=== PATIENT | male | born 1945 | race Caucasian/White ===

== ENCOUNTER 2019-07-04 10:31 | Emergency (ER) | payer MEDICARE, OTHER ==
[~2019-07-04] VITALS: Ht 177.8 cm; Wt 106.6 kg
--- OUTSIDE RECORDS SUMMARY | ~2019-07-04 | XMS | Encounter Summary ---
Demographics + + + | Address | [address] | | | [place] [address] | + + + | Home Phone | | + + + | Preferred Language | Unknown | + + + | Marital Status | | + + + | Pentecostalism Affiliation | 1027 | + + + | Race | Unknown | + + + | Ethnic Group | Unknown | + + + Author + + + | Author | [facility] | | | and [place] | + + + | Organization | [facility] | | | and [place] | + + + | Address | Unknown | + + + | Phone | Unavailable | + + + Support + + +---------+ + | Name | Relationship | Address | Phone | + + +---------+ + | Kailee Arce | ECON | Unknown | | + + +---------+ + Care Team Providers + +------+ + | Care Gas Turbine Assembler Name | Role | Phone | + +------+ + | Ralph Xavier MD | PCP | | + +------+ + Reason for Visit +---------+ + | Reason | Comments | +---------+ + | Results | | +---------+ + Encounter Details +--------+ + + + + | Date | Type | Department | Care Team | Description | +--------+ + + + + | 07/01/ | Telephone | [facility] [place] | Charlotte Turner, | Results | | 2016 | | CARDIOLOGY [address] | MD [address] | | | | | [place], | [place], [place] | | | | | [place] [address] | [address] | | | | | [phone] | | | +--------+ + + + + Social History + +-------+ +--------+------+ | Tobacco Use | Types | Packs/Day | Years | Date | | | | | Used | | + +-------+ +--------+------+ | Never Smoker | | | | | + +-------+ +--------+------+ + +---+---+---+ | Smokeless Tobacco: | | | | | Never Used | | | | + +---+---+---+ + + +---------+ + | Alcohol Use | Drinks/Week | oz/Week | Comments | + + +---------+ + | Not Asked | 0 Standard drinks | 0.0 | | | | or equivalent | | | + + +---------+ + + + + | Sex Assigned at | Date Recorded | | | | + + + | Not on file | | + + + + + + + | Job Start Date | Occupation | Industry | + + + + | Not on file | Not on file | Not on file | + + + + + + + + | Travel History | Travel Start | Travel End | + + + + + + | No recent travel history available. | + + documented as of this encounter Plan of Treatment Not on filedocumented as of this encounter Visit Diagnoses Not on filedocumented in this encounter"
--- OUTSIDE RECORDS SUMMARY | ~2019-07-04 | XMS | Encounter Summary ---
Demographics + + + | Address | [address] | | | [place] [address] | + + + | Home Phone | | + + + | Preferred Language | Unknown | + + + | Marital Status | | + + + | Latter-Day Affiliation | 1027 | + + + | Race | Unknown | + + + | Ethnic Group | Unknown | + + + Author + + + | Author | [facility] | | | and [place] | + + + | Organization | [facility] | | | and [...] Team Providers + +------+ + | Care Barker Operator Name | Role | Phone | + +------+ + | Ralph Xavier MD | PCP | | + +------+ + Reason for Visit +--------+ + | Reason | Comments | +--------+ + | Other | patient needs to be seen in Cardiology soon | +--------+ + Encounter Details +--------+ + + + + | Date | Type | Department | Care Team | Description | +--------+ + + + + | 10/29/ | Telephone | [facility] [place] | Umberto Wren MD | Other (patient needs | | 2017 | | CARDIOLOGY [address] | [address] | to be seen in | | | | [place], | [place] | Cardiology soon) | | | | [place] [address] | [address] | | | | | [phone] | | | +--------+ + + + [...] Comments | + + +---------+ + | No | 0 Standard drinks | 0.0 | [...]
--- OUTSIDE RECORDS SUMMARY | ~2019-07-04 | XMS | Encounter Summary ---
Demographics + + + | Address | [address] | | | [place] [address] | + + + | Home Phone | | + + + | Preferred Language | Unknown | + + + | Marital Status | | + + + | Christianity Affiliation | 1027 | + + + | Race | Unknown | + + + | Ethnic Group | Unknown | + + + Author + + + | Author | [facility] | | | and [place] | + + + | Organization | [facility] | | | and [...] Team Providers + +------+ + | Care Excavation Laborer Name | Role | Phone | + [...] [address] | | | | | [place], | [place], [place] | | | | | [place] [address] | [address] | | | | | [phone] | | | +--------+ + + + [...]
--- OUTSIDE RECORDS SUMMARY | ~2019-07-04 | XMS | Encounter Summary ---
Demographics + + + | Address | [address] | | | [place] [address] | + + + | Home Phone | | + + + | Preferred Language | Unknown | + + + | Marital Status | | + + + | Evangelical Affiliation | 1027 | + + + | Race | Unknown | + + + | Ethnic Group | Unknown | + + + Author + + + | Author | [facility] | | | and [place] | + + + | Organization | [facility] | | | [...] Team Providers + +------+ + | Care Real Estate Operations Manager Name | Role | Phone | + +------+ + | Ralph Xavier MD | PCP | | + +------+ + Reason for Visit + + + | Reason | Comments | + + + | Lab Results | | + + + Encounter Details +--------+ + + + + | Date | Type | Department | Care Team | Description | +--------+ + + + + | 03/02/ | Telephone | [facility] | Kristen Luke | Lab Results | | 2019 | | CARDIOLOGY [place] | [address] | | | | | [address] | [address] | | | | | [address] | [place] [address] | | | | | [place], [place] | [phone] | | | | | [address] | | | | | | [phone] | | | +--------+ + + + [...]
--- OUTSIDE RECORDS SUMMARY | ~2019-07-04 | XMS | Encounter Summary ---
Demographics + + + | Address | [address] | | | [place] [address] | + + + | Home Phone | | + + + | Preferred Language | Unknown | + + + | Marital Status | | + + + | Moravian Affiliation | 1027 | + + + | Race | Unknown | + + + | Ethnic Group | Unknown | + + + Author + + + | Author | [facility] | | | and [place] | + + + | Organization | [facility] | | | [...] Team Providers + +------+ + | Care Filter Machine Operator Name | Role | Phone | + +------+ + | Ralph Xavier MD | PCP | | + +------+ + Reason for Visit + + + | Reason | Comments | + + + | Follow-up | | + + + Encounter Details +--------+---------+ + + + | Date | Type | Department | Care Team | Description | +--------+---------+ + + + | 11/20/ | Office | [facility] [place] | Yue, Charlotte Catie, | Atherosclerosis of | | 2016 | Visit | CARDIOLOGY [address] | MD [address] | [place] coronary | | | | [place], | [place], [place] | artery of [place] | | | | [place] [address] | [address] | heart without angina | | | | [phone] | | pectoris (Primary | | | | | | Dx); Pure | | | | | | hypercholesterolemia | | | | | | ; S/P drug eluting | | | | | | coronary stent | | | | | | placement | +--------+---------+ + + + Social History + +-------+ [...] + + documented as of this encounter Last Filed Vital Signs + + + + + | Vital Sign | Reading | Time Taken | Comments | + + + + + | Blood Pressure | 142/72 | 11/21/2015 10:53 AM | | | | | PDT | | + + + + + | Pulse | 66 | 11/21/2015 10:53 AM | | | | | PDT | | + + + + + | Temperature | - | - | | + + + + + | Respiratory Rate | 18 | 11/21/2015 10:53 AM | | | | | PDT | | + + + + + | Oxygen Saturation | - | - | | + + + + + | Inhaled Oxygen | - | - | | | Concentration | | | | + + + + + | Weight | 104.8 kg (231 lb) | 11/21/2015 10:53 AM | | | | | PDT | | + + + + + | Height | 177.8 cm (5' 10") | 11/21/2015 10:53 AM | | | | | PDT | | + + + + + | Body Mass Index | 33.15 | 11/21/2015 10:53 AM | | | | | PDT | | + + + + + documented in this encounter Progress Notes Charltote Turner MD - 11/21/2015 3:07 PM PDTFormatting of this note might be different fr om the original. PATIENT NAME: Raz Arce : 1945: AGE: 70 y.o. PRIMARY CARE: Ralph Xavier MD OUTPATIENT FOLLOW UP VISIT Date of Service: 11/21/2015 HISTORY OF PRESENT ILLNESS: Raz Arce is a 70 y.o. male with a history of STEMI. He is being seen today for foll ow up . He been working really hard. He is in the midst of moving and has done a lot of physical e xertion last week he had some second long discomforts that concerned him. He has not had an ything that lasted for even a minute or was long enough to take nitro. I had the Holter monitor done which did not show any significant ventricular dysrhythmia He has continued to lose weight. Diet is good. Blood sugars are good - no hypoglycemia MEDICAL, SURGICAL, AND PERSONAL HISTORY Past Medical, Surgical, Family, and Social History are reviewed in EPIC. 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 30 tablet 11 atorvaSTATin (LIPITOR) 80 MG tablet Take 1 tablet by mouth nightly. 30 tablet 11 glipiZIDE (GLUCOTROL XL) 10 MG 24 hr tablet hydrochlorothiazide 25 mg tablet Take 25 mg by mouth Daily. losartan (COZAAR) 100 MG tablet Take 1 tablet by mouth Daily. 30 tablet 11 montelukast (SINGULAIR) 10 mg tablet Take 1 tablet by mouth nightly. 30 tablet 11 nitroglycerin (NITROSTAT) 0.[address] 1 tablet under the tongue every 5 neyda karthik as needed for Chest pain. 30 tablet 11 ONE TOUCH ULTRA TEST strip ONETOUCH DELICA LANCETS 33G MISC pantoprazole (PROTONIX) 20 mg tablet Take 1 tablet by mouth every morning (before break fast). 30 tablet 11 prasugrel (EFFIENT) 10 mg TABS Take 1 tablet by mouth Daily. 30 tablet 11 No current facility-administered medications for this visit. ALLERGIES Allergies Allergen Reactions Meperidine ROS No problems with medications. No bleeding or significant bruising. His only chest discomfort is the single stabs lasting no more than seconds. Is not had any significant dyspnea or exertional problems. 10 system review is otherwise noncontributory OBJECTIVE: PHYSICAL EXAM BP 142/72 mmHg | Pulse 66 | Resp 18 | Ht 1.778 m (5' 10") | Wt 104.781 kg (231 lb) | BMI 33 .15 kg/m2 Physical Exam Constitutional: He is oriented to person, place, and time. He appears well-developed and we ll-nourished. HENT: Head: Atraumatic. Eyes: Conjunctivae are normal. Neck: Neck supple. No JVD present. Cardiovascular: Normal rate and regular rhythm. Exam reveals no gallop and no friction rub . No murmur heard. Pulmonary/Chest: Effort normal and breath sounds normal. Abdominal: Soft. Musculoskeletal: He exhibits no edema. Lymphadenopathy: He has no cervical adenopathy. Neurological: He is oriented to person, place, and time. Skin: Skin is warm and dry. Psychiatric: He has a normal mood and affect. LAB RESULTS reviewed during visit today primarily from [facility]: LIPID Lab Results Component Value Date CHOL 153 06/07/2015 TRIG 122 06/07/2015 HDL 38 06/07/2015 LDL 91 06/07/2015 CHOLHDL 4.0 06/07/2015 CHEMISTRY Lab Results Component Value Date GLU 165* 07/02/2015 NA 139 07/02/2015 K 4.1 07/02/2015 CL 102 07/02/2015 CO2 29 07/02/2015 CALCIUM 9.1 07/02/2015 ALKPHOS 56 06/06/2015 AST 33 06/06/2015 ALT 25 06/06/2015 BILITOT 0.6 06/06/2015 CREA 1.44* 07/02/2015 BUN 13 07/02/2015 HEMATOLOGY Lab Results Component Value Date WBC 9.7 06/24/2015 HGB 14.4 06/24/2015 HCT 42.9 06/24/2015 PLT 181 06/24/2015 ASSESSMENT: ASHD with anterior STEMI SHELLEY extending from LAD to the major diagonal - closure of the very distal LAD. EF 50% Atypical stabbing chest discomfort. He has not had any more angina No CHF Dyslipidemia on medical Rx PLAN: Don't over do with moving Continue diet and aerobic exercise Follow up in April - I would be happy to see him sooner if he has any problems In May we will be able to stop EFFIENT Electronically signed by: Charlotte Turner MD [facility] 11/21/2015 Portions of this chart may have been created with [employer] voice recognition software. Occasi onal wrong-word or sound-alike substitutions may have occurred due to the inherent rodriguez itations of voice recognition software. Please read the chart carefully and recognize, using context, where these substitutions have occurred. documented in this encounter Plan of Treatment Not on filedocumented as of this encounter Visit Diagnoses + + | Diagnosis | + + | Atherosclerosis of [place] coronary artery of [place] heart without angina pectoris - | | Primary | + + | Pure hypercholesterolemia | + + | S/P drug eluting coronary stent placement | + + documented in this encounter
--- OUTSIDE RECORDS SUMMARY | ~2019-07-04 | XMS | Encounter Summary ---
Demographics + + + | Address | [address] | | | [place] [address] | + + + | Home Phone | | + + + | Preferred Language | Unknown | + + + | Marital Status | | + + + | Baptism Affiliation | 1027 | + + + | Race | Unknown | + + + | Ethnic Group | Unknown | + + + Author + + + | Author | [facility] | | | and [place] | + + + | Organization | [facility] | | | [...] Team Providers + +------+ + | Care Dispatcher Clerk Name | Role | Phone | + +------+ + | Ralph Xavier MD | PCP | | + +------+ + Reason for Visit + + + | Reason | Comments | + + + | Appointment | needs 3 mo fup in sept | + + + Encounter Details +--------+ + + + + | Date | Type | Department | Care Team | Description | +--------+ + + + + | 09/19/ | Telephone | [facility] | Charlotte Turner, | Appointment (needs 3 | | 2016 | | CARDIOLOGY [address] | MD [address] | mo fup in nov) | | | | [place], | [place] | | | | | [place] [address] | [address] | | | | | [phone] | | | +--------+ + + + [...]
--- OUTSIDE RECORDS SUMMARY | ~2019-07-04 | XMS | Encounter Summary ---
Demographics + + + | Address | [address] | | | [place] [address] | + + + | Home Phone | | + + + | Preferred Language | Unknown | + + + | Marital Status | | + + + | Latter-Day Affiliation | 1027 | + + + | Race | Unknown | + + + | Ethnic Group | Unknown | + + + Author + + + | Author | [facility] | | | and [place] | + + + | Organization | [facility] | | [...] Team Providers + +------+ + | Care Bid Analyst Name | Role | Phone | + +------+ + | Ralph Xavier MD | PCP | | + +------+ + Reason for Visit Auth/Cert +--------+--------+ + + + + | Status | Reason | Specialty | Diagnoses / | Referred By | Referred To | | | | | Procedures | Contact | Contact | +--------+--------+ + + + + | | | | Diagnoses | | | | | | | ANGINA, | | | | | | | CHEST PAIN | | | | | | | Procedures | | | | | | | CV LHC | | | +--------+--------+ + + + + Encounter Details +--------+ + + + + | Date | Type | Department | Care Team | Description | +--------+ + + + + | 05/27/ | Hospital | [facility] | Charlotte Turner, | | | 2016 | Encounter | MED CTR CV [facility] OP | [address] | | | | | [address] | [place] | | | | | [place] | [id number] | | | | | [id number] | | | | | | [phone] | | | +--------+ + + + [...] + + + | Blood Pressure | 130/60 | 05/27/2016 12:00 PM | | | | | PDT | | + + + + + | Pulse | 55 | 05/27/2016 12:00 PM | | | | | PDT | | + + + + + | Temperature | 36.4 C (97.5 F) | 05/27/2016 7:40 AM | | | | | PDT | | + + + + + | Respiratory Rate | 20 | 05/27/2016 12:00 PM | | | | | PDT | | + + + + + | Oxygen Saturation | 95% | 05/27/2016 12:00 PM | | | | | PDT | | + + + + + | Inhaled Oxygen | - | - | | | Concentration | | | | + + + + + | Weight | 112.9 kg (249 lb) | 05/27/2016 7:40 AM | | | | | PDT | | + + + + + | Height | 177.8 cm (5' 10") | 05/27/2016 7:40 AM | | | | | PDT | | + + + + + | Body Mass Index | 35.73 | 05/27/2016 7:40 AM | | | | | PDT | | + + + + + documented in this encounter Discharge Summaries Charlotte Turner MD - 05/27/2016 10:07 AM PDTFormatting of this note might be different fr om the original. DISCHARGE SUMMARY PATIENT NAME/: Raz Arce, (1945) DATE OF ADMISSION: 05/27/2016 DATE OF DISCHARGE: 05/27/2016 DISCHARGING PHYSICIAN: Charlotte Turner MD ADMITTING DIAGNOSIS: Angina, class IV Discharge Diagnosis: Hypertensive heart disease PRIMARY CARE PROVIDER: Ralph Xavier MD DISPOSITION: Discharge to home BRIEF HOSPITAL COURSE: Please see the history and physical at the time of admission. Briefly, Mr. Arce is a 70 y.o. male who was admitted on 05/27/2016 with Angina, class IV . He presented to the clinic on 05/26/16 with a history that H/O ASHD and STEMI 05/2015 He was doing well up until end apr. He developed recurrent exertional symptoms and sym ptoms that occurred at rest as well. In February and March and was very active shoveling snow without symptoms. Then the end of April he did only 10 minutes of snow and noted he felt weak, fatigued and had left chest pain. Now he can not even walk to the mailbox. Yesterday he tried to mow. He noted the same symptoms. He had to stop. Then after he stopped he was able to go on and felt better. He felt like his pulse was stronger. He has felt like his pulse is weak for the last month. He has not had dyspnea. He has not slept in a bed for years - long before his DC If he would lie down he could not breath. He underwent an angiogram on 05/27/16: Hemodynamics: Left ventricular end-diastolic pressure (LVEDP) was 25 mm Hg. There was no gradient a cross the aortic valve. Left Ventriculography: EF 65% no MR. Small area of hypokinesis at the apex. Left main coronary artery: 10% Large vessel Left anterior descending coronary artery: No restenosis in the stented segment. Apical LAD is not seen (small area as before). There are no collaterals to this apical LAD seen. Diagonal branch: Large. No restenosis. Circumflex coronary artery: Huge system. Dominant and no disease. 4th marginal has 20% lesion. As does the 5th marginal. No significant disease is seen in the circumflex system Right coronary artery: Small. Non dominant. No significant disease. CONCLUSIONS: 1. Symptoms are due to hypertensive heart disease 2. Will adjust medications He can not take a beta julisa due to bradycardia. Norvasc was added and HCTZ was changed to Lasix 20 mg a day. HOSPITAL PROBLEMS: Active Problems: Angina, class IV Hypertensive heart disease without heart failure MASTER PROBLEM LIST: Patient Active Problem List Diagnosis Date Noted POA Angina, class IV 05/27/2016 Unknown Hypertensive heart disease without heart failure 05/27/2016 Unknown Coronary artery disease involving [place] coronary artery of [place] heart without angina pectoris 07/02/2015 Unknown S/P PTCA (percutaneous transluminal coronary angioplasty) 07/02/2015 Unknown Diabetic neuropathy associated with type 2 diabetes mellitus 06/07/2015 Yes Chronic renal insufficiency 06/07/2015 Yes Mild intermittent asthma 06/07/2015 Yes STEMI involving oth coronary artery of anterior wall 06/06/2015 Unknown Essential hypertension 06/06/2015 Yes Type 2 diabetes mellitus 06/06/2015 Yes VITALS: Temp: 36.4 C (97.5 F) BP: 151/74 mmHg Pulse: 70 Resp: 20 SpO2: 96 % WEIGHT: Today's Weight: 112.946 kg (249 lb) Admit Weight: 112.946 kg (249 lb) BRIEF EXAM TODAY: General Appearance - alert, in no distress Heart - regular rate and rhythm, S1 and S2 normal, no murmur, rub, or gallop. Lungs - clear to auscultation bilaterally Musc/Skel - moves all extremities Extremities - no cyanosis. no significant edema Neurologic - no focal deficits no hematoma CONSULTATION: none DIAGNOSTIC STUDIES: Imaging: ECG: Selected Labs: Recent Labs Lab 05/27/16 0750 05/26/16 1244 WBC -- 6.9 HGB -- 14.2 HCT -- 43.3 PLT -- 203 NA 144 142 K 4.2 3.9 BUN 11 11 CREA 1.45* 1.43* GLU 145* 176* CALCIUM 8.7 9.1 No results for input(s): BNP, HDL, LDL, TRIG in the last 168 hours. Invalid input(s): CKTOTAL, TROPONINI Recent Results (from the past 24 hour(s)) ECG 12 lead Collection Time: 05/26/16 12:12 Result Value Ref Range VENTRICULAR RATE EKG 52 BPM ATRIAL RATE 52 BPM P-R INTERVAL 124 ms QRS DURATION 104 ms Q-T INTERVAL 412 ms Q-T INTERVAL (CORRECTED) 383 ms P WAVE AXIS 41 degrees QRS AXIS 43 degrees T AXIS 90 degrees INTERPRETATION TEXT Sinus bradycardia Septal infarct (cited on or before 06-JUN-2015) Abnormal ECG When compared with ECG of 23-JUL-2015 10:37, premature atrial complexes are no longer present Questionable change in initial forces of Anterior leads Nonspecific T wave abnormality has replaced inverted T waves in Anterior leads Confirmed by CHARLOTTE TURNER MD ([id number]) on 05/26/2016 4:27:10 PM Comprehensive Metabolic Panel Collection Time: 05/26/16 12:44 Result Value Ref Range NA 142 136-149 mmol/L K 3.9 3.5-5.1 mmol/L CL 102 98-109 mmol/L CO2 28 24-31 mmol/L ANION GAP 12 3-16 mmol/L GLUCOSE 176 (H) 70-109 mg/dL BUN 11 7-18 mg/dL Creatinine, Serum/Plasma 1.43 (H) 0.60-1.30 mg/dL eGFR if not 49 (L) >=60 mL/min/1.73m2 CALCIUM 9.1 8.3-10.5 mg/dL ALBUMIN 3.5 3.2-5.0 g/dL BILIRUBIN TOTAL 0.5 0.1-1.5 mg/dL Total protein 7.0 6.0-7.8 g/dL AST 24 10-42 U/L ALT 25 6-45 U/L ALK PHOS 79 40-110 U/L GLOBULIN 3.5 2.1-3.8 g/dL Albumin/Globulin ratio 1.0 0.8-2.0 BUN/CREA 7.7 CBC with Differential Collection Time: 05/26/16 12:44 Result Value Ref Range WBC 6.9 4.0-11.0 K/uL RBC 4.85 4.30-5.70 M/uL Hgb 14.2 13.5-18.0 g/dL Hct 43.3 40.0-51.0 % MCV 89.3 83.0-101.0 fL MCH 29.2 28.0-35.0 pg MCHC 32.7 32.0-36.0 g/dL RDW-CV 13.3 <15.0 % Platelet Count 203 140-440 K/uL MPV 6.9 fL % Neutrophils 57.5 45.0-82.0 % % Lymphocytes 25.8 20.0-45.0 % % Monocytes 10.7 4.0-12.0 % % Eosinophils 5.1 (H) 0.0-5.0 % % Basophils 0.9 0.0-1.0 % Absolute Neutrophils 3.90 1.80-8.50 K/uL Absolute Lymphocytes 1.80 0.60-3.20 K/uL Absolute Monocytes 0.70 0.00-1.00 K/uL Absolute Eosinophils 0.30 0.00-0.40 K/uL Absolute Basophils 0.10 0.00-0.10 K/uL Troponin I Collection Time: 05/26/16 12:44 Result Value Ref Range Troponin I 0.01 <0.06 ng/mL Basic Metabolic Panel Collection Time: 05/27/16 7:50 Result Value Ref Range NA 144 136-149 mmol/L K 4.2 3.5-5.1 mmol/L CL 107 98-109 mmol/L CO2 29 24-31 mmol/L ANION GAP 8 3-16 mmol/L GLUCOSE 145 (H) 70-109 mg/dL BUN 11 7-18 mg/dL Creatinine, Serum/Plasma 1.45 (H) 0.60-1.30 mg/dL eGFR if not 48 (L) >=60 mL/min/1.73m2 CALCIUM 8.7 8.3-10.5 mg/dL BUN/CREA 7.6 POC Glucose Collection Time: 05/27/16 8:09 Result Value Ref Range Glucose, POC 122 70-150 mg/dL MEDS: Discharge Medications New Medications Details amLODIPine 5 mg tablet Take 1 tablet by mouth Daily. aka: NORVASC furosemide 20 mg tablet Take 1 tablet by mouth Daily. Replaces HCTZ. Begin 05/28/16 aka: LASIX Unchanged Medications Details aspirin 81 mg chewable tablet Take 1 tablet by mouth Daily. atorvaSTATin 80 MG tablet Take 1 tablet by mouth nightly. aka: LIPITOR glipiZIDE 10 mg ER tablet Take 10 mg by mouth daily (with breakfast). aka: GLUCOTROL XL losartan 100 MG tablet Take 1 tablet by mouth Daily. aka: COZAAR montelukast 10 mg tablet Take 1 tablet by mouth nightly. aka: SINGULAIR nitroglycerin 0.[address] 1 tablet under the tongue every 5 minutes as needed for Chest pain. aka: NITROSTAT ONE TOUCH ULTRA TEST strip Generic drug: glucose blood test strips ONETOUCH DELICA LANCETS 33G Misc Discontinued Medications hydroCHLOROthiazide 25 mg tablet prasugrel 10 mg Tabs aka: EFFIENT PATIENT INSTRUCTIONS: ACTIVITY: don't lift greater than a pound with the right hand for 2 days. see discharge instructions DIET: diabetic, low fat, low cholesterol diet FOLLOW-UP: Follow up with Dr Turner in June .. Time spent on discharge planning: less than 30 minutes Electronically signed by Charlotte Turner MD at 10:18 AM PDTdocumented in this encounter Discharge Instructions Instructions Charlotte Turner MD - 05/27/2016Formatting of this note might be different fr om the original. Cardiac Catheterization You may have had angina, dizziness, or other symptoms of heart trouble. To help diagnose yo ur problem, your doctor may suggest having a cardiac catheterization. This common procedure is sometimes also used to treat a heart problem. The catheter may be placed in the arm or the groin. Before the procedure 1. Tell your doctor what medicines you take and about any allergies you have. 2. Don t eat or drink anything after midnight, the night before the procedure. 3. You may be admitted to the hospital on the day of the procedure. 4. Know that any hair on the skin where the catheter will be inserted may be removed. You m ay be given medication to relax before the procedure. During the procedure 1. You will receive a local anesthetic to prevent pain at the insertion site. 2. The doctor inserts an introducing sheath into a blood vessel in your groin or arm. 3. Through the sheath, a long, thin tube called a catheter is placed inside the artery and guided toward your heart. 4. To perform different tests or check other parts of the heart, the doctor inserts a new c atheter or moves the catheter or X-ray machine. 5. For some tests, a contrast dye is injected through the catheter. After the procedure 1. Your doctor or nurse will tell you how long to lie down and keep the insertion site stil l. 2. If the insertion site was in your groin, you may need to lie down with your leg still fo r several hours. 3. A nurse will check your blood pressure and the insertion site. 4. You may be asked to drink fluid to help flush the contrast liquid out of your system. 5. Have someone drive you home from the hospital. 6. It s normal to find a small bruise or lump at the insertion site. These common side ef fects should disappear within a few weeks. When to call your healthcare provider Call your healthcare provider right away if you have any of the followin. Angina (chest pain). 2. Pain, swelling, redness, bleeding, or drainage at the insertion site. 3. Severe pain, coldness, or a bluish color in the leg or arm that held the catheter. 4. Blood in your urine, black or tarry stools, or any other kind of bleeding. 5. Fever of 100.4F (38C) or higher, or as directed by your healthcare provider Date Last Reviewed: 05/03/201319991023-7757 [employer]. [address] [place] [address]. All righ ts reserved. This information is not intended as a substitute for professional medical care. Always follow your healthcare professional's instructions. For 24 Hours: Do NOT drive For 2 days: Do NOT lift more than 1 pound with the affected arm. Keep the wrist dry, clean. No dishwashing, hot tub. Avoid wrist movement such as bike riding, golf. For 5 days: Avoid vigorous exercise that uses the affected arm. Pain It is common to be sore for 1 to 2 days at the catheter insertion site. You may take ac etaminophen (Tylenol) for pain relief. Follow the dosing instructions on the package. Take your regular aspirin as prescribed. Do NOT take other products that contain aspirin. Do NOT take other anti-inflammatory pr oducts such as ibuprofen (Advil, Motrin) or naproxen (Aleve, Naprosyn). They may cause incr eased bleeding. If you have severe pain at the catheter site, call your provider. Site Care You may remove the dressing or bandage the day after your procedure. Keep site clean and dry. Clean the site gently with mild soap and water. Re-apply a cl ibeth Band-Aid, if needed. It is normal to have a small bruise or lump at the insertion site. You may shower the day after your procedure, but avoid tub baths, hot tubs or swimming f or the next 2 days. Inspect the site everyday for infection. (see " When to Call for Help" on the next page ) Fluids Drink an extra 2 quarts of water, in addition to your normal fluid intake in the next 24 hours. This helps the body eliminate the contrast dye given to you during your procedure. If you are on a fluid restriction follow orders from your physician. When to Call for Help If you have bleeding at the site, apply pressure to the site with clean fingers for 10 neyda karthik. If the bleeding does not stop in 10 minutes, or there is a large amount of bleeding, mitzy l 9-1-1. Continue to apply pressure over the site until help arrives. If the bleeding stops, sit quietly for 2 hours while you keep the affected wrist straigh t. Call the doorkeeper who did your procedure as soon as possible. Other Concerns Call the doorkeeper who did your procedure if you have: Any of these Signs of Infection: Redness Fever higher than 101.5 degrees F or 38.6 degrees C Change in the bruise or lump. Numbness in your arm or wrist. Severe pain that is not relieved by Tylenol. Follow-up Care Continue your prescribed medications unless instructed otherwise. Follow-up with your primary health care provider and doorkeeper after your procedure, as instructed. If you have questions or concerns about your cardiac catheterization procedure, call the number below. [phone] documented in this encounter Medications at Time of Discharge + + + +---------+ + + | Medication | Sig | Dispensed | Refills | Start | End Date | | | | | | Date | | + + + +---------+ + + | aspirin 81 mg | Take 1 tablet by | 30 | 11 | 06/08/19 | | | chewable tablet | mouth Daily. | tablet | | 16 | | + + + +---------+ + + | atorvaSTATin | Take 1 tablet by | 30 | 11 | 06/08/19 | | | (LIPITOR) 80 MG | mouth nightly. | tablet | | 16 | | | tablet | | | | | | + + + +---------+ + + | glipiZIDE | Take 10 mg by mouth | | 0 | 05/29/19 | | | (GLUCOTROL XL) 10 MG | daily (with | | | 16 | | | 24 hr tablet | breakfast). | | | | | + + + +---------+ + + | losartan (COZAAR) | Take 1 tablet by | 30 | 11 | 06/08/19 | | | 100 MG tablet | mouth Daily. | tablet | | 16 | | + + + +---------+ + + | montelukast | Take 1 tablet by | 30 | 11 | 06/08/19 | | | (SINGULAIR) 10 mg | mouth nightly. | tablet | | 16 | | | tablet | | | | | | + + + +---------+ + + | nitroglycerin | Place 1 tablet under | 30 | 11 | 06/08/19 | | | (NITROSTAT) 0.4 mg | the tongue every 5 | tablet | | 16 | | | SL tablet | minutes as needed | | | | | | | for Chest pain. | | | | | + + + +---------+ + + | ONE TOUCH ULTRA | | | 0 | 06/12/19 | | | TEST strip | | | | 16 | | + + + +---------+ + + | JACKIESOLEDADLALI CORTES | | | 0 | 06/12/19 | | | TREMAYNE 33G MISC | | | | 16 | | + + + +---------+ + + | amLODIPine | Take 1 tablet by | 30 | 11 | 05/28/19 | | | (NORVASC) 5 mg | mouth Daily. | tablet | | 17 | 9 | | tablet | | | | | | + + + +---------+ + + | furosemide (LASIX) | Take 1 tablet by | 90 | 3 | 05/28/19 | | | 20 mg tablet | mouth Daily. | tablet | | 17 | 7 | | | Replaces HCTZ. | | | | | | | Begin 05/28/16 | | | | | + + + +---------+ + + documented as of this encounter Plan of Treatment Not on filedocumented as of this encounter Procedures + +--------+ + + + | Procedure Name | Priori | Date/Time | Associated Diagnosis | Comments | | | ty | | | | + +--------+ + + + | CV LHC | Routin | 05/27/2016 | | Results for this | | | e | 9:27 AM | | procedure are in the | | | | PDT | | results section. | + +--------+ + + + | POC GLUCOSE | Routin | 05/27/2016 | | Results for this | | | e | 8:09 AM | | procedure are in the | | | | PDT | | results section. | + +--------+ + + + | BASIC METABOLIC | STAT | 05/27/2016 | | Results for this | | PANEL | | 7:50 AM | | procedure are in the | | | | PDT | | results section. | + +--------+ + + + documented in this encounter Results CV CARDIAC PROCEDURE (05/27/2016 9:27 AM PDT) + + | Specimen | + + | | + + + + + | Narrative | Performed At | + + + | Charlotte Haddad | | | MD Yue 05/27/2016 10:00Roger Jaylen Arce is a 70 y.o. male | | | patient.No diagnosis found.Past Medical History Diagnosis Date | | | Diabetes mellitus ([facility]) | | | Hypertension | | | Reflux esophagitis | | | Food impaction of esophagus | | | Acute ST elevation myocardial infarction (STEMI) involving left | | | anterior descending (LAD) coronary artery ([facility]) 05/2015 | | | Dyslipidemia Blood pressure 151/74, pulse 70, temperature 36.4 | | | C (97.5 F), temperature source Temporal, resp. rate 20, height | | | 1.778 m (5' 10"), weight 112.946 kg (249 lb), SpO2 96 %. CV Cardiac | | | ProcedureDate/Time: 05/27/2016 9:59Performed by: CHARLOTTE TURNER | | | AAuthorized by: CHARLOTTE TURNER AConsent: Verbal consent obtained. | | | Written consent obtained.Risks and benefits: risks, benefits and | | | alternatives were discussedConsent given by: patientPatient | | | understanding: patient states understanding of the procedure being | | | performedPatient consent: the patient's understanding of the procedure | | | matches consent givenProcedure consent: procedure consent matches | | | procedure scheduledRelevant documents: relevant documents present and | | | verifiedTest results: test results available and properly labeledSite | | | marked: the operative site was markedImaging studies: imaging studies | | | availableRequired items: required blood products, implants, devices, | | | and special equipment availablePatient identity confirmed: verbally | | | with patientTime out: Immediately prior to procedure a "time out" was | | | called to verify the correct patient, procedure, equipment, support | | | staff and site/side marked as required.Preparation: Patient was | | | prepped and draped in the usual sterile fashion.Local anesthesia used: | | | yesLocal anesthetic: lidocaine 1% without epinephrinePatient sedated: | | | yesSedation type: moderate (conscious) sedationSedatives: fentanyl | | | and midazolamVitals: Vital signs were monitored during | | | sedation.Patient tolerance: Patient tolerated the procedure well with | | | no immediate complications [facility] LEFT CARDIAC | | | CATHETERIZATION REPORT PATIENT NAME: Raz Hinton OF | | | : 1945MEDICAL RECORD NUMBER: [id number] OF | | | PROCEDURE: | | | 05/27/2016 | | | | | | PRIMARY CARE PROVIDER: Ralph Xavier, | | | OMARIDIGN[facility] HOSPITALRenetta SIGN PAINTER APPRENTICE: Charlotte Turner MD, [facility], [facility] PRE-PROCEDURE | | | DIAGNOSIS: Class 4 anginaPOST-PROCEDURE DIAGNOSIS: hypertensive | | | heart disease PROCEDURES PERFORMED: 1. Left Heart | | | Catheterization for pressures2. Coronary Angiography3. Left | | | Ventriculography DESCRIPTION OF PROCEDURE: Informed consent was | | | obtained from the patient, and a time-out was performed to verify the | | | patient's identification and planned procedure. Please refer to the | | | computer log entry form for precise details. The patient's right | | | radial artery was sterilely prepped. Arterial access was achieved | | | with micropuncture kit. Patient was then given intravenous heparin | | | as well as intra-arterial nitroglycerin and Nicardipine through the | | | sheath. A 5 Anguillan JR4 was advanced to the descending aorta over a J | | | Wire. This catheter was used to perform right coronary angiography | | | . An LBU 3.0 was used for the left. A pigtail was advanced and | | | used to perform an LV gram. A pullback across the valve was used to | | | assess if there was a gradient across the aortic valve. The TR | | | band occluder device was utilized to achieve successful hemostasis of | | | the radial artery. There were no immediate complications. | | | Estimated blood loss was: 7 cc. Fluro Time: Contrast: 100 mls of | | | Omnipaque 350 Moderate sedation start time: 0848. Moderate sedation | | | stop time: 0920. ICharlotte MD, reviewed the patient's | | | pre-sedation assessment and vital signs, supervised and directed the | | | Moderate Sedation from administration to patient stabilization for | | | recovery. FINDINGS:Hemodynamics:Left ventricular end-diastolic | | | pressure (LVEDP) was 25 mm Hg. There was no gradient across the | | | aortic valve. Left Ventriculography: EF 65% no MR. Small area of | | | hypokinesis at the apex. Left main coronary artery: 10% Large | | | vesselLeft anterior descending coronary artery: No restenosis in the | | | stented segment. Apical LAD is not seen (small area as before). | | | There are no collaterals to this apical LAD seen.Diagonal branch: | | | Large. No restenosis.Circumflex coronary artery: Huge system. | | | Dominant and no disease. 4th marginal has 20% lesion. As does the 5th | | | marginal. No significant disease is seen in the circumflex | | | systemRight coronary artery: Small. Non dominant. No significant | | | disease. CONCLUSIONS:1. Symptoms are due to hypertensive heart | | | disease2. Will adjust medications CLINICAL IMPRESSION AND | | | RECOMMENDATIONS Stop EFFIENT Charlotte Turner MD, [facility], [facility] | | | [facility] [place]DATE/TIME: 05/27/2016 9:363 9:36 | | | Portions of this chart were created with [employer] voice recognition | | | software. Occasional wrong-word or | | | | | | sound-alike | | | substitutions may have occurred due to the inherent limitations of | | | voice recognition software. Please read the chart carefully and | | | recognize, using context, where these substitutions have occurred | | | Charlotte Turner05/27/2016 | | |Wire. This catheter was used to perform right coronary | | |angiography . An LBU 3.0 was used for the left. A pigtail was | | |advanced and used to perform an LV gram. A pullback across the | | |valve was used to assess if there was a gradient across the | | |aortic valve. | | | | | |The TR band occluder device was utilized to achieve successful | | |hemostasis of the radial artery. There were no immediate | | |complications. | | | | | | Estimated blood loss was: 7 cc. | | | Fluro Time: | | | | | | Contrast: 100 mls of Omnipaque 350 | | | | | |Moderate sedation start time: 0848. Moderate sedation stop time: | | |0920. I, Charlotte Turner MD, reviewed the patient's | | |pre-sedation assessment and vital signs, supervised and directed | | |the Moderate Sedation from administration to patient | | |stabilization for recovery. | | | | | | | | |FINDINGS: | | |Hemodynamics: | | |Left ventricular end-diastolic pressure (LVEDP) was 25 mm Hg. | | |There was no gradient across the aortic valve. | | | | | |Left Ventriculography: EF 65% no MR. Small area of hypokinesis | | |at the apex. | | |Left main coronary artery: 10% Large vessel | | |Left anterior descending coronary artery: No restenosis in the | | |stented segment. Apical LAD is not seen (small area as before). | | |There are no collaterals to this apical LAD seen. | | |Diagonal branch: Large. No restenosis. | | |Circumflex coronary artery: Huge system. Dominant and no | | |disease. 4th marginal has 20% lesion. As does the 5th marginal. | | |No significant disease is seen in the circumflex system | | |Right coronary artery: Small. Non dominant. No significant | | |disease. | | | | | |CONCLUSIONS: | | |1. Symptoms are due to hypertensive heart disease | | |2. Will adjust medications | | | | | |CLINICAL IMPRESSION AND RECOMMENDATIONS | | |Stop EFFIENT | | | | | |Charlotte Turner MD, [facility], [facility] | | | | | |DATE/TIME: 05/27/2016 9:36 | | |05/27/2016 9:36 | | | | | |Portions of this chart were created with [employer] voice recognition | | |software. Occasional wrong-word or sound-alike substitutions | | |may have occurred due to the inherent limitations of voice | | |recognition software. Please read the chart carefully and | | |recognize, using context, where these substitutions have occurred | | | | | | | | | | | | | | | | | | | | | | | | | | | | | | | | |Charlotte Turner | | |05/27/2016 | | | | | + + + POC Glucose (05/27/2016 8:09 AM PDT) + +-------+ + + + | Component | Value | Ref Range | Performed | Pathologist | | | | | At | Signature | + +-------+ + + + | Glucose, | 122 | 70 - 150 mg/dL | [facility] | | | POC | | | [facility] | | | | | | [facility] | | | | | | CENTER - | | | | | | LABORATORY | | + +-------+ + + + + + | Specimen | + + | Blood | + + + + + + + | Performing | Address | City/State/Zipcode | Phone Number | | Organization | | | | + + + + + | [facility] | [address] | [place] | [phone] | | [facility] | | [address] | | | - LABORATORY | | | | + + + + + Basic Metabolic Panel (05/27/2016 7:50 AM PDT) + + + + + + | Component | Value | Ref Range | Performed | Pathologist | | | | | At | Signature | + + + + + + | Na | 144 | 136 - 149 | [facility] | | | | | mmol/L | [facility] | | | | | | MEDICAL | | | | | | CENTER - | | | | | | LABORATORY | | + + + + + + | K | 4.2 | 3.5 - 5.1 | [facility] | | | | | mmol/L | [facility] | | [facility] | | | MEDICAL | | | | | | CENTER - | | | | | | LABORATORY | | + + + + + + | Cl | 107 | 98 - 109 mmol/L | [facility] | | | | | | [facility] | | | | | | MEDICAL | | | | | | CENTER - | | | | | | LABORATORY | | + + + + + + | CO2 | 29 | 24 - 31 mmol/L | [facility] | | | | | | [facility] | | | | | | [facility]ICAL | | | | | | CENTER - | | | | | | LABORATORY | | + + + + + + | Anion Gap | 8 | 3 - 16 mmol/L | [facility] | | | [facility] | [facility] | | | | | | [facility] | | | | | | CENTER - | | | | | | LABORATORY | | + + + + + + | Glucose | 145 (H) | 70 - 109 mg/dL | [facility] | | [facility] | [facility] | | | | | | [facility] | | | | | | CENTER - | | | | | | LABORATORY | | + + + + + + | BUN | 11 | 7 - 18 mg/dL | [facility] | | | | | | [facility] | | | | | | MEDICAL | | | | | | CENTER - | | | | | | LABORATORY | | + + + + + + | Creatinine | 1.45 (H) | 0.60 - 1.30 | [facility] | | | | | mg/dL | [facility] | | | | | | MEDICAL | | | | | | CENTER - | | | | | | LABORATORY | | + + + + + + | eGFR if not | 48 (L)Comment: | >=60 | [facility] | | | | GLOMERULAR FILTRATION | mL/min/1.73m2 | [facility] | | | [facility] | RATE,ESTIMATED | | MEDICAL | | | | mL/min/1.58p9Htes than | | CENTER - | | | | 60 Chronic kidney | | LABORATORY | | | | disease,if found over a | | | | | | 3-month period.Less than | | | | | | 15 Kidney failureFor | | | | | | | | | | | | Americans,multiply the | | | | | | calculated GFR by 1.21. | | | | | | | | | | + + + + + + | Calcium | 8.7 | 8.3 - 10.5 | [facility] | | | | | mg/dL | [facility] | | | | | | MEDICAL | | | | | | CENTER - | | | | | | LABORATORY | | + + + + + + | BUN/Creatin | 7.6 | | [facility] | | | ine Ratio | | | [facility] | | | | | | MEDICAL | | | | | | CENTER - | | | | | | LABORATORY | | + + + + + + + + | Specimen | + + | Blood | + + + + + + + | Performing | Address | City/State/Zipcode | Phone Number | | Organization | | | | + + + + + | [facility] | [address] | [place] | [phone] | | [facility] | | [address] | | | - LABORATORY | | | | + + + + + documented in this encounter Visit Diagnoses + + | Diagnosis | + + | Angina, class IV (HCC) Other and unspecified angina pectoris | + + | Hypertensive heart disease without heart failure Unspecified hypertensive heart | | disease without heart failure | + + documented in this encounter Administered Medications + +--------+ +--------+------+ + | Medication Order | MAR | Action | Dose | Rate | Site | | | Action | Date | | | | + +--------+ +--------+------+ + | nitroglycerin (NITRO-BID) 2% | Given | 05/28/19 | 1 inch | | Back-Lef | | ointment 1 inch 1 inch, Topical, | | 17 8:37 | | | t Upper | | EVERY 6 HOURS (4 times per day), | | AM PDT | | | | | First dose on Wed05/27/16 at | | | | | | | 0845 | | | | | | + +--------+ +--------+------+ + +---+---+ | | | +---+---+ + +---------+ +--------+-------+ + | sodium chloride 0.9% (NS) | New Bag | 05/28/19 | 1,000 | 125 | Left Arm | | infusion at 125 mL/hr, | | 17 8:11 | mLs | mL/hr | | | Intravenous, CONTINUOUS, Starting | | AM PDT | | | | | 05/27/16 at 0815, For | | | | | | | procedure only, not to exceed 1 | | | | | | | liter., Pre-op | | | | | | + +---------+ +--------+-------+ + +---+---+ | | | +---+---+ documented in this encounter
--- OUTSIDE RECORDS SUMMARY | ~2019-07-04 | XMS | Encounter Summary ---
Demographics + + + | Address | [address] | | | [place] [address] | + + + | Home Phone | | + + + | Preferred Language | Unknown | + + + | Marital Status | | + + + | Mormon Affiliation | 1027 | + + + | Race | Unknown | + + + | Ethnic Group | Unknown | + + + Author + + + | Author | [facility] | | | and [place] | + + + | Organization | [facility] | | | [...] Team Providers + +------+ + | Care Outside Deliverer Name | Role | Phone | + [...] + + | 05/27/ | Hospital | [facility] | Charlotte Turner, | | | 2016 | Encounter | [facility] | [address] | | | | | [address] | [place] | | | | | [place] | [id number] | | | | | [address] | | | | | | [phone] | | | +--------+ + + + [...] bed for years - long before his [place] If he would lie down he could [...] failure 05/27/2016 Unknown Coronary artery disease involving [place] coronary artery of [place] heart without angina pectoris 07/02/2015 Unknown S/P [...] Anterior leads Confirmed by CHARLOTTE TURNER MD ([id number]) on 05/26/2016 4:27:10 PM Comprehensive Metabolic Panel [...] by your healthcare provider Date Last Reviewed: 05/03/201319990775-1671 [employer]. [address] [place] [address]. All righ ts reserved. This information is [...] the affected wrist straigh t. Call the folder stitcher operator who did your procedure as soon as possible. Other Concerns Call the folder stitcher operator who did your procedure if you have: Any of these Signs of Infection: Redness Fever higher than 101.5 degrees F or 38.6 degrees C Change in the bruise or lump. Numbness in your arm or wrist. Severe pain that is not relieved by Tylenol. Follow-up Care Continue your prescribed medications unless instructed otherwise. Follow-up with your primary health care provider and folder stitcher operator after your procedure, as instructed. If you have questions or concerns about your cardiac catheterization procedure, call the number below. [phone] documented in this encounter Medications at Time [...] Diagnosis Date | | | Diabetes mellitus ([facility]) | | | Hypertension | | | Reflux esophagitis | | | Food impaction of esophagus | | | Acute ST elevation myocardial infarction (STEMI) involving left | | | anterior descending (LAD) coronary artery ([facility]) 05/2015 | | | Dyslipidemia Blood pressure [...] with | | | no immediate complications [facility] LEFT CARDIAC | | | CATHETERIZATION REPORT PATIENT NAME: Raz Hinton OF | | | : 1945MEDICAL RECORD NUMBER: [id number] OF | | | PROCEDURE: | | | 05/27/2016 | | | | | | PRIMARY CARE PROVIDER: Ralph Xavier, | | | [facility] DETECTOR CAR OPERATOR: Charlotte Turner MD, [facility], [facility] PRE-PROCEDURE | | | DIAGNOSIS: Class [...] the | | | sheath. A 5 [place] JR4 was advanced to the descending aorta [...] | RECOMMENDATIONS Stop EFFIENT Charlotte Turner MD, [facility], [facility] | | | [facility]: 05[facility]27/2016 9:363 9:36 | | | Portions of this chart were created with [employer] voice recognition | | | software. Occasional [...] | | | | |Charlotte Turner MD, [facility], [facility] | | |[facility] | | |DATE/TIME: 05/27/2016 9:36 | | |05/27/2016 9:36 | | | | | |Portions of this chart were created with [employer] voice recognition | | |software. Occasional wrong-word [...] [address] | [place] | [phone] | | [facility] | | [address] | | | - LABORATORY | | [...] 1.45 (H) | 0.60 - 1.30 | [facility] | | | | | mg/dL | [...] mL/min/1.73m2 | [facility] | | | [place] | RATE,ESTIMATED | | MEDICAL | | | | mL/min/1.09w0Cuum than | | CENTER - | | [...] [address] | [place] | [phone] | | [facility] | | [address] | | | - LABORATORY | | [...]
--- OUTSIDE RECORDS SUMMARY | ~2019-07-04 | XMS | Encounter Summary ---
Demographics + + + | Address | [address] | | | [place] [address] | + + + | Home Phone | | + + + | Preferred Language | Unknown | + + + | Marital Status | | + + + | Christian Affiliation | 1027 | + + + | Race | Unknown | + + + | Ethnic Group | Unknown | + + + Author + + + | Author | [facility] | | | and [place] | + + + | Organization | [facility] | | [...] Team Providers + +------+ + | Care Talent Development Analyst Name | Role | Phone | [...] + + | 03/02/ | Telephone | [facility] | Kristen Luke | Lab Results | | 2019 | | CARDIOLOGY [place] | [address] | | | | | [address] | [address] | | | | | [address] | [place] [address] | | | | | [place], [place] | [phone] | | | | | [address] | | | | | | [phone] | | | +--------+ + + + [...]
--- OUTSIDE RECORDS SUMMARY | ~2019-07-04 | XMS | Encounter Summary ---
Demographics + + + | Address | [address] | | | [place] [address] | + + + | Home Phone | | + + + | Preferred Language | Unknown | + + + | Marital Status | | + + + | Zoroastrianism Affiliation | 1027 | + + + | Race | Unknown | + + + | Ethnic Group | Unknown | + + + Author + + + | Author | [facility] | | | and [place] | + + + | Organization | [facility] | | | and [place] | + + + | Address | Unknown | + + + | Phone | Unavailable | + + + Support + + +---------+ + | Name | Relationship | Address | Phone | + + +---------+ + | Kaliee Arce | ECON | Unknown | | + + +---------+ + Care Team Providers + +------+ + | Care Arabic Professor Name | Role | Phone | + +------+ + | Ralph Xavier MD | PCP | | + +------+ + Encounter Details +--------+ + + + + | Date | Type | Department | Care Team | Description | +--------+ + + + + | 01/14/ | Orders Only | [facility] | Conversion | | | 2018 | | CARDIOLOGY [place] | Transaction, | | | | | [address] | Provider Unknown | | | | | [place] | [phone] | | | | | [address] | | | | | | [phone] | | | +--------+ + + + [...] | + +--------+ + + + | LIPID PANEL | Routin | 01/14/2018 | | Results for this | | | e | 12:00 AM | | procedure are in the | | | | PST | | results section. | + +--------+ + + + documented in this encounter Results Lipid Panel (01/14/2018 12:00 AM PST) + +-------+ + + + | Component | Value | Ref Range | Performed | Pathologist | | | | | At | Signature | + +-------+ + + + | Cholesterol | 104 | mg/dL | EXTERNAL | | | | | | LAB | | + +-------+ + + + | Triglycerid | 76 | mg/dL | EXTERNAL | | | es | | | LAB | | + +-------+ + + + | HDL | 37.1 | mg/dl | EXTERNAL | | | | | | LAB | | + +-------+ + + + | LDL, | 52 | mg/dL | EXTERNAL | | | Calculated | | | LAB | | + +-------+ + + + | LDl/HDL | | | EXTERNAL | | | Ratio | | | LAB | | + +-------+ + + + | Chol/HDL | 2.8 | | EXTERNAL | | | Ratio | | | LAB | | + +-------+ + + + | VLDL | 15 | mg/dL | EXTERNAL | | | | | | LAB | | + +-------+ + + + | Non HDL | 67 | | EXTERNAL | | | Chol. | | | LAB | | | (LDL+VLDL) | | | | | + +-------+ + + + + + | Specimen | + + | Blood specimen | | (specimen) | + + + +---------+ + + | Performing | Address | City/State/Zipcode | Phone Number | | Organization | | | | + +---------+ + + | EXTERNAL LAB | | | | + +---------+ + + documented in this encounter Visit Diagnoses Not on filedocumented in this encounter"
--- OUTSIDE RECORDS SUMMARY | ~2019-07-04 | XMS | Clinical Summary ---
Demographics + + + | Address | [address] | | | [place] [address] | + + + | Home Phone | | + + + | Preferred Language | Unknown | + + + | Marital Status | | + + + | Temple Affiliation | 1027 | + + + | Race | Unknown | + + + | Ethnic Group | Unknown | + + + Author + + + | Author | [facility] | | | and [place] | + + + | Organization | [facility] | | | [...] Team Providers + +------+ + | Care Simulation Analyst Name | Role | Phone | + +------+ + | Ralph Xavier MD | PCP | | + +------+ + Allergies + + + + + + | Active Allergy | Reactions | Severity | Noted | Comments | | | | | Date | | + + + + + + | Meperidine | Other (See Comments) | | 06/06/19 | "I don't know" | | | | | 16 | | + + + + + + Medications + + + +---------+------+------+-------+ | Medication | Sig | Dispensed | Refills | Star | End | Statu | | | | | | t | Date | s | | | | | | Date | | | + + + +---------+------+------+-------+ | glipiZIDE | Take 10 mg by mouth | | 0 | 03/2 | | Activ | | (GLUCOTROL XL) 10 MG | daily (with | | | 3/20 | | e | | 24 hr tablet | breakfast). | | | 16 | | | + + + +---------+------+------+-------+ | aspirin 81 mg | Take 1 tablet by | 30 | 11 | 04/0 | | Activ | | chewable tablet | mouth Daily. | tablet | | 2/20 | | e | | | | | | 16 | | | + + + +---------+------+------+-------+ | atorvaSTATin | Take 1 tablet by | 30 | 11 | 04/0 | | Activ | | (LIPITOR) 80 MG | mouth nightly. | tablet | | 2/20 | | e | | tablet | | | | 16 | | | + + + +---------+------+------+-------+ | losartan (COZAAR) | Take 1 tablet by | 30 | 11 | 04/0 | | Activ | | 100 MG tablet | mouth Daily. | tablet | | 2/20 | | e | | | | | | 16 | | | + + + +---------+------+------+-------+ +---+ + | | Additional | | | InformationPatient | | | taking differently: | | | 100 mg Oral DAILY, | | | Takes losartan 100 | | | mg one day , | | | alternating with | | | losartan 50 mg every | | | other day, Reported | | | on 12/29/2018 2:16 | | | PM | +---+ + + + +--------+----+------+---+-------+ | montelukast | Take 1 tablet by | 30 | 11 | 04/0 | | Activ | | (SINGULAIR) 10 mg | mouth nightly. | tablet | | 2/20 | | e | | tablet | | | | 16 | | | + + +--------+----+------+---+-------+ | nitroglycerin | Place 1 tablet under | 30 | 11 | 04/0 | | Activ | | (NITROSTAT) 0.4 mg | the tongue every 5 | tablet | | 2/20 | | e | | SL tablet | minutes as needed | | | 16 | | | | | for Chest pain. | | | | | | + + +--------+----+------+---+-------+ | ONE TOUCH ULTRA | | | 0 | 04/0 | | Activ | | TEST strip | | | | 6/20 | | e | | | | | | 16 | | | + + +--------+----+------+---+-------+ | KAREN CORTES | | | 0 | 04/0 | | Activ | | LANCETS 33G MISC | | | | 6/20 | | e | | | | | | 16 | | | + + +--------+----+------+---+-------+ | Glucose Blood | 1 each by Other | | 0 | | | Activ | | (BLOOD GLUCOSE TEST | route as needed for | | | | | e | | STRIPS) STRP | Other. Use as | | | | | | | | instructed | | | | | | + + +--------+----+------+---+-------+ | ONE TOUCH LANCETS | | | 0 | | | Activ | | MISC | | | | | | e | + + +--------+----+------+---+-------+ | amLODIPine | Take 10 mg by mouth | | 0 | | | Activ | | (NORVASC) 10 MG | Daily. | | | | | e | | tablet | | | | | | | + + +--------+----+------+---+-------+ | aspirin 81 mg EC | Take 81 mg by mouth | | 0 | | | Activ | | tablet | Daily. | | | | | e | + + +--------+----+------+---+-------+ | furosemide (LASIX) | Take 1 tablet by | 10 | 11 | 12/1 | | Activ | | 20 mg tablet | mouth as needed for | tablet | | 2/20 | | e | | | Edema. | | | 19 | | | + + +--------+----+------+---+-------+ | potassium chloride | Take 1 tablet by | 10 | 11 | 12/1 | | Activ | | (KLOR-CON) 10 MEQ | mouth as needed. | tablet | | 2/20 | | e | | ER tablet | With furosemide 20 | | | 19 | | | | | mg prn | | | | | | + + +--------+----+------+---+-------+ Active Problems + + + | Problem | Noted Date | + + + | Chronic renal impairment, stage 3 (moderate) | 02/16/2019 | + + + | Paroxysmal atrial fibrillation | 12/29/2018 | + + + | Dyslipidemia | 12/29/2018 | + + + | Pedal edema | 12/29/2018 | + + + | Fatigue | 12/29/2018 | + + + | Risk factors for obstructive sleep apnea | 12/29/2018 | + + + | Hypertensive heart disease without heart failure | 05/27/2016 | + + + | Coronary artery disease involving [place] coronary artery of | 07/02/2015 | | [place] heart without angina pectoris | | + + + | S/P PTCA (percutaneous transluminal coronary angioplasty) | 07/02/2015 | + + + | Diabetic neuropathy associated with type 2 diabetes mellitus | 06/07/2015 | + + + | Chronic renal insufficiency | 06/07/2015 | + + + + + | Overview: H/O GFR in the range of 40 prior to admission | + + + + + | Mild intermittent asthma without complication | 06/07/2015 | + + + | History of ST elevation myocardial infarction (STEMI) | 06/06/2015 | + + + + + | Overview: EDP: 28No gradient on pull backRCA:Small Non | | dominant vesselLeft Main:No significant disease:Left | | Circumflex:Large dominant [id number], 4th and 5th marginal's are | | large and have non obstructive disease. 2nd and 3rd are | | small.LAD:Smaller than average vessel. Diffuse, aneurysmal, | | disease. Large diagonal that reaches out to the apex.Multiple | | 99% lesions of the mid vesselPost intervention:Closure of the tip | | of the LADNo residual lesion of the diagonal or stented segment | | of the LADCONCLUSIONS:1. PCI of the Diagonal and mid LAD 2. Non | | obstructive disease of dominant LCX3. Non dominant RCA | |LAD: | |Smaller than average vessel. | |Diffuse, aneurysmal, disease. Large diagonal that reaches out to the apex. | |Multiple 99% lesions of the mid vessel | |Post intervention: | |Closure of the tip of the LAD | |No residual lesion of the diagonal or stented segment of the LAD | | | |CONCLUSIONS: | |1. PCI of the Diagonal and mid LAD | |2. Non obstructive disease of dominant LCX | |3. Non dominant RCA | + + + + + | Essential hypertension | 06/06/2015 | + + + | Type 2 diabetes mellitus with stage 3 chronic kidney disease, | 06/06/2015 | | without long-term current use of insulin | | + + + Resolved Problems + + + + | Problem | Noted | Resolved | | | Date | Date | + + + + | Angina, class IV | 05/28/19 | | | | 17 | 9 | + + + + + + | Overview: Cardiac Cath 05/28/16INDINGS:Hemodynamics:Left | | ventricular end-diastolic pressure (LVEDP) was 25 mm Hg. | | There was no gradient across the aortic valve.Left | | Ventriculography: EF 65% no MR. Small area of hypokinesis at | | the apex. Left main coronary artery: 10% Large vesselLeft | | anterior descending coronary artery: No restenosis in the | | stented segment. Apical LAD is not seen (small area as | | before). There are no collaterals to this apical LAD | | seen.Diagonal branch: Large. No restenosis.Circumflex | | coronary artery: Huge system. Dominant and no disease. 4th | | marginal has 20% lesion. As does the 5th marginal. No | | significant disease is seen in the circumflex systemRight | | coronary artery: Small. Non dominant. No significant disease. | + + Family History + + +------+ + | Medical History | Relation | Name | Comments | + + +------+ + | Stroke | Father | | | + + +------+ + | Diabetes, NIDDM | Mother | | | + + +------+ + | Heart attack | Mother | | | + + +------+ + | Heart disease | Mother | | | + + +------+ + + +------+ + + | Relation | Name | Status | Comments | + +------+ + + | Father | | | | + +------+ + + | Father | | | | + +------+ + + | Mother | | | | + +------+ + + | Mother | | | | + +------+ + + Social History + +-------+ +--------+------+ [...] recent travel history available. | + + Last Filed Vital Signs + + + + + | Vital Sign | Reading | Time Taken | Comments | + + + + + | Blood Pressure | 118/54 | 02/16/2019 10:18 AM | | | | | PST | | + + + + + | Pulse | 72 | 02/16/2019 10:18 AM | | | | | PST | | + + + + + | Temperature | 36.5 C (97.7 F) | 10/29/2017 12:10 PM | | | | | PDT | | + + + + + | Respiratory Rate | 15 | 10/29/2017 3:01 PM | | | | | PDT | | + + + + + | Oxygen Saturation | 97% | 02/16/2019 10:18 AM | | | | | PST | | + + + + + | Inhaled Oxygen | - | - | | | Concentration | | | | + + + + + | Weight | 105.3 kg (232 lb 1.6 | 02/16/2019 10:18 AM | | | | oz) | PST | | + + + + + | Height | 177.8 cm (5' 10") | 02/16/2019 10:18 AM | | | | | PST | | + + + + + | Body Mass Index | 33.3 | 02/16/2019 10:18 AM | | | | | PST | | + + + + + Plan of Treatment + + + + + | Health Maintenance | Due Date | Last Done | Comments | + + + + + | Vaccine: | | | | | Dtap/Tdap/Td (1 - | 5 | | | | Tdap) | | | | + + + + + | Diabetic Eye Exam | | | | | | 2 | | | + + + + + | Diabetic Foot Exam | | | | | | 2 | | | + + + + + | Colorectal Cancer | | | | | Screening | 4 | | | | (Colonoscopy) | | | | + + + + + | Vaccine: Zoster (1 | | | | | of 2) | 4 | | | + + + + + | Vaccine: | | | | | Pneumococcal 65+ (1 | 9 | | | | of 2 - PCV13) | | | | + + + + + | Adult Annual | | | | | Wellness Visit | 6 | | | + + + + + | Hemoglobin A1c | | 06/07/2015 | | | Screening | 6 | | | + + + + + | Vaccine: Influenza | | | | | (Season Ended) | 0 | | | + + + + + Implants + +-------+--------+ +--------+--------+--------+ | Implanted | Type | Area | Manufacture | Device | Shelf | Model | | | | | r | | Expira | / | | | | | | Identi | tion | Serial | | | | | | fier | Date | / Lot | + +-------+--------+ +--------+--------+--------+ | Promus PremierImplanted: Qty: | Stent | N/A: | [place] | | 06/07/ | PROMUS | | 1 on 06/06/2015 by Yue, | | Chirag | SCIENTIFIC | | 2017 | | | Charlotte Haddad MD at [facility] | | ry | [facility] | | | PREMIE | | [facility] | | | | | | R / | | | | | | | | /[id number] | | | | | | | | 151 | + +-------+--------+ +--------+--------+--------+ | Pormus PremierImplanted: Qty: | Stent | N/A: | [place] | | 09/01/ | PROMUS | | 1 on 06/06/2015 by Yue, | | Beard | SCIENTIFIC | | 2015 | | | Charlotte Haddad MD at [facility] | | ry | [facility] | | | PREMIE | | [facility] | | | | | | R / | | | | | | | | /[id number] | | | | | | | | 047 | + +-------+--------+ +--------+--------+--------+ Results Not on filefrom Last 3 Months Insurance + +--------+ +--------+ +---------+--------+ | Payer | Benefi | Subscriber | Effect | Phone | Address | Type | | | t Plan | ID | [place] | | | | | | / | | Dates | | | | | | Group | | | | | | + +--------+ +--------+ +---------+--------+ | [employer] [place] | [place] | [id number] | 09/08/19 | [phone] | | Indemn | | | [place] | | 17-Pre | 0 | | [place] | | | [place] | | sent | | | | | | MDCR | | | | | | | | SUPPL | | | | | | + +--------+ +--------+ +---------+--------+ | MEDICARE | [employer] | [id number] | 10/07/19 | [phone] | | Medica | | | RE | | 09-Pre | 5 | | re | | | PART A | | sent | | | | | | AND B | | | | | | + +--------+ +--------+ +---------+--------+ | MEDICARE | MED[employer] | [id number] | 10/07/19 | [phone] | | Medica | | | RE | | 09-Pre | 5 | | re | | | PART A | | sent | | | | | | AND B | | | | | | + +--------+ +--------+ +---------+--------+ | [employer] [place] | [place] | [id number] | 09/08/19 | [phone] | | Indemn | | | [place] | | 17-Pre | 0 | | ity | | | [place] | | sent | | | | | | MDCR | | | | | | | | SUPPL | | | | | | + +--------+ +--------+ +---------+--------+ + +--------+ +--------+ + + | Guarantor Name | Accoun | Relation to | Date | Phone | Billing Address | | | t Type | Patient | of | | | | | | | | | | + +--------+ +--------+ + + | Raz Arce | Person | Self [birth year] | [address] [facility] [facility] | | | al/Fam | | 1946 | [phone] | [place] | | | [place] | | | [address] (Home) | [phone] | + +--------+ +--------+ + + | Raz Arce | Person | Self [birth year] | [address] | | | al/Fam | | 1946 | [phone] | [place] | | | [place] | | | [address] ([place]) | [phone] | + +--------+ +--------+ + + Advance Directives + + + + + | Type | Date Recorded | Patient | Explanation | | | | Key Maker | | + + + + + | Power of | 06/06/2015 12:00 | | | | Axle And Frame Mechanic | AM | | | + + + + + | Advance | 05/27/2016 7:26 | | | | Directive | AM | | | + + + + + + + + + + | Code Status | Date | Date | Comments | | | Activated | Inactivated | | + + + + + | Full Code | 06/06/2015 | 06/08/2015 | | | | 1:27 PM | 3:19 PM | | + + + + +
--- OUTSIDE RECORDS SUMMARY | ~2019-07-04 | XMS | Encounter Summary ---
Demographics + + + | Address | [address] | | | [place] [address] | + + + | Home Phone | | + + + | Preferred Language | Unknown | + + + | Marital Status | | + + + | Synagogue Affiliation | 1027 | + + + | Race | Unknown | + + + | Ethnic Group | Unknown | + + + Author + + + | Author | [facility] | | | and [place] | + + + | Organization | [facility] | | | [...] Team Providers + +------+ + | Care Nurse Midwife Name | Role | Phone | + +------+ + | Ralph Xavier MD | PCP | | + +------+ + Reason for Referral Evaluate & Treat (Routine) +--------+ + + + + + | Status | Reason | Specialty | Diagnoses / | Referred By | Referred To | | | | | Procedures | Contact | Contact | +--------+ + + + + + | Closed | Specialty | Home Health | | [facility] | | | | Services | Services | | [place], | | | | Required | | | Jarrett Cabrera MD | | | | | | | [address] | | | | | | [address] | | | | | | | [place], | | | | | | | [place] [address] | | | | | | | Phone: | | | | | | | [phone] | | | | | | | Fax: | | | | | | | [phone] | | +--------+ + + + + + Evaluate & Treat (Routine) +--------+ + + + + + | Status | Reason | Specialty | Diagnoses / | Referred By | Referred To | | | | | Procedures | Contact | Contact | +--------+ + + + + + | Closed | Specialty | Cardiac | Diagnoses | [place], | [facility] | | | Services | Rehabilitatio | STEMI | Charlotte Haddad MD | | | | Required | n | involving | [address] | Rehabilitatio | | | | | oth coronary | [place] | [address] | | | | | artery of | [place], [place] | [place] | | | | | anterior | [address] | [place], [place] | | | | | wall ([facility]) | Phone: | [phone] | | | | | | [phone] | Phone: | | | | | | Fax: | [phone] | | | | | | [phone] | Fax: | | | | | | | [phone] | +--------+ + + + + + Reason for Visit Auth/Cert +--------+--------+ + + + + | Status | Reason | Specialty | Diagnoses / | Referred By | Referred To | | | | | Procedures | Contact | Contact | +--------+--------+ + + + + | | | | | | | +--------+--------+ + + + + Encounter Details +--------+ + + + + | Date | Type | Department | Care Team | Description | +--------+ + + + + | 06/05/ | Hospital | [facility] | Charlotte Goodwin, | STEMI involving oth | | 2016 - | Encounter | [facility] ICU [address] | [address] | coronary artery of | | | | [place], | [place], [place] | anterior wall (HCC) | | 06/07/ | | [place] [address] | [id number] | (Primary Dx) | | 2015 | | [phone] | | | | | | | [place], | | | | | | Jarrett Cabrera MD [address] | | | | | | [address] [place], | | | | | | [place] [address] | | | | | | [phone] | | | | | | | | +--------+ + + + [...] + + + | Blood Pressure | 120/67 | 06/08/2015 11:55 AM | | | | | PDT | | + + + + + | Pulse | 54 | 06/08/2015 11:55 AM | | | | | PDT | | + + + + + | Temperature | 36.7 C (98.1 F) | 06/08/2015 11:55 AM | | | | | PDT | | + + + + + | Respiratory Rate | 18 | 06/08/2015 11:55 AM | | | | | PDT | | + + + + + | Oxygen Saturation | 94% | 06/08/2015 11:55 AM | | | | | PDT | | + + + + + | Inhaled Oxygen | - | - | | | Concentration | | | | + + + + + | Weight | 113.6 kg (250 lb 7.1 | 06/08/2015 5:01 AM | | | | oz) | PDT | | + + + + + | Height | - | - | | + + + + + | Body Mass Index | - | - | | + + + + + documented in this encounter Discharge Summaries Jarrett Wilson MD - 06/10/2015 11:50 AM PDTFormatting of this note might be dif ferent from the original. DISCHARGE SUMMARY PATIENT NAME/: Raz Arce, (1945) DATE OF ADMISSION: 06/06/2015 DATE OF DISCHARGE: 06/10/2015 DISCHARGING PHYSICIAN: Jarrett Vidal MD ADMITTING DIAGNOSIS: Anterior wall STEMI PRIMARY CARE PROVIDER: Ralph Xavier MD DISPOSITION: Discharge to home BRIEF HOSPITAL COURSE: Please see the history and physical at the time of admission. Briefly, Mr. Arce is a 69 y.o. male who was admitted on 06/06/[address] elevation myocardial infarct ion, underwent LHC and PCI to the bifurcation of LAD and Diagonal branches with 2 SHELLEY, post procedure he did well denies any chest pain, on dual antiplatelet therapy. 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 Lungs - clear to auscultation bilaterally Musc/Skel - moves all extremities Extremities - no cyanosis. no significant edema Neurologic - no focal deficits no hematoma CONSULTATION: none DIAGNOSTIC STUDIES: LHC/PCI:() 1. PCI of the Diagonal and mid LAD 2. Non obstructive disease of dominant LCX 3. Non dominant RCA Imaging: ECG: SR, ST elevation from V1-V4, anteroseptal MA. Selected Labs: Recent Labs Lab 06/08/15 0536 06/07/15 0513 06/06/15 1143 06/06/15 1142 WBC -- 14.9* -- -- 10.2 HGB -- 13.4* -- -- 13.4* HCT -- 39.8* -- -- 40.6 PLT -- 218 -- -- 228 NA 137 136 140 < > -- K 4.0 4.3 4.1 < > -- BUN 20* 14 14 -- -- CREA 1.55* 1.32* 1.33* -- -- GLU 148* 208* 241* < > -- CALCIUM 8.5 8.9 8.6 < > -- < > = values in this interval not displayed. Recent Labs Lab 06/07/15 0513 HDL 38 LDL 91 TRIG 122 MEDS: Discharge Medications New Medications Details aspirin 81 mg chewable tablet Take 1 tablet by mouth Daily. atorvaSTATin 80 MG tablet Take 1 tablet by mouth nightly. aka: LIPITOR metoprolol succinate 25 mg 24 hr tablet Take 1 tablet by mouth Daily. aka: TOPROL-XL nitroglycerin 0.[address] 1 tablet under the tongue every 5 minutes as needed for Chest pain. aka: NITROSTAT pantoprazole 20 mg tablet Take 1 tablet by mouth every morning (before breakfast). aka: PROTONIX prasugrel 10 mg Tabs Take 1 tablet by mouth Daily. aka: EFFIENT Changed Medications Details losartan 100 MG tablet Take 1 tablet by mouth Daily. What changed: - how much to take - how to take this - when to take this aka: COZAAR losartan 100 MG tablet Take 1 tablet by mouth Daily. What changed: - medication strength - how much to take aka: COZAAR montelukast 10 mg tablet What changed: Another medication with the same name was added. Make sure you understand h ow and when to take each. aka: SINGULAIR montelukast 10 mg tablet Take 1 tablet by mouth nightly. What changed: You were already taking a medication with the same name, and this prescripti on was added. Make sure you understand how and when to take each. aka: SINGULAIR Unchanged Medications Details glipiZIDE 10 MG 24 hr tablet aka: GLUCOTROL XL PATIENT INSTRUCTIONS: ACTIVITY: Activity as tolerated DIET: low fat, low cholesterol diet FOLLOW-UP: Follow up with Charlotte Goodwin MD in 2. Time spent on discharge planning: less than 30 minutes documented in this encounter Discharge Instructions Instructions Venancio Yancy Brigette, PharmD - 06/10/2015Pt feels good, a little lightheaded & cold hands. Explained that w/ all his new meds, it might take awhile to adjust to them all. documented in this encounter Medications at Time [...] Daily. | tablet | | 16 | 6 | + + + +---------+ + + | metoprolol | Take 1 tablet by | 30 | 11 | 06/08/19 | | | succinate | mouth Daily. | tablet | | 16 | 6 | | (TOPROL-XL) 25 mg 24 | | | | | | | hr tablet | | | | | | + + + +---------+ + + | montelukast | | | 0 | 05/29/19 | | | (SINGULAIR) 10 mg | | | | 16 | 6 | | tablet | | | | | | + + + +---------+ + + | pantoprazole | Take 1 tablet by | 30 | 11 | 06/08/19 | | | (PROTONIX) 20 mg | mouth every morning | tablet | | 16 | 7 | | tablet | (before breakfast). | | | | | + + + +---------+ + + | prasugrel | Take 1 tablet by | 30 | 11 | 06/08/19 | | | (EFFIENT) 10 mg TABS | mouth Daily. | tablet | | 16 | 7 | + + + +---------+ + + documented as of this encounter Progress Notes Jarrett Wilson MD - 06/08/2015 9:02 AM PDTFormatting of this note might be dif ferent from the original. PATIENT NAME: Raz Arce : 1945: AGE: 69 y.o. PRIMARY CARE: Ralph Xavier MD INPATIENT FOLLOW UP VISIT Date of Service: 06/06/2015 HISTORY OF PRESENT ILLNESS: Raz Arce is a 69 y.o. male admitted with history of anterior wall STEMI S/P PCI to t he LAD, doing well denies chest pain nor palpitations nor syncope. MEDICAL, SURGICAL, AND PERSONAL HISTORY Past Medical, Surgical, Family, and Social History are reviewed in EPIC. 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 Essential hypertension Type 2 diabetes mellitus Diabetic neuropathy associated with type 2 diabetes mellitus Chronic renal insufficiency Mild intermittent asthma CURRENT MEDICATIONS Current Facility-Administered Medications Medication Dose Route Frequency Provider Last Rate Last Dose acetaminophen (TYLENOL) tablet 650 mg 650 mg Oral Q6H PRN Charlotte Goodwin MD aluminum & magnesium hydroxide-simethicone (MAALOX PLUS REGULAR STRENGTH) 200-200-20 mg /5 mL suspension 30 mL 30 mL Oral Q4H PRN Charlotte Goodwin MD aspirin chewable tablet 81 mg 81 mg Oral Daily Charlotte Goodwin MD 81 mg at 06/08/15 0840 atorvaSTATin (LIPITOR) tablet 80 mg 80 mg Oral Nightly Charlotte Goodwin MD 80 mg at 06/07/152008 bisacodyl (DULCOLAX) suppository 10 mg 10 mg Rectal Daily PRN Charlotte Goodwin MD calcium carbonate (TUMS) chewable tablet 1,000 mg 1,000 mg Oral Q4H PRN Charlotte whipple MD dextrose 50% injection 12.5 g 12.5 g Intravenous PRN Charlotte Goodwin MD docusate sodium (COLACE) capsule 100 mg 100 mg Oral BID PRN Charlotte Goodwin MD glipiZIDE (GLUCOTROL XL) ER tablet 5 mg 5 mg Oral Daily with breakfast Charlotte Goodwin MD 5 mg at 06/08/15 0840 HYDROcodone-acetaminophen (NORCO) 5-325 mg per tablet 1-2 tablet 1-2 tablet Oral Q4H P RN Charlotte Goodwin MD influenza quadrivalent (FLUZONE, FLUARIX, FLULAVAL QUADRIVALENT) vaccine injection (syr dustin) 0.5 mL 0.5 mL Intramuscular One Time Vaccine Charlotte Goodwin MD 0.5 mL at 06/07/152008 insulin lispro (humaLOG KWIKPEN) 100 units/mL injection (pen) 0-6 Units 0-6 Units Subc utaneous 4x Daily WC and HS Charlotte Goodwin MD 2 Units at 06/07/15 0857 losartan (COZAAR) tablet 100 mg 100 mg Oral Daily Charlotte Goodwin MD 100 mg at 04/0 04/23 0840 magnesium hydroxide (MILK OF MAGNESIA) 400 mg/5 mL suspension 30 mL 30 mL Oral Nightly PRN Charlotte Goodwin MD metoprolol succinate (TOPROL-XL) ER tablet 25 mg 25 mg Oral Daily Charlotte Goodwin MD 25 mg at 06/08/15 0840 montelukast (SINGULAIR) tablet 10 mg 10 mg Oral Nightly Charlotte Goodwin MD 10 mg at 06/07/15 2009 nitroglycerin (NITROSTAT) SL tablet 0.4 mg 0.4 mg Sublingual Q5 Min PRN Charlotte whipple MD ondansetron (ZOFRAN) injection 4-8 mg 4-8 mg Intravenous Q6H PRN Charlotte Goodwin MD 4 mg at 06/07/15 0803 oxyCODONE (ROXICODONE) tablet 5-10 mg 5-10 mg Oral Q4H PRN Charlotte Goodwin MD pantoprazole (PROTONIX) DR tablet 20 mg 20 mg Oral QAM AC Charlotte Goodwin MD 20 mg at 06/08/15 0654 polyethylene glycol (MIRALAX) powder 17 g 17 g Oral Daily PRN Charlotte Goodwin MD prasugrel (EFFIENT) tablet 10 mg 10 mg Oral Daily Charlotte Goodwin MD 10 mg at 06/07 0840 senna (SENOKOT) tablet 8.6 mg 8.6 mg Oral BID PRN Charlotte Goodwin MD ALLERGIES Allergies Allergen Reactions Meperidine ROS Negative except for issues outlined in HPI. OBJECTIVE: PHYSICAL EXAM BP 126/68 mmHg | Pulse 53 | Temp(Src) 36.6 C (97.9 F) (Oral) | Resp 18 | Wt 113.6 kg (2 50 lb 7.1 oz) | SpO2 97% General appearance: no acute distress. Eyes: no icterus. Lids normal Mouth: no cyanosis. Neck: No lymphadenopathy in the neck or supraclavicular area. Good carotid upstroke. No bruits. No JVD Lungs: CTA Heart: normal sounds no murmur Abdomen: soft. Ext: No CCE in upper or lower extremities Neuro: Awake and oriented x3 ECG: LAB RESULTS: LIPID Lab Results Component Value Date CHOL 153 06/07/2015 TRIG 122 06/07/2015 HDL 38 06/07/2015 LDL 91 06/07/2015 CHOLHDL 4.0 06/07/2015 CHEMISTRY Lab Results Component Value Date GLU 148* 06/08/2015 NA 137 06/08/2015 K 4.0 06/08/2015 CL 106 06/08/2015 CO2 25 06/08/2015 CALCIUM 8.5 06/08/2015 ALKPHOS 56 06/06/2015 AST 33 06/06/2015 ALT 25 06/06/2015 BILITOT 0.6 06/06/2015 CREA 1.55* 06/08/2015 BUN 20* 06/08/2015 HEMATOLOGY Lab Results Component Value Date WBC 14.9* 06/07/2015 HGB 13.4* 06/07/2015 HCT 39.8* 06/07/2015 PLT 218 06/07/2015 ECHOCARDIOGRAM: Left Atrium: enlarged Left ventricle: Left ventricular size is normal with normal wall thickness and overall no rmal LV function. Limited apical wall motion abnormality. The estimated ejection fractio n is 50 %. Left ventricular diastolic function is abnormal. Aortic root: Aortic root is normal. Right Atrium: Right atrial sizes normal. Right ventricle: Right ventricular size is normal with normal wall thickness and normal r ight ventricular systolic function. Pericardium: Pericardium is normal. Pulmonary artery: Pulmonary artery is normal. Aortic valve: not well seen - no gross abnormality noted. Mitral valve: Mitral valve is normal. Pulmonic valve: not well seen Tricuspid valve: Tricuspid valve is normal. Vena cava: The inferior vena cava is normal. There is greater than 50% inspiratory allan apse of the IVC. ASSESSMENT: 1- Anterior wall STEMI S/P PCI to mid LAD- diagonal with 2 SHELLEY. 2- HTN. 3- Hyperlipidemia. 4- Diabetes. 5. CKD 6. LE edema Denies chest pain, doing well he has LE edema, I would PLAN: - Continue aspirin/prasugrel. - Statins. - Stable for discharge. - Follow up with cardiology in 2 weeks. Electronically signed by: Jarrett Vidal MD [facility] 06/08/2015 Portions of this chart may have been created with [employer] voice recognition software. Occasi onal wrong-word or sound-alike substitutions may have occurred due to the inherent rodriguez itations of voice recognition software. Please read the chart carefully and recognize, using context, where these substitutions have occurred. Thomas Sparks RN - 06/07/2015 4:17 PM PDTCovered all areas listed in the PCI with stent educatio n summary with patient and family. Both stated understanding. Gave opportunity to ask ques tions and covered activity after and possibility of vacation. Also covered education relate d to [employer] and filled out forms for their home care package. Jarrett Lopez MD - 06/07/2015 12:1 8 PM PDT PATIENT NAME: Raz Arce : 1945: AGE: 69 y.o. PRIMARY CARE: Ralph Xavier MD INPATIENT FOLLOW UP VISIT Date of Service: 06/06/2015 HISTORY OF PRESENT ILLNESS: Raz Arce is a 69 y.o. male with a history of anterior wall STEMI. He is being seen today for follow up. Doing well denies chest pain no arrythmias reported on telemetry. MEDICAL, SURGICAL, AND PERSONAL HISTORY Past Medical, Surgical, Family, and Social History are reviewed in EPIC. 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 Essential hypertension Type 2 diabetes mellitus Diabetic neuropathy associated with type 2 diabetes mellitus Chronic renal insufficiency Mild intermittent asthma CURRENT MEDICATIONS Current Facility-Administered Medications Medication Dose Route Frequency Provider Last Rate Last Dose acetaminophen (TYLENOL) tablet 650 mg 650 mg Oral Q6H PRN Charlotte Goodwin MD aluminum & magnesium hydroxide-simethicone (MAALOX PLUS REGULAR STRENGTH) 200-200-20 mg /5 mL suspension 30 mL 30 mL Oral Q4H PRN Charlotte Goodwin MD aspirin chewable tablet 81 mg 81 mg Oral Daily Charlotte Goodwin MD 81 mg at 06/07/15 0856 atorvaSTATin (LIPITOR) tablet 80 mg 80 mg Oral Nightly Charlotte Goodwin MD 80 mg at 06/06/15 2019 bisacodyl (DULCOLAX) suppository 10 mg 10 mg Rectal Daily PRN Charlotte Goodwin MD calcium carbonate (TUMS) chewable tablet 1,000 mg 1,000 mg Oral Q4H PRN Charlotte whipple MD dextrose 50% injection 12.5 g 12.5 g Intravenous PRN Charlotte Goodwin MD docusate sodium (COLACE) capsule 100 mg 100 mg Oral BID PRN Charlotte Goodwin MD glipiZIDE (GLUCOTROL XL) ER tablet 5 mg 5 mg Oral Daily with breakfast Charlotte Goodwin MD 5 mg at 06/07/15 08 HYDROcodone-acetaminophen (NORCO) 5-325 mg per tablet 1-2 tablet 1-2 tablet Oral Q4H P RN Charlotte Goodwin MD insulin lispro (humaLOG KWIKPEN) 100 units/mL injection (pen) 0-6 Units 0-6 Units Subc utaneous 4x Daily WC and HS Charlotte Goodwin MD 2 Units at 06/07/15 0857 losartan (COZAAR) tablet 100 mg 100 mg Oral Daily Charlotte Goodwin MD 100 mg at 04/0 03/23 0856 magnesium hydroxide (MILK OF MAGNESIA) 400 mg/5 mL suspension 30 mL 30 mL Oral Nightly PRN Charlotte Goodwin MD metoprolol succinate (TOPROL-XL) ER tablet 25 mg 25 mg Oral Daily Charlotte Goodwin MD 25 mg at 06/07/15 0856 montelukast (SINGULAIR) tablet 10 mg 10 mg Oral Nightly Charlotte Goodwin MD 10 mg at 06/06/15 2019 nitroglycerin (NITROSTAT) SL tablet 0.4 mg 0.4 mg Sublingual Q5 Min PRN Charlotte whipple MD ondansetron (ZOFRAN) injection 4-8 mg 4-8 mg Intravenous Q6H PRN Charlotte Goodwin MD 4 mg at 06/07/15 0803 oxyCODONE (ROXICODONE) tablet 5-10 mg 5-10 mg Oral Q4H PRN Charlotte Goodwin MD pantoprazole (PROTONIX) DR tablet 20 mg 20 mg Oral QAM AC Charlotte Goodwin MD 20 mg at 06/07/15 0649 polyethylene glycol (MIRALAX) powder 17 g 17 g Oral Daily PRN Charlotte Goodwin MD prasugrel (EFFIENT) tablet 10 mg 10 mg Oral Daily Charlotte Goodwin MD 10 mg at 06/06 0709 senna (SENOKOT) tablet 8.6 mg 8.6 mg Oral BID PRN Charlotte Goodwin MD ALLERGIES Allergies Allergen Reactions Meperidine ROS Denies chest pain, nor palpitations. OBJECTIVE: PHYSICAL EXAM BP 150/73 mmHg | Pulse 74 | Temp(Src) 37.4 C (99.3 F) (Oral) | Resp 15 | Wt 116 kg (255 lb 11.7 oz) | SpO2 94% General appearance: no acute distress. Eyes: no icterus. Lids normal Mouth: no cyanosis. Neck: No lymphadenopathy in the neck or supraclavicular area. Good carotid upstroke. No bruits. No JVD Lungs: CTA Heart: normal sounds no murmur Abdomen: soft. Ext: No CCE in upper or lower extremities Neuro: Awake and oriented x3 ECG: SR, HR ST elevation ECHOCARDIOGRAM: Left Atrium: enlarged Left ventricle: Left ventricular size is normal with normal wall thickness and overall no rmal LV function. Limited apical wall motion abnormality. The estimated ejection fractio n is 50 %. Left ventricular diastolic function is abnormal. Aortic root: Aortic root is normal. Right Atrium: Right atrial sizes normal. Right ventricle: Right ventricular size is normal with normal wall thickness and normal ri ght ventricular systolic function. Pericardium: Pericardium is normal. Pulmonary artery: Pulmonary artery is normal. Aortic valve: not well seen - no gross abnormality noted. Mitral valve: Mitral valve is normal. Pulmonic valve: not well seen Tricuspid valve: Tricuspid valve is normal. Vena cava: The inferior vena cava is normal. There is greater than 50% inspiratory colla pse of the IVC. LAB RESULTS: LIPID Lab Results Component Value Date CHOL 153 06/07/2015 TRIG 122 06/07/2015 HDL 38 06/07/2015 LDL 91 06/07/2015 CHOLHDL 4.0 06/07/2015 CHEMISTRY Lab Results Component Value Date GLU 208* 06/07/2015 NA 136 06/07/2015 K 4.3 06/07/2015 CL 103 06/07/2015 CO2 27 06/07/2015 CALCIUM 8.9 06/07/2015 ALKPHOS 56 06/06/2015 AST 33 06/06/2015 ALT 25 06/06/2015 BILITOT 0.6 06/06/2015 CREA 1.32* 06/07/2015 BUN 14 06/07/2015 HEMATOLOGY Lab Results Component Value Date WBC 14.9* 06/07/2015 HGB 13.4* 06/07/2015 HCT 39.8* 06/07/2015 PLT 218 06/07/2015 ASSESSMENT: 1- Anterior wall STEMI S/P PCI to mid LAD- diagonal wit h2 SHELLEY. 2- HTN. 3- Hyperlipidemia. 4- Diabetes. 5. CKD Doing better, he is stable for transfer out of the ICU. PLAN: - Aspirin/prasugrel. - Statins. - Stable for transfer out of the ICU. Electronically signed by: Jarrett Vidal MD [facility] 06/07/2015 Portions of this chart may have been created with [employer] voice recognition software. Occasi onal wrong-word or sound-alike substitutions may have occurred due to the inherent rodriguez itations of voice recognition software. Please read the chart carefully and recognize, using context, where these substitutions have occurred. Brigette Weems MD - 06/07/2015 6:29 AM PDTFormatting of this note might be different from the origi nal. PATIENT NAME: Raz Arce : 1945: AGE: 69 y.o. PRIMARY CARE: Ralph Xavier MD INPATIENT FOLLOW UP VISIT Date of Service: 06/06/2015 HISTORY OF PRESENT ILLNESS: Raz Arce is a 69 y.o. male with a history of STEMI and SHELLEY stents to the LAD-diagona l. He is being seen today for follow up. His only problem is mild nausea without vomiting. He has some PAC's MEDICAL, SURGICAL, AND PERSONAL HISTORY Past Medical, Surgical, Family, and Social History are reviewed in EPIC. 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 Essential hypertension Type 2 diabetes mellitus Diabetic neuropathy associated with type 2 diabetes mellitus Chronic renal insufficiency Mild intermittent asthma CURRENT MEDICATIONS Current Facility-Administered Medications Medication Dose Route Frequency Provider Last Rate Last Dose acetaminophen (TYLENOL) tablet 650 mg 650 mg Oral Q6H PRN Charlotte Goodwin MD aluminum & magnesium hydroxide-simethicone (MAALOX PLUS REGULAR STRENGTH) 200-200-20 mg /5 mL suspension 30 mL 30 mL Oral Q4H PRN Charlotte Goodwin MD aspirin chewable tablet 81 mg 81 mg Oral Daily Charlotte Goodwin MD atorvaSTATin (LIPITOR) tablet 80 mg 80 mg Oral Nightly Charlotte Goodwin MD 80 mg at 06/06/15 2019 bisacodyl (DULCOLAX) suppository 10 mg 10 mg Rectal Daily PRN Charlotte Goodwin MD calcium carbonate (TUMS) chewable tablet 1,000 mg 1,000 mg Oral Q4H PRN Charlotte whipple MD dextrose 50% injection 12.5 g 12.5 g Intravenous PRN Charlotte Goodwin MD docusate sodium (COLACE) capsule 100 mg 100 mg Oral BID PRN Charlotte Goodwin MD HYDROcodone-acetaminophen (NORCO) 5-325 mg per tablet 1-2 tablet 1-2 tablet Oral Q4H P RN Charlotte Goodwin MD insulin lispro (humaLOG KWIKPEN) 100 units/mL injection (pen) 0-6 Units 0-6 Units Subc utaneous 4x Daily WC and HS Charlottealeksandra Goodwin MD 1 Units at 06/06/152022 losartan (COZAAR) tablet 100 mg 100 mg Oral Daily Charlotte Goodwin MD 100 mg at 03/3 03/23 174 magnesium hydroxide (MILK OF MAGNESIA) 400 mg/5 mL suspension 30 mL 30 mL Oral Nightly PRN Charlotte Goodwin MD metoprolol succinate (TOPROL-XL) ER tablet 25 mg 25 mg Oral Daily Charlotte Goodwin MD 25 mg at 06/06/15 1620 montelukast (SINGULAIR) tablet 10 mg 10 mg Oral Nightly Charlottealeksandra Goodwin MD 10 mg at 06/06/152018 nitroglycerin (NITROSTAT) SL tablet 0.4 mg 0.4 mg Sublingual Q5 Min PRN Charlotte whipple MD ondansetron (ZOFRAN) injection 4-8 mg 4-8 mg Intravenous Q6H PRN Charlotte Goodwin MD 4 mg at 06/06/15 1600 oxyCODONE (ROXICODONE) tablet 5-10 mg 5-10 mg Oral Q4H PRN Charlotte Goodwin MD pantoprazole (PROTONIX) DR tablet 20 mg 20 mg Oral QAM AC Charlotte Goodwin MD 20 mg at 06/06/15 1434 polyethylene glycol (MIRALAX) powder 17 g 17 g Oral Daily PRN Charlotte Goodwin MD senna (SENOKOT) tablet 8.6 mg 8.6 mg Oral BID PRN Charlotte Goodwin MD ticagrelor (BRILINTA) tablet 90 mg 90 mg Oral BID Charlotte Goodwin MD 90 mg at 06/05 ALLERGIES Allergies Allergen Reactions Meperidine ROS Neuropathy with numbness from the knees down No bleeding Cath site excellent OBJECTIVE: PHYSICAL EXAM BP 149/72 mmHg | Pulse 64 | Temp(Src) 35.9 C (96.6 F) (Oral) | Resp 14 | Wt 116 kg (255 lb 11.7 oz) | SpO2 96% General appearance: no acute distress. Eyes: no icterus. Lids normal Mouth: no cyanosis. Neck: No lymphadenopathy in the neck or supraclavicular area. Good carotid upstroke. No bruits. No JVD Lungs: CTA Heart: normal sounds 1/6 DESHAUN murmur Abdomen: soft. Non tender Ext: No CCE in upper or lower extremities Neuro: Awake and oriented x3 ECG: Evolving infarct LAB RESULTS: LIPID Lab Results Component Value Date CHOL 153 06/07/2015 TRIG 122 06/07/2015 HDL 38 06/07/2015 LDL 91 06/07/2015 CHOLHDL 4.0 06/07/2015 CHEMISTRY Lab Results Component Value Date GLU 208* 06/07/2015 NA 136 06/07/2015 K 4.3 06/07/2015 CL 103 06/07/2015 CO2 27 06/07/2015 CALCIUM 8.9 06/07/2015 ALKPHOS 56 06/06/2015 AST 33 06/06/2015 ALT 25 06/06/2015 BILITOT 0.6 06/06/2015 CREA 1.32* 06/07/2015 BUN 14 06/07/2015 at home he reports GFR in the 40's HEMATOLOGY Lab Results Component Value Date WBC 14.9* 06/07/2015 HGB 13.4* 06/07/2015 HCT 39.8* 06/07/2015 PLT 218 06/07/2015 ASSESSMENT: Patient Active Problem List Diagnosis 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 I have had more nausea with Brilinta. Explained that Dr Wolfe will be her for me and that after discharge he will see me back in the clinic Electronically signed by: Charlotte Goodwin MD [facility] 06/07/2015 Portions of this chart may have been created with [employer] voice recognition software. Occasi onal wrong-word or sound-alike substitutions may have occurred due to the inherent rodriguez itations of voice recognition software. Please read the chart carefully and recognize, using context, where these substitutions have occurred. documented in this e ncounter Plan of Treatment + + +--------+ + + | Name | Type | Priori | Associated Diagnoses | Order Schedule | | | | ty | | | + + +--------+ + + | * [facility] | Outpatient | Routin | STEMI involving | Ordered: 06/07/2015 | | - AMB Referral | Referral | e | oth coronary artery | | | | | | of anterior wall | | | | | | (HCC) | | + + +--------+ + + | Referral to Home | Outpatient | Routin | | One Time for 1 | | Health | Referral | e | | Occurrences starting | | | | | | 06/10/2015 until | | | | | | 06/10/2015 | + + +--------+ + + documented as of this encounter Procedures + +--------+ + + + | Procedure Name | Priori | Date/Time | Associated Diagnosis | Comments | | | ty | | | | + +--------+ + + + | POC GLUCOSE | Routin | 06/08/2015 | | Results for this | | | e | 11:18 AM | | procedure are in the | | | | PDT | | results section. | + +--------+ + + + | POC GLUCOSE | Routin | 06/08/2015 | | Results for this | | | e | 6:53 AM | | procedure are in the | | | | PDT | | results section. | + +--------+ + + + | BASIC METABOLIC | Routin | 06/08/2015 | | Results for this | | PANEL | e | 5:36 AM | | procedure are in the | | | | PDT | | results section. | + +--------+ + + + | POC GLUCOSE | Routin | 06/07/2015 | | Results for this | | | e | 8:14 PM | | procedure are in the | | | | PDT | | results section. | + +--------+ + + + | POC GLUCOSE | Routin | 06/07/2015 | | Results for this | | | e | 4:48 PM | | procedure are in the | | | | PDT | | results section. | + +--------+ + + + | POC GLUCOSE | Routin | 06/07/2015 | | Results for this | | | e | 12:06 PM | | procedure are in the | | | | PDT | | results section. | + +--------+ + + + | POC GLUCOSE | Routin | 06/07/2015 | | Results for this | | | e | 6:44 AM | | procedure are in the | | | | PDT | | results section. | + +--------+ + + + | ECG 12 LEAD | Routin | 06/07/2015 | | Results for this | | | e | 5:37 AM | | procedure are in the | | | | PDT | | results section. | + +--------+ + + + | LIPID PANEL | Routin | 06/07/2015 | | Results for this | | | e | 5:13 AM | | procedure are in the | | | | PDT | | results section. | + +--------+ + + + | CBC NO DIFFERENTIAL | Routin | 06/07/2015 | | Results for this | | | e | 5:13 AM | | procedure are in the | | | | PDT | | results section. | + +--------+ + + + | HEMOGLOBIN A1C | Routin | 06/07/2015 | | Results for this | | | e | 5:13 AM | | procedure are in the | | | | PDT | | results section. | + +--------+ + + + | BASIC METABOLIC | Routin | 06/07/2015 | | Results for this | | PANEL | e | 5:13 AM | | procedure are in the | | | | PDT | | results section. | + +--------+ + + + | RESPIRATORY THERAPY | Routin | 06/07/2015 | | | | COMMUNICATION | e | 4:20 AM | | | | | | PDT | | | + +--------+ + + + | TROPONIN I | Routin | 06/06/2015 | | Results for this | | | e | 9:43 PM | | procedure are in the | | | | PDT | | results section. | + +--------+ + + + | POC GLUCOSE | Routin | 06/06/2015 | | Results for this | | | e | 8:21 PM | | procedure are in the | | | | PDT | | results section. | + +--------+ + + + | POC GLUCOSE | Routin | 06/06/2015 | | Results for this | | | e | 5:36 PM | | procedure are in the | | | | PDT | | results section. | + +--------+ + + + | ECHO COMPLETE | Routin | 06/06/2015 | | Results for this | | | e | 3:40 PM | | procedure are in the | | | | PDT | | results section. | + +--------+ + + + | TROPONIN I | Routin | 06/06/2015 | | Results for this | | | e | 1:50 PM | | procedure are in the | | | | PDT | | results section. | + +--------+ + + + | ECG 12 LEAD | Routin | 06/06/2015 | | Results for this | | | e | 1:34 PM | | procedure are in the | | | | PDT | | results section. | + +--------+ + + + | CULTURE, MRSA | Routin | 06/06/2015 | | Results for this | | | e | 1:34 PM | | procedure are in the | | | | PDT | | results section. | + +--------+ + + + | OXYGEN THERAPY | Routin | 06/06/2015 | | | | | e | 1:27 PM | | | | | | PDT | | | + +--------+ + + + | OXYGEN THERAPY | Routin | 06/06/2015 | | | | | e | 1:27 PM | | | | | | PDT | | | + +--------+ + + + | OXYGEN THERAPY | Routin | 06/06/2015 | | | | | e | 1:27 PM | | | | | | PDT | | | + +--------+ + + + | TROPONIN I | STAT | 06/06/2015 | | Results for this | | | | 11:43 AM | | procedure are in the | | | | PDT | | results section. | + +--------+ + + + | COMPREHENSIVE | STAT | 06/06/2015 | | Results for this | | METABOLIC PANEL | | 11:43 AM | | procedure are in the | | | | PDT | | results section. | + +--------+ + + + | CBC WITH | STAT | 06/06/2015 | | Results for this | | DIFFERENTIAL | | 11:42 AM | | procedure are in the | | | | PDT | | results section. | + +--------+ + + + | CV DIAGNOSTIC | | 06/06/2015 | chest pain | | | CARDIAC CATH | | 10:42 AM | | | | | | PDT | | | + +--------+ + + + | LVEF VALUE | Routin | 06/06/2015 | | Results for this | | | e | | | procedure are in the | | | | | | results section. | + +--------+ + + + documented in this encounter Results POC Glucose (06/08/2015 11:18 AM PDT) + +---------+ + + + | Component | Value | Ref Range | Performed | Pathologist | | | | | At | Signature | + +---------+ + + + | Glucose, | 250 (H) | 70 - 150 mg/dL | [facility] | | | POC | | | [facility] | | [facility] | | | [facility] | | | | | | C[facility] - | | | | | | LABORATORY | | + +---------+ + + + + + | Specimen | + + | Blood | + + + + + + + | Performing | Address | City/State/Zipcode | Phone Number | | Organization | | | | + + + + + | [facility] | [address] | [place] | [phone] | | [facility] | | [address] | | | - LABORATORY | | | | + + + + + POC Glucose (06/08/2015 6:53 AM PDT) + +-------+ + + + | Component | Value | Ref Range | Performed | Pathologist | | | | | At | Signature | + +-------+ + + + | Glucose, | 133 | 70 - 150 mg/dL | [facility] | | | POC | | | [facility] | | | | | | [...] | [address] | [place] | [phone] | | [facility] | | [address] | | | - LABORATORY | | | | + + + + + Basic Metabolic Panel (06/08/2015 5:36 AM PDT) + + + + + + | Component | Value | Ref Range | Performed | Pathologist | | | | | At | Signature | + + + + + + | Na | 137 | 136 - 149 | [facility] | | | | | mmol/L | [facility] | | | | | | MEDICAL | | | | | | CENTER - | | | | | | LABORATORY | | + + + + + + | K | 4.0 | 3.5 - 5.1 | [facility] | | | | | mmol/L | [facility] | | | | | | [facility]ICAL | | | | | | CENTER - | | | | | | LABORATORY | | + + + + + + | Cl | 106 | 98 - 109 mmol/L | [facility] | | | | | | [facility] | | | | | | MEDICAL | | | | | | CENTER - | | | | | | LABORATORY | | + + + + + + | CO2 | 25 | 24 - 31 mmol/L | [facility] | | | | | | [facility] | | | | | | MEDICAL | | | | | | CENTER - | | | | | | LABORATORY | | + + + + + + | Anion Gap | 6 | 3 - 16 mmol/L | [facility] | | | | | | [facility] | | | | | | [facility] | | | | | | CENTER - | | | | | | LABORATORY | | + + + + + + | Glucose | 148 (H) | 70 - 109 mg/dL | [facility] | | | | | | [facility] | | | | | | [facility] | | | | | | CENTER - | | | | | | LABORATORY | | + + + + + + | BUN | 20 (H) | 7 - 18 mg/dL | [facility] | | | | | | [facility] | | | | | | [facility]ICAL | | | | | | CENTER - | | | | | | LABORATORY | | + + + + + + | Creatinine | 1.55 (H) | 0.60 - 1.30 | [facility] | | | | | mg/dL | [facility] | | | | | | MEDICAL | | | | | | CENTER - | | | | | | LABORATORY | | + + + + + + | eGFR if not | 44 (L)Comment: | >=60 | [facility] | | | | GLOMERULAR FILTRATION | mL/min/1.73m2 | [facility] | | | [place] | RATE,ESTIMATED | | MEDICAL | | | | mL/min/1.46b1Bxty than | | CENTER - | | [...] + + + + | Calcium | 8.5 | 8.3 - 10.5 | [facility] | | | | | mg/dL | [facility] | | | | | | MEDICAL | | | | | | CENTER - | | | | | | LABORATORY | | + + + + + + | BUN/Creatin | 12.9 | | [facility] | | | ine Ratio | | | [facility] | | | | | | [...] + + | [facility] | [address] | [place] | [phone] | | [facility] | | [address] | | | - LABORATORY | | | | + + + + + POC Glucose (06/07/2015 8:14 PM PDT) + +---------+ + + + | Component | Value | Ref Range | Performed | Pathologist | | | | | At | Signature | + +---------+ + + + | Glucose, | 197 (H) | 70 - 150 mg/dL | [facility] | | | POC | | | [facility] | | | | | | MEDICAL | | | | | | CENTER - | | | | | | LABORATORY | | + +---------+ + + + + + | Specimen | + + | Blood | + + + + + + + | Performing | Address | City/State/Zipcode | Phone Number | | Organization | | | | + + + + + | [facility] | [address] | [place] | [phone] | | [facility] | | [address] | | | - LABORATORY | | | | + + + + + POC Glucose (06/07/2015 4:48 PM PDT) + +-------+ + + + | Component | Value | Ref Range | Performed | Pathologist | | | | | At | Signature | + +-------+ + + + | Glucose, | 136 | 70 - 150 mg/dL | [facility] [...] + + | [facility] | [address] | [place] | [phone] | | [facility] | | [address] | | | - LABORATORY | | | | + + + + + POC Glucose (06/07/2015 12:06 PM PDT) + +-------+ + + + | Component | Value | Ref Range | Performed | Pathologist | | | | | At | Signature | + +-------+ + + + | Glucose, | 109 | 70 - 150 mg/dL | [facility] | | | POC | | | [facility] | | [...] + + | [facility] | [address] | [place] | [phone] | | [facility] | | [address] | | | - LABORATORY | | | | + + + + + POC Glucose (06/07/2015 6:44 AM PDT) + +---------+ + + + | Component | Value | Ref Range | Performed | Pathologist | | | | | At | Signature | + +---------+ + + + | Glucose, | 203 (H) | 70 - 150 mg/dL | [facility] | | | POC | | | [facility] | | | | | | MEDICAL | | | | | | CENTER - | | | | | | LABORATORY | | + +---------+ + + + + + | Specimen | + + | Blood | + + + + + + + | Performing | Address | City/State/Zipcode | Phone Number | | Organization | | | | + + + + + | [facility] | [address] | [place] | [phone] | | [facility] | | [address] | | | - LABORATORY | | | | + + + + + ECG 12 lead (06/07/2015 5:37 AM PDT) + + + + + + | Component | Value | Ref Range | Performed | Pathologist | | | | | At | Signature | + + + + + + | VENTRICULAR | 64 | BPM | [facility] | | | RATE EKG | | | | | + + + + + + | ATRIAL RATE | 64 | BPM | [facility] | | + + + + + + | P-R | 154 | ms | [facility] | | | INTERVAL | | | | | + + + + + + | QRS | 100 | ms | [facility] | | | DURATION | | | | | + + + + + + | Q-T | 380 | ms | [facility] | | | INTERVAL | | | | | + + + + + + | Q-T | 392 | ms | [facility] | | | INTERVAL | | | | | | (CORRECTED) | | | | | + + + + + + | P WAVE AXIS | 56 | degrees | [facility] | | + + + + + + | QRS AXIS | 32 | degrees | [facility] | | + + + + + + | T AXIS | 64 | degrees | [facility] | | + + + + + + | INTERPRETAT | Normal sinus | | [facility] | | | ION TEXT | rhythmAnteroseptal | | | | | | infarct (cited on or | | | | | | before | | | | | | 06-JUN-2015)Abnormal | | | | | | ECGWhen compared with | | | | | | ECG of 06-JUN-2015 | | | | | | 13:34,premature atrial | | | | | | complexes are no longer | | | | | | presentST no longer | | | | | | depressed in Inferior | | | | | | leadsST less elevated in | | | | | | Anterior | | | | | | leadsNonspecific T wave | | | | | | abnormality, improved in | | | | | | Inferior leadsConfirmed | | | | | | by CHARLOTTE GOODWIN MD | | | | | | ([id number]) on 06/07/2015 | | | | | | 5:57:42 AM | | | | + + + + + + + + | Specimen | + + | | + + + + + | Narrative | Performed At | + + + | | | + + + + +---------+ + + | Performing | Address | City/State/Zipcode | Phone Number | | Organization | | | | + +---------+ + + | [facility] | | | | + +---------+ + + Lipid Panel (06/07/2015 5:13 AM PDT) + + + + + + | Component | Value | Ref Range | Performed | Pathologist | | | | | At | Signature | + + + + + + | Triglycerid | 122 | 35 - 160 mg/dL | [facility] | | | es | | | [facility] | | | | | | MEDICAL | | | | | | CENTER - | | | | | | LABORATORY | | + + + + + + | Cholesterol | 153 | 150 - 200 mg/dL | [facility] | | | | | | [facility] | | | | | | MEDICAL | | | | | | CENTER - | | | | | | LABORATORY | | + + + + + + | HDL | 38Comment: New HDL | 28 - 83 mg/dL | [facility] | | | | Reference Range as of | | [facility] | | | | November 15, 2014 | | MEDICAL | | | | Values may be 10-20% | | CENTER - | | | | lower with new, | | LABORATORY | | | | standardized method. | | | | + + + + + + | Chol/HDL | 4.0 | | [facility] | | | Ratio | | | [facility] | | | | | | MEDICAL | | | | | | CENTER - | | | | | | LABORATORY | | + + + + + + | LDL, | 91 | <=130 mg/dL | [facility] | | | Calculated | | | [facility] | | | | | | [...] | + + + + + | [facility] | [address] | [place] | [phone] | | [facility] | | [address] | | | - LABORATORY | | | | + + + + + Hemoglobin A1C (06/07/2015 5:13 AM PDT) + +---------+ + + + | Component | Value | Ref Range | Performed | Pathologist | | | | | At | Signature | + +---------+ + + + | Hemoglobin | 7.8 (H) | 4.3 - 6.0 % | [facility] | | | A1c | | | [facility] | | | | | | MEDICAL | | | | | | CENTER - | | | | | | LABORATORY | | + +---------+ + + + | Estimated | 177 | mg/dL | [facility] | | | Average | | | [facility] | | | Glucose | | | MEDICAL | | | | | | CENTER - | | | | | | LABORATORY | | + +---------+ + + + + + | Specimen | + + | Blood | + + + + + + + | Performing | Address | City/State/Zipcode | Phone Number | | Organization | | | | + + + + + | [facility] | [address] | [place], [place] | [phone] | | [facility] | | [address] | | | - LABORATORY | | | | + + + + + CBC no Differential (06/07/2015 5:13 AM PDT) + + + + + + | Component | Value | Ref Range | Performed | Pathologist | | | | | At | Signature | + + + + + + | WBC | 14.9 (H) | 4.0 - 11.0 K/uL | [facility] | | | | | | [facility] | | | | | | MEDICAL | | | | | | CENTER - | | | | | | LABORATORY | | + + + + + + | RBC | 4.40 | 4.30 - 5.70 | [facility] | | | | | M/uL | [facility] | | | | | | MEDICAL | | | | | | CENTER - | | | | | | LABORATORY | | + + + + + + | Hemoglobin | 13.4 (L) | 13.5 - 18.0 | [facility] | | | | | g/dL | [facility] | | | | | | MEDICAL | | | | | | CENTER - | | | | | | LABORATORY | | + + + + + + | Hematocrit | 39.8 (L) | 40.0 - 51.0 % | [facility] | | | | | | [facility] | | | | | | MEDICAL | | | | | | CENTER - | | | | | | LABORATORY | | + + + + + + | MCV | 90.4 | 83.0 - 101.0 fL | [facility] | | | | | | [facility] | | | | | | MEDICAL | | | | | | CENTER - | | | | | | LABORATORY | | + + + + + + | MCH | 30.6 | 28.0 - 35.0 pg | [facility] | | | | | | [facility] | | | | | | MEDICAL | | | | | | CENTER - | | | | | | LABORATORY | | + + + + + + | MCHC | 33.8 | 32.0 - 36.0 | [facility] | | | | | g/dL | [facility] | | | | | | MEDICAL | | | | | | CENTER - | | | | | | LABORATORY | | + + + + + + | RDW-CV | 13.3 | <15.0 % | [facility] | | | | | | [facility] | | | | | | MEDICAL | | | | | | CENTER - | | | | | | LABORATORY | | + + + + + + | Platelet | 218 | 140 - 440 K/uL | [facility] | | | Count | | | [facility] | | | | | | MEDICAL | | | | | | CENTER - | | | | | | LABORATORY | | + + + + + + | MPV | 7.2 | fL | [facility] | | | | | [...] + + | [facility] | [address] | [place] | [phone] | | [facility] | | [address] | | | - LABORATORY | | | | + + + + + Basic Metabolic Panel (06/07/2015 5:13 AM PDT) + + + + + + | Component | Value | Ref Range | Performed | Pathologist | | | | | At | Signature | + + + + + + | Na | 136 | 136 - 149 | [facility] | | | | | mmol/L | [facility] | | | | | | MEDICAL | | | | | | CENTER - | | | | | | LABORATORY | | + + + + + + | K | 4.3 | 3.5 - 5.1 | [facility] | | | | | mmol/L | [facility] | | | | | | MEDICAL | | | | | | CENTER - | | | | | | LABORATORY | | + + + + + + | Cl | 103 | 98 - 109 mmol/L | [facility] | | | | | | [facility] | | | | | | MEDICAL | | | | | | CENTER - | | | | | | LABORATORY | | + + + + + + | CO2 | 27 | 24 - 31 mmol/L | [facility] | | | | | | [facility] | | | | | | MEDICAL | | | | | | CENTER - | | | | | | LABORATORY | | + + + + + + | Anion Gap | 6 | 3 - 16 mmol/L | [facility] | | | | | | [facility] | | | | | | MEDICAL | | | | | | CENTER - | | | | | | LABORATORY | | + + + + + + | Glucose | 208 (H) | 70 - 109 mg/dL | [facility] | | | | | | [facility] | | | | | | MEDICAL | | | | | | CENTER - | | | | | | LABORATORY | | + + + + + + | BUN | 14 | 7 - 18 mg/dL | [facility] | | | | | | [facility] | | | | | | MEDICAL | | | | | | CENTER - | | | | | | LABORATORY | | + + + + + + | Creatinine | 1.32 (H) | 0.60 - 1.30 | [facility] | | | | | mg/dL | [facility] | | | | | | MEDICAL | | | | | | CENTER - | | | | | | LABORATORY | | + + + + + + | eGFR if not | 53 (L)Comment: | >=60 | [facility] | | | | GLOMERULAR FILTRATION | mL/min/1.73m2 | [facility] | | | [place] | RATE,ESTIMATED | | MEDICAL | | | | mL/min/1.35j8Elbl than | | CENTER - | | [...] + + + + | Calcium | 8.9 | 8.3 - 10.5 | [facility] | | | | | mg/dL | [facility] | | | | | | MEDICAL | | | | | | CENTER - | | | | | | LABORATORY | | + + + + + + | BUN/Creatin | 10.6 | | [facility] | | | ine [...] [address] | [place] | [phone] | | [facility] | | [address] | | | - LABORATORY | | | | + + + + + Troponin I (06/06/2015 9:43 PM PDT) + + + + + + | Component | Value | Ref Range | Performed | Pathologist | | | | | At | Signature | + + + + + + | Troponin I | 42.93 ()Comment: | <0.06 ng/mL | [facility] | | | | Reference | | [facility] | | | | Ranges:0.00-0.06 = | | MEDICAL | | | | NORMAL>0.06 = | | CENTER - | | | | SUSPICIOUS FOR | | LABORATORY | | | | MYOCARDIAL DAMAGE NOTE: | | | | | | Values greater than 0.50 | | | | | | ng/mL have been shown | | | | | | to be strongly | | | | | | associated with acute | | | | | | myocardial infarction. | | | | | | Critical Result called | | | | | | to and read back by Emile | | | | | | Sabrina on 06/06/2015 | | | | | | at 22:28 by Johanna Diaz | | | | | | Gretchen. The | | | | | | [employer] | | | | | | [employer]iology ([employer]) | | | | | | recommends a decision | | | | | | limit of 0.06 ng/mL for | | | | | | this assay. Results | | | | | | greater than 0.06 can | | | | | | reflect a pre-infarct | | | | | | acute coronary syndrome, | | | | | | but can also reflect | | | | | | myocardial necrosis or | | | | | | injury that is not due | | | | | | to coronary artery | | | | | | disease. Some of these | | | | | | causes are sepsis, | | | | | | hypocolemia, atrial | | | | | | fibrillation, heart | | | | | | failure, pulmonary | | | | | | embolism, myocarditis, | | | | | | myocardial contusion, | | | | | | and renal failure. The | | | | | | diagnosis of myocardial | | | | | | infarction should be | | | | | | based on a combination | | | | | | of the patient's | | | | | | clinical presentation | | | | | | and the clinical | | | | | | laboratory test results | | | | | | (especially serial | | | | | | troponin levels). | | | | + + + + + + + + | Specimen | + + | Blood | + + + + + + + | Performing | Address | City/State/[facility] | Phone Number | | Organization | | | | + + + + + | [facility] | [address] | [place] | [phone] | | [facility] | | [address] | | | - LABORATORY | | | | + + + + + POC Glucose (06/06/2015 8:21 PM PDT) + +---------+ + + + | Component | Value | Ref Range | Performed | Pathologist | | | | | At | Signature | + +---------+ + + + | Glucose, | 207 (H) | 70 - 150 mg/dL | [facility] | | | POC | | | [facility] | | | | | | MEDICAL | | | | | | CENTER - | | | | | | LABORATORY | | + +---------+ + + + + + | Specimen | + + | Blood | + + + + + + + | Performing | Address | City/State/Zipcode | Phone Number | | Organization | | | | + + + + + | [facility] | [address] | [place] | [phone] | | [facility] | | [address] | | | - LABORATORY | | | | + + + + + POC Glucose (06/06/2015 5:36 PM PDT) + +---------+ + + + | Component | Value | Ref Range | Performed | Pathologist | | | | | At | Signature | + +---------+ + + + | Glucose, | 206 (H) | 70 - 150 mg/dL | [facility] | | | POC | | | [facility] | | | | | | MEDICAL | | | | | | CENTER - | | | | | | LABORATORY | | + +---------+ + + + + + | Specimen | + + | Blood | + + + + + + + | Performing | Address | City/State/Zipcode | Phone Number | | Organization | | | | + + + + + | [facility] | [address] | [place] | [phone] | | [facility] | | [address] | | | - LABORATORY | | | | + + + + + ECHO Complete (06/06/2015 3:40 PM PDT) + + | Specimen | + + | | + + + + + | Narrative | Performed At | + + + | [facility] ECHOCARDIOGRAM REPORT | | | STUDY DATE: 06/06/2015 PATIENT NAME: Raz Arce : | | | 1945 PCP: Ralph Xavier MD | | | CLINICAL HISTORY/DIAGNOSIS: Acute coronary syndrome A | | | transthoracic echocardiogram with M-mode, pulsed-wave and color | | | Doppler was performed with standard views obtained. The technical | | | quality of this examination is limited due to pt size and poor | | | windows. The heart rhythm during the echo is regular. The | | | M-mode, two-dimensional, color flow and spectral Doppler data were | | | reviewed and support the following interpretation: | | | Interpretation: Left Atrium: enlarged Left ventricle: Left | | | ventricular size is normal with normal wall thickness and overall | | | normal LV function. Limited apical wall motion abnormality. The | | | estimated ejection fraction is 50 %. Left ventricular diastolic | | | function is abnormal. Aortic root: Aortic root is normal. Right | | | Atrium: Right atrial sizes normal. Right ventricle: Right | | | ventricular size is normal with normal wall thickness and normal | | | right ventricular systolic function. Pericardium: Pericardium is | | | normal. Pulmonary artery: Pulmonary artery is normal. Aortic | | | valve: not well seen - no gross abnormality noted. Mitral valve: | | | Mitral valve is normal. Pulmonic valve: not well seen Tricuspid | | | valve: Tricuspid valve is normal. Vena cava: The inferior vena | | | cava is normal. There is greater than 50% inspiratory collapse of | | | the IVC. IMPRESSIONS: Limited windows due to patient body | | | habitus Overall normal LV function with limited wall motion | | | abnormality Measurements: Height: 5'11" Weight: | | | 250lbs Aortic root: 37 mm Aortic cusp sep: 13 mm LA: 44 mm | | | IVS-diastole: 11 mm IVS-systole: 13 mm LVPW diastole: 9 mm | | | LVPW systole: 13 mm LV diameter-diastole: 44 mm LV | | | diameter-systole: 31 mm Fractional shortenin % PFV aortic | | | valve: 1.38 m/s MPG mitral valve: mmHg PFV TR jet: m/s RA/RV | | | PPG: mmHg LA volume: 68 mL LA index: 29 mL/m2 Mitral Inflow DT: | | | 202 ms IVRT: 91 ms Valsalva: Not needed PWDTI S wave: 6.5 | | | cm/s PWDTI E wave: 6.6 cm/s PWDTI A wave: 8.9 cm/s E/A Ratio: | | | 0.742 E/E Ratio: 11.07 Signed by: Charlotte Goodwin, | | | [facility] 06/06/2015 16:06 X Ray Technologist: Robyn | | | [facility]ont | | + + + Troponin I (06/06/2015 1:50 PM PDT) + + + + + + | Component | Value | Ref Range | Performed | Pathologist | | | | | At | Signature | + + + + + + | Troponin I | 1.46 ()Comment: | <0.06 ng/mL | [facility] | | | | Reference | | [facility] | | | | Ranges:0.00-0.06 = | | MEDICAL | | | | NORMAL>0.06 = | | CENTER - | | | | SUSPICIOUS FOR | | LABORATORY | | | | MYOCARDIAL DAMAGE NOTE: | | | | | | Values greater than 0.50 | | | | | | ng/mL have been shown | | | | | | to be strongly | | | | | | associated with acute | | | | | | myocardial infarction. | | | | | | The [employer] | | | | | | Cardiology (ACC) | | | | | | recommends a decision | | | | | | limit of 0.06 ng/mL for | | | | | | this assay. Results | | | | | | greater than 0.06 can | | | | | | reflect a pre-infarct | | | | | | acute coronary syndrome, | | | | | | but can also reflect | | | | | | myocardial necrosis or | | | | | | injury that is not due | | | | | | to coronary artery | | | | | | disease. Some of these | | | | | | causes are sepsis, | | | | | | hypocolemia, atrial | | | | | | fibrillation, heart | | | | | | failure, pulmonary | | | | | | embolism, myocarditis, | | | | | | myocardial contusion, | | | | | | and renal failure. The | | | | | | diagnosis of myocardial | | | | | | infarction should be | | | | | | based on a combination | | | | | | of the patient's | | | | | | clinical presentation | | | | | | and the clinical | | | | | | laboratory test results | | | | | | (especially serial | | | | | | troponin levels). | | | | + + + + + + | Comment | Comment: Critical Result | | [facility] | | | | called to and read back | | [facility] | | | | by sohan Iqbal/ROMAN on | | MEDICAL | | | | 06/06/2015 at 14:33 by | | [facility] - | | | | Melvin. | | LABORATORY | | | | | | | | + + + + + + + + | Specimen | + + | Blood | + + + + + + + | Performing | Address | City/State/Zipcode | Phone Number | | Organization | | | | + + + + + | [facility] | [address] | [place] | [phone] | | [facility] | | [address] | | | - LABORATORY | | | | + + + + + ECG 12 lead (06/06/2015 1:34 PM PDT) + + + + + + | Component | Value | Ref Range | Performed | Pathologist | | | | | At | Signature | + + + + + + | VENTRICULAR | 74 | BPM | [facility] | | | RATE EKG | | | | | + + + + + + | ATRIAL RATE | 74 | BPM | [facility] | | + + + + + + | P-R | 174 | ms | [facility] | | | INTERVAL | | | | | + + + + + + | QRS | 94 | ms | [facility] | | | DURATION | | | | | + + + + + + | Q-T | 396 | ms | [facility] | | | INTERVAL | | | | | + + + + + + | Q-T | 439 | ms | [facility] | | | INTERVAL | | | | | | (CORRECTED) | | | | | + + + + + + | P WAVE AXIS | 47 | degrees | [facility] | | + + + + + + | QRS AXIS | 33 | degrees | [facility] | | + + + + + + | T AXIS | 29 | degrees | [facility] | | + + + + + + | INTERPRETAT | Sinus rhythm with | | [facility] | | | ION TEXT | premature atrial | | | | | | complexesAnteroseptal | | | | | | infarct , possibly | | | | | | acuteLateral injury | | | | | | pattern ACUTE MA / | | | | | | STEMI Abnormal | | | | | | ECGSerial changes of | | | | | | evolvingConfirmed by | | | | | | CHARLOTTE GOODWIN MD | | | | | | ([id number]) on 06/06/2015 | | | | | | 2:25:14 PM | | | | + + + + + + + + | Specimen | + + | | + + + + + | Narrative | Performed At | + + + | | | + + + + +---------+ + + | Performing | Address | City/State/Zipcode | Phone Number | | Organization | | | | + +---------+ + + | [facility] | | | | + +---------+ + + Culture, MRSA (06/06/2015 1:34 PM PDT) + + + + + + | Component | Value | Ref Range | Performed | Pathologist | | | | | At | Signature | + + + + + + | Culture | Negative for MRSA by | | [facility] | | | | chromogenic agar method | | [facility] | | | | | | MEDICAL | | | | | | CENTER - | | | | | | LABORATORY | | + + + + + + + + | Specimen | + + | Respiratory - Both | | anterior nares (body | | structure) | + + + + + + + | Performing | Address | City/State/Zipcode | Phone Number | | Organization | | | | + + + + + | [facility] | [address] | [place] | [phone] | | [facility] | | [address] | | | - LABORATORY | | | | + + + + + Troponin I (06/06/2015 11:43 AM PDT) + + + + + + | Component | Value | Ref Range | Performed | Pathologist | | | | | At | Signature | + + + + + + | Troponin I | 0.46 (H)Comment: | <0.06 ng/mL | [facility] | | | | Reference | | [facility] | | | | Ranges:0.00-0.06 = | | MEDICAL | | | | NORMAL>0.06 = | | CENTER - | | | | SUSPICIOUS FOR | | LABORATORY | | | | MYOCARDIAL DAMAGE NOTE: | | | | | | Values greater than 0.50 | | | | | | ng/mL have been shown | | | | | | to be strongly | | | | | | associated with acute | | | | | | myocardial infarction. | | | | | | The [employer] | | | | | | Cardiology (ACC) | | | | | | recommends a decision | | | | | | limit of 0.06 ng/mL for | | | | | | this assay. Results | | | | | | greater than 0.06 can | | | | | | reflect a pre-infarct | | | | | | acute coronary syndrome, | | | | | | but can also reflect | | | | | | myocardial necrosis or | | | | | | injury that is not due | | | | | | to coronary artery | | | | | | disease. Some of these | | | | | | causes are sepsis, | | | | | | hypocolemia, atrial | | | | | | fibrillation, heart | | | | | | failure, pulmonary | | | | | | embolism, myocarditis, | | | | | | myocardial contusion, | | | | | | and renal failure. The | | | | | | diagnosis of myocardial | | | | | | infarction should be | | | | | | based on a combination | | | | | | of the patient's | | | | | | clinical presentation | | | | | | and the clinical | | | | | | laboratory test results | | | | | | (especially serial | | | | | | troponin levels). | | | | + + + + + + + + | Specimen | + + | Blood | + + + + + + + | Performing | Address | City/State/Zipcode | Phone Number | | Organization | | | | + + + + + | [facility] | [address] | [place] | [phone] | | [facility] | | [address] | | | - LABORATORY | | | | + + + + + Comprehensive Metabolic Panel (06/06/2015 11:43 AM PDT) + + + + + + | Component | Value | Ref Range | Performed | Pathologist | | | | | At | Signature | + + + + + + | Na | 140 | 136 - 149 | [facility] | | | | | mmol/L | [facility] | | | | | | MEDICAL | | | | | | CENTER - | | | | | | LABORATORY | | + + + + + + | K | 4.1 | 3.5 - 5.1 | [facility] | | | | | mmol/L | [facility] | | | | | | MEDICAL | | | | | | CENTER - | | | | | | LABORATORY | | + + + + + + | Cl | 108 | 98 - 109 mmol/L | [facility] | | | | | | [facility] | | | | | | MEDICAL | | | | | | CENTER - | | | | | | LABORATORY | | + + + + + + | CO2 | 25 | 24 - 31 mmol/L | [facility] | | | | | | [facility] | | | | | | MEDICAL | | | | | | CENTER - | | | | | | LABORATORY | | + + + + + + | Anion Gap | 7 | 3 - 16 mmol/L | [facility] | | | | | | [facility] | | | | | | MEDICAL | | | | | | CENTER - | | | | | | LABORATORY | | + + + + + + | Glucose | 241 (H) | 70 - 109 mg/dL | [facility] | | [facility] | | | | | | C[facility] - | | | | | | LABORATORY | | + + + + + + | BUN | 14 | 7 - 18 mg/dL | [facility] | | | | | | [facility] | | | | | | MEDICAL | | | | | | CENTER - | | | | | | LABORATORY | | + + + + + + | Creatinine | 1.33 (H) | 0.60 - 1.30 | [facility] | | | | | mg/dL | [facility] | | | | | | MEDICAL | | | | | | CENTER - | | | | | | LABORATORY | | + + + + + + | eGFR if not | 53 (L)Comment: | >=60 | [facility] | | | | GLOMERULAR FILTRATION | mL/min/1.73m2 | [facility] | | | [facility] | RATE,ESTIMATED | | MEDICAL | | | | mL/min/1.18s2Mpmn than | | CENTER - | | [...] + + + + | Calcium | 8.6 | 8.3 - 10.5 | [facility] | | | | | mg/dL | [facility] | | | | | | MEDICAL | | | | | | CENTER - | | | | | | LABORATORY | | + + + + + + | Albumin | 3.5 | 3.2 - 5.0 g/dL | [facility] | | | | | | [facility] | | | | | | MEDICAL | | | | | | CENTER - | | | | | | LABORATORY | | + + + + + + | Bilirubin | 0.6 | 0.1 - 1.5 mg/dL | [facility] | | | Total | | | [facility] | | | | | | MEDICAL | | | | | | CENTER - | | | | | | LABORATORY | | + + + + + + | Total | 6.1 | 6.0 - 7.8 g/dL | [facility] | | | Protein | | | [facility] | | | | | | MEDICAL | | | | | | CENTER - | | | | | | LABORATORY | | + + + + + + | AST | 33 | 10 - 42 U/L | [facility] | | | | | | [facility] | | | | | | MEDICAL | | | | | | CENTER - | | | | | | LABORATORY | | + + + + + + | ALT | 25 | 6 - 45 U/L | [facility] | | | | | | [facility] | | | | | | MEDICAL | | | | | | CENTER - | | | | | | LABORATORY | | + + + + + + | Alkaline | 56 | 40 - 110 U/L | [facility] | | | Phosphatase | | | [facility] | | | | | | MEDICAL | | | | | | CENTER - | | | | | | LABORATORY | | + + + + + + | Globulin | 2.6 | g/dL | [facility] | | | | | | [facility] | | | | | | MEDICAL | | | | | | CENTER - | | | | | | LABORATORY | | + + + + + + | Albumin/Kristen | 1.3 | | [facility] | | | bulin Ratio | | | [facility] | | | | | | MEDICAL | | | | | | CENTER - | | | | | | LABORATORY | | + + + + + + | BUN/Creatin | 10.5 | | [facility] | | | ine Ratio | | | [facility] | | [...] + + | [facility] | [address] | [place] | [phone] | | [facility] | | [address] | | | - LABORATORY | | | | + + + + + CBC with Differential (06/06/2015 11:42 AM PDT) + + + + + + | Component | Value | Ref Range | Performed | Pathologist | | | | | At | Signature | + + + + + + | WBC | 10.2 | 4.0 - 11.0 K/uL | [facility] | | | | | | [facility] - | | | | | | LABORATORY | | + + + + + + | RBC | 4.45 | 4.30 - 5.70 | [facility] | | | | | M/uL | [facility] | | | | | | MEDICAL | | | | | | CENTER - | | | | | | LABORATORY | | + + + + + + | Hemoglobin | 13.4 (L) | 13.5 - 18.0 | [facility] | | | | | g/dL | [facility] | | | | | | MEDICAL | | | | | | CENTER - | | | | | | LABORATORY | | + + + + + + | Hematocrit | 40.6 | 40.0 - 51.0 % | [facility] | | | | | | [facility] | | | | | | MEDICAL | | | | | | CENTER - | | | | | | LABORATORY | | + + + + + + | MCV | 91.2 | 83.0 - 101.0 fL | [facility] | | | | | | [facility] | | | | | | MEDICAL | | | | | | CENTER - | | | | | | LABORATORY | | + + + + + + | MCH | 30.2 | 28.0 - 35.0 pg | [facility] | | | | | | [facility] | | | | | | MEDICAL | | | | | | CENTER - | | | | | | LABORATORY | | + + + + + + | MCHC | 33.1 | 32.0 - 36.0 | [facility] | | | | | g/dL | [facility] | | | | | | MEDICAL | | | | | | CENTER - | | | | | | LABORATORY | | + + + + + + | RDW-CV | 13.2 | <15.0 % | [facility] | | | | | | [facility] | | | | | | MEDICAL | | | | | | CENTER - | | | | | | LABORATORY | | + + + + + + | Platelet | 228 | 140 - 440 K/uL | [facility] | | | Count | | | [facility] | | | | | | MEDICAL | | | | | | CENTER - | | | | | | LABORATORY | | + + + + + + | MPV | 8.1 | fL | [facility] | | | | | | [facility] | | | | | | MEDICAL | | | | | | CENTER - | | | | | | LABORATORY | | + + + + + + | % | 73.7 | 45.0 - 82.0 % | [facility] | | | Neutrophils | | | [facility] | | | | | | MEDICAL | | | | | | CENTER - | | | | | | LABORATORY | | + + + + + + | % | 17.0 (L) | 20.0 - 45.0 % | [facility] | | | Lymphocytes | | | [facility] | | | | | | MEDICAL | | | | | | CENTER - | | | | | | LABORATORY | | + + + + + + | % Monocytes | 7.5 | 4.0 - 12.0 % | [facility] | | | | | | [facility] | | | | | | MEDICAL | | | | | | CENTER - | | | | | | LABORATORY | | + + + + + + | % | 0.7 | 0.0 - 5.0 % | [facility] | | | Eosinophils | | | [facility] | | | | | | MEDICAL | | | | | | CENTER - | | | | | | LABORATORY | | + + + + + + | % Basophils | 1.1 (H) | 0.0 - 1.0 % | [facility] | | | | | | [facility] | | | | | | MEDICAL | | | | | | CENTER - | | | | | | LABORATORY | | + + + + + + | Absolute | 7.60 | 1.80 - 8.50 | [facility] | | | Neutrophils | | K/uL | [facility] | | | | | | MEDICAL | | | | | | CENTER - | | | | | | LABORATORY | | + + + + + + | Absolute | 1.70 | 0.60 - 3.20 | [facility] | | | Lymphocytes | | K/uL | [facility] | | | | | | MEDICAL | | | | | | CENTER - | | | | | | LABORATORY | | + + + + + + | Absolute | 0.80 | 0.00 - 1.00 | [facility] | | | Monocytes | | K/uL | [facility] | | | | | | MEDICAL | | | | | | CENTER - | | | | | | LABORATORY | | + + + + + + | Absolute | 0.10 | 0.00 - 0.40 | [facility] | | | Eosinophils | | K/uL | [facility] | | | | | | MEDICAL | | | | | | CENTER - | | | | | | LABORATORY | | + + + + + + | Absolute | 0.10 | 0.00 - 0.10 | [facility] | | | Basophils | | K/uL | [facility] | | | | [...] | + + + + + | [facility] 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 (HCC) - Primary | + + | History of ST elevation myocardial infarction (STEMI) Old myocardial infarction | + + | Essential hypertension Unspecified essential hypertension | + + | Type 2 diabetes mellitus with stage 3 chronic kidney disease, without long-term | | current use of insulin (HCC) | + + | Diabetic neuropathy associated with type 2 diabetes mellitus (HCC) | + + | Chronic renal insufficiency Chronic kidney disease, unspecified | + + | Mild intermittent asthma without complication Unspecified asthma | + + documented in this encounter Administered Medications + +--------+ +-------+------+------+ | Medication Order | MAR | Action | Dose | Rate | Site | | | Action | Date | | | | + +--------+ +-------+------+------+ | aspirin chewable tablet 81 mg | Given | 06/08/19 | 81 mg | | | | 81 mg, Oral, DAILY, First dose on | | 16 8:40 | | | | | 06/07/15 at 0900, Notify | | AM PDT | | | | | provider if unable to tolerate, | | | | | | + +--------+ +-------+------+------+ +-------+ +-------+---+---+ | Given | 06/07/19 | 81 mg | | | | | 16 8:56 | | | | | | AM PDT | | | | +-------+ +-------+---+---+ +---+---+ | | | +---+---+ + +-------+ +-------+---+---+ | atorvaSTATin (LIPITOR) tablet | Given | 06/07/19 | 80 mg | | | | 80 mg 80 mg, Oral, NIGHTLY, | | 16 8:09 | | | | | First dose on Zulema 06/06/15 at 2100 | | PM PDT | | | | + +-------+ +-------+---+---+ +-------+ +-------+---+---+ | Given | 06/06/19 | 80 mg | | | | | 16 8:19 | | | | | | PM PDT | | | | +-------+ +-------+---+---+ +---+---+ | | | +---+---+ + +-------+ +------+---+---+ | glipiZIDE (GLUCOTROL XL) ER | Given | 06/08/19 | 5 mg | | | | tablet 5 mg 5 mg, Oral, DAILY | | 16 8:40 | | | | | WITH BREAKFAST, First dose on Fri | | AM PDT | | | | | 06/07/15 at 0800 | | | | | | + +-------+ +------+---+---+ +-------+ +------+---+---+ | Given | 06/07/19 | 5 mg | | | | | 16 8:56 | | | | | | AM PDT | | | | +-------+ +------+---+---+ +---+---+ | | | +---+---+ + +-------+ +---------+---+ + | insulin lispro (humaLOG | Given | 06/08/19 | 2 Units | | Arm-Left | | KWIKPEN) 100 units/mL injection | | 16 12:44 | | | Upper | | (pen) 0-6 Units 0-6 Units, | | PM PDT | | | | | Subcutaneous, 4 TIMES DAILY WITH | | | | | | | MEALS & NIGHTLY, First dose on | | | | | | | Zulema 06/06/15 at 1700, CORRECTION | | | | | | | SCALE: Blood Glucose (BG) < | | | | | | | 150: None BG | | | | | | | 150-200: DAY: 1 units. NIGHT: 0 | | | | | | | units BG 201-250: DAY: 2 units. | | | | | | | NIGHT: 1 units BG 251-300: | | | | | | | DAY: 3 units. NIGHT: 2 units | | | | | | | BG 301-350: DAY: 4 units. NIGHT: | | | | | | | 3 units BG 351-400: DAY: 5 | | | | | | | units. NIGHT: 4 units BG > | | | | | | | 400 : DAY: 6 units. NIGHT: 5 | | | | | | | units | | | | | | | AND CALL PROVIDER Use DAY DOSE | | | | | | | for doses scheduled: AC, | | | | | | | NPO, Daytime [phone] Use NIGHT | | | | | | | DOSE for doses scheduled: | | | | | | | HS, 3AM, Nighttime 1390-8785, | | | | | | + +-------+ +---------+---+ + +-------+ +---------+---+ + | Given | 06/07/19 | 2 Units | | Arm-Left | | | 16 8:57 | | | Upper | | | AM PDT | | | | +-------+ +---------+---+ + | Given | 06/06/19 | 1 Units | | Arm-Righ | | | 16 8:23 | | | t Upper | | | PM PDT | | | | +-------+ +---------+---+ + +---+---+ | | | +---+---+ + +-------+ +--------+---+---+ | losartan (COZAAR) tablet 100 mg | Given | 06/08/19 | 100 mg | | | | 100 mg, Oral, DAILY, First dose | | 16 8:40 | | | | | on Zulema 06/06/15 at 1745 | | AM PDT | | | | + +-------+ +--------+---+---+ +-------+ +--------+---+---+ | Given | 06/07/19 | 100 mg | | | | | 16 8:56 | | | | | | AM PDT | | | | +-------+ +--------+---+---+ | Given | 06/06/19 | 100 mg | | | | | 16 5:43 | | | | | | PM PDT | | | | +-------+ +--------+---+---+ +---+---+ | | | +---+---+ + +-------+ +-------+---+---+ | metoprolol succinate | Given | 06/08/19 | 25 mg | | | | (TOPROL-XL) ER tablet 25 mg 25 | | 16 8:40 | | | | | mg, Oral, DAILY, First dose on | | AM PDT | | | | | Zulema 06/06/15 at 1515, Tablet may | | | | | | | be cut where scored but do not | | | | | | | crush., | | | | | | + +-------+ +-------+---+---+ +-------+ +-------+---+---+ | Given | 06/07/19 | 25 mg | | | | | 16 8:56 | | | | | | AM PDT | | | | +-------+ +-------+---+---+ | Given | 06/06/19 | 25 mg | | | | | 16 4:20 | | | | | | PM PDT | | | | +-------+ +-------+---+---+ +---+---+ | | | +---+---+ + +-------+ +-------+---+---+ | montelukast (SINGULAIR) tablet | Given | 06/07/19 | 10 mg | | | | 10 mg 10 mg, Oral, NIGHTLY, | | 16 8:09 | | | | | First dose on Zulema 06/06/15 at 2100 | | PM PDT | | | | + +-------+ +-------+---+---+ +-------+ +-------+---+---+ | Given | 06/06/19 | 10 mg | | | | | 16 8:19 | | | | | | PM PDT | | | | +-------+ +-------+---+---+ +---+---+ | | | +---+---+ + +-------+ +------+---+---+ | ondansetron (ZOFRAN) injection | Given | 06/07/19 | 4 mg | | | | 4-8 mg 4-8 mg, Intravenous, | | 16 8:03 | | | | | EVERY 6 HOURS PRN, Nausea, | | AM PDT | | | | | Vomiting, Starting Zulema 06/06/15 at | | | | | | | 1327, Post-op/Phase II | | | | | | + +-------+ +------+---+---+ +-------+ +------+---+---+ | Given | 06/06/19 | 4 mg | | | | | 16 4:00 | | | | | | PM PDT | | | | +-------+ +------+---+---+ +---+---+ | | | +---+---+ + +-------+ +-------+---+---+ | pantoprazole (PROTONIX) DR | Given | 06/08/19 | 20 mg | | | | tablet 20 mg 20 mg, Oral, DAILY | | 16 6:54 | | | | | BEFORE BREAKFAST, First dose on | | AM PDT | | | | | Zulema 06/06/15 at 1315, Do not cut | | | | | | | or crush., | | | | | | + +-------+ +-------+---+---+ +-------+ +-------+---+---+ | Given | 06/07/19 | 20 mg | | | | | 16 6:49 | | | | | | AM PDT | | | | +-------+ +-------+---+---+ | Given | 06/06/19 | 20 mg | | | | | 16 2:34 | | | | | | PM PDT | | | | +-------+ +-------+---+---+ +---+---+ | | | +---+---+ + +-------+ +-------+---+---+ | prasugrel (EFFIENT) tablet 10 | Given | 06/08/19 | 10 mg | | | | mg 10 mg, Oral, DAILY, First | | 16 8:40 | | | | | dose on Wed06/07/15 at 0715 | | AM PDT | | | | + +-------+ +-------+---+---+ +-------+ +-------+---+---+ | Given | 06/07/19 | 10 mg | | | | | 16 7:09 | | | | | | AM PDT | | | | +-------+ +-------+---+---+ +---+---+ | | | +---+---+ + +---------+ +---+-------+---+ | sodium chloride 0.9% (NS) | New Bag | 06/06/19 | | 100 | | | infusion at 100 mL/hr, | | 16 2:43 | | mL/hr | | | Intravenous, CONTINUOUS, Starting | | PM PDT | | | | | Zulema 06/06/15 at 1345, For 6 hours | | | | | | + +---------+ +---+-------+---+ +---+---+ | | | +---+---+ + +-------+ +-------+---+---+ | ticagrelor (BRILINTA) tablet 90 | Given | 06/06/19 | 90 mg | | | | mg 90 mg, Oral, 2 TIMES DAILY, | | 16 8:19 | | | | | First dose on Zulema 06/06/15 at 2000 | | PM PDT | | | | + +-------+ +-------+---+---+ +---+---+ | | | +---+---+ documented in this encounter
--- OUTSIDE RECORDS SUMMARY | ~2019-07-04 | XMS | Encounter Summary ---
Demographics + + + | Address | [address] | | | [place] [address] | + + + | Home Phone | | + + + | Preferred Language | Unknown | + + + | Marital Status | | + + + | Orthodox Affiliation | 1027 | + + + | Race | Unknown | + + + | Ethnic Group | Unknown | + + + Author + + + | Author | [facility] | | | and [place] | + + + | Organization | [facility] | | | [...] Team Providers + +------+ + | Care Press Room Supervisor Name | Role | Phone | + +------+ + | Ralph Xavier MD | PCP | | + +------+ + Encounter Details +--------+ + + + + | Date | Type | Department | Care Team | Description | +--------+ + + + + | 07/24/ | Orders Only | [facility] | Charlotte Turner, | Bradycardia | | 2016 | | CARDIOLOGY [address] | | | | | [place], | [place], [place] | | | | | [place] [address] | [address] | | | | | [phone] | | | +--------+ + + + [...] + | Diagnosis | + + | Bradycardia Other specified cardiac dysrhythmias | + + documented in this encounter"
--- OUTSIDE RECORDS SUMMARY | ~2019-07-04 | XMS | Encounter Summary ---
Demographics + + + | Address | [address] | | | [place] [address] | + + + | Home Phone | | + + + | Preferred Language | Unknown | + + + | Marital Status | | + + + | Restoration Affiliation | [id number] | + + + | Race | Unknown | + + + | Ethnic Group | Unknown | + + + Author + + + | Author | [facility] | | | and [place] | + [...] Team Providers + +------+ + | Care Chief Service Dispatcher Name | Role | Phone | + +------+ + | Ralph Xavier MD | PCP | | + +------+ + Reason for Visit + + + | Reason | Comments | + + + | Cardiac Rehab | | + + + Evaluate & Treat (Routine) [...] | artery of | [place], [place] | [address] [place] | | | | | anterior | [address] | [place], [place] | | | | | wall (HCC) | Phone: | [phone] | | | | | | [phone] | Phone: | | | | | | Fax: | [phone] | | | | | | [phone] | Fax: | | | | | | | [phone] | +--------+ + + + + + Encounter Details +--------+---------+ + + + | Date | Type | Department | Care Team | Description | +--------+---------+ + + + | 07/01/ | Office | [facility] | Charlotte Turner Catie, | Coronary artery | | 2015 | Visit | [facility] | MD [address] | disease involving | | | | [facility] [address] | [place], [place] | [place] coronary | | | | [address] [place] | [address] | artery of [place] | | | | [place] [address] | | heart without angina | | | | [phone] | Caron Blackburn RN | pectoris (Primary | | | | | | Dx); S/P PTCA | | | | | | (percutaneous | | | | | | transluminal | | | | | | coronary | | | | | | angioplasty) | +--------+---------+ + + + Social History [...] + + + | Blood Pressure | 160/66 | 07/02/2015 2:54 PM | | | | | PDT | | + + + + + | Pulse | - | - | | + + + + + | Temperature | - | - | | + + + + + | Respiratory Rate | - | - | | + + + + + | Oxygen Saturation | - | - | | + + + + + | Inhaled Oxygen | - | - | | | Concentration | | | | + + + + + | Weight | 112.9 kg (249 lb) | 07/02/2015 2:50 PM | | | | | PDT | | + + + + + | Height | 177.8 cm (5' 10") | 07/02/2015 2:50 PM | | | | | PDT | | + + + + + | Body Mass Index | 35.73 | 07/02/2015 2:50 PM | | | | | PDT | | + + + + + documented in this encounter Progress Notes Caron Blackburn RN - 07/02/2015 2:55 PM PDT [facility] [address] [facility] [address] Cardiac Rehab Evaluation Date: 07/02/2015 Patient Information Patient Name: Raz Arce Date of : 1945 Age: 69 y.o. Referring Provider: Charlotte Turner MD Encounter Diagnoses Code Name Primary? 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 Reqiured to lift on a daily basis: : 10 lbs Symptoms with activity?: Yes (knee and hip pain) Expected Outcomes: No increase in symptoms Target Date: Other Learning needs:: Recognize exercise limitations, Recognize exercise goals, Knowledge of THR Pt reports:: Type II BS range throughout the day: 110-180 HgbA1C: 7.8 percent complications: Neuropathies Expected outcomes/goals: Before meals values: BS 90-130 mg/dl, Hgb A1C < 7 PHQ-9 total: 8 8 Height: 177.8 cm (5' 10") Weight: 112.946 kg (249 lb) BMI (calculated): 35.8 Appropriate Weight: No Status: Obese (BMI > 30) Program Goals for Weight Control: Develops an initial plan for weight loss/gain and weight maintenance, Verbalizes understanding of weight loss/gain principles Safe in Home: Did not ask SpO2: 98 % Heart rate: 95 bpm cuff size: regular BP sitting left: 126/60 mmHg Cardiac Exercise Log Phase: Phase II Session Number: 1 Nustep: yes Exercise HR: 104. Exercise BP: 160/66 Recovery HR: 58 Recovery BP: 118/70 mmHg Raz Arce is a 69 year old patient with a history of DM II, obesity, inactiviy and hyperte nsion who was admitted with NE last month and had subsequent stenting of his LAD. 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 He has been inactive for at least 3 years. He park d been started on a diuretic for SOBOE and has been less short of breath since. He doesn't t hink he would use an exercise bike if he had one at home. He has knee an hip pain walking. T charlie, he tolerated 6 minutes on the recumbent elliptical with minimal increase in knee pain, no other symptoms. Sinus arrhythmia at 48-104 bpm without ectopy, he is not on a betablocke r due to bradycardia. SBP with an appropriate rise during exertion. SpO2 98%. He reported an incident in the past month when his resting heart rate was 113 bpm at rest which resolved a fter 4 hours and metoprolol. He didn't report this to anyone. An email per [employer] was sent to notify Dr. Turner today. Nutrition: Rate Your Plate score is: 01/25, he doesn't eat many vegetables or fruits. He do es limit his sodium, saturated fats, and sweets, but does enjoy eating carbs- especially pot atoes. His most recent A1c is 7.8. Education: Received 1:1 education regarding CAD, NE, CHF, Metabolic syndrome, meds, and lillian y specific instructions on diet and exercise. He also received [facility]: Living Well with [place] Disease book and understanding heart failure. Through conversation, he appears to have gr eat comprehension. He seems to lack confidence regarding changing his health habits. He was advised to choose small achievable goals and build over time. Psycho/Social: PHQ-9 score is: 8 -he feels tired and has difficulty sleeping and is also ov ereating. He denies SI and claims excellent family support. Plan: He is from [place]. He prefers to try a home exercise program at the [facility] with his son and daughter and law, who go to exercise daily. He was given instructions for an exercis e program with slow progression, tailored for his orthopedic issues. He was advised to start this immediately and if unsuccessful he is to commute to cardiac rehab. He also was given i nstructions on heart healthy, weight loss eating. He will follow up with us when he returns to see Dr. Turner in July. He will contact us wi th any questions or issues. Electronically signed by: Caron Blackburn RN, 07/02/2015 14:56 Patient Name: Raz Arce/: 1945/ documented in this enco unter Plan of Treatment Not on filedocumented as of this encounter Visit Diagnoses + + | Diagnosis | + + | Coronary artery disease involving [place] coronary artery of [place] heart without | | angina pectoris - Primary | + + | S/P PTCA (percutaneous transluminal coronary angioplasty) Postsurgical percutaneous | | transluminal coronary angioplasty status | + + documented in this encounter
--- OUTSIDE RECORDS SUMMARY | ~2019-07-04 | XMS | Encounter Summary ---
Demographics + + + | Address | [address] | | | [place] [address] | + + + | Home Phone | | + + + | Preferred Language | Unknown | + + + | Marital Status | | + + + | Worship Affiliation | [id number] | + + + | Race | Unknown | + + + | Ethnic Group | Unknown | + + + Author + + + | Author | [facility] | | | and [place] | + + + | Organization | [facility] | | | and [...] Team Providers + +------+ + | Care Field Tax Auditor Name | Role | Phone | + +------+ + | Ralph Xavier MD | PCP | | + +------+ + Reason for Visit + + + | Reason | Comments | + + + | Follow-up, Office | 6 week | | Visit | | + + + Encounter Details +--------+---------+ + + + | Date | Type | Department | Care Team | Description | +--------+---------+ + + + | 02/16/ | Office | [facility] | Marly Kristen | Coronary artery | | 2019 | Visit | [facility] | [address] | disease involving | | | | [address] | [address] | [place] coronary | | | | [address] | [place] [address] | artery of [place] | | | | [place] | [phone] | heart without angina | | | | [id number] | | pectoris (Primary | | | | [phone] | | Dx); Hypertensive | | | | | | heart disease | | | | | | without heart | | | | | | failure; Paroxysmal | | | | | | atrial fibrillation | | | | | | (HCC); Essential | | | | | | hypertension; | | | | | | History of ST | | | | | | elevation myocardial | | | | | | infarction (STEMI); | | | | | | S/P PTCA | | | | | | (percutaneous | | | | | | transluminal | | | | | | coronary | | | | | | angioplasty); Pedal | | | | | | edema; Dyslipidemia; | | | | | | Type 2 diabetes | | | | | | mellitus with stage | | | | | | 3 chronic kidney | | | | | | disease, without | | | | | | long-term current | | | | | | use of insulin | | | | | | (HCC); Chronic renal | | | | | | impairment, stage 3 | | | | | | (moderate) (HCC); | | | | | | Mild intermittent | | | | | | asthma without | | | | | | complication; | | | | | | Fatigue, unspecified | | | | | | type; Risk factors | | | | | | for obstructive | | | | | | sleep apnea | +--------+---------+ + + + Social History [...] + + + documented in this encounter Patient Instructions Patient Instructions Kristen Luke FNP - 02/16/2019 10:30 AM PSTPlease get your fa sting labs to be done at [facility] ,but drink water prior to having labs done I made no changes to medications except take furosemide 20 mg as needed for swelling to an kles, or if weight up more than 5 lbs in 3 days, and take potassium with it as ordered, and take magnesium oxide 400 mg daily Drink at least 8 oz of water 4 times per day, and 16 oz would be better to avoid dehydratio n, and elevate feet if swollen for at least 20 minutes twice day See me back in 1 year , and see Dr. Edmonds in 6 months for primary cardiology visit documented in this encounter Progress Notes Kristen Luke FNP - 02/16/2019 10:30 AM PSTFormatting of this note might be differe nt from the original. Date of visit: 02/16/2019 Primary Care Physician: Ralph Xavier MD CHIEF COMPLAINT: Chief Complaint Patient presents with Follow-up, Office Visit 6 week HISTORY OF PRESENT ILLNESS: Mr. Crandall is a 73 year old man who is here today to follow up on Echo results, and r esponse to furosemide, and labs He is a patient of Dr. Edmonds and last seen by her 03/10/2018. He was previously seen and eizo ated by Dr. Turner at [facility] in [place]. Today, I reviewed all previous documentation available to me in electronic medical rec ords and from external sources. He has a history of CAD, STEMI anterior wall 05/2016,,hypertension, hyperlipidemia, PTCA, paroxysmal atrial fibrillation, type II DM with neuropathy, chronic kidney disease, asthma, history of left first rib removal. His [id number] VASC score is 5 ( age, HTN, DM, Vasc dis), and currently only anticoagulated o n aspirin due to previous problems with hematuria on Eliquis, which he had declined to karen wilburn on. When initially seen by Dr. Edmonds ,it was for initial consultation regarding atrial fibrill ation. She documented he was seen in the emergency room at [facility] on October 29, and found to be in atrial fibrillation with rates 105-110 bpm. Holter monitor and stres s test was recommended. 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 She reported his last echo, though a poor study, reported a grossly normal left ventricle mildly enlarged left atrium and no significant valvular abnormalities, his lipid panel showe d good control with a statin, but had some problems with hematuria and he was in his blood p ressure was better controlled on amlodipine. She had anticoagulated him on Eliquis 5 mg twice daily after his previous hematuria had res olved, but he had stopped it again after I saw him back and was not interested in resuming i t His current and previous testing and procedures are detailed below . I saw him last on December 29, 2018 and had ordered him a repeat echo for complaints of incr eased fatigue, increased lower extremity edema. He did not wish a repeat stress test, as he had previously found him to be unreliable in past, so I had ordered him an updated echo, as well as an updated CMP and CBC. I had orde red him a 2-week course of furosemide 20 mg daily with potassium 10 mEq daily and then sugge sted he take it every other day. I also had suggested magnesium oxide 250-400 mg daily He was also very symptomatic for sleep apnea, with a strong family history of sleep apnea, and had encouraged him to consider a referral to the [facility] sleep disorders clinic for further evaluation and treatment, which he has refused.. He also reports he may have suffered a TIA in October, as he woke up one morning and notic ed significant short-term memory deficits resolved after 2-3 days, but he did not seek any f urther follow-up in the emergency room, but did not wish a referral to a neurologist., or to be anticoagulated on anything but aspirin. Today he reports he took furosemide for 1 week, but not thereafter, he did have resolution of his lower extremity edema, though has had increased pedal edema in the last 2 days relate d to being on his feet for some time. He also did not get the labs done that I had ordered, and did not take any magnesium, and i s still not interested in a referral for sleep apnea evaluation. He reports he has increased energy and activity tolerance improved since he saw me last, a nd denies any chest pain, shortness of breath, or syncope, and now infrequent episodes of ve rtigo, and only has lightheadedness if he bends over for a prolonged period of time. He is active with outdoor projects and yard work. He denies any smoking history, or any us e of recreational or illicit drugs. He seldom drinks caffeine, and denies any use of alcoho l. He has also had considerable stress, as his brother last year, and he is the execut or of his estate, which has been in probate , there has been disagreement among his children and ex- about the deposition of his estate, which has caused him a great deal of stress and anxiety, and contributed to weight loss. He reports today though that his stress has reduced considerably since he saw me last, deirdre bridges still has ongoing problem with his with his brothers estate settlement. He brought his medications to the clinic today, personally reviewed by me. REVIEW OF SYSTEMS: Negative except for pertinent items noted in HPI. Constitutional: Reports less fatigue, denies unexplained weight loss, Good appetite. Repor ts occasional night sweats, denies fever or chills HENT: Denies nosebleeds. Denies hearing problems. Denies dysphagia Eyes:Early glaucoma, Denies visual disturbance or double vision. Respiratory/Sleep:: Asthma .Denies cough and shortness of breath. Denies hemoptysis or ex cessive sputum production. reports loud frequent snoring. Denies orthopnea, PND. Silex oing daily fatigue. Cardiovascular: Intermittent pedal edema. Denies chest pain, palpitations. Denies history of rheumatic fever. Denies claudication . Gastrointestinal:GERD, better, less PPI . Denies nausea, vomiting, abdominal pain and blo od in stool. Genitourinary: Kidney disease stage III, denies hematuria. Musculoskeletal: Arthritis to hands and hips. Denies myalgias, back pain Skin: Denies color change. Denies rash or lesions Neurological: Neuropathy, possible Small TIA 10/2018?, No f/u , happened in the night, 1-2 d ays of memory loss , and then resolved. Vertigo x 2 months afterwards, now mostly resolved.. Denies history of stroke. Denies history of seizures. Denies syncope . Hematological/Oncology . Bruises easily. Denies bleeding Denies history of cancer Endocrine: Type 2 diabetes with neuropathy, oral agents . Denies thyroid disease. Denies excessive thirst or hunger. Psychiatric/Behavioral: Situational anxiety and stress since his brother's as ongoing family squabbling about his brother's estate. Denies any history of depression or anxiety or other psychiatric illness. Vaccines: Current on 2019 flu vaccine, Current on Post 65 pneumonia vaccine. Habits/Social : Denies history of smoking. Denies EtOH use. Drinks NO caffeine daily . De nies recreational or illicit drug use. Exercises with yard /outdoor projects and tolerates . Lives in [place]. to Ka[place], who is Dr. Bo's patient. Outpatient Medications Prior to Visit Medication Sig Dispense Refill amLODIPine (NORVASC) 10 MG tablet Take 10 mg by mouth Daily. amLODIPine (NORVASC) 5 mg tablet Take 1 tablet by mouth Daily. 30 tablet 11 aspirin 81 mg chewable tablet Take 1 tablet by mouth Daily. 30 tablet 11 aspirin 81 mg EC tablet Take 81 mg by mouth Daily. atorvaSTATin (LIPITOR) 80 MG tablet Take 1 tablet by mouth nightly. 30 tablet 11 furosemide (LASIX) 20 mg tablet Take 1 tablet by mouth Daily. (Patient not taking: Repo rted on 02/16/2019) 30 tablet 11 glipiZIDE (GLUCOTROL XL) 10 MG 24 hr tablet Take 10 mg by mouth daily (with breakfast). Glucose Blood (BLOOD GLUCOSE TEST STRIPS) STRP 1 each by Other route as needed for Othe r. Use as instructed losartan (COZAAR) 100 MG tablet Take 1 tablet by mouth Daily. (Patient taking different ly: Take 100 mg by mouth Daily. Takes losartan 100 mg one day , alternating with losartan 5 0 mg every other day) 30 tablet 11 montelukast (SINGULAIR) 10 mg tablet Take 1 tablet by mouth nightly. 30 tablet 11 nitroglycerin (NITROSTAT) 0.[address] 1 tablet under the tongue every 5 neyda karthik as needed for Chest pain. 30 tablet 11 omeprazole (PRILOSEC) 20 mg capsule Take 20 mg by mouth as needed. ONE TOUCH LANCETS MISC ONE TOUCH ULTRA TEST strip ONETOUCH DELICA LANCETS 33G MISC potassium chloride (KLOR-CON) 10 MEQ ER tablet Take 1 tablet by mouth Daily. (Patient n ot taking: Reported on 02/16/2019) 30 tablet 11 No facility-administered medications prior to visit. PHYSICAL EXAM: Wt Readings from Last 3 Encounters: 02/16/19 105.3 kg (232 lb 1.6 oz) 12/29/18 103.6 kg (228 lb 8 oz) 01/13/18 107.9 kg (237 lb 14.4 oz) Temp Readings from Last 3 Encounters: 10/29/17 36.5 C (97.7 F) (Tympanic) 05/27/16 36.4 C (97.5 F) (Temporal) 06/08/15 36.7 C (98.1 F) (Oral) BP Readings from Last 3 Encounters: 02/16/19 118/54 12/29/18 106/58 01/13/18 150/60 Pulse Readings from Last 3 Encounters: 02/16/19 72 12/29/18 65 01/13/18 52 GENERAL: Well developed, well nourished, in no distress. Appears approximately stated age . HEENT: Normocephalic, atraumatic. EYES: PERRL, EOM normal. MOUTH: Oral mucosae moist, dentition adequate, no lesions noted NECK: No JVD, lymphadenopathy, thyromegaly, bruits. Carotid pulses are 2+ bilaterally LUNGS/CHEST: Clear bilaterally, with no rales, rhonchi or wheezing noted, respirations unl abored HEART: Nondisplaced PMI, regular rate and rhythm, S1, S2 normal. No murmurs, rubs or gall ops noted. ABDOMEN: Soft, nontender, no organomegaly, masses or bruits. Bowel sounds are normal in a ll 4 quadrants. The abdominal aortic pulsation is not palpable. EXTREMITIES: 1+ pedal edema. Radial pulses 2+ bilaterally. Femoral pulses are 2+ bilatera lly without bruits. DP and PT pulses are 2+ bilaterally. No clubbing. SKIN: Warm and dry, capillary refill is normal, no lesions. NEUROLOGIC: Awake, alert and oriented x 3. No focal motor or sensory deficits. PSYCHIATRIC: Appropriate, affect appears normal DATA: Blood tests: Lab Results Component Value Date WBC 7.5 10/29/2017 RBC 4.64 10/29/2017 HGB 14.3 10/29/2017 HCT 41.3 10/29/2017 PLT 227 10/29/2017 Lab Results Component Value Date NA 141 10/29/2017 K 3.8 10/29/2017 CL 107 10/29/2017 CO2 26 10/29/2017 ANIONGAP 8 10/29/2017 BUN 11 10/29/2017 Lab Results Component Value Date CHOL 118 02/15/2018 TRIG 81 02/15/2018 LDL 91 06/07/2015 Lab Results Component Value Date BNP 149 (H) 07/02/2015 No results found for: TOTEPI CARDIAC PROCEDURES/IMAGING Last angiogram: 05/27/2016: ( Dr. Turner, [facility] ) : Findings: Hemodynamics: LVEDP 25 mmHg. No gradient across aortic valve. EF 65%, no MR, small area of hypokinesis at the ape x. Left main: 10% lesion, large vessel. LAD: No restenosis 2 stents, apical LAD not seen, small area, no collaterals to this apical LAD. Diagonal: large, no restenosis. Circumflex: Huge system, dominant no disease, fourth marginal has 20% lesion, as does fifth marginal, n o significant disease in circumflex system. RCA: Small, nondominant, no significant disease . Conclusion :symptoms due to hypertensive heart disease, adjust medications Angiogram: 06/06/2015: [facility]: RCA small nondominant vessel. Left main no significant d isease. Left circumflex large dominant vessel, first, fourth, and fifth marginals are large and have nonobstructive disease. Second and third are small. LAD: Smaller than average ve ssel, diffuse aneurysmal disease. Large diagonal that reaches the apex. Multiple 99% of le sions in mid vessel.: PCI of the diagonal and mid LAD. Nonobstructive disease of dominant left circumflex. Nondominant RCA. Patient prescribed DAPT x1 year. PPI for GERD Lexiscan nuclear stress test: 11/2009: Normal perfusion, no evidence of ischemia Exercise stress test: 11/08/2008: Poor exercise tolerance. No evidence of ischemia. Stopped when blood pressure reached 224/80. VASCULAR TESTING AND PROCEDURES ECHO Last Echo: 02/07/2019: [facility]: Technically difficult study due to poor acoustic windows. Defin ity used. EF 65%. No obvious wall motion abnormality. RV not clearly visualized. Size at rosa. No evidence of pericardial or pleural effusion. Normal mitral valve no MR or stenosis . Aortic valve not well visualized but no aortic stenosis or regurgitation. Tricuspid valv e not well visualized but no evidence of regurgitation or stenosis. No evidence of pulmonic regurgitation or stenosis. Echo: 01/13/2018: Sinus rhythm. Technical difficult study with suboptimal views. Poor tiss ue Doppler signal prevents accurate assessment of diastolic function. LV normal in size and systolic function, RV not well visualized, mild L AE, mild MR, no MVP. No pericardial effu evelyn EKG/EVENT MONITOR 48-hour Holter monitor: 12/01/2017: Normal sinus rhythm, average heart rate 67 bpm, range 47 -169 bpm. Atrial fibrillation 5.58% burden EK01/13/2018: Sinus bradycardia, low voltage QRS particularly to limb leads. Rate 49 bpm , CA 142 ms, QRS 86 ms, QTC 420 ms, tracing personally reviewed by me EK12/29/2018: Sinus rhythm with sinus arrhythmia rate 60 bpm, CA 186 ms, QRS 96 ms, QTC 434 ms, tracing personally reviewed by me compared to EKG performed in January, sinus arrhy thmia has replaced sinus rhythm, improved heart rate, and ongoing stable low voltage QRS myriam ds III and aVL with improved QRS voltage to aVF LABS Labs:: 10/05/2018: Lipids:( atorvastatin 80 mg) Cholesterol 115, triglycerides 103, HDL 36. 8, LDL 58. CBC: WBC 6.2, RBC 4.38, hemoglobin 13.3, hematocrit 39.4, platelets 214 Labs: 11/29/2018: ( PCP ) Troponin T <0.010. Myoglobin 177. CK 71. CK-MB-mass 2.74. Rela tive index 3.9. CK-MB negative Addendum: Labs: 02/17/2019: CMP: Sodium 141, potassium 4.4, chloride 105, glucose 142, BUN 13, creatinine 1.23, AST 17, ALT 14, alk phos 87, total bili 0.6, GFR 57, albumin 4. CBC: W BC 7.2, RBC 4.7, hemoglobin 14, hematocrit 42.5, platelets 253 ASSESSMENT & PLAN: He was here today on the results of his echo and labs. He has problems as detailed below. His echo performed in February is detailed above, and was a technically difficult study du e to poor acoustic windows, even though Definity contrast used. It reported a normal EF of 65%, no obvious wall motion abnormalities, RV not clearly visualized, normal size atria, no evidence of pericardial or pleural effusion, and no apparent valvular pathology. Unfortunately he did not get the CMP, and CBC done that I had ordered, and I have asked rebekah t he get labs performed tomorrow. He only took the furosemide that I had ordered for him for 1 week, then stop it, though does have noticeable 1+ pedal edema again today. I discussed with him that he should at [facility] use his furosemide 20 mg potassium 10 mEq on a as needed basis and he developed any degre e of pedal edema, to prevent it becoming a problem. I have ordered furosemide 20 mg with potassium 10 mEq on a as needed basis for pedal edema. I made no other changes to his other cardiac medications, and he should continue aspirin 8 1 mg daily for his history of stents and coronary artery disease, Norvasc 5 mg nightly for h ypertension, atorvastatin 80 mg for hyperlipidemia, losartan 100 mg daily alternating with 5 0 mg daily for hypertension and heart function. He should also be on Eliquis for stroke prevention, but had stopped it previously due to h ematuria and cost, and not interested in taking it or coumadin. He reported symptoms of a TIA in October, which affected his memory for 2 days, but then resolved, and I have requested that if he has any further symptoms of TIA or stroke that he get immediate follow-up in the emergency room. He is also symptomatic for sleep apnea, and I discussed a possible referral to Dr. Nunes at the [facility] sleep disorder clinic for further evaluation, but he is not interested in pursuing this. I will have him see Dr. Edmonds in 6 months with primary cardiology visit, and I will see him back in 1 year, but sooner if needed 1. Coronary artery disease involving [place] coronary artery of [place] heart without angina pectoris 2. Hypertensive heart disease without heart failure 3. Paroxysmal atrial fibrillation (HCC) 4. Essential hypertension 5. History of ST elevation myocardial infarction (STEMI) 6. S/P PTCA (percutaneous transluminal coronary angioplasty) 7. Pedal edema 8. Dyslipidemia 9. Type 2 diabetes mellitus with stage 3 chronic kidney disease, without long-term current use of insulin (HCC) 10. Chronic renal impairment, stage 3 (moderate) (HCC) 11. Mild intermittent asthma without complication 12. Fatigue, unspecified type 13. Risk factors for obstructive sleep apnea No orders of the defined types were placed in this encounter. The following portions of the patient's history were personally reviewed by me and updated as appropriate: EKG tracings, other specialty provider and PCP notes,any Hospital admission and discharge summaries, any ER records , current and previous cardiac testing and procedure reports and d dyana, medication bottles brought to visit today personally reviewed by me. Allergies, current medications.labs Family history, past medical history, past social history, past surgical history. Problem list. This encounter was dictated with voice recognition software and may contain inadvertent rec ognition errors. Ronnell DILLON [facility] 02/16/2019 docum ented in this encounter Plan of Treatment Not on filedocumented as of this encounter Procedures + +--------+ + + + | Procedure Name | Priori | Date/Time | Associated Diagnosis | Comments | | | ty | | | | + +--------+ + + + | ECHO-EXTERNAL SCAN | | 03/07/2019 | | Results for this | | | | 12:00 AM | | procedure are in the | | | | PST | | results section. | + +--------+ + + + documented in this encounter Results ECHO-EXTERNAL SCAN (03/07/2019 12:00 AM PST) + + + | Narrative | Performed At | + + + | Ordered by an | | | unspecified provider. | | + + + documented in this encounter Visit Diagnoses + + | Diagnosis | + + | Coronary artery disease involving [place] coronary artery of [place] heart without | | angina pectoris - Primary | + + | Hypertensive heart disease without heart failure Unspecified hypertensive heart | | disease without heart failure | + + | Paroxysmal atrial fibrillation (HCC) Atrial fibrillation | + + | Essential hypertension Unspecified essential hypertension | + + | History of ST elevation myocardial infarction (STEMI) Old myocardial infarction | + + | S/P PTCA (percutaneous transluminal coronary angioplasty) Postsurgical percutaneous | | transluminal coronary angioplasty status | + + | Pedal edema Edema | + + | Dyslipidemia Other and unspecified hyperlipidemia | + + | Type 2 diabetes mellitus with stage 3 chronic kidney disease, without long-term | | current use of insulin (HCC) | + + | Chronic renal impairment, stage 3 (moderate) (HCC) | + + | Mild intermittent asthma without complication Unspecified asthma | + + | Fatigue, unspecified type | + + | Risk factors for obstructive sleep apnea | + + documented in this encounter
--- OUTSIDE RECORDS SUMMARY | ~2019-07-04 | XMS | Encounter Summary ---
Demographics + + + | Address | [address] | | | [place] [address] | + + + | Home Phone | | + + + | Preferred Language | Unknown | + + + | Marital Status | | + + + | Mormonism Affiliation | 1027 | + + + | Race | Unknown | + + + | Ethnic Group | Unknown | + + + Author + + + | Author | [facility] | | | and [place] | + + + | Organization | [facility] | | | [...] Team Providers + +------+ + | Care Sales Representative Business Courses Name | Role | Phone | + [...] Description | +--------+---------+ + + + | 09/02/ | Office | [facility] | Yue, Charlotte Catie, | Chronic diastolic | | 2016 | Visit | CARDIOLOGY [address] | MD [address] | heart failure (HCC) | | | | [place], | [place], [place] | (Primary Dx); | | | | [place] [address] | [address] | Atherosclerosis of | | | | [phone] | | apache coronary | | | | | | artery of apache | | | | | | heart without angina | | | | | | pectoris; Pure | | | | | | hypercholesterolemia | +--------+---------+ + + + Social History [...] + + + | Blood Pressure | 132/68 | 09/03/2015 9:59 AM | | | | | PDT | | + + + + + | Pulse | 52 | 09/03/2015 9:59 AM | | | | | PDT | | + + + + + | Temperature | - | - | | + + + + + | Respiratory Rate | 16 | 09/03/2015 9:59 AM | | | | | PDT | | + + + + + | Oxygen Saturation | - | - | | + + + + + | Inhaled Oxygen | - | - | | | Concentration | | | | + + + + + | Weight | 111.6 kg (246 lb) | 09/03/2015 9:59 AM | | | | | PDT | | + + + + + | Height | 177.8 cm (5' 10") | 09/03/2015 9:59 AM | | | | | PDT | | + + + + + | Body Mass Index | 35.3 | 09/03/2015 9:59 AM | | | | | PDT | | + + + + + documented in this encounter Progress Notes Charlotte Turner MD - 09/03/2015 10:06 AM PDTFormatting of this note might be different fr om the original. PATIENT NAME: Raz Arce : 1945: AGE: 69 y.o. PRIMARY CARE: Ralph Xavier MD OUTPATIENT FOLLOW UP VISIT Date of Service: 09/03/2015 HISTORY OF PRESENT ILLNESS: Raz Arce is a 69 y.o. male with a history of ASHD. He is being seen today for [facility] w up . He was last seen a month ago. Since that time, his primary took him off of diuretic and pu t him on HCTZ for blood pressure. He states he has not felt this well in years. He hurt his left foot and was in a brace and on crutches. He is back to normal activity H e shoveled gravel for several hours over the weekend and he has no angina. He may have a little edema in the uninjured leg, more in the injured one. No dyspnea and no PND or orthopnea. MEDICAL, SURGICAL, AND PERSONAL HISTORY Past Medical, Surgical, Family, and Social History are reviewed in EPIC. 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 30 tablet 11 torsemide (DEMADEX) 10 mg tablet Take 2 tablets by mouth Daily. 30 tablet 2 No current facility-administered medications for this visit. ALLERGIES Allergies Allergen Reactions Meperidine ROS He has an abdominal hernia. He has a history of colon polyps in the He has not had colonoscopy since then No obvious bleeding Weight continues to go down with diet and exercise OBJECTIVE: PHYSICAL EXAM BP 132/68 mmHg | Pulse 52 | Resp 16 | Ht 1.778 m (5' 10") | Wt 111.585 kg (246 lb) | BMI 35 .30 kg/m2 General appearance: no acute distress. Eyes: no icterus. Lids normal Mouth: no cyanosis. Neck: No lymphadenopathy in the neck or supraclavicular area. Good carotid upstroke. No bruits. No JVD Lungs: CTA Heart: normal sounds no murmur Abdomen: soft. Ext: 2+ edema left leg. Trace right. Neuro: Awake and oriented x3 LAB RESULTS reviewed during visit today primarily from [facility]: LIPID Lab Results Component Value Date CHOL [...] 42.9 06/24/2015 PLT 181 06/24/2015 ASSESSMENT: ASHD S/P anterior STEMI No further angina HTN Bradycardia PLAN: Needs colonoscopy when off of EFFIENT He will do Holter soon Follow up in 3 months and PRN He is off of diuretic per Dr Xavier Electronically signed by: Charlotte Turner MD [facility] 09/03/2015 Portions of this chart may have been created with [employer] voice recognition software. Occasi onal wrong-word or sound-alike substitutions may have occurred due to the inherent rodriguez itations of voice recognition software. Please read the chart carefully and recognize, using context, where these substitutions have occurred. documented in this encounter Plan of Treatment Not on filedocumented as of this encounter Visit Diagnoses + + | Diagnosis | + + | Chronic diastolic heart failure (HCC) - Primary Chronic diastolic heart failure | + + | Atherosclerosis of apache coronary artery of apache heart without angina pectoris | + + | Pure hypercholesterolemia | + + documented in this encounter
--- OUTSIDE RECORDS SUMMARY | ~2019-07-04 | XMS | Encounter Summary ---
Demographics + + + | Address | [address] | | | [place] [address] | + + + | Home Phone [...] Team Providers + +------+ + | Care Merry Go Round Operator Name | Role | Phone | + +------+ + | Ralph Xavier MD | PCP | | + +------+ + Encounter Details +--------+ + + + + | Date | Type | Department | Care Team | Description | +--------+ + + + + | 02/15/ | Orders Only | [facility] | Conversion | | | 2018 | | CARDIOLOGY [place] | Transaction, | | | | | [address] | Provider Unknown | | | | | [place] | [phone] | | | | | [address] | | | | | | [phone] | | | +--------+ + + + [...] + | LIPID PANEL | Routin | 02/15/2018 | | Results for this | | | e | 12:00 AM | | procedure are in the | | | | PST | | results section. | + +--------+ + + + documented in this encounter Results Lipid Panel (02/15/2018 12:00 AM PST) + + + + + + | Component | Value | Ref Range | Performed | Pathologist | | | | | At | Signature | + + + + + + | Cholesterol | 118 | mg/dL | EXTERNAL | | | | | | LAB | | + + + + + + | Triglycerid | 81 | mg/dL | EXTERNAL | | | es | | | LAB | | + + + + + + | HDL | 37.3Comment: LOW | mg/dl | EXTERNAL | | | | | | LAB | | + + + + + + | LDL, | 65 | mg/dL | EXTERNAL | | | Calculated | | | LAB | | + + + + + + | LDl/HDL | | | EXTERNAL | | | Ratio | | | LAB | | + + + + + + | Chol/HDL | 3.2 | | EXTERNAL | | | Ratio | | | LAB | | + + + + + + | VLDL | 16 | mg/dL | EXTERNAL | | | | | | LAB | | + + + + + + | Non HDL | 81 | | EXTERNAL | | | Chol. | | | LAB | | | (LDL+VLDL) | | | | | + + [...]
--- OUTSIDE RECORDS SUMMARY | ~2019-07-04 | XMS | Encounter Summary ---
Demographics + + + | Address | [address] | | | [place] [address] | + + + | Home Phone | | + + + | Preferred Language | Unknown | + + + | Marital Status | | + + + | Religion Affiliation | 1027 | + + + | Race | Unknown | + + + | Ethnic Group | Unknown | + + + Author + + + | Author | [facility] | | | and [place] | + + + | Organization | [facility] | | | [...] Team Providers + +------+ + | Care Finance Advisor Name | Role | Phone | + +------+ + | Ralph Xavier MD | PCP | | + +------+ + Reason for Visit + + + | Reason | Comments | + + + | Fatigue | Fatigue and dizziness when mowing. | + + + | Shortness of Breath | | + + + Encounter Details +--------+ + + + + | Date | Type | Department | Care Team | Description | +--------+ + + + + | 10/29/ | Emergency | [facility] | Jos Moreno | Fatigue due to | | 2017 | | [facility] | Conner, DO [address] | excessive exertion, | | | | CENTER [address] | [address] [place] | initial encounter | | | | [place] | [place] [address] | (Primary Dx); | | | | [address] | [phone] | Coronary artery | | | | [phone] | | disease involving | | | | | | havasupai coronary | | | | | | artery of havasupai | | | | | | heart without angina | | | | | | pectoris; S/P PTCA | | | | | | (percutaneous | | | | | | transluminal | | | | | | coronary | | | | | | angioplasty) | +--------+ + + + + Social [...] + + + | Blood Pressure | 134/59 | 10/29/2017 3:01 PM | | | | | PDT | | + + + + + | Pulse | 46 | 10/29/2017 3:01 PM | | | [...] + + + | Oxygen Saturation | 96% | 10/29/2017 3:01 PM | | | | | PDT | | + + + + + | Inhaled Oxygen | - | - | | | Concentration | | | | + + + + + | Weight | 110.2 kg (243 lb) | 10/29/2017 12:10 PM | | | | | PDT | | + + + + + | Height | 177.8 cm (5' 10") | 10/29/2017 12:10 PM | | | | | PDT | | + + + + + | Body Mass Index | 34.87 | 10/29/2017 12:10 PM | | | | | PDT | | + + + + + documented in this encounter Discharge Instructions Jos Garzon DO - 10/29/2017Please follow-up with your primary care doctor to arrange a stress test in the coming week. Return to emergency department if your symptoms persist or worsen. documented in this encounter Medications at Time [...] + + + +---------+ + + | ONETOUCH DELICA | | | 0 | 06/12/19 | | | LANCETS 33G MISC | | | | 16 [...] tablet by | 90 | 3 | 06/19/19 | | | 20 mg tablet | mouth Every other | tablet | | 17 | 9 | | | day. | | | | | + + + +---------+ + + documented as of this encounter Plan of Treatment Not on filedocumented as of this encounter Procedures + +--------+ + + + | Procedure Name | Priori | Date/Time | Associated Diagnosis | Comments | | | ty | | | | + +--------+ + + + | TROPONIN I | STAT | 10/29/2017 | | Results for this | | | | 1:00 PM | | procedure are in the | | | | PDT | | results section. | + +--------+ + + + | CK-MB | STAT | 10/29/2017 | | Results for this | | | | 1:00 PM | | procedure are in the | | | | PDT | | results section. | + +--------+ + + + | CBC WITH | STAT | 10/29/2017 | | Results for this | | DIFFERENTIAL | | 1:00 PM | | procedure are in the | | | | PDT | | results section. | + +--------+ + + + | CK TOTAL | STAT | 10/29/2017 | | Results for this | | | | 1:00 PM | | procedure are in the | | | | PDT | | results section. | + +--------+ + + + | COMPREHENSIVE | STAT | 10/29/2017 | | Results for this | | METABOLIC PANEL | | 1:00 PM | | procedure are in the | | | | PDT | | results section. | + +--------+ + + + | XR CHEST AP PORTABLE | STAT | 10/29/2017 | | Results for this | | | | 12:54 PM | | procedure are in the | | | | PDT | | results section. | + +--------+ + + + | ECG 12 LEAD | STAT | 10/29/2017 | | Results for this | | | | 12:04 PM | | procedure are in the | | | | PDT | | results section. | + +--------+ + + + documented in this encounter Results CK Total (10/29/2017 1:00 PM PDT) + +-------+ + + + | Component | Value | Ref Range | Performed | Pathologist | | | | | At | Signature | + +-------+ + + + | CK TOTAL | 127 | 22 - 269 U/L | [facility] | | | | | [...] + + | [facility] | [address] | [place] | [phone] | | [facility] | | [address] | | | - LABORATORY | | | | + + + + + CK-MB (10/29/2017 1:00 PM PDT) + +-------+ + + + | Component | Value | Ref Range | Performed | Pathologist | | | | | At | Signature | + +-------+ + + + | CK-MB | 3.3 | 0.6 - 6.3 ng/mL | [facility] | | | | | [...] + | [facility] | [address] | [place] | [phone] | | [facility] | | [address] | | | - LABORATORY | | | | + + + + + Comprehensive Metabolic Panel (10/29/2017 1:00 PM PDT) + + + + + + | Component | Value | Ref Range | Performed | Pathologist | | | | | At | Signature | + + + + + + | Na | 141 | 136 - 149 | [facility] | | | | | mmol/L | [facility] | | | | | | MEDICAL | | | | | | CENTER - | | | | | | LABORATORY | | + + + + + + | K | 3.8 | 3.5 - 5.1 | [facility] | [...] + + + + | CO2 | 26 | 24 - 31 mmol/L | [facility] [...] + + + + | Glucose | 125 (H) | 70 - 109 mg/dL | [facility] | | | | | | [facility] | | | | | | MEDICAL | | | | | | CENTER - | | | | | | LABORATORY | | + + + + + + | BUN | 11 | 7 - 18 mg/dL | [facility] [...] | | GLOMERULAR FILTRATION | mL/min/1.73m2 | [facility] | | | [place] | RATE,ESTIMATED | | MEDICAL | | | | mL/min/1.37v2Yghk than | | CENTER - | | [...] | | | | mg/dL | [facility] | | | | | | MEDICAL | | | | | | CENTER - | | | | | | LABORATORY | | + + + + + + | Albumin | 3.7 | 3.2 - 5.0 g/dL | [facility] | | | | | | [facility] | | | | | | MEDICAL | | | | | | CENTER - | | | | | | LABORATORY | | + + + + + + | Bilirubin | 0.7Comment: This is an | 0.1 - 1.5 mg/dL | [facility] | | | Total | appended report. These | | [facility] | | | | results have been | | MEDICAL | | | | appended to a previously | | CENTER - | | | | preliminary verified | | LABORATORY | | | | report. | | | | + + + + + + | Total | 7.1 | 6.0 - 7.8 g/dL | [facility] | | | Protein | | | [facility] | | | | | | MEDICAL | | | | | | CENTER - | | | | | | LABORATORY | | + + + + + + | AST | 32Comment: This is an | 10 - 42 U/L | [facility] | | | | appended report. These | | [facility] | | | | results have been | | MEDICAL | | | | appended to a previously | | CENTER - | | | | preliminary verified | | LABORATORY | | | | report. | | | | + + + + + + | ALT | 27Comment: This is an | 6 - 45 U/L | [facility] | | | | appended report. These | | [facility] | | | | results have been | | MEDICAL | | | | appended to a previously | | CENTER - | | | | preliminary verified | | LABORATORY | | | | report. | | | | + + + + + + | Alkaline | 81Comment: This is an | 40 - 110 U/L | [facility] | | | Phosphatase | appended report. These | | [facility] | | | | results have been | | MEDICAL | | | | appended to a previously | | CENTER - | | | | preliminary verified | | LABORATORY | | | | report. | | | | + + + + + + | Globulin | 3.4 | 2.1 - 3.8 g/dL | [facility] | | | | | | [facility] | | | | | | MEDICAL | | | | | | CENTER - | | | | | | LABORATORY | | + + + + + + | Albumin/Kristen | 1.1 | 0.8 - 2.0 | [facility] | | | bulin Ratio | | | [facility] | | | | | | MEDICAL | | | | | | CENTER - | | | | | | LABORATORY | | + + + + + + | BUN/Creatin | 8.3 | | [facility] | | | ine [...] + | [facility] | [address] | [place] | [phone] | | [facility] | | [address] | | | - LABORATORY | | | | + + + + + Troponin I (10/29/2017 1:00 PM PDT) + + + + + + | Component | Value | Ref Range | Performed | Pathologist | | | | | At | Signature | + + + + + + | Troponin I | 0.01Comment: Reference | <0.06 ng/mL | [facility] | | | | Ranges:0.00-0.06 = | | [facility] | | | | NORMAL>0.06 = | | MEDICAL | | | | SUSPICIOUS FOR | | CENTER - | | | | MYOCARDIAL DAMAGE NOTE: | | LABORATORY | | | | Values greater than 0.50 | | | | | | ng/mL have been shown | | | | | | to be strongly | | | | | | associated with acute | | | | | | myocardial infarction. | | | | | | [employer] | | | | | [...] + | [facility] | [address] | [place] | [phone] | | [facility] | | [address] | | | - LABORATORY | | | | + + + + + CBC with Differential (10/29/2017 1:00 PM PDT) + +---------+ + + + | Component | Value | Ref Range | Performed | Pathologist | | | | | At | Signature | + +---------+ + + + | WBC | 7.5 | 4.0 - 11.0 K/uL | [facility] | | | | | | [facility] | | | | | | MEDICAL | | | | | | CENTER - | | | | | | LABORATORY | | + +---------+ + + + | RBC | 4.64 | 4.30 - 5.70 | [facility] | | | | | M/uL | [facility] | | | | | | MEDICAL | | | | | | CENTER - | | | | | | LABORATORY | | + +---------+ + + + | Hemoglobin | 14.3 | 13.5 - 18.0 | [facility] | | | | | g/dL | [facility] | | | | | | MEDICAL | | | | | | CENTER - | | | | | | LABORATORY | | + +---------+ + + + | Hematocrit | 41.3 | 40.0 - 51.0 % | [facility] | | | | | | [facility] | | | | | | MEDICAL | | | | | | CENTER - | | | | | | LABORATORY | | + +---------+ + + + | MCV | 88.9 | 83.0 - 101.0 fL | [facility] | | | | | | [facility] | | | | | | MEDICAL | | | | | | CENTER - | | | | | | LABORATORY | | + +---------+ + + + | MCH | 30.8 | 28.0 - 35.0 pg | [facility] | | | | | | [facility] | | | | | | MEDICAL | | | | | | CENTER - | | | | | | LABORATORY | | + +---------+ + + + | MCHC | 34.6 | 32.0 - 36.0 | [facility] | | | | | g/dL | [facility] | | | | | | MEDICAL | | | | | | CENTER - | | | | | | LABORATORY | | + +---------+ + + + | RDW-CV | 13.4 | <15.0 % | [facility] | | | | | | [facility] | | | | | | MEDICAL | | | | | | CENTER - | | | | | | LABORATORY | | + +---------+ + + + | Platelet | 227 | 140 - 440 K/uL | [facility] | | | Count | | | [facility] | | | | | | MEDICAL | | | | | | CENTER - | | | | | | LABORATORY | | + +---------+ + + + | MPV | 7.3 | fL | [facility] | | | | | | [facility] | | | | | | MEDICAL | | | | | | CENTER - | | | | | | LABORATORY | | + +---------+ + + + | % | 54.9 | 45.0 - 82.0 % | [facility] | | | Neutrophils | | | [facility] | | | | | | MEDICAL | | | | | | CENTER - | | | | | | LABORATORY | | + +---------+ + + + | % | 26.6 | 20.0 - 45.0 % | [facility] | | | Lymphocytes | | | [facility] | | | | | | MEDICAL | | | | | | CENTER - | | | | | | LABORATORY | | + +---------+ + + + | % Monocytes | 11.8 | 4.0 - 12.0 % | [facility] | | | | | | [facility] | | | | | | MEDICAL | | | | | | CENTER - | | | | | | LABORATORY | | + +---------+ + + + | % | 5.9 (H) | 0.0 - 5.0 % | [facility] | | | Eosinophils | | | [facility] | | | | | | MEDICAL | | | | | | CENTER - | | | | | | LABORATORY | | + +---------+ + + + | % Basophils | 0.8 | 0.0 - 1.0 % | [facility] | | | | | | [facility] | | | | | | MEDICAL | | | | | | CENTER - | | | | | | LABORATORY | | + +---------+ + + + | Absolute | 4.10 | 1.80 - 8.50 | [facility] | | | Neutrophils | | K/uL | [facility] | | | | | | MEDICAL | | | | | | CENTER - | | | | | | LABORATORY | | + +---------+ + + + | Absolute | 2.00 | 0.60 - 3.20 | [facility] | | | Lymphocytes | | K/uL | [facility] | | | | | | MEDICAL | | | | | | CENTER - | | | | | | LABORATORY | | + +---------+ + + + | Absolute | 0.90 | 0.00 - 1.00 | [facility] | | | Monocytes | | K/uL | [facility] | | | | | | MEDICAL | | | | | | CENTER - | | | | | | LABORATORY | | + +---------+ + + + | Absolute | 0.40 | 0.00 - 0.40 | [facility] | | | Eosinophils | | K/uL | [facility] | | | | | | MEDICAL | | | | | | CENTER - | | | | | | LABORATORY | | + +---------+ + + + | Absolute | 0.10 | 0.00 - 0.10 | [facility] | | | Basophils | | K/uL | [facility] | [...] + | [facility] | [address] | [place], [place] | [phone] | | [facility] | | [address] | | | - LABORATORY | | | | + + + + + XR Chest AP Portable (10/29/2017 12:54 PM PDT) + + | Specimen | + + | | + + + + + | Narrative | Performed At | + + + | EXAM: XR CHEST AP PORTABLE dated 10/29/2017 12:54 PM HISTORY: | [facility] | | Fatigue and shortness of breath. Comparison: None. TECHNIQUE: | | | A single portable view of the chest. FINDINGS: The patient is | | | rotated. The lungs are symmetrically aerated. They are clear. | | | There are no large pleural effusions. There is no pneumothorax. | | | The cardiac and mediastinal contours are not enlarged. No acute | | | osseous abnormalities. IMPRESSION - No radiographic evidence | | | for acute disease in the chest. Dictated and Signed by: Trav Zabala | | | MD Deysi Electronically signed: 10/29/2017 12:57 PM | | + + + + + | Procedure Note | + + | Antonio Pace Results In - 10/29/2017 1:00 PM PDT EXAM: XR CHEST AP PORTABLE dated | | 10/29/2017 12:54 PMHISTORY: Fatigue and shortness of breath.Comparison: None.TECHNIQUE: A | | single portable view of the chest.FINDINGS:The patient is rotated. The lungs are | | symmetrically aerated. They are clear. There are no large pleural effusions. There is | | no pneumothorax. The cardiacand mediastinal contours are not enlarged. No acute | | osseous abnormalities. IMPRESSION -No radiographic evidence for acute disease in the | | chest.Dictated and Signed by: Trav Jo MD Electronically signed: 10/29/2017 | | 12:57 PM | |FINDINGS: | | | |The patient is rotated. The lungs are symmetrically aerated. They are clear. | |There are no large pleural effusions. There is no pneumothorax. The cardiac | |and mediastinal contours are not enlarged. No acute osseous abnormalities. | | | |IMPRESSION - | | | |No radiographic evidence for acute disease in the chest. | | | |Dictated and Signed by: Trav Jo MD | | Electronically signed: 10/29/2017 12:57 PM | + + + +---------+ + + | Performing | Address | City/State/Zipcode | Phone Number | | Organization | | | | + +---------+ + + | [facility] | | | | + +---------+ + + ECG 12 lead (10/29/2017 12:04 PM PDT) + + + + + + | Component | Value | Ref Range | Performed | Pathologist | | | | | At | Signature | + + + + + + | VENTRICULAR | 49 | BPM | [facility] | | | RATE EKG | | | | | + + + + + + | ATRIAL RATE | 49 | BPM | [facility] | | + + + + + + | P-R | 150 | ms | [facility] | | | INTERVAL | | | | | + + + + + + | QRS | 102 | ms | [facility] | | | DURATION | | | | | + + + + + + | Q-T | 428 | ms | [facility] | | | INTERVAL | | | | | + + + + + + | Q-T | 386 | ms | [facility] | | | INTERVAL | | | | | | (CORRECTED) | | | | | + + + + + + | P WAVE AXIS | 17 | degrees | [facility] | | + + + + + + | QRS AXIS | 26 | degrees | [facility] | | + + + + + + | T AXIS | 52 | degrees | [facility] | | + + + + + + | INTERPRETAT | Sinus | | [facility] | | | ION TEXT | bradycardiaNonspecific T | | | | | | wave | | | | | | abnormalityAbnormal | | | | | | ECGWhen compared with | | | | | | ECG of 26-MAY-2016 | | | | | | 12:12,Criteria for | | | | | | Septal infarct are no | | | | | | longer presentAnterior T | | | | | | wave inversion has | | | | | | resolvedConfirmed by | | | | | | BETHANY NAM MD ([id number]) | | | | | | on 10/30/2017 7:02:28 AM | | | | + + [...] + | Diagnosis | + + | Fatigue due to excessive exertion, initial encounter - Primary | + + | Coronary artery disease involving havasupai coronary artery of havasupai heart without | | angina pectoris | + + | S/P PTCA (percutaneous transluminal coronary angioplasty) Postsurgical percutaneous | | transluminal coronary angioplasty status | + + documented in this encounter
--- OUTSIDE RECORDS SUMMARY | ~2019-07-04 | XMS | Encounter Summary ---
Demographics + + + | Address | [address] | | | [place] [address] | + + + | Home Phone | | + + + | Preferred Language | Unknown | + + + | Marital Status | | + + + | Hindu Affiliation | 1027 | + + + | Race | Unknown | + + + | Ethnic Group | Unknown | + + + Author + + + | Author | [facility] | | | and [place] | + + + | Organization | [facility] | | | [...] Team Providers + +------+ + | Care Kettle Girl Name | Role | Phone | + +------+ + | Ralph Xavier MD | PCP | | + +------+ + Encounter Details +--------+ + + + + | Date | Type | Department | Care Team | Description | +--------+ + + + + | 06/09/ | Telephone | [facility] | Yancy Craft, | | | 2016 | | [facility] | PharmD [address] | | | | [address] [place] | [facility], | | | | | [place] [address] | [place] [address] | | | | | [phone] | [phone] | | | | | | | [...]
--- OUTSIDE RECORDS SUMMARY | ~2019-07-04 | XMS | Encounter Summary ---
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 Name | Role | Phone | [...] Description | +--------+---------+ + + + | 05/26/ | Office | [facility] | Yue, Charlotte Catie, | Chest pain, | | 2017 | Visit | CARDIOLOGY [address] | MD [address] | unspecified type | | | | [place], | [place], [place] | (Primary Dx); STEMI | | | | [place] [address] | [address] | involving oth | | | | [phone] | | coronary artery of | | | | | | anterior wall | +--------+---------+ + + + Social History [...] + + + | Blood Pressure | 142/74 | 05/26/2016 11:40 AM | | | | | PDT | | + + + + + | Pulse | 64 | 05/26/2016 11:40 AM | | | | | PDT | | + + + + + | Temperature | - | - | | + + + + + | Respiratory Rate | 16 | 05/26/2016 11:40 AM | | | | | PDT | | + + + + + | Oxygen Saturation | - | - | | + + + + + | Inhaled Oxygen | - | - | | | Concentration | | | | + + + + + | Weight | 113.9 kg (251 lb) | 05/26/2016 11:40 AM | | | | | PDT | | + + + + + | Height | 177.8 cm (5' 10") | 05/26/2016 11:40 AM | | | | | PDT | | + + + + + | Body Mass Index | 36.01 | 05/26/2016 11:40 AM | | | | | PDT | | + + + + + documented in this encounter Patient Instructions Patient Instructions Yvonne Worrell RN - 05/26/2016 12:28 PM PDT1. NO PHYSICAL ACTIVITY TODAY !! INSTRUCTIONS Raz Arce 1945 Procedure: Left heart catheterization Day: Date: Check-in time: 1. [facility] ([facility]). 2. Do not eat or drink anything after midnight prior to the procedure. 3. Take all of your regular medications including Aspirin and Effient with a sip of water t he morning of the procedure. 4. The procedure lasts approximately one hour, and you will have conscious sedation for the procedure which will help decrease pain and will make you groggy. 5. After the procedure you will remain either in recovery or same day surgery center for at least 2 hours, part of this time you may have to lie flat depending on the procedure. 6. Make sure you have a xm1 tank driver to take you home. Your xm1 tank driver will also need to sign you ou t, to take responsibility for you, so it can not be a taxi or transportation system, unless there is a caregiver with transportation. 7. Please call us with any questions or concerns at . If you need to cancel the procedure at the last minute, such as due to illness, and you are calling after regular office hours, call the main hospital line at and ask for nursing contingents supervisor t o let them know you are cancelling . Follow up appointment in Cardiology: To be arranged after heart cath results Provider: Charlotte Turner MD Date: Check-in time: documented in this encounter Progress Notes Charlotte Turner MD - 05/26/2016 12:54 PM PDTFormatting of this note might be different fr om the original. Admission H&P Primary Care: Dr Oscar Xavier Primary Poultry Husbandman: Yue Reason for Admission: Class 4 angina 05/26/2016 Raz Arce is a 70 y.o. 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 He developed recurrent exertional symptoms and symp toms that occurred at rest as well. In February and March and was very active shoveling s now without symptoms. Then the end of April he did only 10 minutes of snow and noted he felt weak, fatigued and had left chest pain. Now he can not even walk to the mailbox. Yesterday he tried to mow. He noted the same symptoms. He had to stop. Then after he sto pped he was able to go on and felt better. He felt like his pulse was stronger. He has felt like his pulse is weak for the last month. He has not had dyspnea. He has not slept in a bed for years - long before his [facility] If he would lie down he could not breath. Past Medical History: Past Medical History Diagnosis Date Diabetes mellitus (HCC) Hypertension Reflux esophagitis Food impaction of esophagus Cardiac cath 05/2015 EDP: 28 No gradient on pull back RCA: Small Non dominant vessel Left Main: No significant disease: Left Circumflex: Large dominant vessel 1st, 4th and 5th marginal's are large and have non obstructive disease. 2nd and 3rd are s mall. LAD: Smaller than average vessel. Diffuse, aneurysmal, disease. Large diagonal that reaches out to the apex. Multiple 99% lesions of the mid vessel Post intervention: Closure of the tip of the LAD No residual lesion of the diagonal or stented segment of the LAD CONCLUSIONS: 1. PCI of the Diagonal and mid LAD 2. Non obstructive disease of dominant LCX 3. Non dominant RCA Current Medications: Current Outpatient Prescriptions on File Prior to Visit Medication Sig Dispense Refill aspirin 81 mg [...] ULTRA TEST strip ONETOUCH DELICA LANCETS 33G [facility] prasugrel (EFFIENT) 10 mg TABS Take 1 tablet by mouth Daily. 30 tablet 11 No current facility-administered medications on file prior to visit. Allergies: Allergies Allergen Reactions Meperidine Family History: History reviewed. No pertinent family history. 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 Negative for fever, chills, weight loss and d iaphoresis. HENT: Positive for nosebleeds. Negative for congestion. Eyes: Negative for blurred vision and redness. Respiratory: Positive for shortness of breath. Negative for cough, hemoptysis, sputum produ ction, wheezing and stridor. Cardiovascular: Positive for chest pain, palpitations, orthopnea and PND. Negative for caron dication and leg swelling. Gastrointestinal: Negative for heartburn, nausea, constipation, blood in stool and melena. Genitourinary: Positive for hematuria. Negative for dysuria. Musculoskeletal: Negative for myalgias. Skin: Negative for itching and rash. Neurological: Positive for weakness. Negative for loss of consciousness and headaches. Endo/Heme/Allergies: Does not bruise/bleed easily. Psychiatric/Behavioral: Negative for depression. has noted a dot of blood on his underwear His teeth are falling apart - his dentist has not wanted to do anything because of the EFFI ENT Reviewed 10 systems, all were negative except as listed in HPI Physical Exam: BP 142/74 mmHg | Pulse 64 | Resp 16 | Ht 1.778 m (5' 10") | Wt 113.853 kg (251 lb) | BMI 36 .01 kg/m2 Physical Exam Constitutional: He is oriented to person, place, and time. He appears well-developed and we ll-nourished. No distress. HENT: Head: Normocephalic and atraumatic. Eyes: Conjunctivae and EOM are normal. No scleral icterus. Neck: Normal range of motion. Neck supple. No JVD present. No tracheal deviation present. N o thyromegaly present. Cardiovascular: Regular rhythm. Exam reveals no gallop and no friction rub. Murmur heard. Pulmonary/Chest: Effort normal and breath sounds normal. No stridor. No respiratory distres s. He has no wheezes. He has no rales. Abdominal: Soft. He exhibits no distension and no mass. There is no tenderness. There is no rebound and no guarding. Musculoskeletal: He exhibits no edema or tenderness. Lymphadenopathy: He has no cervical adenopathy. Neurological: He is alert and oriented to person, place, and time. Skin: Skin is warm and dry. No rash noted. He is not diaphoretic. Psychiatric: He has a normal mood and affect. Vitals reviewed. Test Results: reviewed by me Recent Results (from the past 24 hour(s)) Comprehensive Metabolic Panel Result Value Ref Range NA 142 136-149 [...] 1.0 0.8-2.0 BUN/CREA 7.7 CBC with Differential Result Value Ref Range WBC 6.9 4.0-11.0 [...] Absolute Basophils 0.10 0.00-0.10 K/uL Troponin I Result Value Ref Range Troponin I 0.01 <0.06 ng/mL ECG 12 lead Result Value Ref Range INTERPRETATION TEXT Not Confirmed Impression/Plan: 1. Recurrent angina class 4 and exercise intolerance 2. H/O anterior STEMI 3. Bradycardia - chronic unable to take beta julisa 4. HTN 5. CRF 6. Dyslipidemia Plan: Cardiac Cath Radial approach The risk and benefits of appropriate heart catheterization, or other appropriate technique s as indicated were discussed. It was explained that the possible complications include but are not limited to , stroke, heart arrest,heart attack, emergency surgery, blood vesse l injury possibly requiring surgical repair, site infection, acute kidney failure, and/or re actions to iodine contrast agent or sedatives. correction risks include re-blockage (restenos is) and stent thrombosis (clotting). The patient's questions were answered, and the patie nt wishes to proceed. Patient is appropriate for conscious sedation. Explained that if he is stable and needs stents he would need to be referred out. He needs extensive dental work done soon.Electronically signed by Charlotte Turner MD at 2:33 PM PDTdocumented in this encounter Plan of Treatment Not on filedocumented as of this encounter Procedures + +--------+ + + + | Procedure Name | Priori | Date/Time | Associated Diagnosis | Comments | | | ty | | | | + +--------+ + + + | TROPONIN I | Routin | 05/26/2016 | Chest pain, | Results for this | | | e | 12:44 PM | unspecified type | procedure are in the | | | | PDT | | results section. | + +--------+ + + + | CBC WITH | Routin | 05/26/2016 | Chest pain, | Results for this | | DIFFERENTIAL | e | 12:44 PM | unspecified type | procedure are in the | | | | PDT | | results section. | + +--------+ + + + | COMPREHENSIVE | Routin | 05/26/2016 | Chest pain, | Results for this | | METABOLIC PANEL | e | 12:44 PM | unspecified type | procedure are in the | | | | PDT | | results section. | + +--------+ + + + | ECG 12 LEAD | Routin | 05/26/2016 | Chest pain, | Results for this | | | e | 12:12 PM | unspecified type | procedure are in the | | | | PDT | | results section. | + +--------+ + + + documented in this encounter Results Troponin I (05/26/2016 12:44 PM PDT) + + + + + [...] | | | | | | [employer] | | | | | [...] [address] | [place] | [phone] | | [facility] | | [address] | | | - LABORATORY | | | | + + + + + CBC with Differential (05/26/2016 12:44 PM PDT) + +---------+ + + + | Component | Value | Ref Range | Performed | Pathologist | | | | | At | Signature | + +---------+ + + + | WBC | 6.9 | 4.0 - 11.0 K/uL | [facility] | | | | [facility] | [facility] - | | | | | | [facility]ATORY | | + +---------+ + + + | RBC | 4.85 | 4.30 - 5.70 | [facility] | | | | | M/uL | [facility] | | | | | | [facility] | | | | | | C[facility] - | | | | | | LABORATORY | | + +---------+ + + + | Hemoglobin | 14.2 | 13.5 - 18.0 | [facility] | | | | | g/dL | [facility] | | | | | | [facility] | | | | | | CENTER - | | | | | | LABORATORY | | + +---------+ + + + | Hematocrit | 43.3 | 40.0 - 51.0 % | [facility] | | | | | | [facility] | | | | | | [facility] | | | | | | [facility] - | | | | | | LABORATORY | | + +---------+ + + + | MCV | 89.3 | 83.0 - 101.0 fL | [facility] | | | | | | [facility] | | | | | | [facility] | | | | | | [facility] - | | | | | | LABORATORY | | + +---------+ + + + | MCH | 29.2 | 28.0 - 35.0 pg | [facility] | | | | | | [facility] | [facility] | | | | | | [facility] - | | | | | | LABORATORY | | + +---------+ + + + | MCHC | 32.7 | 32.0 - 36.0 | [facility] | | | | | g/dL | [facility] | | | | | | [facility] | | | | | | [facility] - | | | | | | LABORATORY | | + +---------+ + + + | RDW-CV | 13.3 | <15.0 % | [facility] | | | | | | [facility] | | [facility] | [facility] | | | | | | [facility] - | | | | | | LABORATORY | | + +---------+ + + + | Platelet | 203 | 140 - 440 K/uL | [facility] | | | Count | | | [facility] | | | | [facility] | | | | | | [facility] - | | | | | | LABORATORY | | + +---------+ + + + | MPV | 6.9 | fL | [facility] | | | | | | [facility] | [facility] | [facility] | | | | | | [facility] - | | | | | | LABORATORY | | + +---------+ + + + | % | 57.5 | 45.0 - 82.0 % | [facility] | | | Neutrophils | | | [facility] | | | | | | [facility] | | | | | | [facility] - | | | | | | LABORATORY | | + +---------+ + + + | % | 25.8 | 20.0 - 45.0 % | [facility] | | | Lymphocytes | | | [facility] | | | | | | [facility] | | | | | | [facility] - | | | | | | LABORATORY | | + +---------+ + + + | % Monocytes | 10.7 | 4.0 - 12.0 % | [facility] | | | | | | [facility] | | | | | | [facility] | | | | | | [facility] - | | | | | | LABORATORY | | + +---------+ + + + | % | 5.1 (H) | 0.0 - 5.0 % | [facility] | | | Eosinophils | | | [facility] | | | | | | [facility] | | | | | | [facility] - | | | | | | LABORATORY | | + +---------+ + + + | % Basophils | 0.9 | 0.0 - 1.0 % | [facility] | | | | | | [facility] | | | | | | [facility] | | | | | | [facility] - | | | | | | LABORATORY | | + +---------+ + + + | Absolute | 3.90 | 1.80 - 8.50 | [facility] | | | Neutrophils | | K/uL | [facility] | | | | | | [facility] | | | | | | CENTER - | | | | | | LABORATORY | | + +---------+ + + + | Absolute | 1.80 | 0.60 - 3.20 | [facility] | | | Lymphocytes | | K/uL | [facility] | | | | | | [facility] | | | | | | CENTER - | | | | | | LABORATORY | | + +---------+ + + + | Absolute | 0.70 | 0.00 - 1.00 | [facility] | | | Monocytes | | K/uL | [facility] | | | | | | [facility] | | | | | | [facility] - | | | | | | LABORATORY | | + +---------+ + + + | Absolute | 0.30 | 0.00 - 0.40 | [facility] | [...] | + + + + + | [facility] | [address] | [place] | [phone] | | [facility] | | [address] | | | - LABORATORY | | | | + + + + + Comprehensive Metabolic Panel (05/26/2016 12:44 PM PDT) + + + + + + | Component | Value | Ref Range | Performed | Pathologist | | | | | At | Signature | + + + + + + | Na | 142 | 136 - 149 | [facility] | | | | | mmol/L | [facility] | | [facility] | | | [facility] | | | | | | [facility] - | | | | | | LABORATORY | | + + + + + + | K | 3.9 | 3.5 - 5.1 | [facility] | | | | | mmol/L | [facility] | | | | | | [facility] | | | | | | [facility] - | | | | | | LABORATORY | | + + + + + + | Cl | 102 | 98 - 109 mmol/L | [facility] | | | | | | [facility] | | | | | | [facility] | | | | | | [facility] - | | | | | | LABORATORY | | + + + + + + | CO2 | 28 | 24 - 31 mmol/L | [facility] | | | | | | [facility] | | | | | | [facility] | | | | | | CENTER - | | | | | | LABORATORY | | + + + + + + | Anion Gap | 12 | 3 - 16 mmol/L | [facility] | | | | | | [facility] | | | | | | [facility] | | | | | | [facility] - | | | | | | LABORATORY | | + + + + + + | Glucose | 176 (H) | 70 - 109 mg/dL | [...] + + + + | Creatinine | 1.43 (H) | 0.60 - 1.30 | [facility] | | | | | mg/dL | [facility] | | | | | | [facility] | | | | | | CENTER - | | | | | | LABORATORY | | + + + + + + | eGFR if not | 49 (L)Comment: | >=60 | [facility] | | | | GLOMERULAR FILTRATION | mL/min/1.73m2 | [facility] | | | [place] | RATE,ESTIMATED | | MEDICAL | | | | mL/min/[id number] than | | CENTER - | | [...] + + + + | Calcium | 9.1 | 8.3 - 10.5 | [facility] | | | | | mg/dL | [facility] | | | | | | [facility]ICAL | | | | | | CENTER - | | | | | | LABORATORY | | + + + + + + | Albumin | 3.5 | 3.2 - 5.0 g/dL | [facility] | | | | | | [facility] | | | | | | [facility] | | | | | | [facility] - | | | | | | LABORATORY | | + + + + + + | Bilirubin | 0.5 | 0.1 - 1.5 mg/dL | [facility] | | | Total | | | [facility] | | | | | | [facility] | | | | | | CENTER - | | | | | | LABORATORY | | + + + + + + | Total | 7.0 | 6.0 - 7.8 g/dL | [facility] | | | Protein | | | [facility] | | | | | | [facility] | | | | | | CENTER - | | | | | | LABORATORY | | + + + + + + | AST | 24 | 10 - 42 U/L | [facility] [...] + + + + | Alkaline | 79 | 40 - 110 U/L | [facility] | | | Phosphatase | | | [facility] | | | | | | [facility] | | | | | | CENTER - | | | | | | LABORATORY | | + + + + + + | Globulin | 3.5 | 2.1 - 3.8 g/dL | [facility] | | | | | | [facility] | | | | | | [facility] | | | | | | CENTER - | | | | | | LABORATORY | | + + + + + + | Albumin/Kristen | 1.0 | 0.8 - 2.0 | [facility] | | | bulin Ratio | | | [facility] | | | | | | [facility] | | | | | | CENTER - | | | | | | LABORATORY | | + + + + + + | BUN/Creatin | 7.7 | | [facility] | | | ine [...] [address] | [place] | [phone] | | [facility] | | [address] | | | - LABORATORY | | | | + + + + + ECG 12 lead (05/26/2016 12:12 PM PDT) + + + + + + | Component | Value | Ref Range | Performed | Pathologist | | | | | At | Signature | + + + + + + | VENTRICULAR | 52 | BPM | [facility] | | | RATE EKG | | | | | + + + + + + | ATRIAL RATE | 52 | BPM | [facility] | | + + + + + + | P-R | 124 | ms | [facility] | | | INTERVAL | | | | | + + + + + + | QRS | 104 | ms | [facility] | | | DURATION | | | | | + + + + + + | Q-T | 412 | ms | [facility] | | | INTERVAL | | | | | + + + + + + | Q-T | 383 | ms | [facility] | | | INTERVAL | | | | | | (CORRECTED) | | | | | + + + + + + | P WAVE AXIS | 41 | degrees | [facility] | | + + + + + + | QRS AXIS | 43 | degrees | [facility] | | + + + + + + | T AXIS | 90 | degrees | [facility] | | + + + + + + | INTERPRETAT | Sinus bradycardiaSeptal | | [facility] | | | ION TEXT | infarct (cited on or | | | | | | before | | | | | | 06-JUN-2015)Abnormal | | | | | | ECGWhen compared with | | | | | | ECG of 23-JUL-2015 | | | | | | 10:37,premature atrial | | | | | | complexes are no longer | | | | | | presentQuestionable | | | | | | change in initial forces | | | | | | of Anterior | | | | | | leadsNonspecific T wave | | | | | | abnormality has replaced | | | | | | inverted T waves in | | | | | | Anterior leadsConfirmed | | | | | | by CHARLOTTE TURNER MD | | | | | | ([id number]) on 05/26/2016 | | | | | | 4:27:10 PM | | | | + + [...] + | Diagnosis | + + | Chest pain, unspecified type - Primary | + + | STEMI involving oth coronary artery of anterior wall | + + documented in this encounter
--- OUTSIDE RECORDS SUMMARY | ~2019-07-04 | XMS | Encounter Summary ---
Demographics + + + | Address | [address] | | | [place] [address] | + + + | Home Phone | | + + + | Preferred Language | Unknown | + + + | Marital Status | | + + + | Faith Affiliation | 1027 | + + + | Race | Unknown | + + + | Ethnic Group | Unknown | + + + Author + + + | Author | [facility] | | | and [place] | + + + | Organization | [facility] | | | [...] Team Providers + +------+ + | Care Communications Media Professor Name | Role | Phone | + +------+ + | Ralph Xavier MD | PCP | | + +------+ + Encounter Details +--------+ + + + + | Date | Type | Department | Care Team | Description | +--------+ + + + + | 01/25/ | Orders Only | [facility] | Emma Edmonds DO | | | 2018 | | CONVERSION [address] | [address] | | | | | [place] | [place] | | | | | [place], [place] | [address] | | | | | [address] | | | | | | [phone] | | | +--------+ + + + [...] + +--------+ + + + | ECHO INTERPRETATION | Routin | 01/25/2018 | | Results for this | | OF OUTSIDE FILMS | e | 5:01 PM | | procedure are in the | | | | PST | | results section. | + +--------+ + + + documented in this encounter Results ECHO Interpretation of Outside Films (01/25/2018 5:01 PM PST) + + | Specimen | + + | | + + + + + | Impressions | Performed At | + + + | 1. This was a technically difficult study with suboptimal views. 2. | | | Grossly normal LV size and systolic function. Unable to comment on | | | regional wall motion. 3. The left atrium is mildly enlarged. 4. No | | | significant valvular abnormalities are noted on very limited | | | evaluation. 5. The right heart chambers were poorly visualized and | | | could not be evaluated. | | + + + + + + | Narrative | Performed At | + + + | Patient Name: Raz Arce Date of : 1945 | | | Performing Physician: HORTENSIA WISEMAN MD | | | | | | INDICATIONS afib CONCLUSIONS 1. This | | | was a technically difficult study with suboptimal views. 2. Grossly | | | normal LV size and systolic function. Unable to comment on regional | | | wall motion. 3. The left atrium is mildly enlarged. 4. No significant | | | valvular abnormalities are noted on very limited evaluation. 5. The | | | right heart chambers were poorly visualized and could not be | | | evaluated. FINDINGS -------- ECG rhythm: Sinus rhythm. Study: A | | | 2-dimensional transthoracic echocardiogram with m-mode, spectral and | | | color flow Doppler was perfomed. Study: This was a technically | | | difficult study with suboptimal views. Left Ventricle: Poor tissue | | | doppler signal prevents accurate assessment of diastolic function. | | | Left Ventricle: Grossly normal LV size and systolic function. Unable | | | to comment on regional wall motion. Right Ventricle: The RV was not | | | well visualized. Left Atrium: The left atrium is mildly enlarged. | | | Right Atrium: The right atrium was not well visualized. Aortic Valve: | | | The aortic valve was not well visualized. Aortic Valve: There is no | | | evidence of aortic regurgitation. Aortic Valve: There is no evidence | | | of aortic stenosis. Mitral Valve: The mitral valve was not well | | | visualized. Mitral Valve: Mild mitral regurgitation is present. | | | Mitral Valve: No evidence of MVP. Tricuspid Valve: The tricuspid | | | valve was not well visualized. Pulmonic Valve: The pulmonic valve was | | | not well visualized. Pericardium: There is no pericardial effusion. | | | MEASUREMENTS Ao sinus: 3.09 cm LA Diam: | | | 3.41 cm LAESV(A-L): 63.30 ml LAESV Index (A-L): 28.01 ml/m2 | | | LAAs A2C: 16.92 cm2 LAESV A-L A2C: 50.85 ml LALs A2C: 4.78 | | | cm LAAs A4C: 21.07 cm2 LAESV A-L A4C: 74.55 ml LALs A4C: | | | 5.05 cm AV maxP.77 mmHg AV meanP.97 mmHg AV Vmax: | | | 1.56 m/s AV Vmean: 1.04 m/s AV VTI: 29.08 cm LVOT maxPG: | | | 3.37 mmHg LVOT meanP.07 mmHg LVOT Vmax: 0.91 m/s LVOT | | | Vmean: 0.68 m/s LVOT VTI: 19.36 cm MV A Jared: 0.76 m/s MV | | | Dec Beltrami: 2.26 m/s2 MV DecT: 268.86 ms MV E Jared: 0.60 m/s | | | MV E/A Ratio: 0.79 MV PHT: 77.97 ms MVA By PHT: 2.82 cm2 | | | Lateral e': 0.06 m/s Lateral E/e': 9.65 Production Corrugator: | | | Authenticated by: HORTENSIA WISEMAN MD Report Date/Time: 01-25-2018 | | | 17:29:7 | | + + + + + | Procedure Note | + + | Sanjeev, Rad Conversion - 10/27/2018 4:19 PM PDT Patient Name: Lynda Arce of | | : 1945 Performing Physician: HORTENSIA WISEMAN, | | MD INDICATIONS a | | fib CONCLUSIONS 1. This was a technically difficult study with suboptimal | | views.2. Grossly normal LV size and systolic function. Unable to comment on regional | | wall motion.3. The left atrium is mildly enlarged. 4. No significant valvular | | abnormalities are noted on very limited evaluation. 5. The right heart chambers were | | poorly visualized and could not be evaluated. FINDINGS--------ECG rhythm: Sinus | | rhythm.Study: A 2-dimensional transthoracic echocardiogram with m-mode, spectral and | | color flow Doppler was perfomed.Study: This was a technically difficult study with | | suboptimal views.Left Ventricle: Poor tissue doppler signal prevents accurate assessment | | of diastolic function.Left Ventricle: Grossly normal LV size and systolic function. | | Unable to comment on regional wall motion.Right Ventricle: The RV was not well | | visualized.Left Atrium: The left atrium is mildly enlarged.Right Atrium: The right | | atrium was not well visualized.Aortic Valve: The aortic valve was not well | | visualized.Aortic Valve: There is no evidence of aortic regurgitation.Aortic Valve: | | There is no evidence of aortic stenosis.Mitral Valve: The mitral valve was not well | | visualized.Mitral Valve: Mild mitral regurgitation is present.Mitral Valve: No evidence | | of MVP.Tricuspid Valve: The tricuspid valve was not well visualized.Pulmonic Valve: The | | pulmonic valve was not well visualized.Pericardium: There is no pericardial effusion. | | MEASUREMENTS Ao sinus: 3.09 cmLA Diam: 3.41 cmLAESV(A-L): 63.30 | | mlLAESV Index (A-L): 28.01 ml/m2LAAs A2C: 16.92 [id number] A-L A2C: 50.85 mlLALs | | A2C: 4.78 cmLAAs A4C: 21.07 [id number] A-L A4C: 74.55 mlLALs A4C: 5.05 cmAV maxPG: | | 9.77 mmHgAV meanP.97 mmHgAV Vmax: 1.56 m/Ray Vmean: 1.04 m/Rya VTI: 29.08 | | cmLVOT maxP.37 mmHgLVOT meanP.07 mmHgLVOT Vmax: 0.91 m/sLVOT Vmean: | | 0.68 m/sLVOT VTI: 19.36 cmMV A Jared: 0.76 m/sMV Dec Beltrami: 2.26 m/s2MV DecT: | | 268.86 msMV E Jared: 0.60 m/sMV E/A Ratio: 0.79MV PHT: 77.97 msMVA By PHT: 2.82 | | [id number] e': 0.06 m/sLateral E/e': 9.65 Production Corrugator:Authenticated by: HORTENSIA | | Emi WISEMAN Date/Time: 01-25-2018 17:29:7 IMPRESSION: 1. This was a technically | | difficult study with suboptimal views.2. Grossly normal LV size and systolic function. | | Unable to comment on regional wall motion.3. The left atrium is mildly enlarged. 4. No | | significant valvular abnormalities are noted on very limited evaluation. 5. The right | | heart chambers were poorly visualized and could not be evaluated. | |Mitral Valve: No evidence of MVP. | |Tricuspid Valve: The tricuspid valve was not well visualized. | |Pulmonic Valve: The pulmonic valve was not well visualized. | |Pericardium: There is no pericardial effusion. | | | |MEASUREMENTS | | | |Ao sinus: 3.09 cm | |LA Diam: 3.41 cm | |LAESV(A-L): 63.30 ml | |LAESV Index (A-L): 28.01 ml/m2 | |LAAs A2C: 16.92 cm2 | |LAESV A-L A2C: 50.85 ml | |LALs A2C: 4.78 cm | |LAAs A4C: 21.07 cm2 | |LAESV A-L A4C: 74.55 ml | |LALs A4C: 5.05 cm | |AV maxP.77 mmHg | |AV meanP.97 mmHg | |AV Vmax: 1.56 m/s | |AV Vmean: 1.04 m/s | |AV VTI: 29.08 cm | |LVOT maxP.37 mmHg | |LVOT meanP.07 mmHg | |LVOT Vmax: 0.91 m/s | |LVOT Vmean: 0.68 m/s | |LVOT VTI: 19.36 cm | |MV A Jared: 0.76 m/s | |MV Dec Beltrami: 2.26 m/s2 | |MV DecT: 268.86 ms | |MV E Jared: 0.60 m/s | |MV E/A Ratio: 0.79 | |MV PHT: 77.97 ms | |MVA By PHT: 2.82 cm2 | |Lateral e': 0.06 m/s | |Lateral E/e': 9.65 | | | |Production Corrugator: | |Authenticated by: HORTENSIA WISEMAN MD | |Report Date/Time: 01-25-2018 17:29:7 | | | |IMPRESSION: | |1. This was a technically difficult study with suboptimal views. | |2. Grossly normal LV size and systolic function. Unable to comment on regional wall motion. | |3. The left atrium is mildly enlarged. 4. No significant valvular abnormalities are noted o n very limited evaluation. 5. The right heart chambers were poorly visualized and could not be evaluated. | + + documented in this encounter Visit Diagnoses Not on filedocumented in this encounter"
--- OUTSIDE RECORDS SUMMARY | ~2019-07-04 | XMS | Encounter Summary ---
Demographics + + + | Address | [address] | | | [place] [address] | + + + | Home Phone | | + + + | Preferred Language | Unknown | + + + | Marital Status | | + + + | Yazidi Affiliation | 1027 | + + + [...] Team Providers + +------+ + | Care Metal Drill Press Operator Name | Role | Phone | [...] +--------+--------+ + + + + Encounter Details +--------+---------+ + + + | Date | Type | Department | Care Team | Description | +--------+---------+ + + + | 05/27/ | Surgery | [facility] | Charlotte Turner, | CV LHC | | 2016 | | MED CTR CV INTRA OP | MD [address] | | | | | [address] | [place] | | | | | [place] | [address] | | | | | [address] | | | | | | [phone] | | | +--------+---------+ + + + Social History [...] bed for years - long before his MD If he would lie down he could [...] failure 05/27/2016 Unknown Coronary artery disease involving tyonek coronary artery of 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 aka: DARVIN montelukast 10 mg tablet Take 1 tablet [...] by your healthcare provider Date Last Reviewed: 05/03/201319992853-8709 [employer]. [address] [place] [address]. All righ ts reserved. This information is [...] the affected wrist straigh t. Call the raw scales operator who did your procedure as soon as possible. Other Concerns Call the raw scales operator who did your procedure if you have: Any of these Signs of Infection: Redness Fever higher than 101.5 degrees F or 38.6 degrees C Change in the bruise or lump. Numbness in your arm or wrist. Severe pain that is not relieved by Tylenol. Follow-up Care Continue your prescribed medications unless instructed otherwise. Follow-up with your primary health care provider and raw scales operator after your procedure, as instructed. If you have questions or concerns about your cardiac catheterization procedure, call the number below. [phone] documented in this encounter Medications at Time [...] Diagnosis Date | | | Diabetes mellitus ([facility]) | | | Hypertension | | | Reflux esophagitis | | | Food impaction of esophagus | | | Acute ST elevation myocardial infarction (STEMI) involving left | | | anterior descending (LAD) coronary artery ([facility]) 05/2015 | | | Dyslipidemia Blood [...] with | | | no immediate complications [facility] LEFT CARDIAC | | | CATHETERIZATION REPORT PATIENT NAME: Raz Hinton OF | | | : 1945MEDICAL RECORD NUMBER: [id number] OF | | | PROCEDURE: | | | 05/27/2016 | | | | | | PRIMARY CARE PROVIDER: Ralph Xavier, | | | [facility] TAPERING MACHINE OPERATOR: Charlotte Turner MD, [facility], [facility] PRE-PROCEDURE | | | DIAGNOSIS: Class 4 [...] the | | | sheath. A 5 Nepali JR4 was advanced to the descending aorta [...] | RECOMMENDATIONS Stop EFFIENT Charlotte Turner MD, [facility], [facility] | | | [facility]: 05/27/2016 9:363 9:36 | | | Portions of this chart were created with [employer] voice recognition | | | software. Occasional [...] | | | | |Charlotte Turner MD, [facility], [facility] | | |[facility] | | |DATE/TIME: 05/27/2016 9:36 | | |05/27/2016 9:36 | | | | | |Portions of this chart were created with [employer] voice recognition | | |software. Occasional wrong-word [...] [address] | [place] | [phone] | | [facility] | | [address] | | | - LABORATORY | | [...] | | | | mmol/L | [facility] | | | | [...] [facility] | | | [facility] | [facility] | | | | | | CENTER - | | | | | | LABORATORY | | + + + + + + | Creatinine | 1.45 (H) | 0.60 - 1.30 | [facility] | | | | | mg/dL | [...] mL/min/1.73m2 | [facility] | | | [place] | RATE,ESTIMATED | | MEDICAL | | | | mL/min/1.29g8Tjux than | | CENTER - | | [...] | | | | | mg/dL | [facility] | | | | [...] + | [facility] | [address] | [place] | [phone] | | [facility] | | [address] | | | - LABORATORY | | | | + + + + + documented in this encounter Visit Diagnoses Not on filedocumented in this encounter Administered Medications + +--------+ +--------+------+------+ | Medication Order | MAR | Action | Dose | Rate | Site | | | Action | Date | | | | + +--------+ +--------+------+------+ | fentaNYL (PF) injection ONCE | Given | 05/28/19 | 25 mcg | | | | PRN, Starting 05/27/16 at | | 17 8:54 | | | | | 0851, Intra-op | | AM PDT | | | | + +--------+ +--------+------+------+ +-------+ +--------+---+---+ | Given | 05/28/19 | 50 mcg | | | | | 17 8:51 | | | | | | AM PDT | | | | +-------+ +--------+---+---+ +---+---+ | | | +---+---+ + +-------+ +---------+---+---+ | iohexol (OMNIPAQUE 350) 350 | Given | 05/28/19 | 100 mLs | | | | mg/mL injection ONCE PRN, | | 17 9:20 | | | | | Starting 05/27/16 at 0920, | | AM PDT | | | | | Intra-op | | | | | | + +-------+ +---------+---+---+ +---+---+ | | | +---+---+ + +-------+ +-------+---+ + | lidocaine buffered 1% injection | Given | 05/28/19 | 3 mLs | | Surgical | | ONCE PRN, Starting 05/27/16 | | 17 8:54 | | | Site | | at 0854, Intra-op | | AM PDT | | | | + +-------+ +-------+---+ + +---+---+ | | | +---+---+ + +-------+ +--------+---+---+ | midazolam (VERSED) 1 mg/mL | Given | 05/28/19 | 0.5 mg | | | | injection ONCE PRN, Starting Wed | | 17 8:55 | | | | | 05/27/16 at 0850, Intra-op | | AM PDT | | | | + +-------+ +--------+---+---+ +-------+ +------+---+---+ | Given | 05/28/19 | 1 mg | | | | | 17 8:50 | | | | | | AM PDT | | | | +-------+ +------+---+---+ +---+---+ | | | +---+---+ + +-------+ +---+---+---+ | niCARdipine (CARDENE) 200 mcg, | Given | 05/28/19 | | | | | nitroglycerin in dextrose 100 mcg | | 17 8:55 | | | | | in heparin 3,000 Units CVL | | AM PDT | | | | | mixture ONCE PRN, Starting Wed | | | | | | | 05/27/16 at 0855, Intra-op | | | | | | + +-------+ +---+---+---+ +---+---+ | | | +---+---+ + +-------+ +---------+---+---+ | niCARdipine in dextrose | Given | 05/28/19 | 200 mcg | | | | (CARDENE) 0.2 mg/ml syringe ONCE | | 17 9:13 | | | | | PRN, Starting 05/27/16 at | | AM PDT | | | | | 0857, Intra-op | | | | | | + +-------+ +---------+---+---+ +-------+ +---------+---+---+ | Given | 05/28/19 | 200 mcg | | | | | 17 9:08 | | | | | | AM PDT | | | | +-------+ +---------+---+---+ | Given | 05/28/19 | 200 mcg | | | | | 17 9:03 | | | | | | AM PDT | | | | +-------+ +---------+---+---+ +---+---+ | | | +---+---+ + +-------+ +--------+---+ + | nitroglycerin (NITRO-BID) 2% | Given [...] | | | | | + +-------+ +--------+---+ + +---+---+ | | | +---+---+ + +-------+ +------+---+---+ | ondansetron (ZOFRAN) injection | Given | 05/28/19 | 8 mg | | | | ONCE PRN, Starting 05/27/16 | | 17 8:50 | | | | | at 0850, Intra-op | | AM PDT | | | | + +-------+ +------+---+---+ +---+---+ | | | +---+---+ + +---------+ [...]
--- OUTSIDE RECORDS SUMMARY | ~2019-07-04 | XMS | Encounter Summary ---
Demographics + + + | Address | [address] | | | [place] [address] | + + + | Home Phone | | + + + | Preferred Language | Unknown | + + + | Marital Status | | + + + | Mormon Affiliation | 1027 | + + + | Race | Unknown | + + + | Ethnic Group | Unknown | + + + Author + + + | Author | [facility] | | | and [place] | + + + | Organization | [facility] | | | and [...] Team Providers + +------+ + | Care It Administrator Name | Role | Phone | + +------+ + | Ralph Xavier MD | PCP | | + +------+ + Reason for Visit + + + | Reason | Comments | + + + | Medication Question | | + + + Encounter Details +--------+ + + + + | Date | Type | Department | Care Team | Description | +--------+ + + + + | 02/17/ | Telephone | [facility] | Kristen Luke | Medication Question | | 2019 | | CARDIOLOGY [facility] | [address] | | | | | [address] [facility] | [address] | | | | | [address] | [place] [address] | | | | | [place] | [phone] | | | | | [address] | | | | | | [phone] | | | +--------+ + + + [...]
--- OUTSIDE RECORDS SUMMARY | ~2019-07-04 | XMS | Encounter Summary ---
Demographics + + + | Address | [address] | | | [place] [address] | + + + | Home Phone | | + + + | Preferred Language | Unknown | + + + | Marital Status | | + + + | Sabianist Affiliation | 1027 | + + + | Race | Unknown | + + + | Ethnic Group | Unknown | + + + Author + + + | Author | [facility] | | | and [place] | + + + | Organization | [facility] | | | and [...] Team Providers + +------+ + | Care Clearance Rep Name | Role | Phone | + [...] | | | | | | [place] [address] | | | | | | | Phone: | | | | | | | [phone] | | | | | | | Fax: | | | | | | | [phone] | | +--------+ + + + + [...] | artery of | [place], [place] | [place] | | | | | anterior | [address] | [place] | | | | | wall ([facility]) | Phone: | [address] | | | | | | [phone] | Phone: | | | | | | Fax: | [phone] | | | | | | [phone] | Fax: | | | | | | | [phone] | +--------+ + + + + + [...] + + | 06/05/ | Hospital | [facility] | Charlotte Goodwin, | STEMI involving oth | | 2016 - | Encounter | MED CTR ICU [address] | [address] | coronary artery of | | | | [place], | [place] | anterior wall (HCC) | | 06/07/ | | [place] [address] | [id number] | (Primary Dx) | | 2015 | | [phone] | | | | | | | Aiden Brooks, | | | | | | Jarrett Cabrera MD [address] | | | | | | [address] [place], | | | | | | [place] [address] | | | | | | [phone] | | | | | | | [...] ECG: SR, ST elevation from V1-V4, anteroseptal MT. Selected Labs: Recent Labs Lab 06/08/15 0536 [...] weeks. Electronically signed by: Jarrett Vidal MD [facility] 06/08/2015 Portions of this chart may have been created with Evi voice recognition software. Occasi onal wrong-word or [...] ICU. Electronically signed by: Jarrett Vidal MD [facility] 06/07/2015 Portions of this chart may have been created with Evi voice recognition software. Occasi onal wrong-word or [...] clinic Electronically signed by: Charlotte Goodwin MD [facility] 06/07/2015 Portions of this chart may have been created with Evi voice recognition software. Occasi onal wrong-word or [...] [address] | [place] | [phone] | | [facility] | | [address] | | | - LABORATORY | | [...] [address] | [place] | [phone] | | [facility] | | [address] | | | - LABORATORY | | [...] mL/min/1.73m2 | [facility] | | | [place] | RATE,ESTIMATED | | MEDICAL | | | | mL/min/1.05v6Uvon than | | CENTER - | | [...] + | [facility] | [address] | [place] | [phone] | | [facility] | | [address] | | | - LABORATORY | | [...] | | POC | | | [facility] | | | | | | MEDICAL [...] | + + + + + | [facility] | [address] | [place] | [phone] | | [facility] | | [address] | | | - LABORATORY | | [...] + | [facility] | [address] | [place] | [phone] | | [facility] | | [address] | | | - LABORATORY | | [...] + | [facility] | [address] | [place] | [phone] | | [facility] | | [address] | | | - LABORATORY | | [...] ST. | [address] | [place] | [phone] | | [facility] | | [address] | | | - LABORATORY | | [...] MD | | | | | | ([id number]) on 06/07/2015 | | | | | [...] [address] | [place] | [phone] | | [facility] | | [address] | | | - LABORATORY | | [...] ST. | [address] | [place], [place] | [phone] | | [facility] | | [address] | | | - LABORATORY | | [...] + | [facility] | [address] | [place] | [phone] | | [facility] | | [address] | | | - LABORATORY | | [...] mL/min/1.73m2 | [facility] | | | [place] | RATE,ESTIMATED | | MEDICAL | | | | mL/min/1.64e6Tqeh than | | CENTER - | | [...] [address] | [place] | [phone] | | [facility] | | [address] | | | - LABORATORY | | [...] + + | Performing | Address | City/State/Unm Hospitalcode | Phone Number | | Organization | | | | + + + + + | [facility] | [address] | [place] | [phone] | | [facility] | | [address] | | | - LABORATORY | | [...] [address] | [place] | [phone] | | [facility] | | [address] | | | - LABORATORY | | [...] [address] | [place] | [phone] | | [facility] | | [address] | | | - LABORATORY | | | | + + + + + ECHO Complete (06/06/2015 3:40 PM PDT) + + | Specimen | + + | | + + + + + | Narrative | Performed At | + + + | [facility] ECHOCARDIOGRAM REPORT | | | STUDY DATE: [...] Signed by: Charlotte Goodwin, | | | [facility] 06/06/2015 16:06 Maintenance Service Supervisor: Robyn | | | GROVER Dumont | [...] | 06/06/2015 at 14:33 by | | [place] - | | | | Melvin. | [...] [address] | [place] | [phone] | | [facility] | | [address] | | | - LABORATORY | | [...] | | | | | pattern ACUTE MT / | | | | | | STEMI Abnormal | | | | | | ECGSerial changes of | | | | | | evolvingConfirmed by | | | | | | CHARLOTTE GOODWIN MD | | | | | | ([id number]) on 06/06/2015 | | | | | [...] [address] | [place] | [phone] | | [facility] | | [address] | | | - LABORATORY | | [...] + | [facility] | [address] | [place] | [phone] | | [facility] | | [address] | | | - LABORATORY | | [...] mL/min/1.73m2 | [facility] | | | [place] | RATE,ESTIMATED | | MEDICAL | | | | mL/min/1.89t7Iuty than | | CENTER - | | [...] | 8.6 | 8.3 - 10.5 | [place] | | | | | mg/dL | [facility] | | | | | | MEDICAL | | | | | | CENTER - | | | | | | LABORATORY | | + + + + + + | Albumin | 3.5 | 3.2 - 5.0 g/dL | [facility] | | | | | | [facility] | | | | | | MEDICAL [...] [address] | [place] | [phone] | | [facility] | | [address] | | | - LABORATORY | | [...] [address] | [place] | [phone] | | [facility] | | [address] | | | - LABORATORY | | [...] | | | | | NPO, Daytime [id number] Use NIGHT | | | | | | | DOSE for doses scheduled: | | | | | | | HS, 3AM, Nighttime 2936-5186, | | | | | | + [...]
--- OUTSIDE RECORDS SUMMARY | ~2019-07-04 | XMS | Clinical Summary ---
Demographics + + + | Address | [address] | | | [place] [address] | + + + | Home Phone | | + + + | Preferred Language | Unknown | + + + | Marital Status | | + + + | Buddhist Affiliation | Unknown | + + + | Race | Unknown | + + + | Ethnic Group | Unknown | + + + Author + + + | Author | [employer] [facility] (Historical as of | | | 10-22-18) | + + + | Organization | [facility] (Historical as of | | | 10-22-18) | + + + | Address | Unknown | + + + | Phone | Unavailable | + + + Support + + +---------+ + | Name | Relationship | Address | Phone | + + +---------+ + | Kailee Arce | ECON | Unknown | | + + +---------+ + Care Team Providers + +------+ + | Care Associate Professor Of Pathology Name | Role | Phone | + +------+ + | Ralph Xavier MD | PP | | + +------+ + Allergies No Active Allergies Current Medications + + +--------+---------+------+------+-------+ | Prescription | Sig. | Disp. | Refills | Star | End | Statu | | | | | | t | Date | s | | | | | | Date | | | + + +--------+---------+------+------+-------+ | atorvastatin | Take 80 mg by mouth | | | | | Activ | | (LIPITOR) 80 MG | nightly. | | | | | e | | tablet | | | | | | | + + +--------+---------+------+------+-------+ | glipiZIDE | Take 10 mg by mouth | | | | | Activ | | (GLUCOTROL) 10 MG | 2 (two) times daily | | | | | e | | tablet | before meals. | | | | | | + + +--------+---------+------+------+-------+ | losartan (COZAAR) | Take 100 mg by mouth | | | | | Activ | | 100 MG tablet | daily. | | | | | e | + + +--------+---------+------+------+-------+ | ONE TOUCH LANCETS | by Does not apply | | | | | Activ | | MISC | route. | | | | | e | + + +--------+---------+------+------+-------+ | glucose blood test | 1 each by Other | | | | | Activ | | strip | route as needed for | | | | | e | | | Other. Use as | | | | | | | | instructed | | | | | | + + +--------+---------+------+------+-------+ | montelukast | Take 10 mg by mouth | | | | | Activ | | (SINGULAIR) 10 MG | nightly. | | | | | e | | tablet | | | | | | | + + +--------+---------+------+------+-------+ | apixaban (ELIQUIS) | Take 1 tablet by | 60 | 5 | 01/0 | | Activ | | 5 MG tablet | mouth 2 (two) times | tablet | | 3/20 | | e | | | daily. | | | 19 | | | + + +--------+---------+------+------+-------+ | metoprolol | Take 1 tablet by | 30 | 11 | 01/0 | | Activ | | (TOPROL-XL) 25 MG 24 | mouth daily. | tablet | | 3/20 | | e | | hr tablet | | | | 19 | | | + + +--------+---------+------+------+-------+ | amLODIPine | Take 2 tablets by | | | /0 | | Activ | | (NORVASC) 5 MG | mouth daily. | | | 05/25 | | e | | tablet | | | | 19 | | | + + +--------+---------+------+------+-------+ Active Problems + + + | Problem | Noted Date | + + + | Hypertensive heart disease without heart failure | 05/27/2016 | + + + | Coronary artery disease involving [place] coronary artery of | 07/02/2015 | | [place] heart without angina pectoris | | + + + | S/P PTCA (percutaneous transluminal coronary angioplasty) | 07/02/2015 | + + + | Chronic renal insufficiency | 06/07/2015 | + + + + + | Overview: Overview: | | H/O GFR in the range of 40 prior to admission | + + + + + | Diabetic neuropathy associated with type 2 diabetes mellitus | 06/07/2015 | | (HCC) | | + + + | Mild intermittent asthma | 06/07/2015 | + + + | Essential hypertension | 06/06/2015 | + + + | 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 Non dominant RCA | |1st, 4th and 5th marginal's are large and have non obstructive disease. 2nd and 3rd are s mall. | |LAD: | |Smaller than average vessel. [...] | |3. Non dominant RCA | + ------+ + + + | Type 2 diabetes mellitus (HCC) | 06/06/2015 | + + + Family History + + +------+ + | Medical History | Relation | Name | Comments | + + +------+ + | Stroke | Father | | | + + +------+ + | Diabetes type II | Mother | | | + + [...] + +---------+ + | Alcohol Use | Drinks/We | oz/Week | Comments | | | ek | | | + + +---------+ + | No | | | | + + +---------+ + + + + | Sex Assigned at | Date Recorded | | | | + + + | Not on file | | + + + Last Filed Vital Signs + + + + | Vital Sign | Reading | Time Taken | + + + + | Blood Pressure | 130/58 | 03/10/2018 11:01 AM PST | + + + + | Pulse | 63 | 03/10/2018 11:01 AM PST | + + + + | Temperature | - | - | + + + + | Respiratory Rate | - | - | + + + + | Oxygen Saturation | 98% | 03/10/2018 11:01 AM PST | + + + + | Inhaled Oxygen | - | - | | Concentration | | | + + + + | Weight | 110.3 kg (243 lb 3.2 | 03/10/2018 11:01 AM PST | | | oz) | | + + + + | Height | 179.1 cm (5' 10.5") | 03/10/2018 11:01 AM PST | + + + + | Body Mass Index | 34.4 | 03/10/2018 11:01 AM PST | + + + + Plan of Treatment + + + + + | Health Maintenance | Due Date | Last Done | Comments | + + + + + | Diabetic Eye Exam | | | | | | 4 | | | + + + + + | Diabetic Foot Exam | | | | | | 4 | | | + + + + + | Hemoglobin A1c | | | | | | 4 | | | + + + + + | Microalbumin | | | | | Screening | 4 | | | + + + + + | Vaccine: | | | | | Dtap/Tdap/Td (1 - | 3 | | | | Tdap) | | | | + + + + + | Colon Cancer | | | | | Screening | 4 | | | | (Colonoscopy) | | | | + + + + + | Vaccine: Zoster (1 | | | | | of 2) | 4 | | | + + + + + | Vaccine: | | | | | Pneumococcal 65+ | 9 | | | | Low/Medium Risk (1 | | | | | of 2 - PCV13) | | | | + + + + + | Vaccine: Influenza | | | | | (Season Ended) | 0 | | | + + + + + Results Not on filefrom Last 3 Months Insurance + +--------+ +------+-------+ + | Payer | Benefi | Subscriber | Type | Phone | Address | | | t Plan | ID | | | | | | / | | | | | | | Group | | | | | + +--------+ +------+-------+ + | MEDICARE | MEDICA | [id number] | | | [address] | | | [place] | | | | [place] [address] | | | IP-OP | | | | | + +--------+ +------+-------+ + | [employer] [place] | MUTUAL | [id number] | | | | | | [place] | | | | | | | [place] | | | | | + +--------+ +------+-------+ + + +--------+ +--------+ + + | Guarantor Name | Accoun | Relation to | Date | Phone | Billing Address | | | t Type | Patient | of | | | | | | | | | | + +--------+ +--------+ + + | RADHA,HUSSEIN G | Person | Self | [birth year] | Home: | [address] | | | al/Fam | | [phone] | [phone] | [place] | | | aisha | | | [phone] | [address] | + +--------+ +--------+ + +
--- OUTSIDE RECORDS SUMMARY | ~2019-07-04 | XMS | Encounter Summary ---
Demographics + + + | Address | [address] | | | [place] [address] | + + + | Home Phone | | + + + | Preferred Language | Unknown | + + + | Marital Status | | + + + | Yazdanism Affiliation | 1027 | + + + [...] Team Providers + +------+ + | Care Instructor Waste[employer] Name | Role | Phone | + [...] be seen in | | | | [place], | [place] | Cardiology soon) | | | | [place] [address] | [address] | | | | | [phone] | | | +--------+ + + + [...]
--- OUTSIDE RECORDS SUMMARY | ~2019-07-04 | XMS | Encounter Summary ---
Demographics + + + | Address | [address] | | | [place] [address] | + + + | Home Phone | | + + + | Preferred Language | Unknown | + + + | Marital Status | | + + + | Jehovah'S Witness Affiliation | 1027 | + + + | Race | Unknown | + + + | Ethnic Group | Unknown | + + + Author + + + | Author | [facility] | | | and [place] | + + + | Organization | [facility] | | | [...] Team Providers + +------+ + | Care Salesperson Neckties Name | Role | Phone | + [...] Description | +--------+---------+ + + + | 06/05/ | Surgery | [facility] | Charlotte Goodwin, | CV DIAGNOSTIC | | 2016 | | MED CTR CV INTRA OP | MD [address] | CARDIAC CATH | | | | [address] | [place] | | | | | [place] | [address] | | | | | [address] | | | | | | [phone] | | | +--------+---------+ + + + [...] ECG: SR, ST elevation from V1-V4, anteroseptal [place]. Selected Labs: Recent Labs Lab 06/08/15 0536 [...] documented in this encounter Discharge Instructions Instructions Yancy Craft, PharmD - 06/10/2015Pt feels good, a little [...] Daily Charlotte Goodwin MD 100 mg at 04/04/23 0840 magnesium hydroxide (MILK OF MAGNESIA) 400 [...] weeks. Electronically signed by: Jarrett Vidal MD [facility] 06/08/2015 Portions of this chart may have been created with Contrib voice recognition software. Occasi onal wrong-word or [...] out forms for their home care package. arrett Wilson MD - 06/07/2015 12:1 8 PM PDT [...] Charlotte Goodwin MD 5 mg at 06/07/15 0856 HYDROcodone-acetaminophen (NORCO) 5-325 mg per tablet 1-2 tablet 1-2 tablet Oral Q4H P RN Charlotte Goodwin MD insulin lispro (humaLOG KWIKPEN) 100 units/mL injection (pen) 0-6 Units 0-6 Units Subc utaneous 4x Daily WC and HS Charlotte Goodwin MD 2 Units at 06/07/15 0857 losartan (COZAAR) tablet 100 mg 100 mg Oral Daily Charlotte Goodwin MD 100 mg at 04/03/23 0856 magnesium hydroxide (MILK OF MAGNESIA) 400 [...] ICU. Electronically signed by: Jarrett Vidal MD [facility] 06/07/2015 Portions of this chart may have been created with Contrib voice recognition software. Occasi onal wrong-word or [...] Daily WC and HS Charlotte Goodwin MD 1 Units at 06/06/152022 losartan (COZAAR) tablet 100 mg 100 mg Oral Daily Charlotte Goodwin MD 100 mg at 03/3 03/23 174 magnesium hydroxide (MILK OF MAGNESIA) 400 mg/5 mL suspension 30 mL 30 mL Oral Nightly PRN Charlotte Goodwin MD metoprolol succinate (TOPROL-XL) ER tablet 25 mg 25 mg Oral Daily Charlotte Goodwin MD 25 mg at 06/06/15 162 montelukast (SINGULAIR) tablet 10 mg 10 mg [...] clinic Electronically signed by: Charlotte Goodwin MD [facility] 06/07/2015 Portions of this chart may have been created with Contrib voice recognition software. Occasi onal wrong-word or [...] (H) | 70 - 150 mg/dL | [facility] | | | POC | | | [...] ST. | [address] | [place] | [phone] | | [facility] | | [address] | | | - LABORATORY | | [...] [address] | [place] | [phone] | | [facility] | | [address] | | | - LABORATORY | | [...] not | 44 (L)Comment: | >=60 | [facility] | | | | GLOMERULAR FILTRATION | mL/min/1.73m2 | [facility] | | | [place] | RATE,ESTIMATED | | MEDICAL | | | | mL/min/1.27g1Fezb than | | CENTER - | | [...] | | ine Ratio | | | [facility] | | | | | | [...] ST. | [address] | [place] | [phone] | | [facility] | | [address] | | | - LABORATORY | | | | + + + + + POC Glucose (06/07/2015 8:14 PM PDT) + +---------+ + + + | Component | Value | Ref Range | Performed | Pathologist | | | | | At | Signature | + +---------+ + + + | Glucose, | 197 (H) | 70 - 150 mg/dL | [facility] | | | POC | | | [...] [address] | [place] | [phone] | | [facility] | | [address] | | | - LABORATORY | | [...] [address] | [place] | [phone] | | [facility] | | [address] | | | - LABORATORY | | | | + + + + + POC Glucose (06/07/2015 12:06 PM PDT) + +-------+ + + + | Component | Value | Ref Range | Performed | Pathologist | | | | | At | Signature | + +-------+ + + + | Glucose, | 109 | 70 - 150 mg/dL | [facility] | | | POC | | | [facility] | | | | | | MEDICAL [...] + | [facility] | [address] | [place] | [phone] | | [facility] | | [address] | | | - LABORATORY | | [...] [address] | [place] | [phone] | | [facility] | | [address] | | | - LABORATORY | | [...] MD | | | | | | ([id number]) on 06/07/2015 | | | | | [...] | | | es | | | [facility] | | | | | | MEDICAL | | | | | | CENTER - | | | | | | LABORATORY | | + + + + + + | Cholesterol | 153 | 150 - 200 mg/dL | [facility] | | | | | | [facility] | | | | | | MEDICAL | | | | | | CENTER - | | | | | | LABORATORY | | + + + + + + | HDL | 38Comment: New HDL | 28 - 83 mg/dL | [facility] | | | | Reference Range as of | | [facility] | | | | November 15, 2014 | | MEDICAL | | | | Values may be 10-20% | | CENTER - | | | | lower with new, | | LABORATORY | | | | standardized method. | | | | + + + + + + | Chol/HDL | 4.0 | | [facility] | | | Ratio | | | [facility] | | [...] [address] | [place] | [phone] | | [facility] | | [address] | | | - LABORATORY | | [...] + + + + + | [facility] | [address] | [place] | [phone] | | [facility] | | [address] | | | - LABORATORY | | [...] + | [facility] | [address] | [place] | [phone] | | [facility] | | [address] | | | - LABORATORY | | [...] | 4.3 | 3.5 - 5.1 | [facility] | | | | | mmol/L | [...] mL/min/1.73m2 | [facility] | | | [place] | RATE,ESTIMATED | | MEDICAL | | | | mL/min/1.51j1Ifqt than | | CENTER - | | [...] [address] | [place] | [phone] | | [facility] | | [address] | | | - LABORATORY | | [...] The | | | | | | [employer] | | | | | [...] + + | Performing | Address | City/State/Inscription House Health Centercode | Phone Number | | Organization | | | | + + + + + | [facility] | [address] | [place] | [phone] | | [facility] | | [address] | | | - LABORATORY | | [...] [address] | [place] | [phone] | | [facility] | | [address] | | | - LABORATORY | | [...] + | [facility] | [address] | [place] | [phone] | | [facility] | | [address] | | | - LABORATORY | | | | + + + + + ECHO Complete (06/06/2015 3:40 PM PDT) + + | Specimen | + + | | + + + + + | Narrative | Performed At | + + + | [facility] ECHOCARDIOGRAM REPORT | | | STUDY DATE: [...] 0.742 E/E Ratio: 11.07 Signed by: Charlotte Goodwin | | | [facility] 06/06/2015 16:06 Truck Driver Flatbed: Robyn | | | [place] | [...] | | | | | | [employer] | | | | | [...] | | | 06/06/2015 at 14:33 by Ty | | [place] - | | | | Mel[place]. | [...] [address] | [place] | [phone] | | [facility] | | [address] | | | - LABORATORY | | [...] | | | | | pattern ACUTE [place] / | | | | | | STEMI Abnormal | | | | | | ECGSerial changes of | | | | | | evolvingConfirmed by | | | | | | CHARLOTTE GOODWIN MD | | | | | | ([id number]) on 06/06/2015 | | | | | [...] [address] | [place] | [phone] | | [facility] | | [address] | | | - LABORATORY | | [...] | | | | | | [employer] | | | | | [...] + | [facility] | [address] | [place] | [phone] | | [facility] | | [address] | | | - LABORATORY | | [...] | | | | | | [facility] | | [...] | | | | | mg/dL | [facility] | | | | | | MEDICAL | | | | | | CENTER - | | | | | | LABORATORY | | + + + + + + | eGFR if not | 53 (L)Comment: | >=60 | [facility] | | | | GLOMERULAR FILTRATION | mL/min/1.73m2 | [facility] | | | [place] | RATE,ESTIMATED | | MEDICAL | | | | mL/min/1.98a9Okqt than | | CENTER - | | [...] | 8.6 | 8.3 - 10.5 | [facility] | | | | | mg/dL | [facility] | | | | | | MEDICAL | | | | | | CENTER - | | | | | | LABORATORY | | + + + + + + | Albumin | 3.5 | 3.2 - 5.0 g/dL | [facility] | | | | | [...] [address] | [place] | [phone] | | [facility] | | [address] | | | - LABORATORY | | [...] | | | | | M/uL | [facility] | | | | | | MEDICAL | | | | | | CENTER - | | | | | | LABORATORY | | + + + + + + | Hemoglobin | 13.4 (L) | 13.5 - 18.0 | [facility] | | | | | g/dL | . [facility] | | | | [...] | | | | g/dL | [facility] | | | | | | MEDICAL [...] | | Neutrophils | | | [facility] | | | | | | MEDICAL [...] | | Basophils | | K/uL | [facility] | | | | | [...] [address] | [place] | [phone] | | [facility] | | [address] | | | - LABORATORY | | [...]
--- OUTSIDE RECORDS SUMMARY | ~2019-07-04 | XMS | Encounter Summary ---
Demographics + + + | Address | [address] | | | [place] [address] | + + + | Home Phone | | + + + | Preferred Language | Unknown | + + + | Marital Status | | + + + | Faith Affiliation | 1027 | + + + | Race | Unknown | + + + | Ethnic Group | Unknown | + + + Author + + + | Author | [facility] | | | and [place] | + + + | Organization | [facility] | | [...] Team Providers + +------+ + | Care Head Of Measurement & Insights Name | Role | Phone | + +------+ + | Ralph Xavier MD | PCP | | + +------+ + Encounter Details +--------+ + + + + | Date | Type | Department | Care Team | Description | +--------+ + + + + | 06/11/ | Documentati | [facility] | Charlotte Turner, | | | 2015 | on | [facility] | [address] | | | | | INFORMATION MGMT | [place] | | | | | [address] [place] | [address] | | | | | [place] [address] | | | | | | [phone] | | | +--------+ + + + [...]
--- OUTSIDE RECORDS SUMMARY | ~2019-07-04 | XMS | Encounter Summary ---
Demographics + + + | Address | [address] | | | [place] [address] | + + + | Home Phone | | + + + | Preferred Language | Unknown | + + + | Marital Status | | + + + | Denominational Affiliation | 1027 | + + + | Race | Unknown | + + + | Ethnic Group | Unknown | + + + Author + + + | Author | [facility] | | | and [place] | + + + | Organization | [facility] | | | [...] Team Providers + +------+ + | Care Outsole Cementer Machine Name | Role | Phone | + +------+ + | Ralph Xavier MD | PCP | | + +------+ + Encounter Details +--------+ + + + + | Date | Type | Department | Care Team | Description | +--------+ + + + + | 10/11/ | Orders Only | [facility] | Provider, | Paroxysmal atrial | | 2019 | | SYSTEM GENERIC OP | MD Jamie [address] | fibrillation (HCC); | | | | CONVERSION [address] | [place] | Atherosclerotic | | | | [address] [place], [place] | [place] [address] | heart disease of | | | | [address] | | [place] coronary | | | | [phone] | | artery without | | | | | | angina pectoris; | | | | | | Type 2 diabetes | | | | | | mellitus with | | | | | | complications (HCC); | | | | | | Essential (primary) | | | | | | hypertension; | | | | | | Hyperlipidemia | +--------+ + + + + Social [...] as of this encounter Plan of Treatment + +------+--------+ + + | Name | Type | Priori | Associated Diagnoses | Order Schedule | | | | ty | | | + +------+--------+ + + | TSH | Lab | Routin | Paroxysmal atrial | Expected: | | | | e | fibrillation (HCC) | 01/13/2018, Expires: | | | | | | 01/13/2019 | + +------+--------+ + + | Lipid Panel | Lab | Routin | Atherosclerotic | Expected: | | | | e | heart disease of | 01/13/2018, Expires: | | | | | [place] coronary | 01/13/2019 | | | | | artery without | | | | | | angina pectoris | | + +------+--------+ + + | CBC with Manual | Lab | Routin | Atherosclerotic | Expected: | | Differential | | e | heart disease of | 03/10/2018, Expires: | | | | | [place] coronary | 03/10/2019 | | | | | artery without | | | | | | angina pectoris | | | | | | Type 2 diabetes | | | | | | mellitus with | | | | | | complications (HCC) | | | | | | Essential (primary) | | | | | | hypertension | | | | | | Hyperlipidemia | | | | | | Paroxysmal atrial | | | | | | fibrillation (HCC) | | + +------+--------+ + + | Lipid Panel | Lab | Routin | Atherosclerotic | Expected: | | | | e | heart disease of | 03/10/2018, Expires: | | | | | [place] coronary | 03/10/2019 | | | | | artery without | | | | | | angina pectoris | | | | | | Type 2 diabetes | | | | | | mellitus with | | | | | | complications (HCC) | | | | | | Essential (primary) | | | | | | hypertension | | | | | | Hyperlipidemia | | | | | | Paroxysmal atrial | | | | | | fibrillation (HCC) | | + +------+--------+ + + | TSH | Lab | Routin | Atherosclerotic | Expected: | | | | e | heart disease of | 03/10/2018, Expires: | | | | | [place] coronary | 03/10/2019 | | | | | artery without | | | | | | angina pectoris | | | | | | Type 2 diabetes | | | | | | mellitus with | | | | | | complications (HCC) | | | | | | Essential (primary) | | | | | | hypertension | | | | | | Hyperlipidemia | | | | | | Paroxysmal atrial | | | | | | fibrillation (HCC) | | + +------+--------+ + + documented as of this encounter Visit Diagnoses + + | Diagnosis | + + | Paroxysmal atrial fibrillation (HCC) Atrial fibrillation | + + | Atherosclerotic heart disease of [place] coronary artery without angina pectoris | | Coronary atherosclerosis of [place] coronary artery | + + | 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
--- OUTSIDE RECORDS SUMMARY | ~2019-07-04 | XMS | Encounter Summary ---
Demographics + + + | Address | [address] | | | [place] [address] | + + + | Home Phone | | + + + | Preferred Language | Unknown | + + + | Marital Status | | + + + | Mandaen Affiliation | 1027 | + + + | Race | Unknown | + + + | Ethnic Group | Unknown | + + + Author + + + | Author | [facility] | | | and [place] | + + + | Organization | [facility] | | [...] Team Providers + +------+ + | Care Stumper Feller Name | Role | Phone | + +------+ + | Ralph Xavier MD | PCP | | + +------+ + Encounter Details +--------+ + + + + | Date | Type | Department | Care Team | Description | +--------+ + + + + | 02/15/ | Orders Only | [facility] | Conversion | | | 2018 | | CARDIOLOGY [place] | Transaction, | | | | | [address] | Provider Unknown | | | | | [place] | [phone] | | | | | [address] | | | | | | [phone] | | | +--------+ + + + [...]
--- OUTSIDE RECORDS SUMMARY | ~2019-07-04 | XMS | Encounter Summary ---
Demographics + + + | Address | [address] | | | [place] [address] | + + + | Home Phone | | + + + | Preferred Language | Unknown | + + + | Marital Status | | + + + | Episcopalian Affiliation | 1027 | + + + | Race | Unknown | + + + | Ethnic Group | Unknown | + + + Author + + + | Author | [facility] | | | and [place] | + + + | Organization | [facility] | | [...] Team Providers + +------+ + | Care Order Editor Name | Role | Phone | + +------+ + | Ralph Xavier MD | PCP | | + +------+ + Reason for Visit +--------+ + | Reason | Comments | +--------+ + | Other | patient not feeling well | +--------+ + Encounter Details +--------+ + + + + | Date | Type | Department | Care Team | Description | +--------+ + + + + | 06/19/ | Telephone | [facility] | Charlotte Turner, | Other (patient not | | 2016 | | CARDIOLOGY [address] | [address] | feeling well) | | | | [place], | [place], [place] | | | | | [place] [address] | [address] | | | | | [phone] | | | +--------+ + + + [...]
--- OUTSIDE RECORDS SUMMARY | ~2019-07-04 | XMS | Encounter Summary ---
Demographics + + + | Address | [address] | | | [place] [address] | + + + | Home Phone | | + + + | Preferred Language | Unknown | + + + | Marital Status | | + + + | Druze Affiliation | 1027 | + + + [...] Team Providers + +------+ + | Care Recordings Librarian Name | Role | Phone | + +------+ + | Ralph Xavier MD | PCP | | + +------+ + Encounter Details +--------+ + + + + | Date | Type | Department | Care Team | Description | +--------+ + + + + | 06/11/ | Documentati | [facility] | Charlotte Turner, | | | 2015 | on | [facility] | [address] | | | | | INFORMATION MGMT | [place] | | | | | [address] [place] | [address] | | | | | [place] [address] | | | | | | [phone] | | | +--------+ + + + [...]
--- OUTSIDE RECORDS SUMMARY | ~2019-07-04 | XMS | Encounter Summary ---
Demographics + + + | Address | [address] | | | [place] [address] | + + + | Home Phone | | + + + | Preferred Language | Unknown | + + + | Marital Status | | + + + | Bahai Affiliation | 1027 | + + + [...] Team Providers + +------+ + | Care Customs And Border Protection Officer Name | Role | Phone | + [...] + + | 02/17/ | Telephone | [facility] | Kristen Luke | Medication Question | | 2019 | | CARDIOLOGY RAMEZ | [address] | | | | | [address] [facility] | [address] | | | | | [address] | [place] [address] | | | | | [place] | [phone] | | | | | [address] | | | | | | [phone] | | | +--------+ + + + [...]
--- OUTSIDE RECORDS SUMMARY | ~2019-07-04 | XMS | Encounter Summary ---
Demographics + + + | Address | [address] | | | [place] [address] | + + + | Home Phone | | + + + | Preferred Language | Unknown | + + + | Marital Status | | + + + | Rastafari Affiliation | 1027 | + + + | Race | Unknown | + + + | Ethnic Group | Unknown | + + + Author + + + | Author | [facility] | | | and [place] | + + + | Organization | [facility] | | [...] Team Providers + +------+ + | Care Fire Prevention Captain Name | Role | Phone | + [...] | artery of | [place], [place] | [place] | | | | | anterior | [address] | [place] | | | | | wall (HCC) | Phone: | [address] | | | | | | [phone] | Phone: | | | | | | Fax: | [phone] | | | | | | [phone] | Fax: | | | | | | | [phone] | +--------+ + + + + + Encounter Details +--------+---------+ + + + | Date | Type | Department | Care Team | Description | +--------+---------+ + + + | 07/01/ | Office | [facility] | Charlotte Turner Catie, | Coronary artery | | 2015 | Visit | [facility] | MD [address] | disease involving | | | | REHABILITATION [address] | [place], [place] | pechanga coronary | | | | [address] [place] | [address] | artery of pechanga | | | | [place] [address] | | heart without angina | | | | [phone] | Caron Blackburn RN | pectoris (Primary [...] Blackburn RN - 07/02/2015 2:55 PM PDT [facility] [address] [facility] [address] [address] Cardiac Rehab Evaluation Date: 07/02/2015 Patient Information Patient Name: Raz Arce Date of : 1945 Age: 69 y.o. Referring Provider: Charlotte Turner MD Encounter Diagnoses Code Name Primary? I25.10 Coronary artery disease involving pechanga coronary artery of pechanga heart without angina pectoris Yes Z98.61 S/P [...] and hyperte nsion who was admitted with CT last month and had subsequent stenting of [...] report this to anyone. An email per [employer] was sent to notify Dr. Turner today. Nutrition: Rate Your Plate score is: 01/25, he doesn't eat many vegetables or fruits. He do es limit his sodium, saturated fats, and sweets, but does enjoy eating carbs- especially pot atoes. His most recent A1c is 7.8. Education: Received 1:1 education regarding CAD, CT, CHF, Metabolic syndrome, meds, and lillian y [...] excellent family support. Plan: He is from [place]. He prefers to try a home exercise [...] + + | Coronary artery disease involving pechanga coronary artery of pechanga heart without | | angina pectoris - Primary | + + | S/P PTCA (percutaneous transluminal coronary angioplasty) Postsurgical percutaneous | | transluminal coronary angioplasty status | + + documented in this encounter
--- OUTSIDE RECORDS SUMMARY | ~2019-07-04 | XMS | Encounter Summary ---
Demographics + + + | Address | [address] | | | [place] [address] | + + + | Home Phone | | + + + | Preferred Language | Unknown | + + + | Marital Status | | + + + | Pentecostalism Affiliation | 1027 | + + + | Race | Unknown | + + + | Ethnic Group | Unknown | + + + Author + + + | Author | [facility] | | | and [place] | + + + | Organization | [facility] | | [...] Team Providers + +------+ + | Care Off Track Betting Manager Name | Role | Phone | [...] + + | 06/05/ | Surgery | [facility] | Charlotte Goodwin, | CV DIAGNOSTIC | | 2016 | | MED CTR CV INTRA OP | MD [address] | CARDIAC CATH | | | | [address] | [place] | | | | | [place] | [address] | | | | | [address] | | | | | | [phone] | | | +--------+---------+ + + + [...] ECG: SR, ST elevation from V1-V4, anteroseptal [place]. Selected Labs: Recent Labs Lab 06/08/15 0536 [...] utaneous 4x Daily WC and HS Charlotte Goowdin MD 2 Units at 06/07/15 0857 losartan [...] weeks. Electronically signed by: Jarrett Vidal MD [facility] 06/08/2015 Portions of this chart may have been created with [email or web address] voice recognition software. Occasi onal wrong-word or [...] ICU. Electronically signed by: Jarrett Vidal MD [facility] 06/07/2015 Portions of this chart may have been created with [email or web address] voice recognition software. Occasi onal wrong-word or [...] clinic Electronically signed by: Charlotte Goodwin MD [facility] 06/07/2015 Portions of this chart may have been created with [email or web address] voice recognition software. Occasi onal wrong-word or [...] ST. | [address] | [place] | [phone] | | [facility] | | [address] | | | - LABORATORY | | [...] [address] | [place] | [phone] | | [facility] | | [address] | | | - LABORATORY | | [...] not | 44 (L)Comment: | >=60 | [facility] | | | | GLOMERULAR FILTRATION | mL/min/1.73m2 | [facility] | | | [place] | RATE,ESTIMATED | | MEDICAL | | | | mL/min/1.20v4Xvlv than | | CENTER - | | [...] [address] | [place] | [phone] | | [facility] | | [address] | | | - LABORATORY | | [...] [address] | [place] | [phone] | | [facility] | | [address] | | | - LABORATORY | | [...] [address] | [place] | [phone] | | [facility] | | [address] | | | - LABORATORY | | [...] | | | POC | | | [facility] | | | | | | MEDICAL [...] + | [facility] | [address] | [place] | [phone] | | [facility] | | [address] | | | - LABORATORY | | [...] [address] | [place] | [phone] | | [facility] | | [address] | | | - LABORATORY | | [...] MD | | | | | | ([id number]) on 06/07/2015 | | | | | [...] HDL | 28 - 83 mg/dL | [facility] | | | | Reference Range as [...] [address] | [place] | [phone] | | [facility] | | [address] | | | - LABORATORY | | [...] [address] | [place] | [phone] | | [facility] | | [address] | | | - LABORATORY | | [...] + | [facility] | [address] | [place] | [phone] | | [facility] | | [address] | | | - LABORATORY | | [...] mL/min/1.73m2 | [facility] | | | [place] | RATE,ESTIMATED | | MEDICAL | | | | mL/min/1.18n3Ufvz than | | CENTER - | | [...] [address] | [place] | [phone] | | [facility] | | [address] | | | - LABORATORY | | [...] The | | | | | | [employer] | | | | | [...] + + | Performing | Address | City/State/[facility] | Phone Number | | Organization | | | | + + + + + | [facility] | [address] | [place] | [phone] | | [facility] | | [address] | | | - LABORATORY | | [...] [address] | [place] | [phone] | | [facility] | | [address] | | | - LABORATORY | | [...] + | [facility] | [address] | [place] | [phone] | | [facility] | | [address] | | | - LABORATORY | | | | + + + + + ECHO Complete (06/06/2015 3:40 PM PDT) + + | Specimen | + + | | + + + + + | Narrative | Performed At | + + + | [facility] | | | STUDY [...] Signed by: Charlotte Goodwin | | | [facility] 06/06/2015 16:06 Auxiliary Equipment Operator: Robyn | | | GROVER Dumont | [...] | | | | | | [employer] | | | | | [...] 06/06/2015 at 14:33 by Ty | | [place] - | | | | Melvin. | [...] [address] | [place] | [phone] | | [facility] | | [address] | | | - LABORATORY | | [...] | | | | | pattern ACUTE [place] / | | | | | | STEMI Abnormal | | | | | | ECGSerial changes of | | | | | | evolvingConfirmed by | | | | | | CHARLOTTE GOODWIN MD | | | | | | ([id number]) on 06/06/2015 | | | | | [...] [address] | [place] | [phone] | | [facility] | | [address] | | | - LABORATORY | | [...] | | | | | | [employer] | | | | | [...] + | [facility] | [address] | [place] | [phone] | | [facility] | | [address] | | | - LABORATORY | | [...] mL/min/1.73m2 | [facility] | | | [place] | RATE,ESTIMATED | | MEDICAL | | | | mL/min/1.51p6Mndn than | | CENTER - | | [...] [address] | [place] | [phone] | | [facility] | | [address] | | | - LABORATORY | | [...] [address] | [place] | [phone] | | [facility] | | [address] | | | - LABORATORY | | [...]
--- OUTSIDE RECORDS SUMMARY | ~2019-07-04 | XMS | Encounter Summary ---
Demographics + + + | Address | [address] | | | [place] [address] | + + + | Home Phone | | + + + | Preferred Language | Unknown | + + + | Marital Status | | + + + | Temple Affiliation | 1027 | + + + | Race | Unknown | + + + | Ethnic Group | Unknown | + + + Author + + + | Author | [facility] | | | and [place] | + + + | Organization | [facility] | | | [...] Team Providers + +------+ + | Care Glass Designer Name | Role | Phone | + [...] | unspecified type | | | | [place], | [place], [place] | (Primary Dx); STEMI | | | | [place] [address] | [address] | involving oth | | | | [phone] | | coronary artery of | | [...] procedure. 6. Make sure you have a cat driver to take you home. Your cat driver will also need to sign you [...] hospital line at and ask for nursing supervisor quality control t o let them know you are cancelling . Follow up appointment in Cardiology: To be arranged after heart cath results Provider: Charlotte Turner MD Date: Check-in time: documented in this encounter Progress Notes Charlotte Turner MD - 05/26/2016 12:54 PM PDTFormatting of this note might be different fr om the original. Admission H&P Primary Care: Dr Oscar Xavier Primary Utility Helicopter Repairer: Yue Reason for Admission: Class 4 angina [...] bed for years - long before his [place] If he would lie down he could [...] ULTRA TEST strip ONETOUCH DELICA LANCETS 33G [facility] prasugrel (EFFIENT) 10 mg TABS Take 1 [...] actions to iodine contrast agent or sedatives. senior living risks include re-blockage (restenos is) and stent [...] | | | | | | [employer] | | | | | [...] [address] | [place] | [phone] | | [facility] | | [address] | | | - LABORATORY | | [...] + | [facility] | [address] | [place] | [phone] | | [facility] | | [address] | | | - LABORATORY | | [...] mL/min/1.73m2 | [facility] | | | [place] | RATE,ESTIMATED | | MEDICAL | | | | mL/min/1.90a0Sfin than | | CENTER - | | [...] [address] | [place] | [phone] | | [facility] | | [address] | | | - LABORATORY | | [...] MD | | | | | | ([id number]) on 05/26/2016 | | | | | [...]
--- OUTSIDE RECORDS SUMMARY | ~2019-07-04 | XMS | Encounter Summary ---
Demographics + + + | Address | [address] | | | [place] [address] | + + + | Home Phone | | + + + | Preferred Language | Unknown | + + + | Marital Status | | + + + | Bahai Affiliation | 1027 | + + + | Race | Unknown | + + + | Ethnic Group | Unknown | + + + Author + + + | Author | [facility] | | | and [place] | + + + | Organization | [facility] | | [...] Providers + +------+ + | Care Head Bone Grinder Name | Role | Phone | + +------+ + | Ralph Xavier MD | PCP | | + +------+ + Reason for Visit + + + | Reason | Comments | + + + | Hospital Follow-up | | + + + Evaluate & Treat (Routine) +--------+--------+ + + + + | Status | Reason | Specialty | Diagnoses / | Referred By | Referred To | | | | | Procedures | Contact | Contact | +--------+--------+ + + + + | Closed | | Cardiology | Diagnoses | Seema, | Yue, | | | | | [facility] | Ralph | Charlotte Haddad MD | | | | | NIRAJ/SEEMA | MD Evelina | [address] | | | | | Procedures | [address] [place] | | | | | NEW | [address] | [place] | | | | | PATIENT | [place], | [address] Phone: | | | | | | [place] [address] | [phone] | | | | | | Phone: | Fax: | | | | | | [phone] | [phone] | | | | | | Fax: | | | | | | | [phone] | | +--------+--------+ + + + + Encounter Details +--------+---------+ + + + | Date | Type | Department | Care Team | Description | +--------+---------+ + + + | 06/23/ | Office | [facility] | Charlotte Turner, | Renovascular | | 2016 | Visit | CARDIOLOGY [address] | [address] | hypertension, | | | | [place], | [place], [place] | hypertension with | | | | [place] [address] | [address] | unspecified goal | | | | [phone] | | (Primary Dx); | | | | | | Congestive heart | | | | | | failure, unspecified | | | | | | congestive heart | | | | | | failure chronicity, | | | | | | unspecified | | | | | | congestive heart | | | | | | failure type (HCC); | | | | | | Renal insufficiency | +--------+---------+ + + + Social History [...] + + + | Blood Pressure | 180/90 | 06/24/2015 12:07 PM | | | | | PDT | | + + + + + | Pulse | 56 | 06/24/2015 12:07 PM | | | | | PDT | | + + + + + | Temperature | - | - | | + + + + + | Respiratory Rate | 20 | 06/24/2015 12:07 PM | | | | | PDT | | + + + + + | Oxygen Saturation | - | - | | + + + + + | Inhaled Oxygen | - | - | | | Concentration | | | | + + + + + | Weight | 114.8 kg (253 lb) | 06/24/2015 12:07 PM | | | | | PDT | | + + + + + | Height | 177.8 cm (5' 10") | 06/24/2015 12:07 PM | | | | | PDT | | + + + + + | Body Mass Index | 36.3 | 06/24/2015 12:07 PM | | | | | PDT | | + + + + + documented in this encounter Progress Notes Charlotte Turner MD - 06/24/2015 4:15 PM PDTFormatting of this note might be different fr om the original. Cardiology Progress Note [facility] Cardiology Pt. Name/Age/: Raz Arce 69 y.o. [address] [facility]. Record Number: [id number] Date of visit: 06/24/15 Identifying Statement: Raz Arce is a 69 y.o. male from [address] [place] [address] with anterior ID. He has had bradycardia and he stopped his beta blocke r. He has had dyspnea and weight gain. The patient chart and medications were reviewed in detail and the patient was seen and exam ined. History of Present Illnesses, their Current Assessments and Plans: He has had MENJIVAR and no chest pain he sits up to breath and because of his previous problems with GERD. He has had no bleeding He has no problems with urination. He noted that his pulse was slow. [facility] he has walked up to 1/2 mile Weight has gone up, he is not sure the amount Review of Systems: Constitutional: denies high fever, shaking, chills, fatigue, anorexia, nausea, vomiting, or weight loss Ears, Nose, Mouth, throat: Denies odynophagia, dysphagia, or tinnitus Respiratory: no cough, hemoptysis, or shortness of breath Cardiovascular: negative for - chest pain, dyspnea on exertion, orthopnea, palpitations or shortness of breath GI: no abdominal pain, change in bowel habits, or black or bloody stools, constipation or d iarrhea : no dysuria, trouble voiding, or hematuria Musculoskeletal: negative for - joint pain or tenderness Neurologic: negative for - headaches, numbness/tingling or visual changes Endocrine: negative for - edema Hematologic: Denies bruising or bleeding. 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 [employer] Social History Main Topics Smoking status: Never Smoker Smokeless tobacco: Never Used Alcohol Use: Not on file Drug Use: No Sexual Activity: Not on file Other Topics Concern Not on file Social History Narrative Patient Active Problem List Diagnosis 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 30 tablet 11 atorvaSTATin (LIPITOR) 80 MG tablet Take 1 tablet by mouth nightly. 30 tablet 11 glipiZIDE (GLUCOTROL XL) 10 MG 24 hr tablet losartan (COZAAR) 100 MG tablet Take 1 tablet by mouth Daily. 30 tablet 11 metoprolol succinate (TOPROL-XL) 25 mg 24 hr tablet Take 1 tablet by mouth Daily. 30 ta blet 11 montelukast (SINGULAIR) 10 mg tablet Take 1 tablet by mouth nightly. 30 tablet 11 montelukast (SINGULAIR) 10 mg tablet nitroglycerin (NITROSTAT) 0.[address] 1 tablet under the tongue every 5 neyda karthik as needed for Chest pain. 30 tablet 11 pantoprazole (PROTONIX) 20 mg tablet Take 1 tablet by mouth every morning (before break fast). 30 tablet 11 prasugrel (EFFIENT) 10 mg TABS Take 1 tablet by mouth Daily. 30 tablet 11 No current facility-administered medications for this visit. Allergies: Allergy: Allergies Allergen Reactions Meperidine Objectives: BP: 180/90 mmHg Pulse: 56 Resp: 20 on Wt. Admission: Weight: 114.76 kg (253 lb) Wt. Current: Weight: 114.76 kg (253 lb) Wt Readings from Last 3 Encounters: 06/24/15 114.76 kg (253 lb) 06/08/15 113.6 kg (250 lb 7.1 oz) Physical Exam: General: The patient is alert and oriented. No acute distress. Eyes: Conjunctiva clear. Sclera anicteric. ENMT: Oropharynx fee of lesions, mucous membranes moist. Cardiovascular: Regular rate and rhythm, no rubs, gallops. 1/6 DESHAUN murmurs. Respiratory: Clear to auscultation Abdomen: Soft, nontender, no hepatosplenomegaly. No palpable masses. Bowel sounds present . Extremities: Nontender, no erythema, no edema. Skin: No rashes, bruising, or petechiae. Lymph: No palpable nodes in the neck, supraclavicular fossa, axilla or groin. Neurological: Normal sensory and motor function, No focal deficits noted. Muscular/Skeletal: No acute bony tenderness. Psychiatric: Normal mood and affect. Diagnostic studies: Available data and images were reviewed personally. See reports. Significant results and findings are addressed here or in the Assessment and Plan. Recent Results (from the past 24 hour(s)) Basic Metabolic Panel Result Value Ref Range NA 141 136-149 mmol/L K 3.9 3.5-5.1 mmol/L CL 105 98-109 mmol/L CO2 28 24-31 mmol/L ANION GAP 8 3-16 mmol/L GLUCOSE 133 (H) 70-109 mg/dL BUN 11 7-18 mg/dL Creatinine, Serum/Plasma 1.32 (H) 0.60-1.30 mg/dL eGFR if not 53 (L) >=60 mL/min/1.73m2 CALCIUM 9.2 8.3-10.5 mg/dL BUN/CREA 8.3 CBC no Differential Result Value Ref Range WBC 9.7 4.0-11.0 K/uL RBC 4.75 4.30-5.70 M/uL Hgb 14.4 13.5-18.0 g/dL Hct 42.9 40.0-51.0 % MCV 90.3 83.0-101.0 fL MCH 30.3 28.0-35.0 pg MCHC 33.6 32.0-36.0 g/dL RDW-CV 13.2 <15.0 % Platelet Count 181 140-440 K/uL MPV 8.3 fL ECG 12 lead Result Value Ref Range INTERPRETATION TEXT Not Confirmed Imp: CHF HTN CRF - stable to improved Recent ID Bradycardia Plan: BMP checked and reviewed with patient by phone Begin torsemide 20 mg a day torsemide (DEMADEX) 10 mg tablet Take 2 tablets by mouth Daily. 30 tablet 2 See me back next Wednesday. Don't take Torsemide that day We need to repeat the BMP then Continue off beta julisa due to bradycardia Charlotte Turner MD Portions of this chart may have been created with [employer] voice recognition software. Occasi onal wrong-word or [...] | CBC NO DIFFERENTIAL | Routin | 06/24/2015 | Renovascular | Results for this | | | e | 12:51 PM | hypertension, | procedure are in the | | | | PDT | hypertension with | results section. | | | | | unspecified goal | | + +--------+ + + + | BASIC METABOLIC | Routin | 06/24/2015 | Renovascular | Results for this | | PANEL | e | 12:51 PM | hypertension, | procedure are in the | | | | PDT | hypertension with | results section. | | | | | unspecified goal | | + +--------+ + + + | ECG 12 LEAD | Routin | 06/24/2015 | Renovascular | Results for this | | | e | 12:14 PM | hypertension, | procedure are in the | | | | PDT | hypertension with | results section. | | | | | unspecified goal | | + +--------+ + + + documented in this encounter Results CBC no Differential (06/24/2015 12:51 PM PDT) + +-------+ + + + | Component | Value | Ref Range | Performed | Pathologist | | | | | At | Signature | + +-------+ + + + | WBC | 9.7 | 4.0 - 11.0 K/uL | [facility] | | | | | | [facility] | | | | | | [facility] | | | | | [facility] - | | | | | | LAB[facility]ATORY | | + +-------+ + + + | RBC | 4.75 | 4.30 - 5.70 | [facility] | | | | | M/uL | [facility] | | | | | | [facility] | | | | | | [facility] - | | | | | | LABORATORY | | + +-------+ + + + | Hemoglobin | 14.4 | 13.5 - 18.0 | [facility] | | | | | g/dL | [facility] | | | | | | [facility] | | | | | | [facility] - | | | | | | LABORATORY | | + +-------+ + + + | Hematocrit | 42.9 | 40.0 - 51.0 % | [facility] | | | | | | [facility] | | | [facility] | | [facility] | | | | | | [facility] - | | | | | | LABORATORY | | + +-------+ + + + | MCV | 90.3 | 83.0 - 101.0 fL | [facility] | | | | | | [facility] | | | | | | [facility] | | | | | | [facility] - | | | | | | LABORATORY | | + +-------+ + + + | MCH | 30.3 | 28.0 - 35.0 pg | [facility] | | | | | | [facility] | | | | | | [facility] | | | | | | [facility] - | | | | | | LABORATORY | | + +-------+ + + + | MCHC | 33.6 | 32.0 - 36.0 | [facility] | | | | | g/dL | [facility] | | | | | | [facility] | | | | | | [facility] - | | | | | | LABORATORY | | + +-------+ + + + | RDW-CV | 13.2 | <15.0 % | [facility] | | | | | | [facility] | [facility] | [facility] | | | | | | [facility] - | | | | | | LABORATORY | | + +-------+ + + + | Platelet | 181 | 140 - 440 K/uL | [facility] | | | Count | | [facility] | | | [facility] | | | | | | [facility] | | + +-------+ + + + | MPV | 8.3 | fL | [facility] | | | [...] + | [facility] | [address] | [place] | [phone] | | [facility] | | [address] | | | - LABORATORY | | | | + + + + + Basic Metabolic Panel (06/24/2015 12:51 PM PDT) + + + + + [...] + + + + | Cl | 105 | 98 - 109 mmol/L | [facility] [...] + + + + | Glucose | 133 (H) | 70 - 109 mg/dL | [...] mL/min/1.73m2 | [facility] | | | [place] | RATE,ESTIMATED | | MEDICAL | | | | mL/min/1.27z3Biag than | | CENTER - | | [...] + + + + | Calcium | 9.2 | 8.3 - 10.5 | [facility] | | | | | mg/dL | [facility] | | | | | | MEDICAL | | | | | | CENTER - | | | | | | LABORATORY | | + + + + + + | BUN/Creatin | 8.3 | | [facility] | | | ine Ratio | | | [facility] | [...] [address] | [place] | [phone] | | [facility] | | [address] | | | - LABORATORY | | | | + + + + + ECG 12 lead (06/24/2015 12:14 PM PDT) + + + + + + | Component | Value | Ref Range | Performed | Pathologist | | | | | At | Signature | + + + + + + | VENTRICULAR | 54 | BPM | [facility] | | | RATE EKG | | | | | + + + + + + | ATRIAL RATE | 54 | BPM | [facility] | | + + + + + + | P-R | 144 | ms | [facility] | | | INTERVAL | | | | | + + + + + + | QRS | 94 | ms | [facility] | | | DURATION | | | | | + + + + + + | Q-T | 452 | ms | [facility] | | [...] + + + | QRS AXIS | 42 | degrees | [facility] | | + + + + + + | T AXIS | -94 | degrees | [facility] | | + + + + + + | INTERPRETAT | Sinus bradycardiaSeptal | | [facility] | | | ION TEXT | infarct (cited on or | | | | | | before 06-JUN-2015)T | | | | | | wave abnormality, | | | | | | consider inferior | | | | | | ischemiaT wave | | | | | | abnormality, consider | | | | | | anterolateral | | | | | | ischemiaAbnormal ECGWhen | | | | | | compared with ECG of | | | | | | 07-JUN-2015 05:37,ST no | | | | | | longer elevated in | | | | | | Anterior leadsInverted T | | | | | | waves have replaced | | | | | | nonspecific T wave | | | | | | abnormality in Inferior | | | | | | leadsT wave inversion | | | | | | now evident in Anterior | | | | | | leadsConfirmed by | | | | | | CHARLOTTE TURNER MD | | | | | | ([id number]) on 06/27/2015 | | | | | | 6:02:43 PM | | | | + + [...] + | Diagnosis | + + | Renovascular hypertension, hypertension with unspecified goal - Primary | + + | Congestive heart failure, unspecified congestive heart failure chronicity, unspecified | | congestive heart failure type | + + | Renal insufficiency Unspecified disorder of kidney and ureter | + + documented in this encounter
--- OUTSIDE RECORDS SUMMARY | ~2019-07-04 | XMS | Encounter Summary ---
Demographics + + + | Address | [address] | | | [place] [address] | + + + | Home Phone [...] Team Providers + +------+ + | Care Development Administrator Name | Role | Phone | [...] GRAFF | | | | | [address]HEL[place] [address] | [place] | | | | | [place], [place] | [address] | | | | | [address] | | | | | | [phone] | | | +--------+ + + + [...] 0.76 m/s MV | | | Dec [place]: 2.26 m/s2 MV DecT: 268.86 ms MV E Jared: 0.60 m/s | | | MV E/A Ratio: 0.79 MV PHT: 77.97 ms MVA By PHT: 2.82 cm2 | | | Lateral e': 0.06 m/s Lateral E/e': 9.65 Licensed Chemical Spray Technician: | | | Authenticated by: HORTENSIA WISEMAN [...] mlLAESV Index (A-L): 28.01 ml/m2LAAs A2C: 16.92 [id number] A-L A2C: 50.85 mlLALs | | A2C: 4.78 cmLAAs A4C: 21.07 [id number] A-L A4C: 74.55 mlLALs A4C: 5.05 cmAV maxPG: | | 9.77 mmHgAV meanP.97 mmHgAV Vmax: 1.56 m/Ray Vmean: 1.04 m/Ray VTI: 29.08 | | cmLVOT maxP.37 mmHgLVOT meanP.07 mmHgLVOT Vmax: 0.91 m/sLVOT Vmean: | | 0.68 m/sLVOT VTI: 19.36 cmMV A Jared: 0.76 m/sMV Dec [place]: 2.26 m/s2MV DecT: | | 268.86 msMV E Jared: 0.60 m/sMV E/A Ratio: 0.79MV PHT: 77.97 msMVA By PHT: 2.82 | | [id number] e': 0.06 m/sLateral E/e': 9.65 Licensed Chemical Spray Technician:Authenticated by: HORTENSIA | | Emi WISEMAN Date/Time: [...] A Jared: 0.76 m/s | |MV Dec [place]: 2.26 m/s2 | |MV DecT: 268.86 ms | |MV E Jared: 0.60 m/s | |MV E/A Ratio: 0.79 | |MV PHT: 77.97 ms | |MVA By PHT: 2.82 cm2 | |Lateral e': 0.06 m/s | |Lateral E/e': 9.65 | | | |Licensed Chemical Spray Technician: | |Authenticated by: HORTENSIA WISEMAN MD | [...]
--- OUTSIDE RECORDS SUMMARY | ~2019-07-04 | XMS | Encounter Summary ---
Demographics + + + | Address | [address] | | | [place] [address] | + + + | Home Phone | | + + + | Preferred Language | Unknown | + + + | Marital Status | | + + + | Catholic Affiliation | 1027 | + + + | Race | Unknown | + + + | Ethnic Group | Unknown | + + + Author + + + | Author | [facility] | | | and [place] | + + + | Organization | [facility] | | | [...] Team Providers + +------+ + | Care Er Medical Technician Name | Role | Phone | + [...] | MD [address] | tangirnaq coronary | | | | [place], | [place], [place] | artery of tangirnaq | | | | [place] [address] | [address] | heart without angina | | | | [phone] | | pectoris (Primary | | | [...] encounter Progress Notes Charlotte Turner MD - 11/21/2015 3:07 PM PDTFormatting [...] Mild intermittent asthma Coronary artery disease involving tangirnaq coronary artery of tangirnaq heart without angina pectoris S/P PTCA (percutaneous [...] RESULTS reviewed during visit today primarily from [facility]: LIPID Lab Results Component Value Date CHOL [...] EFFIENT Electronically signed by: Charlotte Turner MD [facility] 11/21/2015 Portions of this chart may have been created with [employer] voice recognition software. Occasi onal wrong-word or sound-alike substitutions may have occurred due to the inherent rodriguez itations of voice recognition software. Please read the chart carefully and recognize, using context, where these substitutions have occurred. documented in this encounter Plan of Treatment Not on filedocumented as of this encounter Visit Diagnoses + + | Diagnosis | + + | Atherosclerosis of tangirnaq coronary artery of tangirnaq heart without angina pectoris - | | Primary | + + | Pure hypercholesterolemia | + + | S/P drug eluting coronary stent placement | + + documented in this encounter
--- OUTSIDE RECORDS SUMMARY | ~2019-07-04 | XMS | Encounter Summary ---
Demographics + + + | Address | [address] | | | [place] [address] | + + + | Home Phone | | + + + | Preferred Language | Unknown | + + + | Marital Status | | + + + | Presybeterian Affiliation | 1027 | + + + | Race | Unknown | + + + | Ethnic Group | Unknown | + + + Author + + + | Author | [facility] | | | and [place] | + + + | Organization | [facility] | | | [...] Team Providers + +------+ + | Care Warehouse Handler Name | Role | Phone | + [...] + | 09/19/ | Telephone | [facility] | Charlotte Turner, | Appointment (needs 3 | | 2016 | | CARDIOLOGY [address] | MD [address] | mo fup in nov) | | | | [place], | [place] | | | | | [place] [address] | [address] | | | | | [phone] | | | +--------+ + + + [...]
--- OUTSIDE RECORDS SUMMARY | ~2019-07-04 | XMS | Encounter Summary ---
Demographics + + + | Address | [address] | | | [place] [address] | + + + | Home Phone | | + + + | Preferred Language | Unknown | + + + | Marital Status | | + + + | Voodoo Affiliation | 1027 | + + + | Race | Unknown | + + + | Ethnic Group | Unknown | + + + Author + + + | Author | [facility] | | | and [place] | + + + | Organization | [facility] | | | [...] Team Providers + +------+ + | Care Electronic Transaction Implementer Name | Role | Phone | + [...] Description | +--------+---------+ + + + | 07/22/ | Office | [facility] [place] | Charlotte Turner, | Brenda (Primary | | 2016 | Visit | CARDIOLOGY [address] | MD [address] | Dx) | | | | [place], | [place] | | | | | [place] [address] | [address] | | | | | [phone] | | | +--------+---------+ + + + [...] + + + | Blood Pressure | 136/74 | 07/23/2015 10:08 AM | | | | | PDT | | + + + + + | Pulse | 48 | 07/23/2015 10:08 AM | | | | | PDT | | + + + + + | Temperature | - | - | | + + + + + | Respiratory Rate | 16 | 07/23/2015 10:08 AM | | | | | PDT | | + + + + + | Oxygen Saturation | - | - | | + + + + + | Inhaled Oxygen | - | - | | | Concentration | | | | + + + + + | Weight | 112.5 kg (248 lb) | 07/23/2015 10:08 AM | | | | | PDT | | + + + + + | Height | 177.8 cm (5' 10") | 07/23/2015 10:08 AM | | | | | PDT | | + + + + + | Body Mass Index | 35.58 | 07/23/2015 10:08 AM | | | | | PDT | | + + + + + documented in this encounter Progress Notes Charlotte Turner MD - 07/23/2015 10:37 AM PDTFormatting of this note might be different fr om the original. PATIENT NAME: Raz Arce : 1945: AGE: 69 y.o. PRIMARY CARE: Ralph Xavier MD OUTPATIENT FOLLOW UP VISIT Date of Service: 07/23/2015 HISTORY OF PRESENT ILLNESS: Raz Arce is a 69 y.o. male with a history of anterior STEMI. [facility]. He has done well since he was last seen. He delivered 60 monroy on the 2 days before moth er's day with no trouble. He is digging a ditch in his yard and has had a few episodes of a ngina that go away as soon as he stops. He forgot to take his medications this am. This never happens. He will take them when he gets home. MEDICAL, SURGICAL, AND PERSONAL HISTORY Past Medical, Surgical, Family, and Social History are reviewed in EPIC. 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 Essential hypertension Type 2 diabetes mellitus Diabetic neuropathy associated with type 2 diabetes mellitus Chronic renal insufficiency Mild intermittent asthma Coronary artery disease involving [place] coronary artery of [place] heart without angina pectoris S/P PTCA (percutaneous [...] ALLERGIES Allergies Allergen Reactions Meperidine ROS No bleeding Some bruising No problems with medications No dyspnea. No edema Blood pressure is highest when he gets up in the am OBJECTIVE: PHYSICAL EXAM BP 136/74 mmHg | Pulse 48 | Resp 16 | Ht 1.778 m (5' 10") | Wt 112.492 kg (248 lb) | BMI 35 .58 kg/m2 Pulse when I checked was 70. Then on ECG 50. General appearance: no acute distress. Eyes: no icterus. Lids normal Mouth: no cyanosis. Neck: No lymphadenopathy in the neck or supraclavicular area. Good carotid upstroke. No bruits. No JVD Lungs: CTA Heart: normal sounds no murmur. No rub. No /S3 Abdomen: soft. Ext: No CCE in upper or lower extremities Neuro: Awake and oriented x3 ECG: sinus bradycardia 50 Anteroseptal [place] LAB RESULTS: LIPID Lab Results Component Value [...] 181 06/24/2015 ASSESSMENT: ASHD S/P anterior STEMI Angina HTN Bradycardia PLAN: ECG done today Will plan Holter to be put on in [place] Follow up in a month Try to limit digging! Electronically signed by: Charlotte Turner MD [facility] 07/23/2015 Portions of this chart may have been created with Tradoria voice recognition software. Occasi onal wrong-word or sound-alike substitutions may have occurred due to the inherent rodriguez itations of voice recognition software. Please read the chart carefully and recognize, using context, where these substitutions have occurred. documented in this encounter Plan of Treatment + +------+--------+ + + | Name | Type | Priori | Associated Diagnoses | Order Schedule | | | | ty | | | + +------+--------+ + + | Holter monitor - 24 | ECG | Routin | Bradycardia | Expected: | | hour | | e | | 07/25/2015, Expires: | | | | | | 07/31/2016 | + +------+--------+ + + documented as of this encounter Procedures + +--------+ + + + | Procedure Name | Priori | Date/Time | Associated Diagnosis | Comments | | | ty | | | | + +--------+ + + + | ECG 12 LEAD | Routin | 07/23/2015 | Bradycardia | Results for this | | | e | 10:37 AM | | procedure are in the | | | | PDT | | results section. | + +--------+ + + + documented in this encounter Results ECG 12 lead (07/23/2015 10:37 AM PDT) + + + + + + | Component | Value | Ref Range | Performed | Pathologist | | | | | At | Signature | + + + + + + | VENTRICULAR | 50 | BPM | [facility] | | | RATE EKG | | | | | + + + + + + | ATRIAL RATE | 50 | BPM | [facility] | | + + + + + + | P-R | 164 | ms | [facility] | | | INTERVAL | | | | | + + + + + + | QRS | 100 | ms | [facility] | | | DURATION | | | | | + + + + + + | Q-T | 468 | ms | [facility] | | | INTERVAL | | | | | + + + + + + | Q-T | 426 | ms | [facility] | | | INTERVAL | | | | | | (CORRECTED) | | | | | + + + + + + | P WAVE AXIS | 53 | degrees | [facility] | | + + + + + + | QRS AXIS | 41 | degrees | [facility] | | + + + + + + | T AXIS | 85 | degrees | [facility] | | + + + + + + | INTERPRETAT | Sinus bradycardia with | | [facility] | | | ION TEXT | premature atrial | | | | | | complexesAnteroseptal | | | | | | infarct (cited on or | | | | | | before 06-JUN-2015)T | | | | | | wave abnormality, | | | | | | consider lateral | | | | | | ischemiaAbnormal ECGWhen | | | | | | compared with ECG of | | | | | | 24-JUN-2015 | | | | | | 12:14,premature atrial | | | | | | complexes are now | | | | | | presentConfirmed by | | | | | | CHARLOTTE TURNER MD | | | | | | ([id number]) on 07/24/2015 | | | | | | 1:19:14 PM | | | | + + [...] | Diagnosis | + + | Bradycardia - Primary Other specified cardiac dysrhythmias | + + documented in this encounter
--- OUTSIDE RECORDS SUMMARY | ~2019-07-04 | XMS | Encounter Summary ---
Demographics + + + | Address | [address] | | | [place] [address] | + + + | Home Phone [...] Team Providers + +------+ + | Care Relocation Associate Name | Role | Phone | + [...] + + | 05/27/ | Surgery | [facility] | Charlotte Turner, | CV LHC | | 2016 | | MED CTR CV INTRA OP | MD [address] | | | | | [address] | [place] | | | | | [place] | [address] | | | | | [address] | | | | | | [phone] | | | +--------+---------+ + + + [...] bed for years - long before his [place] If he would lie down he could [...] failure 05/27/2016 Unknown Coronary artery disease involving [place] coronary artery of [place] heart without angina pectoris 07/02/2015 Unknown S/P [...] Anterior leads Confirmed by CHARLOTTE TURNER MD ([id number]) on 05/26/2016 4:27:10 PM Comprehensive Metabolic Panel [...] by your healthcare provider Date Last Reviewed: 05/03/201319996927-5226 [employer]. [address] [place] [address]. All righ ts reserved. This information is [...] the affected wrist straigh t. Call the extruding machine operator who did your procedure as soon as possible. Other Concerns Call the extruding machine operator who did your procedure if you have: Any of these Signs of Infection: Redness Fever higher than 101.5 degrees F or 38.6 degrees C Change in the bruise or lump. Numbness in your arm or wrist. Severe pain that is not relieved by Tylenol. Follow-up Care Continue your prescribed medications unless instructed otherwise. Follow-up with your primary health care provider and extruding machine operator after your procedure, as instructed. If you have questions or concerns about your cardiac catheterization procedure, call the number below. [phone] documented in this encounter Medications at Time [...] Diagnosis Date | | | Diabetes mellitus ([facility]) | | | Hypertension | | | Reflux esophagitis | | | Food impaction of esophagus | | | Acute ST elevation myocardial infarction (STEMI) involving left | | | anterior descending (LAD) coronary artery ([facility]) 05/2015 | | | Dyslipidemia [...] with | | | no immediate complications [facility] LEFT CARDIAC | | | CATHETERIZATION REPORT PATIENT NAME: Raz Hinton OF | | | : 1945MEDICAL RECORD NUMBER: [id number] OF | | | PROCEDURE: | | | 05/27/2016 | | | | | | PRIMARY CARE PROVIDER: Ralph Xavier, | | | [facility] GEOGRAPHIC AREA INTELLIGENCE OFFICER: Charlotte Turner MD, [facility], [facility] PRE-PROCEDURE | | | DIAGNOSIS: Class [...] the | | | sheath. A 5 Wolof JR4 was advanced to the descending aorta [...] | RECOMMENDATIONS Stop EFFIENT Charlotte Turner MD, [facility], [facility] | | | [facility]: 05/27/2016 9:363 9:36 | | | Portions of this chart were created with [employer]Source voice recognition | | | software. Occasional [...] | | | | |Charlotte Turner MD, [facility], [facility] | | |[facility] | | |DATE/TIME: 05/27/2016 9:36 | | |05/27/2016 9:36 | | | | | |Portions of this chart were created with [employer] voice recognition | | |software. Occasional wrong-word [...] [address] | [place] | [phone] | | [facility] | | [address] | | | - LABORATORY | | [...] 1.45 (H) | 0.60 - 1.30 | [facility] | | | | | mg/dL [...] mL/min/1.73m2 | [facility] | | | [facility] | RATE,ESTIMATED | | MEDICAL | | | | mL/min/1.79y9Cyya than | | CENTER - | | [...] + | [address] [facility] | [address] | [place] | [phone] | | [facility] | | [address] | | | - LABORATORY | | [...]
--- OUTSIDE RECORDS SUMMARY | ~2019-07-04 | XMS | Encounter Summary ---
Demographics + + + | Address | [address] | | | [place] [address] | + + + | Home Phone | | + + + | Preferred Language | Unknown | + + + | Marital Status | | + + + | Worship Affiliation | 1027 | + + + | Race | Unknown | + + + | Ethnic Group | Unknown | + + + Author + + + | Author | [facility] | | | and [place] | + + + | Organization | [facility] | | | and [...] Team Providers + +------+ + | Care Chain Mortiser Operator Name | Role | Phone | [...] heart failure (HCC) | | | | [place], | [place], [place] | (Primary Dx); | | | | [place] [address] | [address] | Atherosclerosis of | | | | [phone] | | [place] coronary | | | | | | artery of [place] | | | | | | heart [...] ASHD. He is being seen today for [facility] w up . He was [...] Mild intermittent asthma Coronary artery disease involving [place] coronary artery of [place] heart without angina pectoris S/P PTCA (percutaneous [...] RESULTS reviewed during visit today primarily from [facility]: LIPID Lab Results Component Value Date CHOL [...] Xavier Electronically signed by: Charlotte Turner MD [facility] 09/03/2015 Portions of this chart may have been created with [employer] voice recognition software. Occasi onal wrong-word or [...] failure | + + | Atherosclerosis of [place] coronary artery of [place] heart without angina pectoris | + + | Pure hypercholesterolemia | + + documented in this encounter
--- OUTSIDE RECORDS SUMMARY | ~2019-07-04 | XMS | Encounter Summary ---
Demographics + + + | Address | [address] | | | [place] [address] | + + + | Home Phone | | + + + | Preferred Language | Unknown | + + + | Marital Status | | + + + | Baptist Affiliation | 1027 | + + + | Race | Unknown | + + + | Ethnic Group | Unknown | + + + Author + + + | Author | [facility] | | | and [place] | + + + | Organization | [facility] | | | [...] Team Providers + +------+ + | Care Underwear Welter Name | Role | Phone | + [...] [address] | | | | | [place], | [place], [place] | | | | | [place] [address] | [address] | | | | | [phone] | | | +--------+ + + + [...]
--- OUTSIDE RECORDS SUMMARY | ~2019-07-04 | XMS | Clinical Summary ---
Demographics + + + | Address | [address] | | | [place] [address] | + + + | Home Phone [...] Team Providers + +------+ + | Care Dance Hall Host/Hostess Name | Role | Phone | + [...] + + | Coronary artery disease involving [place] coronary artery of | 07/02/2015 | | [place] heart without angina pectoris | | + [...] Main:No significant disease:Left | | Circumflex:Large dominant [id number], 4th and 5th marginal's are | | [...] | | | Charlotte Haddad MD at [facility] | | ry | [facility] | | | [facility] | | [facility] | | | | | | R / | | | | | | | | /[id number] | | | | | | | | 151 | + +-------+--------+ +--------+--------+--------+ | Pormus PremierImplanted: Qty: | Stent | N/A: | BOSTON | | 09/01/ | PROMUS | | 1 on 06/06/2015 by Yue, | | Beard | SCIENTIFIC | | 2015 | | | Charlotte Haddad MD at [facility] | | ry | [facility] | | | [facility] | | [facility] | | | | | | R / | | | | | | | | /[id number] | | | | | | | [...] + +--------+ +--------+ +---------+--------+ | [employer] [place] | UNITED | [id number] | 09/08/19 | [phone] | | Indemn | | | OF | | 17-Pre | 0 | | ity | | | [place] | | sent | | | | | | MDCR | | | | | | | | SUPPL | | | | | | + +--------+ +--------+ +---------+--------+ | MEDICARE | MEDICA | [id number] | 10/07/19 | [phone] | | Medica | | | RE | | 09-Pre | 5 | | re | | | PART A | | sent | | | | | | AND B | | | | | | + +--------+ +--------+ +---------+--------+ | MEDICARE | MEDICA | [id number] | 10/07/19 | [phone] | | Medica | | | RE | | 09-Pre | 5 | | re | | | PART A | | sent | | | | | | AND B | | | | | | + +--------+ +--------+ +---------+--------+ | [employer] [place] | UNITED | [id number] | 09/08/19 | [phone] | | Indemn | | | OF | | 17-Pre | 0 | | ity | | | [place] | | sent | | | | [...] | Self | [birth year] | | [address] [facility] | | | al/Fam | | 1946 | [phone] | [place] | | | aisha | | | 3 (Home) | [address] | + +--------+ +--------+ + + | Raz Arce | Person | Self | [birth year] | | [address] | | | al/Fam | | 1946 | [phone] | [place] | | | aisha | | | 3 ([place]) | [address] | + +--------+ +--------+ + + Advance Directives + + + + + | Type | Date Recorded | Patient | Explanation | | | | Sock Folder | | + + + + + | Power of | 06/06/2015 12:00 | | | | Cotton Presser | AM | | | + + [...]
--- OUTSIDE RECORDS SUMMARY | ~2019-07-04 | XMS | Encounter Summary ---
Demographics + + + | Address | [address] | | | [place] [address] | + + + | Home Phone | | + + + | Preferred Language | Unknown | + + + | Marital Status | | + + + | Advent Affiliation | 1027 | + + + | Race | Unknown | + + + | Ethnic Group | Unknown | + + + Author + + + | Author | [facility] | | | and [place] | + + + | Organization | [facility] | | [...] Team Providers + +------+ + | Care Dispensing Lead Name | Role | Phone | + [...] Description | +--------+---------+ + + + | 06/18/ | Office | [facility] Charlotte Turner, | Hypertensive heart | | 2017 | Visit | CARDIOLOGY [address] | MD [address] | disease without | | | | [place], | [place], [place] | heart failure | | | | [place] [address] | [address] | (Primary Dx); Pain | | | | [phone] | | of both hip joints | +--------+---------+ + + + Social History [...] + + + | Blood Pressure | 126/74 | 06/18/2016 12:12 PM | | | | | PDT | | + + + + + | Pulse | 78 | 06/18/2016 12:12 PM | | | | | PDT | | + + + + + | Temperature | - | - | | + + + + + | Respiratory Rate | 18 | 06/18/2016 12:12 PM | | | | | PDT | | + + + + + | Oxygen Saturation | - | - | | + + + + + | Inhaled Oxygen | - | - | | | Concentration | | | | + + + + + | Weight | 113.4 kg (250 lb) | 06/18/2016 12:12 PM | | | | | PDT | | + + + + + | Height | 177.8 cm (5' 10") | 06/18/2016 12:12 PM | | | | | PDT | | + + + + + | Body Mass Index | 35.87 | 06/18/2016 12:12 PM | | | | | PDT | | + + + + + documented in this encounter Progress Notes Charlotte Turner MD - 06/19/2016 2:07 AM PDTFormatting of this note might be different fr om the original. PATIENT NAME: Raz Arce : 1945: AGE: 70 y.o. PRIMARY CARE: Ralph Xavier MD OUTPATIENT FOLLOW UP VISIT Date of Service: 06/18/2016 HISTORY OF PRESENT ILLNESS: Raz Arce is a 70 y.o. male with a history of CAD. He is being seen today for follow up. He was last seen at a recent angiogram. He has felt OK since then. He is unable to tolera te Lasix. He says it makes his hips hurt. He has arthritis, but, he is convinced this is d ue to water pill. He has no bleeding or other problems. MEDICAL, SURGICAL, AND PERSONAL HISTORY Past Medical, Surgical, Family, and Social History are reviewed in EPIC. 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 30 tablet 11 aspirin 81 mg chewable tablet Take 1 tablet by mouth Daily. 30 tablet 11 atorvaSTATin (LIPITOR) 80 MG tablet Take 1 tablet by mouth nightly. 30 tablet 11 furosemide (LASIX) 20 mg tablet Take 1 tablet by mouth Every day. 90 tablet 3 glipiZIDE (GLUCOTROL XL) 10 MG 24 hr tablet Take 10 mg by mouth daily (with breakfast). losartan (COZAAR) 100 MG tablet Take 1 tablet by mouth Daily. 30 tablet 11 montelukast (SINGULAIR) 10 mg tablet Take 1 tablet by mouth nightly. 30 tablet 11 nitroglycerin (NITROSTAT) 0.[address] 1 tablet under the tongue every 5 neyda karthik as needed for Chest pain. 30 tablet 11 ONE TOUCH ULTRA TEST strip ONETOUCH DELICA LANCETS 33G [facility] No current facility-administered medications for this visit. ALLERGIES Allergies Allergen Reactions Meperidine Other (See Comments) "I don't know" ROS OBJECTIVE: PHYSICAL EXAM BP 126/74 mmHg | Pulse 78 | Resp 18 | Ht 1.778 m (5' 10") | Wt 113.399 kg (250 lb) | BMI 35 .87 kg/m2 Constitutional: No acute distress, non-toxic appearance Eyes: conjunctiva normal. HEENT: Supple, normal ROM and without adenopathy. Oropharynx moist, no pharyngeal exudate s. Respiratory: No respiratory distress, normal breath sounds, no rales, no wheezing Cardiovascular: Normal rate, normal rhythm, 1/6 murmurs, no gallops, no rubs. GI: Soft, nondistended, normal bowel sounds, nontender, no organomegaly, no mass, no rebou nd, no guarding Musculoskeletal: No edema, no tenderness, Integument: Well hydrated, no rashes or concerning skin lesions Neurologic: Alert & oriented x 3, no focal deficits noted Psychiatric: Speech and behavior appropriate LAB RESULTS reviewed during visit today primarily from : LIPID Lab Results Component Value Date CHOL 153 06/07/2015 TRIG 122 06/07/2015 HDL 38 06/07/2015 LDL 91 06/07/2015 CHOLHDL 4.0 06/07/2015 CHEMISTRY Lab Results Component Value Date GLU 145* 05/27/2016 NA 144 05/27/2016 K 4.2 05/27/2016 CL 107 05/27/2016 CO2 29 05/27/2016 CALCIUM 8.7 05/27/2016 ALKPHOS 79 05/26/2016 AST 24 05/26/2016 ALT 25 05/26/2016 BILITOT 0.5 05/26/2016 CREA 1.45* 05/27/2016 BUN 11 05/27/2016 HEMATOLOGY Lab Results Component Value Date WBC 6.9 05/26/2016 HGB 14.2 05/26/2016 HCT 43.3 05/26/2016 PLT 203 05/26/2016 ASSESSMENT: Hypertensive heart disease H/O STEMI - anterior wall 05/26/16. Recent cath - no restenosis. EF 65% AODM PLAN: He would like to change to Lasix QOD Return in a month or so to assess symptoms Electronically signed by: Charlotte Turner MD [facility] 06/19/2016 Portions of this chart may have been created with [employer] voice recognition software. Occasi onal wrong-word or sound-alike substitutions may have occurred due to the inherent rodriguez itations of voice recognition software. Please read the chart carefully and recognize, using context, where these substitutions have occurred. documented in this encounter Plan of Treatment Not on filedocumented as of this encounter Visit Diagnoses + + | Diagnosis | + + | Hypertensive heart disease without heart failure - Primary Unspecified hypertensive | | heart disease without heart failure | + + | Pain of both hip joints | + + documented in this encounter
--- OUTSIDE RECORDS SUMMARY | ~2019-07-04 | XMS | Clinical Summary ---
Demographics + + + | Address | [address] | | | [place] [address] | + + + | Home Phone | | + + + | Preferred Language | Unknown | + + + | Marital Status | | + + + | Islam Affiliation | Unknown | + + + | Race | Unknown | + + + | Ethnic Group | Unknown | + + + Author + + + | Author | [email or web address] [facility] (Historical as of | | | 10-22-18) | + + + | Organization | [facility] (Historical as of | | | 10-22-18) [...] Team Providers + +------+ + | Care Bottom Polisher Name | Role | Phone | + [...] + + | Coronary artery disease involving [place] coronary artery of | 07/02/2015 | | [place] heart without angina pectoris | | + [...] Main:No significant disease:Left | | Circumflex:Large dominant [id number], 4th and 5th marginal's are | | [...] +------+-------+ + | MEDICARE | MEDICA | [id number] | | | [address] | | | RE | | | | [place] [address] | | | IP-OP | | | | | + +--------+ +------+-------+ + | [employer] [place] | MUTUAL | [id number] | | | | | | OF | | | | | | | [place] | | | | | + +--------+ [...] Self | [birth year] | Home: | [address] | | | al/Fam | | 1946 | [phone] | [place] | | | [place]isha | | | [address] | [phone] | + +--------+ +--------+ + +
--- OUTSIDE RECORDS SUMMARY | ~2019-07-04 | XMS | Encounter Summary ---
Demographics + + + | Address | [address] | | | [place] [address] | + + + | Home Phone [...] Team Providers + +------+ + | Care Physicist Acoustics Name | Role | Phone | + +------+ + | Ralph Xavier MD | PCP | | + +------+ + Encounter Details +--------+ + + + + | Date | Type | Department | Care Team | Description | +--------+ + + + + | 10/11/ | Orders Only | [facility] | Provider, | Paroxysmal atrial | | 2019 | | SYSTEM GENERIC OP | MD Jamie [address] | fibrillation (HCC); | | | | CONVERSION [address] | [place]ie [place]. | Atherosclerotic | | | | [address] [place], [place] | [place] [address] | heart disease of | | | | [address] | | venetie coronary | | | | [phone] | | artery without | | | [...] 01/13/2018, Expires: | | | | | venetie coronary | 01/13/2019 | | | | | artery without | | | | | | angina pectoris | | + +------+--------+ + + | CBC with Manual | Lab | Routin | Atherosclerotic | Expected: | | Differential | | e | heart disease of | 03/10/2018, Expires: | | | | | venetie coronary | 03/10/2019 | | | | [...] 03/10/2018, Expires: | | | | | venetie coronary | 03/10/2019 | | | | [...] 03/10/2018, Expires: | | | | | venetie coronary | 03/10/2019 | | | | [...] + + | Atherosclerotic heart disease of venetie coronary artery without angina pectoris | | Coronary atherosclerosis of venetie coronary artery | + + | 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
--- OUTSIDE RECORDS SUMMARY | ~2019-07-04 | XMS | Encounter Summary ---
Demographics + + + | Address | [address] | | | [place] [address] | + + + | Home Phone | | + + + | Preferred Language | Unknown | + + + | Marital Status | | + + + | Zoroastrian Affiliation | 1027 | + + + | Race | Unknown | + + + | Ethnic Group | Unknown | + + + Author + + + | Author | [facility] | | | and [place] | + + + | Organization | [facility] | [...] Team Providers + +------+ + | Care Research Geologist Name | Role | Phone | + [...] + + | 06/19/ | Telephone | [facility] | Charlotte Turner, | Other (patient not | | 2016 | | CARDIOLOGY [address] | feeling well) | | | | [place], | [place], [place] | | | | | [place] [address] | [address] | | | | | [phone] | | | +--------+ + + + [...]
--- OUTSIDE RECORDS SUMMARY | ~2019-07-04 | XMS | Encounter Summary ---
Demographics + + + | Address | [address] | | | [place] [address] | + + + | Home Phone | | + + + | Preferred Language | Unknown | + + + | Marital Status | | + + + | Taoist Affiliation | 1027 | + + + | Race | Unknown | + + + | Ethnic Group | Unknown | + + + Author + + + | Author | [facility] | | | and [place] | + + + | Organization | [facility] | | | and [...] ST | Dx) | | | | [place], | [place] | | | | | [place] [address] | [address] | | | | | [phone] | | | +--------+---------+ + + + [...] of anterior STEMI. [facility]. He has done well [...] Mild intermittent asthma Coronary artery disease involving lone pine coronary artery of lone pine heart without angina pectoris S/P PTCA (percutaneous [...] oriented x3 ECG: sinus bradycardia 50 Anteroseptal NV LAB RESULTS: LIPID Lab Results Component Value [...] digging! Electronically signed by: Charlotte Turner MD [facility] 07/23/2015 Portions of this chart may have been created with [employer] voice recognition software. Occasi onal wrong-word or [...] MD | | | | | | ([id number]) on 07/24/2015 | | | | | [...]
--- OUTSIDE RECORDS SUMMARY | ~2019-07-04 | XMS | Encounter Summary ---
Demographics + + + | Address | [address] | | | [place] [address] | + + + | Home Phone | | + + + | Preferred Language | Unknown | + + + | Marital Status | | + + + | Scientology Affiliation | 1027 | + + + | Race | Unknown | + + + | Ethnic Group | Unknown | + + + Author + + + | Author | [facility] | | | and [place] | + + + | Organization | [facility] | | [...] Team Providers + +------+ + | Care Customer Sales Distributor Name | Role | Phone | + [...] + + | 10/29/ | Emergency | [facility] | Jos Moreno | Fatigue due to | | 2017 | | [facility] | Conner, DO [address] | excessive exertion, | | | | CENTER [address] | [address] [place] | initial encounter | | | | [place] | [place] [address] | (Primary Dx); | | | | [address] | [phone] | Coronary artery | | | | [phone] | | disease involving | | | | | | gulkana coronary | | | | | | artery of gulkana | | | | | | heart [...] [address] | [place] | [phone] | | [facility] | | [address] | | | - LABORATORY | | [...] + | [facility] [facility] | [address] | [place] | [phone] | | [facility] | | [address] | | | - LABORATORY | | [...] | | GLOMERULAR FILTRATION | mL/min/1.73m2 | [facility] | | | BRAZILIAN | RATE,ESTIMATED | | MEDICAL | | | | mL/min/1.53d6Xnux than | | CENTER - | | [...] | | | | | mg/dL | [facility] | | | | | | MEDICAL | | | | | | CENTER - | | | | | | LABORATORY | | + + + + + + | Albumin | 3.7 | 3.2 - 5.0 g/dL | [facility] | | | | | | [facility] | | | | | [...] + | [facility] [facility] | [address] | [place] | [phone] | | [facility] | | [address] | | | - LABORATORY | | [...] | | | | | | [employer] | | | | | [...] + | [address] [facility] | [address] | [place] | [phone] | | [facility] | | [address] | | | - LABORATORY | | [...] + | [address] | [address] | [place], [place] | [phone] | | [facility] | | [address] | | | - LABORATORY | | [...] | | | | BETHANY NAM MD ([id number]) | | | | | | on [...] + + | Coronary artery disease involving gulkana coronary artery of gulkana heart without | | angina pectoris | + + | S/P PTCA (percutaneous transluminal coronary angioplasty) Postsurgical percutaneous | | transluminal coronary angioplasty status | + + documented in this encounter
--- OUTSIDE RECORDS SUMMARY | ~2019-07-04 | XMS | Encounter Summary ---
Demographics + + + | Address | [address] | | | [place] [address] | + + + | Home Phone | | + + + | Preferred Language | Unknown | + + + | Marital Status | | + + + | Moravian Affiliation | 1027 | + + + | Race | Unknown | + + + | Ethnic Group | Unknown | + + + Author + + + | Author | [facility] | | | and [place] | + + + | Organization | [facility] | | | [...] Team Providers + +------+ + | Care Industrial Economics Teacher Name | Role | Phone | + [...] + + | 06/18/ | Office | [facility] | Charlotte Turner, | Hypertensive heart | | 2017 | Visit | CARDIOLOGY [address] | MD [address] | disease without | | | | [place], | [place], [place] | heart failure | | | | [place] [address] | [address] | (Primary Dx); Pain | | | | [phone] | | of both hip joints | [...] Mild intermittent asthma Coronary artery disease involving yavapai-apache coronary artery of yavapai-apache heart without angina pectoris S/P PTCA (percutaneous [...] ULTRA TEST strip ONETOUCH DELICA LANCETS 33G [facility] No current facility-administered medications for this visit. [...] RESULTS reviewed during visit today primarily from [facility]: LIPID Lab Results Component Value Date [...] symptoms Electronically signed by: Charlotte Turner MD [facility] 06/19/2016 Portions of this chart may have been created with [employer] voice recognition software. Occasi onal wrong-word or [...]
--- OUTSIDE RECORDS SUMMARY | ~2019-07-04 | XMS | Encounter Summary ---
Demographics + + + | Address | [address] | | | [place] [address] | + + + | Home Phone | | + + + | Preferred Language | Unknown | + + + | Marital Status | | + + + | Mormon Affiliation | 1027 | + + + | Race | Unknown | + + + | Ethnic Group | Unknown | + + + Author + + + | Author | [facility] | | | and [place] | + + + | Organization | [facility] | | [...] Team Providers + +------+ + | Care Assistant Associate Full Professor Name | Role | Phone | [...] | NEW | [address] | [place] | | | | | PATIENT | [place], | [address] Phone: | | | | | | [place] [address] | [phone] | | | | | | Phone: | Fax: | | | | | | [phone] | [phone] | | | | | | Fax: | | | | | | | [phone] | | +--------+--------+ + + + + Encounter Details +--------+---------+ + + + | Date | Type | Department | Care Team | Description | +--------+---------+ + + + | 06/23/ | Office | [facility] [place] | Charlotte Turner, | Renovascular | | 2016 | Visit | CARDIOLOGY [address] | hypertension, | | | | [place], | [place], [place] | hypertension with | | | | [place] [address] | [address] | unspecified goal | | | | [phone] | | (Primary Dx); | | | [...] fr om the original. Cardiology Progress Note [facility] Cardiology Pt. Name/Age/: Raz Arce 69 y.o. 1945 [facility]. Record Number: [id number] Date of visit: 06/24/15 Identifying Statement: Raz Arce is a 69 y.o. male from [address] [place] [address] with anterior [place]. He has had bradycardia and he stopped [...] was slow. [facility] has walked up to 1/2 mile [...] CARDIAC CATH; Surgeon: Charlotte Turner MD; Location: [facility] VASCULAR LAB History Social History Marital [...] HTN CRF - stable to improved Recent ME Bradycardia Plan: BMP checked and reviewed with [...] this chart may have been created with [employer] voice recognition software. Occasi onal wrong-word [...] + | [address] | [address] | [place] | [phone] | | [facility] | | [address] | | | - LABORATORY | | [...] mL/min/1.73m2 | [facility] | | | [facility] [facility] | RATE,ESTIMATED | | MEDICAL | | | | mL/min/1.77l4Khqn than | | CENTER - | | [...] [address] | [place] | [phone] | | [facility] | | [address] | | | - LABORATORY | | [...] MD | | | | | | ([id number]) on 06/27/2015 | | | | | [...]
--- OUTSIDE RECORDS SUMMARY | ~2019-07-04 | XMS | Encounter Summary ---
Demographics + + + | Address | [address] | | | [place] [address] | + + + | Home Phone [...] Team Providers + +------+ + | Care Dock Grader Name | Role | Phone | + +------+ + | Ralph Xavier MD | PCP | | + +------+ + Encounter Details +--------+ + + + + | Date | Type | Department | Care Team | Description | +--------+ + + + + | 01/14/ | Orders Only | [facility] | Conversion | | | 2018 | | CARDIOLOGY [place] | Transaction, | | | | | [address] | Provider Unknown | | | | | [place] | [phone] | | | | | [address] | | | | | | [phone] | | | +--------+ + + + [...]
--- OUTSIDE RECORDS SUMMARY | ~2019-07-04 | XMS | Encounter Summary ---
Demographics + + + | Address | [address] | | | [place] [address] | + + + | Home Phone [...] Author | [facility] [...] Team Providers + +------+ + | Care Watch And Clock Repair Clerk Name | Role | Phone | [...] + + | 02/16/ | Office | [facility] | Marly Kristen | Coronary artery | | 2019 | Visit | CARDIOLOGY [place] | [address] | disease involving | | | | [address] | [place] [address] | telida coronary | | | | [address] | [place] [address] | artery of telida | | | | [place] | [phone] | heart without angina | | | | [address] | | pectoris (Primary | | | | [phone] | | Dx); Hypertensive | | | [...] fa sting labs to be done at [facility] ,but drink water prior to having labs [...] her 03/10/2018. He was previously seen and ezio ated by Dr. Turner at [facility] in [place]. Today, I reviewed all previous documentation available to me in electronic medical rec ords and from external sources. He has a history of CAD, STEMI anterior wall 05/2016,,hypertension, hyperlipidemia, PTCA, paroxysmal atrial fibrillation, type II DM with neuropathy, chronic kidney disease, asthma, history of left first rib removal. His [id number] VASC score is 5 ( age, HTN, DM, Vasc dis), and currently only anticoagulated o n aspirin due to previous problems with hematuria on Eliquis, which he had declined to karen wilburn on. When initially seen by Dr. Edmonds ,it was for initial consultation regarding atrial fibrill ation. She documented he was seen in the emergency room at [facility] on October 29, and found to be [...] him to consider a referral to the [facility] sleep disorders clinic for further evaluation and [...] reports loud frequent snoring. Denies orthopnea, PND. [place] oing daily fatigue. Cardiovascular: Intermittent pedal edema. [...] /outdoor projects and tolerates . Lives in [place]. to Kailee, who is Dr. Bo's patient. [...] PROCEDURES/IMAGING Last angiogram: 05/27/2016: ( Dr. Turner, [facility] ) : Findings: Hemodynamics: LVEDP 25 mmHg. [...] hypertensive heart disease, adjust medications Angiogram: 06/06/2015: [facility]: RCA small nondominant vessel. Left main no [...] to limb leads. Rate 49 bpm , MS 142 ms, QRS 86 ms, QTC 420 ms, tracing personally reviewed by me EK12/29/2018: Sinus rhythm with sinus arrhythmia rate 60 bpm, MS 186 ms, QRS 96 ms, QTC 434 [...] discussed with him that he should at [employer] use his furosemide 20 mg potassium 10 [...] I discussed a possible referral to Dr. Nunse at the [place] sleep disorder clinic for further evaluation, but he is not interested in pursuing this. I will have him see Dr. Edmonds in 6 months with primary cardiology visit, and I will see him back in 1 year, but sooner if needed 1. Coronary artery disease involving telida coronary artery of telida heart without angina pectoris 2. Hypertensive heart [...] contain inadvertent rec ognition errors. Ronnell DILLON [facility] Cardiology 02/16/2019 docum ented in this [...] + + | Coronary artery disease involving telida coronary artery of telida heart without | | angina pectoris - [...]
--- OUTSIDE RECORDS SUMMARY | ~2019-07-04 | XMS | Encounter Summary ---
Demographics + + + | Address | [address] | | | [place] [address] | + + + | Home Phone | | + + + | Preferred Language | Unknown | + + + | Marital Status | | + + + | Buddhist Affiliation | 1027 | + + + | Race | Unknown | + + + | Ethnic Group | Unknown | + + + Author + + + | Author | [facility] | | | and [place] | + + + | Organization | [facility] | | | and [...] Team Providers + +------+ + | Care Inclusion Specialist Name | Role | Phone | + +------+ + | Ralph Xavier MD | PCP | | + +------+ + Encounter Details +--------+ + + + + | Date | Type | Department | Care Team | Description | +--------+ + + + + | 06/09/ | Telephone | [facility] | Yancy Craft, | | | 2016 | | [facility] | PharmD [address] | | | | | [address] [place] | [facility], | | | | | [place] [address] | [place] [address] | | | | | [phone] | | | | | | | [...]
--- OUTSIDE RECORDS SUMMARY | ~2019-07-04 | XMS | Encounter Summary ---
Demographics + + + | Address | [address] | | | [place] [address] | + + + | Home Phone | | + + + | Preferred Language | Unknown | + + + | Marital Status | | + + + | Congregation Affiliation | 1027 | + + + | Race | Unknown | + + + | Ethnic Group | Unknown | + + + Author + + + | Author | [facility] | | | and [place] | + + + | Organization | [facility] | | [...] Team Providers + +------+ + | Care Zipper Setter Chainstitch Name | Role | Phone | + +------+ + | Ralph Xavier MD | PCP | | + +------+ + Reason for Referral Diagnostic/Screening (Routine) + +--------+ + + + + | Status | Reason | Specialty | Diagnoses / | Referred By | Referred To | | | | | Procedures | Contact | Contact | + +--------+ + + + + | Authorized | | Radiology | Diagnoses | [place] | [place] [facility] | | | | | Coronary | [place], | [address] | | | | | artery | [address] [address] | | | | | disease | [address] | [place], [place] | | | | | involving | [place] | [address] | | | | | [place] | [place], [place] | Phone: | | | | | coronary | [phone] | [phone] | | | | | artery of | Phone: | Fax: | | | | | [place] heart | [phone] | [phone] | | | | | without | Fax: | | | | | | angina | [phone] | | | | | | pectoris | | | | | | | Hypertensive | | | | | | | heart | | | | | | | disease | | | | | | | without | | | | | | | heart | | | | | | | failure | | | | | | | History of | | | | | | | ST elevation | | | | | | | myocardial | | | | | | | infarction | | | | | | | (STEMI) S/P | | | | | | | PTCA | | | | | | | (percutaneou | | | | | | | s | | | | | | | transluminal | | | | | | | coronary | | | | | | | angioplasty) | | | | | | | Paroxysmal | | | | | | | atrial | | | | | | | fibrillation | | | | | | | (HCC) | | | | | | | Pedal edema | | | | | | | Fatigue, | | | | | | | unspecified | | | | | | | type | | | | | | | Procedures | | | | | | | ECHO | | | | | | | Complete | | | + +--------+ + + + + Reason for Visit + + + | Reason | Comments | + + + | Follow-up, Office | Feeling tired all the time | | Visit | | + + + Encounter Details +--------+---------+ + + + | Date | Type | Department | Care Team | Description | +--------+---------+ + + + | 12/29/ | Office | [facility] | Kristen Luke | Coronary artery | | 2019 | Visit | [facility]ARDIOLOGY [place] | [address] | disease involving | | | | [address] | [place] | [place] coronary | | | | [address] | [place] [address] | artery of [place] | | | | [place] | [phone] | heart without angina | | | | [address] | | pectoris (Primary | | | | [phone] | | Dx); Hypertensive | | | | | | heart disease | | | | | | without heart | | | | | | failure; Essential | | | | | | [...] | | | | | | angioplasty); | | | | | | Paroxysmal atrial | | | | | | fibrillation (HCC); | | | | | | Chronic renal | | | | | | impairment, stage 3 | | | | | | (moderate) (HCC); | | | | | | Mild intermittent | | | | | | asthma without | | | | | | complication; Type 2 | | | | | | diabetes mellitus | | | | | | with stage 3 chronic | | | | | | kidney disease, | | | | | | without long-term | | | | | | current use of | | | | | | insulin (HCC); | | | | | | Dyslipidemia; Pedal | | | | | | edema; Fatigue, | | | | | | unspecified type; | | | | | | Anemia, unspecified | | | | | | [...] + + + | Blood Pressure | 106/58 | 12/29/2018 1:32 PM | | | | | PDT | | + + + + + | Pulse | 65 | 12/29/2018 1:32 PM | | | | | PDT | | + + + + + | Temperature | - | - | | + + + + + | Respiratory Rate | - | - | | + + + + + | Oxygen Saturation | 98% | 12/29/2018 1:32 PM | | | | | PDT | | + + + + + | Inhaled Oxygen | - | - | | | Concentration | | | | + + + + + | Weight | 103.6 kg (228 lb 8 | 12/29/2018 1:32 PM | | | | oz) | PDT | | + + + + + | Height | 177.8 cm (5' 10") | 12/29/2018 1:32 PM | | | | | PDT | | + + + + + | Body Mass Index | 32.79 | 12/29/2018 1:32 PM | | | | | PDT | | + + + + + documented in this encounter Patient Instructions Patient Instructions Kristen Luke FNP - 12/29/2018 1:30 PM YELENAI have ordered you non fasting labs to be done at [facility] and also ordered you an Echo to be done at [facility] I made These changes to medications : Take furosemide 20 mg with Potassium 10 Meq Daily for 2 weeks, and then try going to every other day , Also take magnesium Oxide 250-400 mg D aily to help with magnesium depletion from water pill See me back in 6 weeks documented in this encounter Progress Notes Kristen Luke FNP - 12/29/2018 1:30 PM PDTFormatting of this note might be differe nt from the original. Date of visit: 12/29/2018 Primary Care Physician: Ralph Xavier MD CHIEF COMPLAINT: Chief Complaint Patient presents with Follow-up, Office Visit Feeling tired all the time HISTORY OF PRESENT ILLNESS: Mr. Crandall is a 73 year old man who is here today as overdue for follow-up, and to fo llow up on symptoms of increased fatigue, and decreased activity tolerance. He is accompanied today by his Kailee, who contributed to history, and is also a patien t of Dr. Angel. He is a patient of Dr. Edmonds and last seen by her 03/10/2018. He was previously seen and ezio ated by Dr. Turner at [facility] in [place]. Today, I reviewed all previous documentation available to me in electronic medical rec ords and from external sources. He has a history of CAD, STEMI anterior wall 05/2016,,hypertension, hyperlipidemia, PTCA, Type II DM with neuropathy, chronic kidney disease, asthma, history of left first rib remova l. When initially seen by Dr. Edmonds ,it was for initial consultation regarding atrial fibrill ation she documented he was seen in the emergency room at [facility] on October 29, 2017 , and found to be in atrial fibrillation with rates 105-110 bpm. Holter monitor and stress test was recommended. When she saw him [...] p ressure was better controlled on amlodipine. His current and previous testing and procedures are detailed below . He had several concerns today, starting with symptoms of increased fatigue and decreased activity tolerance which had started around October, and he saw his PCP in November who per formed a cardiac panel, which documented troponin T <0.010 but an elevated myoglobulin with otherwise negative results, and he reports that his symptoms of fatigue have improved since that time, though still not back to his baseline activity tolerance. He also reports he may have suffered a TIA in October, as he woke up one morning and noti ed significant short-term memory deficits resolved after 2-3 days, but he did not seek any f urther follow-up in the emergency room, but notices his memory may still not be back to base line. He also reports he has had some increased to his pedal edema, which was significant toda y, but denies any chest pain, shortness of breath, or syncope, but does report ongoing verti go, and some orthostatic lightheadedness. He is active with outdoor projects and [...] and anxiety, and contributed to weight loss. REVIEW OF SYSTEMS: Negative except for pertinent items noted in HPI. Constitutional: Reports increased fatigue, denies unexplained weight loss, has lost weight over the last few years due to stress eating his appetite. Reports occasional night sweats, denies fever or chills HENT: Denies nosebleeds. Denies hearing problems. Denies dysphagia Eyes:Early glaucoma, Denies visual disturbance or double vision. Respiratory/Sleep:: Asthma .Denies cough and shortness of breath. Denies hemoptysis or ex cessive sputum production. reports loud frequent snoring. Denies orthopnea, PND. Lesley oing daily fatigue. Cardiovascular: Increased pedal edema. Denies chest pain, palpitations. Denies history of rheumatic fever. Denies claudication . Gastrointestinal:GERD, better, less PPI . Denies nausea, vomiting, abdominal pain and blo od in stool. Genitourinary: Kidney disease stage III, denies hematuria. Musculoskeletal: Arthritis to hands and hips. Denies myalgias, back pain Skin: Denies color change. Denies rash or lesions Neurological: Neuropathy, Small TIA 10/2018?, No f/u , happened in the night, 1-2 days of me dinh loss , and then resolved. Vertigo x 2 months since then.Denies history of stroke. Denie s history of seizures. Denies syncope . Hematological/Oncology . Bruises easily. Denies bleeding Denies history of cancer Endocrine: Type 2 diabetes with neuropathy, oral agents . Denies thyroid disease. Denies excessive thirst or hunger. Psychiatric/Behavioral: Situational anxiety and stress since his brother's as ongoing family squabbling about his brother's estate. Denies any history of depression or anxiety or other psychiatric illness. Vaccines: Current on 2018 flu vaccine, plans to get 2019. Current on Post [facility] pneumonia [facility]. Habits/Social : Denies history of smoking. Denies EtOH use. Drinks NO caffeine daily . De nies recreational or illicit drug use. Exercises with yard /outdoor projects and tolerates . Lives in [place]. to Kailee, who is Dr. Bo's patient. Outpatient Medications Prior to Visit Medication Sig Dispense Refill amLODIPine (NORVASC) 5 mg tablet Take 1 tablet by mouth Daily. 30 tablet 11 amLODIPine (NORVASC) 5 mg tablet apixaban (ELIQUIS) 5 mg tablet Take 1 tablet by mouth 2 (two) times daily. aspirin 81 mg chewable tablet Take 1 tablet by mouth Daily. 30 tablet 11 atorvaSTATin (LIPITOR) 80 MG tablet Take 1 tablet by mouth nightly. 30 tablet 11 furosemide (LASIX) 20 mg tablet Take 1 tablet by mouth Every other day. 90 tablet 3 glipiZIDE (GLUCOTROL XL) 10 MG 24 hr tablet Take 10 mg by mouth daily (with breakfast). glipiZIDE (GLUCOTROL) 10 MG tablet Take 10 mg by mouth 2 (two) times daily before meals . Glucose Blood (BLOOD GLUCOSE TEST STRIPS) STRP 1 each by Other route as needed for Othe r. Use as instructed losartan (COZAAR) 100 MG tablet Take 1 tablet by mouth Daily. (Patient taking different ly: Take 100 mg by mouth Daily. Takes losartan 100 mg one day , alternating with losartan 5 0 mg every other day) 30 tablet 11 metoprolol succinate (TOPROL-XL) 25 mg 24 hr tablet Take 1 tablet by mouth daily. montelukast (SINGULAIR) 10 mg tablet Take 1 tablet by mouth nightly. 30 tablet 11 nitroglycerin (NITROSTAT) 0.[address] 1 tablet under the tongue every 5 neyda karthik as needed for Chest pain. 30 tablet 11 omeprazole (PRILOSEC) 20 mg capsule Take 20 mg by mouth as needed. ONE TOUCH LANCETS [facility] ONE TOUCH ULTRA TEST strip ONETOUCH DELICA LANCETS 33G [facility] No facility-administered medications prior to visit. PHYSICAL EXAM: Wt Readings from Last 3 Encounters: 12/29/18 103.6 kg (228 lb 8 oz) 01/13/18 107.9 kg (237 lb 14.4 oz) 10/29/17 110.2 kg (243 lb) Temp Readings from Last 3 Encounters: 10/29/17 36.5 C (97.7 F) (Tympanic) 05/27/16 36.4 C (97.5 F) (Temporal) 06/08/15 36.7 C (98.1 F) (Oral) BP Readings from Last 3 Encounters: 12/29/18 106/58 01/13/18 150/60 10/29/17 134/59 Pulse Readings from Last 3 Encounters: 12/29/18 65 01/13/18 52 10/29/17 (!) 46 GENERAL: Well developed, well nourished, in no [...] abdominal aortic pulsation is not palpable. EXTREMITIES: 2+ pedal edema. Radial pulses 2+ bilaterally. Femoral [...] PROCEDURES/IMAGING Last angiogram: 05/27/2016: ( Dr. Turner, [facility] ) : Findings: Hemodynamics: LVEDP 25 mmHg. [...] hypertensive heart disease, adjust medications Angiogram: 06/06/2015: [facility]: RCA small nondominant vessel. Left main no [...] 224/80. VASCULAR TESTING AND PROCEDURES ECHO Last echo: 01/13/2018: Sinus rhythm. Technical difficult study with suboptimal views. Poor tissue Doppler signal prevents accurate assessment of diastolic function. LV normal in siz e and systolic function, RV not well visualized, mild L AE, mild MR, no MVP. No pericardial effusion EKG/EVENT MONITOR 48-hour Holter monitor: 12/01/2017: Normal sinus rhythm, average heart rate 67 bpm, range 47 -169 bpm. Atrial fibrillation 5.58% burden EK01/13/2018: Sinus bradycardia, low voltage QRS particularly to limb leads. Rate 49 bpm , KY 142 ms, QRS 86 ms, QTC 420 ms, tracing personally reviewed by me EK12/29/2018: Sinus rhythm with sinus arrhythmia rate 60 bpm, KY 186 ms, QRS 96 ms, QTC 434 [...] 2.74. Rela tive index 3.9. CK-MB negative ASSESSMENT & PLAN: He was here today with his to follow-up on symptoms of decreased activity tolerance an d fatigue. He has problems as detailed below. His EKG performed in the clinic today showed normal sinus rhythm with mild sinus arrhythm ia, and no ischemic changes when compared to previous EKG, reviewed the tracing with him and his . Lipid panel performed in September shows his lipids are well controlled on atorvastatin 80 mg, a nd his CBC was normal I discussed with him that normally I would order a stress test, likely a nuclear stress t est given his history of STEMI and stents to evaluate him for any ischemic heart disease. He informed me he did not wish to have another stress test, as he did not think that they were very accurate, as his 2 previous stress test had not shown any ischemia. I have suggested that we at least get an echo to evaluate his wall motion, and EF, even t flip his last echo was not terribly diagnostic, I will ask for Definity to be used to help better delineate his left ventricle. He is in agreement with this plan. He also has an increase in his pedal edema, which was 2+ today, and I have added furosem leana 20 mg daily with potassium 10 mEq daily which he is to take for 2 weeks, and then can go down to every other day, but can resume daily dosing if his pedal edema returns. I made no changes to his other cardiac medications, and he should continue aspirin 81 mg da aisha for his history of stents and coronary artery disease, Norvasc 5 mg nightly for hyperten evelyn, atorvastatin 80 mg for hyperlipidemia, losartan 100 mg daily alternating with 50 mg da aisha for hypertension and heart function. I have also ordered an updated CMP and CBC to be performed in 2 weeks to rule out anemia , or any electrolyte imbalance contributing to his fatigue. I have requested copies be sent to his PCP, Dr. Xavier. I will see him back in 6 weeks to follow-up on his echo, and response to my changes. He also reported symptoms of a TIA in October, which affected his memory for 2 days, but t hen resolved, and I have requested that if he has any further symptoms of TIA or stroke that he get immediate follow-up in the emergency room. He is also symptomatic for sleep apnea, and I discussed a possible referral to Dr. uNnes at the [place] [facility] for further evaluation, and they are going to thi nk about this and let me know when I see them back I 1. Coronary artery disease involving [place] coronary artery of [place] heart without angina pectoris 2. Hypertensive heart disease without heart failure 3. Essential hypertension 4. History of ST elevation myocardial infarction (STEMI) 5. S/P PTCA (percutaneous transluminal coronary angioplasty) 6. Paroxysmal atrial fibrillation (HCC) 7. Chronic renal impairment, stage 3 (moderate) (HCC) 8. Mild intermittent asthma without complication 9. Type 2 diabetes mellitus with stage 3 chronic kidney disease, without long-term current use of insulin (HCC) 10. Dyslipidemia 11. Pedal edema 12. Fatigue, unspecified type 13. Anemia, unspecified type 14. Risk factors for obstructive sleep apnea Orders Placed This Encounter Procedures Comprehensive Metabolic Panel CBC with Differential ECG 12 lead ECHO Complete The following portions of the patient's history [...] may contain inadvertent rec ognition errors. [facility] docum ented in this encounter Plan of Treatment + + +--------+ + + | Name | Type | Priori | Associated Diagnoses | Order Schedule | | | | ty | | | + + +--------+ + + | ECHO Complete | Echocardiog | Routin | Coronary artery | Expected: | | | jackie | e | disease involving | 12/29/2018, Expires: | | | | | [place] coronary | 12/30/2019 | | | | | artery of [place] | | | | | | heart without angina | | | | | | pectoris | | | | | | Hypertensive heart | | | | | | disease without | | | | | | heart failure | | | | | | History of ST | | | | | | elevation myocardial | | | | | | infarction (STEMI) | | | | | | S/P PTCA | | | | | | (percutaneous | | | | | | transluminal | | | | | | coronary | | | | | | angioplasty) | | | | | | Paroxysmal atrial | | | | | | fibrillation (HCC) | | | | | | Pedal edema | | | | | | Fatigue, unspecified | | | | | | type | | + + +--------+ + + | Comprehensive | Lab | Routin | Chronic renal | Expected: | | Metabolic Panel | | e | impairment, stage 3 | 01/12/2019, Expires: | | | | | (moderate) Type 2 | 12/30/2019 | | | | | diabetes mellitus | | | | | | with stage 3 chronic | | | | | | kidney disease, | | | | | | without long-term | | | | | | current use of | | | | | | insulin (HCC) | | + + +--------+ + + | CBC with | Lab | Routin | Anemia, | Expected: | | Differential | | e | unspecified type | 01/12/2019, Expires: | | | | | | 12/30/2019 | + + +--------+ + + documented as of this encounter Procedures + +--------+ + + + | Procedure Name | Priori | Date/Time | Associated Diagnosis | Comments | | | ty | | | | + +--------+ + + + | ECG 12 LEAD | Routin | 12/29/2018 | Coronary artery | Results for this | | | e | 1:45 PM | disease involving | procedure are in the | | | | PDT | [place] coronary | results section. | | | | | artery of [place] | | | | | | heart without angina | | | | | | pectoris | | | | | | Hypertensive heart | | | | | | disease without | | | | | | heart failure | | | | | | Essential | | | | | | hypertension | | | | | | History of ST | | | | | | elevation myocardial | | | | | | infarction (STEMI) | | | | | | S/P PTCA | | | | | | (percutaneous | | | | | | transluminal | | | | | | coronary | | | | | | angioplasty) | | | | | | Paroxysmal atrial | | | | | | fibrillation (HCC) | | | | | | Chronic renal | | | | | | impairment, stage 3 | | | | | | (moderate) (HCC) | | | | | | Mild intermittent | | | | | | asthma without | | | | | | complication Type 2 | | | | | | diabetes mellitus | | | | | | with stage 3 chronic | | | | | | kidney disease, | | | | | | without long-term | | | | | | current use of | | | | | | insulin (HCC) | | | | | | Dyslipidemia | | + +--------+ + + + | LABS - EXTERNAL SCAN | | 10/05/2018 | | Results for this | | | | 12:00 AM | | procedure are in the | | | | PDT | | results section. | + +--------+ + + + documented in this encounter Results ECG 12 lead (12/29/2018 1:45 PM PDT) + + + + + + | Component | Value | Ref Range | Performed | Pathologist | | | | | At | Signature | + + + + + + | VENTRICULAR | 60 | BPM | [facility] | | | RATE EKG | | | | | + + + + + + | ATRIAL RATE | 60 | BPM | [facility] | | + + + + + + | P-R | 186 | ms | [facility] | | | INTERVAL | | | | | + + + + + + | QRS | 96 | ms | [facility] | | | DURATION | | | | | + + + + + + | Q-T | 434 | ms | [facility] | | | INTERVAL | | | | | + + + + + + | Q-T | 434 | ms | [facility] | | | INTERVAL | | | | | | (CORRECTED) | | | | | + + + + + + | P WAVE AXIS | 54 | degrees | [facility] | | + + + + + + | QRS AXIS | 50 | degrees | [facility] | | + + + + + + | T AXIS | 101 | degrees | [facility] | | + + + + + + | INTERPRETAT | Please refer to | | [facility] | | | ION TEXT | Providers office visit | | | | | | note for Providers | | | | | | Interpretation.Confirmed | | | | | | by [facility] Read Only, | | | | | | [facility]fano ([id number]), | | | | | | continuity editor Cory Cotter | | | | | | ([id number]) on 12/29/2018 | | | | | | 4:40:49 PM | | | | + + [...] | | | + +---------+ + + LABS - EXTERNAL SCAN (10/05/2018 12:00 AM PDT) + + + | Narrative | Performed At | + + + | Ordered by an | | | unspecified provider. | | + + + documented in this encounter Visit Diagnoses + + | Diagnosis | + + | Coronary artery disease involving [place] coronary artery of [place] heart without | | angina pectoris - Primary | + + | Hypertensive heart disease without heart failure Unspecified hypertensive heart | | disease without heart failure | + + | Essential hypertension Unspecified essential hypertension | + + | History of ST elevation myocardial infarction (STEMI) Old myocardial infarction | + + | S/P PTCA (percutaneous transluminal coronary angioplasty) Postsurgical percutaneous | | transluminal coronary angioplasty status | + + | Paroxysmal atrial fibrillation (HCC) Atrial fibrillation | + + | Chronic renal impairment, stage 3 (moderate) (HCC) | + + | Mild intermittent asthma without complication Unspecified asthma | + + | Type 2 diabetes mellitus with stage 3 chronic kidney disease, without long-term | | current use of insulin (HCC) | + + | Dyslipidemia Other and unspecified hyperlipidemia | + + | Pedal edema Edema | + + | Fatigue, unspecified type | + + | Anemia, unspecified type | + + | Risk factors for obstructive sleep apnea | + + documented in this encounter
--- OUTSIDE RECORDS SUMMARY | ~2019-07-04 | XMS | Encounter Summary ---
Demographics + + + | Address | [address] | | | [place] [address] | + + + | Home Phone | | + + + | Preferred Language | Unknown | + + + | Marital Status | | + + + | Roman Catholic Affiliation | 1027 | + + [...] Team Providers + +------+ + | Care Lyric Writer Name | Role | Phone | + [...] + + | 07/01/ | Office | [facility] | Yue, Charlotte Catie, | ASHD | | 2016 | Visit | CARDIOLOGY [address] | MD [address] | (arteriosclerotic | | | | [place], | [place], [place] | heart disease) | | | | [place] [address] | [address] | (Primary Dx); | | | | [phone] | | Congestive heart | | | [...] Essential | | | | | | hypertension, | | | | | | hypertension with | | | | | | unspecified goal; | | | | | | Chronic renal | | | | | | insufficiency, | | | | | | unspecified stage; | | | | | | Renal [...] + + + | Blood Pressure | 136/72 | 07/02/2015 11:37 AM | | | | | PDT | | + + + + + | Pulse | 52 | 07/02/2015 11:37 AM | | | | | PDT | | + + + + + | Temperature | - | - | | + + + + + | Respiratory Rate | 16 | 07/02/2015 11:37 AM | | | | | PDT | | + + + + + | Oxygen Saturation | - | - | | + + + + + | Inhaled Oxygen | - | - | | | Concentration | | | | + + + + + | Weight | 112.9 kg (249 lb) | 07/02/2015 11:37 AM | | | | | PDT | | + + + + + | Height | 177.8 cm (5' 10") | 07/02/2015 11:37 AM | | | | | PDT | | + + + + + | Body Mass Index | 35.73 | 07/02/2015 11:37 AM | | | | | PDT | | + + + + + documented in this encounter Progress Notes Charlotte Turner MD - 07/02/2015 12:43 PM PDTFormatting of this note might be different fr om the original. PATIENT NAME: Raz Arce : 1945: AGE: 69 y.o. PRIMARY CARE: Ralph Xavier MD OUTPATIENT FOLLOW UP VISIT Date of Service: 07/02/2015 HISTORY OF PRESENT ILLNESS: Raz Arce is a 69 y.o. male with a history of anterior STEMI. He is being seen today for follow up. He was last seen a week ago. He took the diuretic for 2 days. He feels it improved his breathing. He feels if he had taken more than that it would have dried him out too much. 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 Essential hypertension Type 2 diabetes mellitus Diabetic neuropathy associated with type 2 diabetes mellitus Chronic renal insufficiency Mild intermittent asthma CURRENT MEDICATIONS Current Outpatient Prescriptions Medication Sig [...] ALLERGIES Allergies Allergen Reactions Meperidine ROS He feels better than before his [place] He has had one episode of arm pain on the inside of his left arm that he thinks may have be en cardiac He did not take NTG for it No bleeding OBJECTIVE: PHYSICAL EXAM BP 136/72 mmHg | Pulse 52 | Resp 16 | Ht 1.778 m (5' 10") | Wt 112.946 kg (249 lb) | BMI 35 .73 kg/m2 General appearance: no acute distress. Eyes: no icterus. Lids normal Mouth: no cyanosis. Neck: No lymphadenopathy in the neck or supraclavicular area. Good carotid upstroke. No bruits. No JVD Lungs: CTA Heart: normal sounds 2/6 Murmur no S3 Abdomen: soft. Ext: No CCE in upper or lower extremities Neuro: Awake and oriented x3 LAB RESULTS: LIPID Lab Results Component Value [...] HCT 42.9 06/24/2015 PLT 181 06/24/2015 ASSESSMENT: S/P anterior STEMI Dyspnea improved ? One episode of angina PLAN: Check BMP and BNP and decide on diuretic dose OK to return to work - just limit the number of delivery Try NTG if more arm pain Electronically signed by: Charlotte Turner MD [facility] 07/02/2015 Portions of this chart may have been created with [employer] voice recognition software. Occasi onal wrong-word or [...] | + +--------+ + + + | B TYPE NATRIURETIC | Routin | 07/02/2015 | Congestive heart | Results for this | | PEPTIDE | e | 12:08 PM | failure, unspecified | procedure are in the | | | | PDT | congestive heart | results section. | | | | | failure chronicity, | | | | | | unspecified | | | | | | congestive heart | | | | | | failure type (HCC) | | + +--------+ + + + | BASIC METABOLIC | Routin | 07/02/2015 | Congestive heart | Results for this | | PANEL | e | 12:08 PM | failure, unspecified | procedure are in the | | | | PDT | congestive heart | results section. | | | | | failure chronicity, | | | | | | unspecified | | | | | | congestive heart | | | | | | failure type (HCC) | | + +--------+ + + + documented in this encounter Results B Type Natriuretic Peptide (07/02/2015 12:08 PM PDT) + +---------+ + + + | Component | Value | Ref Range | Performed | Pathologist | | | | | At | Signature | + +---------+ + + + | BNP | 149 (H) | <100 pg/mL | [facility] | | | | | | [facility] [...] [address] | [place] | [phone] | | [facility] | | [address] | | | - LABORATORY | | | | + + + + + Basic Metabolic Panel (07/02/2015 12:08 PM PDT) + + + + + + | Component | Value | Ref Range | Performed | Pathologist | | | | | At | Signature | + + + + + + | Na | 139 | 136 - 149 | [facility] | [...] + + + + | Glucose | 165 (H) | 70 - 109 mg/dL | [facility] | | | | | | [facility] | | | | | | [facility] | | | | | | [facility] - | | | | | | LABORATORY | | + + + + + + | BUN | 13 | 7 - 18 mg/dL | [facility] | | | | | | [facility] | | | | | | [facility]ICAL | | | | | | CENTER - | | | | | | LABORATORY | | + + + + + + | Creatinine | 1.44 (H) | 0.60 - 1.30 | [facility] | | | | | mg/dL | [facility] | | | | | | MEDICAL | | | | | | CENTER - | | | | | | LABORATORY | | + + + + + + | eGFR if not | 48 (L)Comment: | >=60 | [facility] | | | | GLOMERULAR FILTRATION | mL/min/1.73m2 | [facility] | | | [place] | RATE,ESTIMATED | | MEDICAL | | | | mL/min/1.61l2Ulrx than | | CENTER - | | [...] + + + + | BUN/Creatin | 9.0 | | [facility] | | | ine [...] + | [facility] | [address] | [place], [place] | [phone] | | [facility] | | [address] | | | - LABORATORY | | | | + + + + + documented in this encounter Visit Diagnoses + + | Diagnosis | + + | ASHD (arteriosclerotic heart disease) - Primary Coronary atherosclerosis of | | unspecified type of vessel, chipewwa or graft | + + | Congestive heart failure, unspecified congestive heart failure chronicity, unspecified | | congestive heart failure type | + + | Essential hypertension, hypertension with unspecified goal | + + | Chronic renal insufficiency, unspecified stage | + + | Renal insufficiency Unspecified disorder of kidney and ureter | + + documented in this encounter
--- OUTSIDE RECORDS SUMMARY | ~2019-07-04 | XMS | Encounter Summary ---
Demographics + + + | Address | [address] | | | [place] [address] | + + + | Home Phone [...] Team Providers + +------+ + | Care Clerical Stock Inspector Name | Role | Phone | + [...] + | 07/01/ | Office | [facility] | Yue, Charlotte Catie, | ASHD | | 2016 | Visit | CARDIOLOGY [address] | MD [address] | (arteriosclerotic | | | | [place], | [place], [place] | heart disease) | | | | [place] [address] | [address] | (Primary Dx); | | | | [phone] | | Congestive heart | | | [...] ROS He feels better than before his [place] He has had one episode of arm [...] pain Electronically signed by: Charlotte Turner MD [facility] 07/02/2015 Portions of this chart may have been created with [employer]AK voice recognition software. Occasi onal wrong-word or [...] [address] | [place] | [phone] | | [facility] | | [address] | | | - LABORATORY | | [...] 13 | 7 - 18 mg/dL | [facility] | | | | | | ST. [...] not | 48 (L)Comment: | >=60 | [facility] | | | | GLOMERULAR FILTRATION | mL/min/1.73m2 | [facility] | | | [place] | RATE,ESTIMATED | | MEDICAL | | | | mL/min/1.64v7Owfu than | | CENTER - | | [...] + | [facility] | [address] | [place], [place] | [phone] | | [facility] | | [address] | | | - LABORATORY | | | | + + + + + documented in this encounter Visit Diagnoses + + | Diagnosis | + + | ASHD (arteriosclerotic heart disease) - Primary Coronary atherosclerosis of | | unspecified type of vessel, solomon or graft | + + | Congestive [...]
--- OUTSIDE RECORDS SUMMARY | ~2019-07-04 | XMS | Encounter Summary ---
Demographics + + + | Address | [address] | | | [place] [address] | + + + | Home Phone | | + + + | Preferred Language | Unknown | + + + | Marital Status | | + + + | Christian Affiliation | 1027 | + + + | Race | Unknown | + + + | Ethnic Group | Unknown | + + + Author + + + | Author | [facility] | | | and [place] | + + + | Organization | [facility] | | | [...] Team Providers + +------+ + | Care Home Economics Expert Name | Role | Phone | + [...] | | | | | artery | COMPONENT LAB TECH [address] | | | | | disease | [address] | [place], [place] | | | | | involving | [place] | [address] | | | | | [place] | [place], [place] | Phone: | | | | | coronary | [address] | [phone] | | | | | artery of | Phone: | Fax: | | | | | [place] heart | [phone] | [phone] | | | | | without | Fax: | | | | | | angina | [phone] | | | | | | pectoris [...] + + | 12/29/ | Office | [facility] | Kristen Luke | Coronary artery | | 2019 | Visit | CARDIOLOGY [place] | [address] | disease involving | | | | [address] | [place] | [place] coronary | | | | [address] | [place] [address] | artery of [place] | | | | [place] | [phone] | heart without angina | | | | [address] | | pectoris (Primary | | | | [phone] | | Dx); Hypertensive | | | [...] non fasting labs to be done at [facility] and also ordered you an Echo to be done at [facility] I made These changes to medications : [...] and ezio ated by Dr. Turner at [facility] in [place]. Today, I reviewed all previous documentation available [...] was seen in the emergency room at [facility] on October 29, 2017 , and [...] get 2019. Current on Post 65 pneumonia [facility]. Habits/Social : Denies history of smoking. Denies EtOH use. Drinks NO caffeine daily . De nies recreational or illicit drug use. Exercises with yard /outdoor projects and tolerates . Lives in [place]. to Kailee, who is Dr. Bo's patient. [...] by mouth as needed. ONE TOUCH LANCETS [facility] ONE TOUCH ULTRA TEST strip ONETOUCH DELICA LANCETS 33G [facility] No facility-administered medications prior to visit. PHYSICAL [...] PROCEDURES/IMAGING Last angiogram: 05/27/2016: ( Dr. Turner, [facility] ) : Findings: Hemodynamics: LVEDP 25 [...] hypertensive heart disease, adjust medications Angiogram: 06/06/2015: [facility]: RCA small nondominant vessel. Left main [...] to limb leads. Rate 49 bpm , HI 142 ms, QRS 86 ms, QTC 420 ms, tracing personally reviewed by me EK12/29/2018: Sinus rhythm with sinus arrhythmia rate 60 bpm, HI 186 ms, QRS 96 ms, QTC 434 [...] possible referral to Dr. Nunes at the [place] [facility] for further evaluation, and they are going to thi nk about this and let me know when I see them back I 1. Coronary artery disease involving [place] coronary artery of [place] heart without angina pectoris 2. Hypertensive heart [...] may contain inadvertent rec ognition errors. [facility]2018 docum ented in this [...] 12/29/2018, Expires: | | | | | [place] coronary | 12/30/2019 | | | | | artery of [place] | | | | | | heart [...] the | | | | PDT | [place] coronary | results section. | | | | | artery of [place] | | | | | | heart [...] | | | | | by [employer] Read Only, | | | | | | [employer] Stefano ([id number]), | | | | | | editor trade journal Cory Cotter | | | | | | ([id number]) on 12/29/2018 | | | | | [...] + + | Coronary artery disease involving [place] coronary artery of [place] heart without | | angina pectoris - [...]
[~2019-07-04 10:31] MED LIST: ATORVASTATIN CA80 MG PO; CRUTCH1 EACH MISC; EFFIENT10 MG PO; GLIPIZIDE ER10 MG PO; LOSARTAN POTAS100 MG PO; MONTELUKAST SOD10 MG PO; NITROSTAT0.4 MG SL; PANTOPRAZOLE SO20 MG PO; TORSEMIDE10 MG PO
[2019-07-04] MEDS ORDERED: AMLODIPINE BESY10 MG PO (10:48)
[2019-07-04] MEDS ORDERED: ASPIR 8181 MG PO (10:49)
--- NOTE | 2019-07-04 12:01 | EKG ---
[facility] [address] [facility] [place], [place] [address] Signed Normal sinus rhythm with sinus arrhythmia Septal infarct , age undetermined Abnormal ECG No previous ECGs available Confirmed by DUONG ALEX MD ([id number]) on 07/04/2019 12:01:11 PM Electronically Signed By: DUONG ALEX MD 07/04/19 1201 PATIENT NAME: HUSSEIN GARCIA Electrocardiogram DATE OF : 41 PHYSICIAN: DUONG ALEX MD REPORT #: [id number] REPORT IS CONFIDENTIAL AND NOT TO BE RELEASED WITHOUT AUTHORIZATION
== END 2019-07-04 13:05 | disposition home or self-care (01) ==
LOC: ED 10:31
DX: R53.1 Weakness (principal); I11.0 Hypertensive heart disease with heart failure; J45.909 Unspecified asthma, uncomplicated; E11.9 Type 2 diabetes mellitus without complications; E78.00 Pure hypercholesterolemia, unspecified; I25.2 Old myocardial infarction; Z79.899 Other long term (current) drug therapy
CPT/HCPCS: 80053; 81001; 84484; 85025; 93005; 93010; 99285-25

== ENCOUNTER 2020-06-28 03:52 | Emergency (ER) | payer MEDICARE, OTHER ==
[~2020-06-28] VITALS: Ht 177.8 cm; Wt 90.7 kg
[~2020-06-28 03:52] MED LIST changes: +AMLODIPINE BESY10 MG PO; +ASPIR 8181 MG PO; +METOPROLOL SUCC25 MG PO
[2020-06-28] MEDS ORDERED: POTASSIUM CHLO10 ME1 PO (04:11)
[2020-06-28] MEDS ORDERED: METOPROLOL SUCC50 MG PO (04:11)
[2020-06-28] MEDS ORDERED: FUROSEMIDE20 MG PO (04:11)
== END 2020-06-28 07:21 | disposition home or self-care (01) ==
LOC: ED 03:52
DX: K63.89 Other specified diseases of intestine (principal); I10 Essential (primary) hypertension; J45.909 Unspecified asthma, uncomplicated; E11.9 Type 2 diabetes mellitus without complications; E78.00 Pure hypercholesterolemia, unspecified; I25.2 Old myocardial infarction; Z88.8 Allergy status to other drugs, medicaments and biological substances; Z79.899 Other long term (current) drug therapy; Z79.82 Long term (current) use of aspirin
CPT/HCPCS: 51798; 74177; 76705; 80053; 81001; 83690; 85025; 99284-25; J2405; Q9967

== ENCOUNTER 2020-07-10 23:33 | Inpatient (IN) | payer MEDICARE, OTHER ==
[~2020-07-10] VITALS: Ht 177.8 cm; Wt 101.0 kg
[~2020-07-10 23:33] MED LIST changes: +METOPROLOL SUCC50 MG PO; +POTASSIUM CHLO10 ME1 PO
--- OUTSIDE RECORDS SUMMARY | 2020-07-10 23:38 | XMS ---
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 Kamryn has no Care Guidelines for this patient. Nora VISIT COUNT (12 MO.) 3 [facility]. TOTAL 3 NOTE: Visits indicate total known visits. ED/UCC VISIT TRACKING (12 MO.) 07/10/2020 23:[address] [facility] 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 - Other specified diseases of intestine - Lower abdominal pain, unspecified - Unspecified asthma, uncomplicated - Allergy status to other drugs, medicaments and biological substances - Essential (primary) hypertension 12/21/2019 21:10 [facility] [place] TYPE: Emergency COMPLAINT: - LT MIDDLE FINGER INJURY DIAGNOSES: - Type 2 diabetes mellitus without complications - 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
--- NOTE | 2020-07-11 02:53 | NUR ---
COMPLETED ASSESSMENT. PT REPORTS MILD PAIN AT 2/10 AND AVOIDS NEED FOR PAIN MEDS. HE HAS NS INFUSING AT 125MLS/HR. WHEN PT ARRIVED HE WAS ABLE TO MOVE HIMSELF OVER TO BED SBA. HE ALSO USED RESTROOM SBA AND UA SAMPLE WAS SENT. PT DENIES DIZZINESS AT THIS TIME AND STATES HE HAD AND ELEVATED HR IN ER BUT IT IS NOW WNL. PT HAS ICEWATER AT BEDSIDE AND HAS CALL LIGHT CLOSE. PT DENIES FURTHER NEEDS.
--- NOTE | 2020-07-11 03:50 | NUR ---
PT UP TO VOID, SBA WITH IV POLE, PT BACK TO BED, JELLO PROVIDED AT THIS TIME, NO FURTHER NEEDS
--- NOTE | 2020-07-11 04:58 | NUR ---
PT IS RESTING WITH EYES CLOSED, RR IS EVEN AND NONLABORED. CALL LIGHT IS CLOSE AND IV IS INFUSING FINE.
--- NOTE | 2020-07-11 05:40 | NUR ---
PT IS AWAKE GETTING LAB DRAW. HE DENIES PAIN AND NAUSEA AT THIS TIME. HE STATES HE IS ALREADY FEELING BETTER THAN LAST NIGHT AND HAS PASSED SOME GAS THIS AM. PT DENIES NEEDS AT THIS TIME. CALL LIGHT IS CLOSE.
--- NOTE | 2020-07-11 06:02 | NUR ---
ASSISTED PT TO THE RESTROOM. VS AND I&O'S ENTERED. PT DENIES FURTHER NEEDS AT HIS TIME. CALL LIGHT IS CLOSE.
--- NOTE | 2020-07-11 09:15 | NUR ---
REPORT RECEIVED FROM NIGHT RN AND PT. CARE RESUMED. PT. IS ALERT AND ORIENTED. HE REPORTS MILD ABD. TENDERNESS IN RUQ AND FULL FEELING IN LLQ. BOWEL TONES ACTIVE. DENIES DIZZINESS. AMBULATES WITH SBA. IV WNL AND FLUSHES. LUNGS CLEAR. PT. HAS RAISED BUMP IN ABD. WHEN ASKED IF HE HAS A HERNIA HE STATES HE WAS TOLD THE RAISED AREA IS NOT A HERNIA, BUT HAS A LOWER HERNIA NEAR UMBILICUS. DISCUSSED POC. PLACED ON TELEMETRY #10. HE REFUSED SCD'S AND THEY ARE LEFT AT BEDSIDE. PT. LEFT RESTING IN BED WITH CALL LIGHT IN REACH.
[2020-07-11] MEDS ORDERED: FUROSEMIDE20 MG PO (10:09)
--- NOTE | 2020-07-11 10:10 | NUR ---
MED REC COMPLETE
--- NOTE | 2020-07-11 11:34 | NUR ---
PT. AMBULATED INDEPENDENTLY TO BATHROOM AND TOLERATED WELL. HAD A MEDIUM BM THAT WAS DARK BLACK WITH BLOOD CLOTS APROX. QUARTER SIZE. PT. DRINKING BOWEL PREP. DENIES PAIN. DISCUSSED SAFETY AND BOWEL PREP. LEFT SITTING EOB WITH CALL LIGHT IN REACH.
--- NOTE | 2020-07-11 14:45 | NUR ---
Pt lives with at his daughter, Kailee's home. He does not use any DME. States he is well off financially. Plans on dc to home fol- lowing scope.
--- NOTE | 2020-07-11 17:56 | NUR ---
PT. IS HERE FOR A GI BLEED. SCHEDULED FOR A SCOPE TOMORROW. FINISHED BOWEL PREP AND ON A CLEAR DIET. NPO AFTER MIDNIGHT. IV HAS 125/HR OF LR RUNNING. PT. AMBULATES INDEPENDENTLY TO THE BATHROOM AND UNPLUGS IV. ALERT AND ORIENTED. NO BLOOD NOTICED IN STOOL SINCE 0900 TODAY. HE HAS A PACEMAKER PLACED 06/26 ON LT. CHEST. HR HAS BEEN CONTROLLED THIS SHIFT AND TELE DC'D. LUNGS CLEAR AND BOWEL TONES HYPERACTIVE.
--- NOTE | 2020-07-11 19:41 | NUR ---
RECEIVED REPORT FROM DAY SHIFT RN. PATIENT IS RESTING IN BED TALKING ON THE PHONE. NO NEEDS NOTED. CALL LIGHT IN REACH.
--- NOTE | 2020-07-11 19:44 | NUR ---
PT CALLED TO LET US KNOW HE WAS GETING UP TO THE TOILET, PT INDP WITH IV POLE,
--- NOTE | 2020-07-11 19:58 | NUR ---
IN TO GET VITALS, PT RECENTLY BACK FROM THE BATHROOM FOR A BM, NO FURHTER NEEDS AT THIS TIME, RN IN RM
--- NOTE | 2020-07-11 20:10 | NUR ---
ASSESMENT COMPLETED. VITALS TAKEN AND RECORDED. INTAKE AND OUPUT RECORDED. PATIENT DENIES ANY PAIN OR NAUSEA. EVENING MEDICATIONS GIVEN PER ORDER. IV INFUSING PER ORDER. BOWEL TONES ACTIVE. ABD MILDLY DISTENDED. NO FURTHER NEEDS NOTED. CALL LIGHT AND BELONGINGS WITHIN REACH.
--- NOTE | 2020-07-11 22:17 | NUR ---
PATIENT IS RESTING IN BED WITH EYES CLOSED, RR 17. CALL LIGHT IN REACH.
--- NOTE | 2020-07-12 | NUR ---
PT IS NOW NPO STATUS
--- NOTE | 2020-07-12 00:37 | NUR ---
PATIENT IS IN BED RESTING. PATIENT IS NOW NPO. PATIENT EDUCATED ON CHANGE IN DIET. PATIENT DENIES PAIN OR NASUEA. NO NEEDS NOTED. IV INFUSING. CALL LIGHT IN REACH.
--- NOTE | 2020-07-12 02:59 | NUR ---
PATIENTS IV PUMP WAS BEEPING. NEW IV BAG HUNG. PATIENT IS RESTING IN BED. PATIENT DENIES ANY PAIN OR NAUSEA. NO NEEDS NOTED. CALL LIGHT IN REACH.
--- NOTE | 2020-07-12 05:20 | NUR ---
VITALS TAKEN AND RECORDED. INTAKE AND OUTPUT RECORDED. PATIENT DENIES ANY PAIN OR NAUSEA. IV INFUSING PER ORDER. CALL LIGHT IN REACH.
--- NOTE | 2020-07-12 06:44 | NUR ---
PATIENT OFF THE FLOOR TO SURGERY DEPT.
--- NOTE | 2020-07-12 08:24 | NUR ---
07/12/20 0824 BrendaHayley Thalia 0819: PT ARRIVES TO PACU VIA STRETCHER FOR RECOVERY. ARRIVES ON 10L VIA FACEMASK. OPA IN PLACE. VSS, SATS >98% 0821: PT BEGINS TO GAG AND OPA REMOVED. OXYGEN TURNED DOWN TO 4L VIA FACEMASK. VSS REMAINS STABLE AND 02 SATS REMAINS >98%.PT REMAINS DROWSY BUT IS REACTIVE TO VERBAL STIMULUS
--- NOTE | 2020-07-12 08:38 | NUR ---
CONNECTED WITH PT IN DAYSURGERY AWAITING SCOPE. PT IS ALERT, ORIENTED AND EXPRESSED GRATITUDE THAT HIS SCOPE IS FIRST. PT IS IN GOOD SPIRITS, ALL QUESTIONS ASKED ANSWERED. PT REQUESTED PRAYER, WILL FOLLOW
--- NOTE | 2020-07-12 09:45 | NUR ---
PT. RETURNED FROM PACU VIA STRETCHER. REPORT RECEIVED FROM RN AT BEDSIDE. PT. DENIES PAIN, BUT HAS RLQ TENDERNESS WITH PALP. HE IS ALERT AND ORIENTED. IVF RESTARTED. IV SITE WNL AND FLUSHES WELL. BLOOD GLUCOSE CHECKED IN PACU AND WAS 126. LUNGS CLEAR. NO EDEMA PRESENT. PT. TOLERATING CLEAR FLUIDS. VITALS STABLE.
--- NOTE | 2020-07-12 09:53 | NUR ---
THIS RN INTO ROOM TO ASSESS PATIENT. PATIENT AWAKENED TO VOICE. PATIENT IS ABLE TO ANSWER LIMITED QUESTIONS AT THIS TIME. PATIENT STATES HE LIVES BY HIMSELF, HAS NO INSURANCE AND NO PCP AT THIS TIME. PATIENT UNABLE TO ANSWER OTHER QUESTIONS AT THIS TIME. PATIENT APPEARS TO DRIFT IN AND OUT OF SLEEP. WILL FOLLOW UP WITH PATIENT.
--- NOTE | 2020-07-12 10:06 | NUR ---
MORNING MEDS. GIVEN. PT. IS PASSING GAS AND BOWEL TONES ACTIVE. HE REPORTS FEELING BLOATED BUT DENIES PAIN. VOIDED 200ML CLEAR YELLOW URINE.
--- NOTE | 2020-07-12 11:25 | NUR ---
PT. RESTING IN BED. VOIDING WELL. DENIES PAIN AND STATES HE IS PASSING A LOT OF GAS. HE IS ANXIOUS ABOUT SPEAKING WITH MD. BOWEL TONES ACTIVE.
--- NOTE | 2020-07-12 11:56 | NUR ---
PT BACK IN RM FOLLOWING SCOPE. DOING OK, THANKED ME FOR STOPPING BY. WILL CONTINUE TO FOLLOW
--- NOTE | 2020-07-12 18:04 | NUR ---
PATIENT IS HERE FOR A GI BLEED. SURGERY SCHEDULED FOR TOMORROW FOR CHOLECYSTECTOMY AND REMOVAL OF LEFT COLON MASS. PT. IS CLEAR DIET UNTIL MIDNIGHT. RESTART IVF AT MIDNIGHT AT 75ML/HR. PT. AMBULATES INDEPENDENTLY IN THE ROOM. VOIDING Q.S. AND SEVERAL LOOSE, BLOODY BM. DENIES PAIN THIS SHIFT.
--- NOTE | 2020-07-12 19:10 | NUR ---
SHIFT REPORT RECEIVED FROM DAYSHIFT ROMAN PANTOJA AT BEDSIDE. pt AWAKE AND VISITNG IN ROOM. INDEPENDENT IN ROOM. BOARD UPDATED, DENIES NEEDS. IV SITE WNL, SALINE LOCKED. CALL LIGHT IN REACH.
--- NOTE | 2020-07-12 19:15 | NUR ---
PATIENT HAD HIS COLONOSTOMY. I DID ASK HIM IF HE WOULD LIKE TO TAKE A SHOWER AND HE SAID NO STILL MAKING TO MANY TRIPS TO BATHROOM. BUT I DID CHANGE HIS LINENS THIS MORING.
--- NOTE | 2020-07-12 20:45 | NUR ---
IN TO GET VITALS, ICE WATER FILLED, PT JUST BACK FROM THE TOILET, NO FURTHER NEEDS
--- NOTE | 2020-07-12 20:48 | NUR ---
ASSESSMENT COMPLETE, SCHEDULED MEDS GIVEN (SEE EMAR). pt A/OX4, INDEPENDENT IN ROOM. VSS, I&O'S ALSO DONE. pt DENIES PAIN AND NAUSEA. BOWEL TONES ACTIVE, ABD TENDER. NO ADDITIONAL NEEDS VERBALIZED, CALL LIGHT IN REACH.
--- NOTE | 2020-07-12 23:35 | NUR ---
SCHEDULED PO ABX GIVEN, SEE EMAR. IV FLUIDS ALSO STARTED AT THIS TIME, IV SITE WNL, FLUSHES EASILY. PER SHIFT REPORT, pt TO BE NPO AT MIDNIGHT AND HAVE IV FLUIDS STARTED AT THAT TIME. pt MADE NPO, ORDERS UPDATED. WARM BLANKETS ALSO GIVEN. NO FURTHER NEEDS, CALL LIGHT IN REACH.
--- NOTE | 2020-07-13 02:33 | NUR ---
pt RESTING IN BED WITH EYES CLOSED, RR EVEN AND UNLABORED, NO DISTRESS NOTED. IV SITE REMAINS WNL, CALL LIGHT IN REACH.
--- NOTE | 2020-07-13 05:29 | NUR ---
VS AND I&O'S COMPLETE. ASSESSMENT COMPLETE, NO NEW CAHNGES OR CONCERNS. IV SITE WNL, FLUIDS INFUSING PER MD ORDERS. LR PRIMED WITH STRAIGHT TUBING, PRE-OP [place] AND NEW GOWN/BED LINENS ALSO COMPLETE. CALL LIGHT IN REACH.
--- NOTE | 2020-07-13 09:00 | NUR ---
REPORT RECEIVED FROM NIGHT RN AND PT. CARE RESUMED. PT. IS ALERT AND ORIENTED, SITTING UP TO EOB. BLOOD GLUCOSE WAS 119 AND NO HUMALOG ADMIN. LUNGS CLEAR THROUGHOUT. IV SITE FLUSHES WELL AND WNL. ABD. TENDER WITH PALP. IN RUQ. BOWEL TONES ACTIVE. PT. AMBULATING IND. IN ROOM. ON R.A. AND O2 SAT. IS 99%. PT. LEFT RESTING IN BED WITH CALL LIGHT IN REACH.
--- NOTE | 2020-07-13 09:06 | NUR ---
PATIENT UP IN CHAIR. ATE BREAKFAST. REFUSED LINEN CHANGE CALL CENTER SUPPORT CONSULTANT MADE BED. REFREHED WATER. OFFERED SHOWER THIS CALL CENTER SUPPORT CONSULTANT PREPARE PATIENT FOR SHOWER IF HE CHOOSES TOO.
--- NOTE | 2020-07-13 10:28 | NUR ---
LEG SCD'S CHANGED TO FOOT SCD'S PER PATIENT HE STATES HE HAD A PRIOR DIABETIC ULCER ON HIS [place] AND IS HAVING SOME REDNESS AFTER WEARING THE CALF SCD'S, DR. SANDHU INFORMED AND PHANI'Deborah.
--- NOTE | 2020-07-13 14:22 | NUR ---
07/13/20 1422 GHANSHYAM FRANKS 1403 PATIENT INTO PACU NEEDING JAW THRUST WITH AIRWAY. SECOND AIRWAY TUBE PLACED TO IMPROVE BREATHING. PATIENT APPEARS TO BE BREATHING EVEN AND SHALLOW. NOTED BREATH FOG IN MASK. ABDOMEN SOFT. MONISHA DRAIN HAS BRIGHT RED DRAINAGE. MARY IN PLACE. MIDLINE DRESSING IN PLACE C/D/I. 1420 PATIENT CONTINUES TO NEED SUPPORT WITH ORAL AIRWAY, REPOSITIONING NEEDED AND PROVIDED SUPPORT WITH OBSTRUCTION. PATIENT VSS STABLE. ABDOMEN SOFT.
--- NOTE | 2020-07-13 16:02 | OR ---
[facility] [address], [place] [address] Signed DATE OF OPERATION: 07/12/2020 SURGEON: Kisha Sandhu MD PREOPERATIVE DIAGNOSES: 1. Hematochezia with recent hospital admission; CT scan finding of lesion of mid descending colon. 2. Symptomatic gallstones. 3. Recent history of pacemaker placement, underlying cardiovascular disease. 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 PROCEDURE: Colonoscopy beyond hepatic flexure with biopsies of lesion. ANESTHESIA: Intravenous sedation propofol infusion, Kisha Holloway CRNA. INDICATIONS: This 74-year-old white male was admitted to the hospital by Dr. Joe on July 10, 2020. He presented to the emergency room with hematochezia. Preceding this, he had undergone a CT scan after emergency room evaluation at [facility] for left lower abdominal pain. CT scan had shown a concentric lesion in the mid descending colon. The patient sees Dr. Xavier for his primary care. He is also known to have symptomatic gallstones; I saw him several months ago, anticipating cholecystectomy for symptomatic gallstones, but he needed a cardiac evaluation at that time for numerous reasons. This did ultimately occur and he underwent pacemaker placement for tachy-joanie syndrome. He is doing well from a cardiovascular standpoint. Given his recent CT scan, a plan had been made to provide colonoscopy and if neoplasm identified, concurrent colectomy and cholecystectomy. His recent hospitalization has pushed things forward due to the hematochezia. Notably, his hematocrit is 35.7, admission hematocrit 39.7. He understands the risks of bleeding, infection, and perforation related to colonoscopy and wished to proceed. FINDINGS: Electronically Signed By: KISHA SANDHU MD 07/13/20 1602 PATIENT NAME: HUSSEIN GARCIA OPERATIVE REPORT DATE OF : 41 REPORT #: [id number] PHYSICIAN: KISHA SANDHU MD PCP: WALDO XAVIER MD REPORT IS CONFIDENTIAL AND NOT TO BE RELEASED WITHOUT AUTHORIZATION [facility] [address], [place] [address] Signed Indeed, there was a near obstructing lesion in the mid descending colon as suspected. A conventional colonoscope was not passed through to a more proximal level and on that basis, a video upper endoscope was used. This certainly did pass the lesion with some amount of manipulation and it was passed as far as possible beyond hepatic flexure, but true intubation of the cecum could not be assured all in relation to the length of the scope itself. Multiple biopsies were taken of the lesion, although there was absolutely no chance that this represents anything as a malignant neoplasm. Notably, there was no evidence of lesion distal to the mid descending colon, specifically no rectal cancer. He did have some internal hemorrhoids. DESCRIPTION OF PROCEDURE: The patient was brought to the endoscopy suite and placed in lateral decubitus position, given intravenous sedation with propofol infusional technique by the utility sales and service manager with full cardiopulmonary monitoring. Digital rectal examination was normal. The Olympus video colonoscope was passed in the rectum and manipulated throughout the colon encountering a lesion that was difficult, but 1st to characterize and pass in the mid descending colon. With various manipulations, it was clear that this represented a nearly obstructing neoplasm. Visualization of the lumen could be made, but it was very narrow spot. The usual techniques were used to carefully pass beyond this, but it simply would not accommodate the diameter of the colonoscope. Biopsies were obtained and the scope was then withdrawn. The distal colon was normal including the rectum. Mindful of uncertainty regarding the more proximal colon, an upper endoscope was then passed into the rectum and manipulated to the site of obstruction or near obstruction and with careful manipulation passed through the site into the more proximal colon, which did appear well prepped. The scope was advanced as far as possible, given the limitations of the length of the scope passing beyond the hepatic flexure visualizing the right colon. The scope was carefully withdrawn. There were no lesions identified except in the area of the mid descending colon where additional biopsies were obtained. The scope was withdrawn further confirming no distal lesions. The patient's scope was removed and the patient was taken to recovery room in good condition. CONCLUDING DIAGNOSIS: Nearly obstructing lesion of left colon, consistent with colon cancer. Proximal colon appears normal as does the distal colon and the rectum. PLAN: The patient needs to have left colectomy. Concurrent cholecystectomy obviously. I will review with the hospitalist logistical plan to accommodate this. Electronically Signed By: KISHA SANDHU MD 07/13/20 1602 PATIENT NAME: HUSSEIN GARCIA OPERATIVE REPORT DATE OF : 41 REPORT #: [id number] PHYSICIAN: KISHA SANDHU MD PCP: WALDO XAVIER MD REPORT IS CONFIDENTIAL AND NOT TO BE RELEASED WITHOUT AUTHORIZATION [facility] [address] [place] [id number] Signed MD LAURIE Brito/ANGÉLICAL /[id number] cc: MD Waldo Shoemaker MD Cynthia Rasch, MD Copies: DUONG ALEX MD, RUSSELL BARR MD RASCH, CYNTHIA MD ~ Electronically Signed By: KISHA SANDHU MD 07/13/20 1602 PATIENT NAME: HUSSEIN GARCIA OPERATIVE REPORT DATE OF : 41 REPORT #: [id number] PHYSICIAN: KISHA SANDHU MD PCP: WALDO XAVIER MD REPORT IS CONFIDENTIAL AND NOT TO BE RELEASED WITHOUT AUTHORIZATION
--- NOTE | 2020-07-13 16:02 | CONS ---
[facility] [address], [place] [address] Signed DATE OF CONSULTATION: 07/11/2020 CONSULTING PHYSICIAN: Kisha Sandhu MD REQUESTING PHYSICIAN: Dr. Mitchell. PROBLEM: Hematochezia. HISTORY OF PRESENT ILLNESS: This 74-year-old white man was seen by me on June 04, [address] Waldo Xavier regarding probable symptomatic gallstones. The patient had symptoms of typical biliary colic including epigastric and right subcostal pain and ultrasound had shown small gallstones. The patient had concurrent problems of exertional angina and had Holter monitoring prior to that time. Additionally, he is noted to have underlying atrial fibrillation for which he had taken aspirin and no other anticoagulant and coronary stenting in 2016. The patient had been resistant to formal Cardiology evaluation from notes I have reviewed from my office and this was noted also by Dr. Xavier. Ultimately, he did undergo additional evaluation which culminated additional Holter monitoring and ultimately placement of a pacemaker. 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 MEDICATIONS: His medications at the time of recent admission include: 1. Aspirin. 2. Atorvastatin. 3. Lasix. 4. Glipizide. 5. Losartan. 6. Metoprolol. 7. Montelukast. 8. Potassium chloride. He is not on any formal anticoagulant specifically not any thrombin inhibitors. He had anticipated scheduling for cholecystectomy and we had noted that his cardiac situation had in general been stabilized, but he additionally underwent a CT scan on June 28 after emergency room visit and under the direction of Dr. Negron for complaints of lower abdominal and pelvic pain and urinary difficulty. Concern was made Electronically Signed By: KISHA SANDHU MD 07/13/20 1602 PATIENT NAME: HUSSEIN GARCIA CONSULTATION DATE OF : 41 REPORT #: [id number] PHYSICIAN: KISHA SANDHU MD PCP: WALDO XAVIER MD REPORT IS CONFIDENTIAL AND NOT TO BE RELEASED WITHOUT AUTHORIZATION [facility] [address] [place], [place] [address] Signed at that time for possible diverticulitis. There was no evidence of acute diverticulitis, but he did have a 6 cm length of descending colon with thickened wall and mild adjacent fat stranding and this was suspicious actually for neoplasm. On that basis, colonoscopy was recommended. My office has been in contact with him over the past several days, anticipating organizing a colonoscopy. I had directed that colonoscopy be performed 1st should neoplasm be identified in which case colectomy would be considered as well as concurrent cholecystectomy, which had been the initial reason for referral. The patient has had no blood per rectum since Wednesday (today is ) and although found to have a normal hematocrit of 39.7. He was seen in the emergency room yesterday and admitted under the direction of Dr. Joe for that reason. Hematocrit today is noted to be 36.2. His coag studies are normal with an INR of 1.0 and a PTT of 28.7. Urinalysis was essentially normal and COVID serology negative. The patient has already been started on a MiraLAX bowel prep anticipating colonoscopy during this hospitalization. Currently, the patient is feeling reasonably well. He denies any severe abdominal pain, though he has had episodic right upper abdominal pain from time to time. He does not have left-sided lower abdominal pain at this time. He has initiated his MiraLAX bowel prep this morning as well. PAST MEDICAL HISTORY: Does include diabetes as described, history of coronary stenting, and of course recent placement of pacemaker device. He has underlying history of angina pectoris and atrial fibrillation. FAMILY HISTORY: Significant for melanoma and prostate cancer. No family history of colon cancer. The patient does not smoke. PAST SURGICAL HISTORY: Includes cardiac stenting in 2015, partial rib excision in 1981, shoulder operation 1981, myocardial infarction self described in May of 2015, reactive airways and hypertension. Also, he was noted to have sleep apnea and glaucoma. REVIEW OF SYSTEMS: He has no complaints of chest pain or shortness of breath or dyspnea. He is not currently bothered by left lower abdominal pain nor current complaint of right upper quadrant pain. Electronically Signed By: KISHA SANDHU MD 07/13/20 1602 PATIENT NAME: HUSSEIN GARCIA CONSULTATION DATE OF : 41 REPORT #: [id number] PHYSICIAN: KISHA SANDHU MD PCP: WALDO XAVIER MD REPORT IS CONFIDENTIAL AND NOT TO BE RELEASED WITHOUT AUTHORIZATION [facility] [address], [place] [address] Signed SOCIAL HISTORY: The patient lives in [place]. He is and well retired. PHYSICAL EXAMINATION: GENERAL: Relatively large white man who looks to be in no acute distress at this time. He is alert and oriented. No sign of systemic toxicity. No sign of diaphoresis. HEENT: Trachea is midline. CHEST: Clear. HEART: Regular without murmur. ABDOMEN: Obese but generally soft. There is no focal mass or tenderness at this time. He has no ascites. EXTREMITIES: Show no clubbing, cyanosis, or edema. LAB STUDIES: Are as previously described. Most notably, hematocrit this morning 36.2, white count is 7.0, platelet count 220,000. Urinalysis normal. Chem profile with a creatinine elevated at 1.32, globulin 3.6. Liver enzymes normal. ASSESSMENT: I have reviewed the CT scan again today and the gallstones seen before are small and minimal and not associated with edematous gallbladder wall or anything of that sort. The area of thickening which is circumferential in the mid descending colon is highly suggestive of neoplasm. A bowel prep has been initiated today. We will anticipate colonoscopy with assistance for IV sedation tomorrow. The patient has significant past cardiac history, but now has a pacemaker for which a good clinical result appears likely. If colonoscopy should confirm neoplasm of the left colon, multiple biopsies will be obtained. Proximal evaluation of colon is appropriate as well to assess for concurrent lesions. If malignancy is identified, then colectomy would be offered and concurrent cholecystectomy undertaken at that point. The patient has no evidence of acute cholecystitis or acute obstruction of the colon and his bleeding though persistent has been small volume enough that he has maintained a reasonable hematocrit at this time. We discussed all this in detail. He understands and agrees to our plan. MD LAURIE Brito/SENIA /[id number] Electronically Signed By: KISHA SANDHU MD 07/13/20 3530 PATIENT NAME: HUSSEIN GARCIA CONSULTATION DATE OF : 41 REPORT #: [id number] PHYSICIAN: KISHA SANDHU MD PCP: WALDO XAVIER MD REPORT IS CONFIDENTIAL AND NOT TO BE RELEASED WITHOUT AUTHORIZATION [facility] [address] [facility] [place], [place] [address] Signed cc: MD Zainab Smith MD Copies: WALDO XAVIER MD, CYNTHIA MD ~ Electronically Signed By: KISHA SANDHU MD 07/13/20 1602 PATIENT NAME: HUSSEIN GARCIA CONSULTATION DATE OF : 41 REPORT #: [id number] PHYSICIAN: KISHA SANDUH MD PCP: WALDO XAVIER MD REPORT IS CONFIDENTIAL AND NOT TO BE RELEASED WITHOUT AUTHORIZATION
--- NOTE | 2020-07-13 16:45 | NUR ---
PT. RETURNED FROM PACU VIA BED WITH RN. REPORT RECEIVED. HR WAS 115 AND DECREASED TO 104 AFTER 15 MINUTES. TITRATED 02 FROM 2L NC TO 1L AND O2 SAT. WAS 96%. PT. REPORTS 7/10 PAIN THAT IS TOLERABLE IN THE ABD. AND DENIES NEED FOR PAIN MED. ABD. DISTENDED AND TENDER TO PALP. BOWEL TONES ACTIVE. MIDLINE INCISION ACTICOAT DRESSING IS CDI WELL MONISHA DRAIN ACTICOAT. DRAIN HAS APPROX. 10ML SERISANGUINOUS FLUID. MARY PATENT. NEURO. INTACT AND PT. IS ORIENTED BUT DROWSY. BLOOD GLUCOSE IS 180 AND 3 UNITS HUMALOG ADMIN. HOLDING EVENING PO MEDS UNTIL MORE ALERT. TOLERATING A FEW SIPS OF WATER AND DENIES NAUSEA. DISCUSSED SAFETY AND PAIN MANAGEMENT.FOOT SCD'S IN PLACE. IV SITES WNL AND FLUSH. PT. LEFT RESTING IN BED WITH CALL LIGHT IN REACH.
--- NOTE | 2020-07-13 17:43 | NUR ---
PT. IS DROWSY BUT ORIENTED AND AWAKENS EASILY TO VOICE. TAKEN OFF OF 02 TO RA AND O2 SAT REMAINED 97%. MIDLINE DRESSING IS C/D/I. MONISHA DRESSING HAS A SMALL AMOUNT OF BLOOD. BOWEL TONES ACTIVE. PT. DENIES NAUSEA AND REPORTS THAT PAIN IS UNCHANGED. PT. LEFT RESTING WITH CALL LIGHT IN REACH.
--- NOTE | 2020-07-13 18:37 | NUR ---
PT. ALERT AND ORIENTED. REPORTS SHARP OCCASIONAL PAINS. ADMIN. TORADOL. MARY EMPTIED OF 525ML DILUTE YELLOW URINE. MONISHA EMPTIED OF 30ML SERISANGUINOUS DRAINAGE. MIDLINE ACTICOAT IS C/D/I AND MONISHA DRESSING HAS SMALL AMOUNT DRIED BLOOD. BOWEL TONES ACTIVE. ABDOMEN MODERATELY DISTENDED AND TENDER. LUNGS CLEAR. HR WAS 112. WILL CONTINUE TO MONITOR.
--- NOTE | 2020-07-13 19:17 | NUR ---
REPORT RECEIVED FROM DAY SHIFT RN. PT LYING IN BED ALERT AND ORIENTED. IVF INFUSING. CPOX IN PLACE. HR 113. SpO2 93% ON RA. IV TYLENOL INFUSING FOR REPORTS OF PAIN. DENIES FURTHER NEEDS. WHITE BOARD UPDATED. CALL LIGHT IN REACH.
--- NOTE | 2020-07-13 19:55 | NUR ---
IV ABX INFUSING WNL. CLEAR LIQUIDS PROVIDED. PT DROWSY BUT AWAKENS EASILY. DENIES NEEDS. CALL LIGHT IN REACH.
--- NOTE | 2020-07-13 21:45 | NUR ---
EVENING ASSESSMENT COMPLETE. SCHEDULED MEDS ADMINISTERED PER EMAR. BLOOD SUGAR 230, SLIDING SCALE INSULIN PROVIDED. PT DENIES PAIN OR NAUSEA AT THIS TIME. ABD SOFT AND MILD DISTENTION NOTED. MIDLINE DRESSING AND LLQ DRESSING CDI. MARY PATENT WITH CLEAR YELLOW URINE. MONISHA WITH 35 ML SEROSANG DRAINAGE. BOWEL TONES HYPOACTIVE. PT DENIES FLATUS. CPOX IN PLACE. HR REMAINS ELEVATED. SCD'S IN PLACE. IVF INFUSING. ASSISTED TO REPOSITION IN BED. DENIES QUESTIONS OR CONCERNS. CALL LIGHT IN REACH.
--- NOTE | 2020-07-13 23:28 | NUR ---
PT RESTING IN BED WITH EYES CLOSED, NAD. HR 89. SpO2 98% ON RA.
--- NOTE | 2020-07-14 00:28 | NUR ---
PT RESTING IN BED WITH EYES CLOSED. HOB ELEVATED. RESPIRATIONS EVEN. HR 108. SpO2 98% ON RA. IVF INFUSING.
--- NOTE | 2020-07-14 02:33 | NUR ---
IV ABX INFUSING WNL. PRN FOR ABD PAIN ADMINISTERED PER EMAR. CLEAR LIQUIDS PROVIDED. ABD DRESSINGS UNCHANGED. SMALL AMOUNT SEROSANG DRAINAGE IN MONISHA. MARY PATENT WITH CLEAR YELLOW URINE. ASSISTED TO REPOSITION. CALL LIGHT REACH.
--- NOTE | 2020-07-14 06:18 | NUR ---
VS AND I&O COMPLETE. SCHEDULED MEDS ADMINISTERED. PT REPORTS ABD PAIN IS TOLERABLE, DENIES PRN FOR PAIN. DENIES NAUSEA. MIDLINE DRESSING CDI. DRESSING TO LLQ CDI. ABD SOFT. BOWEL TONES ACTIVE. PT REPORTS FLATUS. MONISHA WITH 80 ML SEROSANG DRAINAGE. SCD'S AND CPOX IN PLACE. HR REMAINS IN THE ONE TEENS. DENIES FURTHER NEEDS. CALL LIGHT IN REACH.
--- NOTE | 2020-07-14 09:03 | NUR ---
REPORT RECEIVED FROM RN AND PT. CARE RESUMED. PT. PT. IS ALERT AND ORIENTED, BUT FORGETFUL AT TIMES. HE REPORTS TOLERABLE ABDOMINAL PAIN. ADMIN TORADOL PRIOR TO AMBULATING. MIDLINE ACTICOAT DRESSING IS C/D/I AND MONISHA DRAIN DRESSING HAS A SMALL AMOUNT OF SHADOWING. MONISHA EMPTIED OF 40ML SERISANGUINOUS FLUID. LUNGS CLEAR THROUGHOUT. ABDOMEN FIRM, TENDER AND MODERATELY DISTENDED. BOWEL TONES ACTIVE. IV SITES WNL AND FLUSH WELL. DISCUSSED POC, PAIN MANAGEMENT AND AMBULATING. PT. RESTING WITH CALL LIGHT IN REACH.
--- NOTE | 2020-07-14 09:34 | NUR ---
PATIENT ASSISTED WITH STANDING AND AMBULATING, 1PA. AFTER TAKING A FEW STEPS HE REPORTS BEING DIZZY AND STUMBLED. HE STOPPED, THEN WAS ABLE TO CONTINUE AMBULATING TO THE CHAIR. ONCE SEATED, HIS DIZZINESS SUBSIDED. HR. WAS 60 AND 02 SAT. 97%. LEFT RESTING IN CHAIR WITH CALL LIGHT IN REACH.
--- NOTE | 2020-07-14 10:50 | NUR ---
ASSISTED PATIENT WITH ELEVATING LEGS. HE DENIES PAIN AT THIS TIME. LEFT RESTING IN CHAIR WITH CALL LIGHT IN REACH.
--- NOTE | 2020-07-14 12:02 | NUR ---
500ml BOLUS OF LR ADMIN. PT. DENIES PAIN AT THIS TIME. DISCUSSED PLAN TO AMBULATE AFTER LUNCH
--- NOTE | 2020-07-14 13:16 | NUR ---
PT. RESTING IN CHAIR AND EATING LUNCH. HE DENIES PAIN, BUT FEELS SOME ABDOMINAL BLOATING. ABDOMEN MODERATELY DISTENDED AND FIRM. BOWEL TONES ACTIVE. HE STATES HE IS NOT PASSING GAS AT THIS TIME. LUNGS CLEAR THROUGHOUT. MIDLINE ACTICOAT DRESSING HAS SOME SHADOWING BUT IS INTACT. MONISHA DRAIN DRESSING HAS OLD DRIED SHADOWING. MONISHA DRAIN EMPTIED OF 70ML SERISANGUINOUS FLUID. DISCUSSED PLAN TO AMBULATE AGAIN AFTER HE FINISHES LUNCH. PT. AGREEABLE.
--- NOTE | 2020-07-14 14:10 | NUR ---
PT. AMBULATED 1 LAP AROUND THE UNIT, USING A FWW SINCE HE WAS DIZZY EARLIER. TOLERATED WELL. PT. LEFT RESTING IN CHAIR WITH CALL LIGHT IN REACH.
--- NOTE | 2020-07-14 14:34 | OR ---
[facility] [address], [place] [address] Signed DATE OF OPERATION: 07/13/2020 SURGEON: Kisha Sandhu MD PREOPERATIVE DIAGNOSES: 1. 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 2. Recent and ongoing recurrent biliary colic with gallstones. 3. Obesity, diabetes, and other medical problems. POSTOPERATIVE DIAGNOSES: 1. 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 2. Recent and ongoing recurrent biliary colic with gallstones. 3. Obesity, diabetes, and other medical problems. 4. Right hepatic lobe nodule suspicious for metastatic disease. 5. 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 6. Possible contiguous involvement of neoplasm to the left abdominal wall site. PROCEDURE: 1. Laparotomy with open left extended hemicolectomy and end-to-end colocolostomy. 2. Resection of abdominal wall, possible penetrating neoplasm of the colon in continuity. 3. Mobilization of splenic flexure. 4. Open cholecystectomy with intraoperative cholangiogram. 5. Surgeon-directed fluoroscopy. 6. Hepatic wedge resection Right hepatic lobe nodule. 7. Small bowel mesentery core biopsy with a biopsy gun technique. ANESTHESIA: General endotracheal; Kisha Holloway CRNA, and preoperative tap block (bilateral). INDICATION: This 74-year-old white male was admitted to the hospital by Dr. Joe on July 10, 2020. He was having hematochezia. He had seen in early May with symptomatic gallstones, anticipating cholecystectomy, but needed cardiac evaluation. He subsequently underwent cardiac pacemaker placement several weeks ago, which has been beneficial to him. His recent admission was one in which a CT scan had been performed, only a week or so previous to that upon presentation to the emergency room, where he was noted to have a left lower abdominal pain. A CT scan performed on that initial emergency room visit did show a concentric lesion in the mid left colon, worrisome for malignancy. There was no evidence of metastatic disease so far as could be told. He underwent colonoscopy by me Electronically Signed By: KISHA SANDHU MD 07/14/20 1434 PATIENT NAME: HUSSEIN GARCIA OPERATIVE REPORT DATE OF : 41 REPORT #: [id number] PHYSICIAN: KISHA SANDHU MD PCP: WALDO XAVIER MD REPORT IS CONFIDENTIAL AND NOT TO BE RELEASED WITHOUT AUTHORIZATION [facility] [address], [place] [address] Signed yesterday after bowel prep, which confirmed a nearly obstructing left mid colon cancer with ulceration. The scope was not able to pass the lesion despite a bowel prep having been successfully completed without the use of an upper endoscope which of course was much narrower in diameter. The more proximal colon had no lesion. The patient has had recurrent bouts of apparent biliary colic and known to have gallstones on imaging studies in the past. Under the circumstances, he is recommended at this time to undergo resection of the left colon tumor with concurrent cholecystectomy and other indicated procedures. He understands as this as does his with whom I have discussed all of this with her on the phone. The risks of bleeding, infection, anastomotic failure, need for other additional procedures, and other unforeseen complications. Understanding this, they wished to proceed. FINDINGS: There was no evidence of ascites or carcinomatosis. The neoplasm was somewhat edematous and appeared to be contiguous with the left lateral abdominal wall, resection of portion of the abdominal wall including the muscular layer was undertaken to provide an en bloc resection of this lesion, though it is not certain that true penetration of the tumor into the site. Pathology is pending in that regard. There appeared to be some bulky lymph nodes in his thickened mesentery of the left colon. Complete mobilization of the splenic flexure allowed for wide resection of the left colon with anastomosis in an end-to-end configuration including the mid sigmoid to the area of the distal splenic flexure. Additionally noted was a thick mesentery with a masslike effect of the small bowel separate and distinct from the left colon mesentery. This had appearance highly suggestive of either lymphoma or sclerosing mesenteritis. Biopsy was obtained of this tissue. The gallbladder itself was subacutely inflamed and was excised without problem showing a normal cholangiogram. Additionally noted was a nodule of the right lateral aspect of the liver, which was on the surface small, but beneath the surface somewhat larger and highly suggestive of metastatic lesion. This was excised completely by wedge technique and has a clinically negative magin. The site was marked with clips for future reference as needed. DESCRIPTION OF PROCEDURE: The patient was brought to the operating room, given a general endotracheal anesthetic. Tap locks were placed bilaterally by the glass lined tank repairer. A Li catheter was placed. Preoperative bowel prep including oral antibiotics was given and preoperative cefoxitin Electronically Signed By: KISHA SANDHU MD 07/14/20 1434 PATIENT NAME: HUSSEIN GARCIA OPERATIVE REPORT DATE OF : 41 REPORT #: [id number] PHYSICIAN: KISHA SANDHU MD PCP: WALDO XAVIER MD REPORT IS CONFIDENTIAL AND NOT TO BE RELEASED WITHOUT AUTHORIZATION [address] [address] Signed given in the operating room. The abdomen was clipped and prepared with a chlorhexidine solution and draped sterilely. Incision was made extending above and below the umbilicus. Abdominal wall fat was rather thin, but intraabdominal fat rather copious. Intraabdominal inspection showed no sign of ascites or carcinomatosis. Palpable within the mesentery of the small bowel is a bulky baseball-sized mass like abnormality, which appeared to be mostly fatty and inflamed and suggestive of sclerosing mesenteritis, though that it is not certain of course. It did not appear to be metastatic cancer in any way. The left lateral segment was normal. Most of the liver was normal except there was a nodule in the right lobe on the lateral aspect somewhat worrisome for metastatic disease. I would return to it later in the operation. Examination of the left colon showed the area of neoplasm in the center portion of the left (descending) colon. It appeared to be tethered to the abdominal wall laterally. It is uncertain if this was from an inflammatory process or from tumor penetration. The right colon and transverse colon were palpably normal. They had been examined yesterday, but the cecum itself has not been visualized due to the length of the upper endoscope that was required to traverse the nearly obstructing neoplasm of the left colon. The pelvis was otherwise normal. He has had a fair amount of intraabdominal fat including the mesentery. A Bookwalter retractor was affixed to the table and the small bowel reflected to the right abdomen and isolated with laparotomy pads and the transverse colon and omentum were reflected cephalad. Beginning at the sigmoid colon, the white line of Toldt was incised reflecting the colon and the mesentery toward the midline. An incision was taken up to the area of the mid descending colon where the neoplasm was. Excision around the site, which appeared to be penetrating into the peritoneal surface and possibly into the muscle was undertaken. During the course of resection, it seemed to peel off. This was not my intention, it simply happened, and it was sent as a separate specimen. It may be that the connection was an inflammatory rather than direct extension type connection of the tumor to the lateral abdominal wall. It is recalle that he underwent challenging passage of the lesion during colonoscopy only the day before. The remaining more proximal left colon was freed with blunt and electrocautery dissection reflecting the mesocolon to the midline. The retroperitoneal structures were unharmed-- Gerota's fascia was well identified. The splenic flexure was rather high up and dedicated effort to the splenic flexure mobilization was undertaken primarily with blunt and electrocautery dissection. Ultimately, the entire splenic flexure and its mesentery as well as the mesocolic layer were reflected inferiorly, mobilizing the colon quite well. Omental adhesions encumbered in the left transverse colon were freed again more fully mobilizing the colon entirely. A line of demarcation for resection was outlined just below the splenic flexure and Electronically Signed By: KISHA SANDHU MD 07/14/20 1434 PATIENT NAME: HUSSEIN GARCIA OPERATIVE REPORT DATE OF : 41 REPORT #: [id number] PHYSICIAN: KISHA SANDHU MD PCP: WALDO XAVIER MD REPORT IS CONFIDENTIAL AND NOT TO BE RELEASED WITHOUT AUTHORIZATION [address] [address] Signed above mid sigmoid colon. This would allow for wide resection of colonic mesentery. Palpation at the root of the mesentery, particularly in direct pathway from the tumor showed that it to be bulky though uncertaint as to positive lymph nodes or not. The resection sites were marked with silk suture. The mesentery scored with electrocautery and sequential application of tonsil clamps, hemostats, and long Rani clamps undertaken. The vascular pedicles were doubly ligated with 0 silk ties. A significantly wide resection down to the retroperitoneum was undertaken so as to provide wide resection. Once mesentery was freed entirely, the proximal margins were transected with a WILVER stapling device. The Specimen was offloaded, opened on the back table, and found to have an impressive ulcerated nearly obstructing neoplasm as expected. An additional segment of the more proximal colon was resected based on anatomic factors, not associated with schema or anything of that sort and additionally passed with the specimen. The proximal and distal ends of the colon were well-mobilized enough that a tension-free anastomosis would be quite straightforward. An end-to-end colocolostomy was then undertaken in a 2-layer technique of interrupted 3-0 silk sutures. Mesenteric defect was secured with interrupted 3-0 silk sutures as well. Irrigation was undertaken after gloves and all team members were changed. Later through a left lower quadrant incision, a 7 mm flat Torey drain was placed in the retroperitoneal area given the extent of dissection of the retroperitoneum. Attention was then turned to the small bowel. The thickened mesentery to small bowel was suggestive of mesenteric sclerosis, though this is uncertain and uncommon obviously. A core biopsy with a biopsy gun device was taken providing a specimen for further consideration. The small bowel was returned to its natural position. Attention was then turned towards the liver. Careful inspection for the nodule initially noted outside of exploration was undertaken and the lateral aspect anteriorly on the right side the nodule in question was identified. It was somewhat suspicious given its hard texture and only a small portion was visible from the surface of the nodule below it measuring at least a cm or so in size. This was excised with electrocautery with all due care providing what appears to be a clinically negative margin. There was no untoward bleeding with resection, but a fair amount of cautery was required for safe and hemostatic resection. The edges of the lesion were marked with clips for future reference and a Gel-Foam applied to the depth of the cavity. There were no other palpable or visible lesions of the liver. The lesion was essentially wedge resected out. Attention was then turned towards cholecystectomy as planned. Electronically Signed By: KISHA SANDHU MD 07/14/20 1434 PATIENT NAME: HUSSEIN GARCIA OPERATIVE REPORT DATE OF : 41 REPORT #: [id number] PHYSICIAN: KISHA SANDHU MD PCP: WALDO XAVIER MD REPORT IS CONFIDENTIAL AND NOT TO BE RELEASED WITHOUT AUTHORIZATION [facility] [address], [place] [address] Signed The Bookwalter retractor was adjusted and the gallbladder identified and found to be somewhat edematous and subacutely inflamed. The patient has had an episode of biliary colic lasting 3 hours last night, indeed. A ring clamp was applied to the apex of the gallbladder and using electrocautery, the fatty peritoneal covering was cauterized and the gallbladder freed from the underlying liver bed with meticulous care. Clips were applied to the small blood vessels as necessary. Beneath the fatty peritoneal layer, a fair amount of edema and inflammation indicating recent inflammation was noted. Once the cystic duct was well identified, a tonsil clamp was applied to the edge of it, and a right angle clamp applied to the gallbladder cystic duct junction and the cystic duct transected. The gallbladder was passed off the table, examined, and found to have multiple small semi-adherent stones. Intraoperative cholangiography was undertaken after placement of a cholangiocatheter and under fluoroscopic control, free flow of contrast was noted in the biliary tree with prompt emptying into the duodenum. The cystic duct and biliary tree were otherwise normal. The cystic duct was triply clipped with a medium-sized clips. Irrigation was undertaken, showing no sign of bile leak or bleeding. Reinspection of the nodulectomy site of the liver was undertaken. There was no sign of bile leak, bleeding, or other problems. The Gel-Foam was allowed to remain in place. Reinspection of the lower abdomen showed no sign of untoward bleeding or other problems. The omentum was replaced over the abdominal viscera and the midline fascia reapproximated with running bidirectional #1 PDS suture. Subcutaneous tissue was irrigated and skin closed with running subcuticular 3-0 Vicryl. Steri-Strips were applied as well as Acticoat and silver sponge dressing. The drain was attached to bulb suction. The patient tolerated the procedure well. Blood loss was estimated at 150 mL in total. Sponge, needle, and instruments counts were as correct x3. Kisha Sandhu MD /MODL /[id number] cc: Waldo Xavier MD Electronically Signed By: KISHA SANDHU MD 07/14/20 1434 PATIENT NAME: HUSSEIN GARCIA OPERATIVE REPORT DATE OF : 41 REPORT #: [id number] PHYSICIAN: KISHA SANDHU MD PCP: WALDO XAVIER MD REPORT IS CONFIDENTIAL AND NOT TO BE RELEASED WITHOUT AUTHORIZATION [facility] [address] [place], [place] [address] Signed MD Zainab Shoemaker MD Copies: WALDO XAVIER MD, LOHITH VEERAPPA MD RASCH, CYNTHIA MD ~ Electronically Signed By: KISHA SANDHU MD 07/14/20 1434 PATIENT NAME: HUSSEIN GARCIA OPERATIVE REPORT DATE OF : 41 REPORT #: [id number] PHYSICIAN: KISHA SANDHU MD PCP: WALDO XAVIER MD REPORT IS CONFIDENTIAL AND NOT TO BE RELEASED WITHOUT AUTHORIZATION
--- NOTE | 2020-07-14 17:53 | NUR ---
PT. REPORTS LLQ IS VERY TENDER. HIS ABDOMEN IS FIRM AND DISTENDED. HE HAS REFUSED PAIN MEDS ALL DAY. ADMIN. TORADOL.
--- NOTE | 2020-07-14 19:17 | NUR ---
REPORT RECEIVED FROM DAY SHIFT RN. PT SITTING IN RECLINER ALERT AND ORIENTED. DENIES NEEDS AT THIS TIME. WHITE BOARD UPDATED. CALL LIGHT IN REACH.
--- NOTE | 2020-07-14 19:25 | NUR ---
I ASKED PATIENT TODAY IF HE WOULD LIKE TO TAKE A BED BATH AND HE SAID NO.
--- NOTE | 2020-07-14 20:38 | NUR ---
PT TRANSFERED BACK TO BED FROM [facility], [facility]. GAIT STEADY. LIDIA WELL. EVENING ASSESSMENT COMPLETE. SCHEDULED MEDS ADMINISTERED. PRN ADMINISTERED FOR ABD PAIN. MIDLINE INCISION WITH SMALL AMOUNT SEROSANG DRAINAGE AT DISTAL END. MONISHA DRESSING CDI. MONISHA WITH 20 ML SEROSANG DRAINAGE. ABD FIRM AND DISTENDED. BOWEL TONES HYPOACTIVE. PT DENIES NAUSEA OR FLATUS. REPORTS BELCHING. MARY WITH 125 ML CLEAR YELLOW URINE. IVF INFUSING AT 125 ML/HR. GENERALIZED EDEMA NOTED. LUNGS CLEAR. SpO2 96% ON RA. HR 60'S. BP ELEVATED AFTER TRANSFER. PT DENIES QUESTIONS OR CONCERNS. CALL LIGHT IN REACH.
--- NOTE | 2020-07-14 23:24 | NUR ---
PT RESTING IN BED WITH EYES CLOSED, NAD. SpO2 95% ON RA. HR 60'S. MARY WITH APPROX 500 ML CLEAR YELLOW URINE. IVF INFUSING. SCD'S IN PLACE.
--- NOTE | 2020-07-15 01:34 | NUR ---
IV PUMP ALARMING. NEW BAG INFUSING WNL. PRN ADMINISTERED FOR ABD "DISCOMFORT". MARY WITH 1500 ML DILUTE YELLOW URINE. MONISHA WITH 50 ML SEROSANG DRAINAGE. ASSISTED PT TO REPOSITION IN BED.
--- NOTE | 2020-07-15 04:20 | NUR ---
PT RESTING IN BED WITH EYES CLOSED. RESPIRATIONS EVEN. SpO2 93% ON RA. HR 62.
--- NOTE | 2020-07-15 05:18 | NUR ---
CALL LIGHT ANSWERED. PT UP TO BR TO ATTEMPT BM WITH NO SUCCESS. BACK TO BED, LIDIA WELL. BOWEL TONES ACTIVE. ABD FIRM AND DISTENDED. PT DENIES FLATUS. MIDLINE INCISION WITH SEROSANG DRAINAGE AT THE BASE OF THE DRESSING. MONISHA WITH SEROSANG DRAINAGE. DRESSING CDI. MARY PATENT WITH QS DILUTE YELLOW URINE. REPORTS PAIN TOLERABLE AT THIS TIME, DENIES PRN FOR PAIN. DENIES NAUSEA. SCD'S AND CPOX IN PLACE. IVF INFUSING. NO FURTHER NEEDS. CALL LIGHT IN REACH.
--- NOTE | 2020-07-15 07:07 | NUR ---
pt REQUESTED PRN PAIN MED FOR 3/, GIVEN WITH SCHEDULED MEDICATIONS. NO FURTHER REQUESTS AT THIS TIME. CALL LIGHT WITHIN REACH.
--- NOTE | 2020-07-15 07:20 | NUR ---
this rn received report from ryan barry. pt sitting up in chair and is on the cpox at this time
--- NOTE | 2020-07-15 08:06 | NUR ---
this rn in pts room to check on pt. pt sitting up in chair and states that he is feeling gasy this am. this rn states that pt will need to walk today to help with that. pt states that he needs nothing else this am
--- NOTE | 2020-07-15 09:04 | NUR ---
MICHAEL RN IN PTS ROOM TO GIVE PT HIS MORNING MEDS. PT STATES THAT HE IS HAVING A LOT OF GAS STILL. THIS RN EDUCATED PT ABOUT GETTING UP TO WALK, PT STATES "THAT'S NOT HOW I PASS GAS, I PASS GAS BY PUTTING SOMETING IN MY BODY AND EATING." THIS RN REITERATED THE IMPORTANCE OF WALKING
--- NOTE | 2020-07-15 09:46 | NUR ---
PATIENT UP IN CHAIR FOR BREAKFAST. PATIENT REFUSED LINEN CHANGED, LINENS STRAIGHTENED UP. PATIENT AMBULATED IN HALLWAY AT THIS TIME, 1 LAP, FWW SBA. PATIENT NOW BACK TO CHAIR. CALL LIGHT IN REACH. NO FURTHER NEEDS AT THIS TIME.
--- NOTE | 2020-07-15 11:35 | NUR ---
pt up from the bathroom, pt reports that he had a bm. this rn inspected bm. it appeared to be liquid in consistancy and dark brown/ dark green/ yellow in color. pt states that he feels so much better after being able to have a bm
--- NOTE | 2020-07-15 11:36 | NUR ---
THIS RN WALKED WITH PT IN THE MELVIN. PT STATES THAT THE GAS PAIN IS GETTING WORSE BUT THE PAIN HAS MOVED. PT ABLE TO DO 1 FULL LAP AROUND THE UNIT AND TOLERATED WELL. PT TO SIT ON THE TOILET TO SEE IF HE COULD PASS GAS.
--- NOTE | 2020-07-15 13:06 | NUR ---
PT SITTING UP IN CHAIR, WATCHING RV. PT MENTIONED THAT HE HAD A SET BACK OVER THE WEEKEND-STILL HAVING GAS ISSUES. GAVE ENCOURAGEMENT, PT COMFORTABLE AT THE MOMENT. WILL FOLLOW
--- NOTE | 2020-07-15 13:56 | NUR ---
PATIENT IN CHAIR WATCHING TV. VITALS AND I&O'S CHARTED. CALL LIGHT IN REACH. NO FURTHER NEEDS AT THIS TIME.
--- NOTE | 2020-07-15 14:44 | NUR ---
THIS RN IN TO SEE PT. THIS RN TURNED OFF FLUIDS PER MD ORDER. THIS RN ALSO REMOVED PTS ACTICOAT DRESSING PER NURSE NOTIFY ORDER FROM MD. PT STATES THAT HE WOULD PREFER TO NOT HAVE THE DRESSING REMOVED BECAUSE HE FEELS THAT THE DRESSING "IS HOLDING EVERYING TOGETHER" AND "MAKES IT EASIER TO STAND UP" THIS RN EDUCATED PT THAT THERE ARE STERI STRIPS UNDER THE DRESSING AND THAT HOLDING A FOLDED BLANKET WHEN HE STANDS WILL HELP WITH THAT PAIN WHEN STANDING. PT APREHENSIVE OF THIS INFO AND STATES THAT WHEN HE LEAVES HE WILL JUST GET A BELT TO PUT AROUND HIS ABD. THIS RN PROVIDED PT WITH 1000MG OF TYLENOL AT THIS TIME PER PT REQUEST
--- NOTE | 2020-07-15 14:50 | NUR ---
PATIENT AMBULATED 2 LAPS IN [facility], SBA FWW. PATIENT TOLERATED VERY WELL AND SAID HE FEELS SO MUCH BETTER. PATIENT NOW IN RESTROOM. CALL LIGHT IN REACH. NO FURTHER NEEDS AT THIS TIME.
--- NOTE | 2020-07-15 19:30 | NUR ---
SBA TO THE BATHROOM USING WALKER.
--- NOTE | 2020-07-15 19:32 | NUR ---
REPORT RECEIVED FROM DAY SHIFT RN. PT LYING IN BED TALKING ON PHONE. ALERT AND ORIENTED. CALL LIGHT IN REACH. WHITE BOARD UPDATED.
--- NOTE | 2020-07-15 20:00 | NUR ---
SBA TO THE BATHROOM AND BACK TO BED USING WALKER.
--- NOTE | 2020-07-15 20:38 | NUR ---
EVENING ASSESSMENT COMPLETE. SCHEDULED MEDS ADMINISTERED PER EMAR. PRN ADMINISTERED FOR ABD PAIN. ABD FIRM AND DISTENDED. BOWEL TONES ACTIVE. PT DENIES NAUSEA. MIDLINE INCISION WELL APPROXIMATED. STERI STRIPS INTACT. DISTAL MIDLINE WITH SCANT AMOUNT SEROSANG DRAINAGE. MONISHA WITH 80 ML SEROSANG DRAINAGE. MONISHA DRESSING CDI. SCD'S IN PLACE. PIV IN RIGHT HAND DC'D WNL DUE TO LEAKING. PT DENIES QUESTIONS OR CONCERNS. CALL LIGHT IN REACH.
--- NOTE | 2020-07-15 21:30 | NUR ---
BLOOD INFUSING AT 75CC/HR LEFT AC. PT IN BED, LAYING ON LEFT SIDE. REMOVED HEARING AIDES, ABLE TO READ LIPS FOR SHORT CONVERSATION. CURRENTLY USING PHONE ON [employer].
--- NOTE | 2020-07-15 22:30 | NUR ---
ANSWERED CALL LIGHT. SBA. PATIENT WAS UP TO THE BATHROOM. PATIENT IS BACK IN BED. NO OTHER NEEDS AT THIS TIME.
--- NOTE | 2020-07-16 00:04 | NUR ---
PT RESTING IN BED WITH EYES CLOSED, NAD.
--- NOTE | 2020-07-16 02:25 | NUR ---
CALL LIGHT ANSWERED. SBA TO AND FROM BATHROOM. PATIENT REQUESTED PAIN MED. RN NOTIFIED. CPOX REMOVED PER RN INSTRUCTION. CALL LIGHT IN REACH. PATIENT DENIES ANY FUTHER NEEDS.
--- NOTE | 2020-07-16 02:53 | NUR ---
PT RETURNING FROM BATHROOM AFTER HAVING LOOSE GREEN BOWEL MOVEMENT. PRN ADMINISTERED FOR 3/10 ABD PAIN. CLEAR LIQUIDS PROVIDED. PT DENIES FURTHER NEEDS. CALL LIGHT IN REACH.
--- NOTE | 2020-07-16 04:48 | NUR ---
CALL LIGHT ANSWERED. PT INCONTINENT OF SMALL AMOUNT LIQUID GREEN STOOL. UP TO BR. SILVINO CARE DONE BY PT. BRIEF PLACED. BACK TO BED, LIDIA WELL. VS AND I&O COMPLETE. MARY WITH QS CLEAR YELLOW URINE. MONISHA WITH 75 SEROSANG DRAINAGE. STERI STRIPS ON BASE OF MIDLINE INCISION REPLACED DUE TO APPROXIMATELY 3CM AREA WHERE EDGES OF INCISION ARE SEPERATING. FRESH WATER AND DIET SODA PROVIDED.
--- NOTE | 2020-07-16 07:51 | NUR ---
PT USING THE TOILET AT TIME OF SHIFT EXCHANGE. SITTING UP IN A CHAIR AT THIS TIME WAITING FOR BREAKFAST. C/O OF SOME NAUSEA HE WOKE UP WITH. NO EMESIS. DENIES NEEDS AT THIS TIME.
--- NOTE | 2020-07-16 07:59 | NUR ---
PT REPORTS ZOFRAN IS EFFECTIVE SAYS IT'S DOING IT'S JOB AND I FEEL BETTER ALREADY. FRESH H20 AT CHAIR SIDE.
--- NOTE | 2020-07-16 09:29 | NUR ---
PATIENT SAT UP IN CHAIR ATE BREAKFAST. STATES HE FEELS NAUSEOUS THIS AM AND THROUGH THE NIGHT RN NOTIFIED. AM CARE DONE.
--- NOTE | 2020-07-16 09:34 | NUR ---
PT HAS REMAINED UP IN THE CHAIR ALL MORNING ANTICIPATES WALKING SEVERAL TIMES THIS SHIFT. AGREES NAUSEA IS COMPLETELY GONE NOW, BUT STATES HE IS STILL TAKING IT VERY SLOW WITH FOOD ITEMS. EATS 25% OF MORNING MEAL. DESCRIBES PAIN "A LITTLE AT THE TOP OF MY INCISION" GOES ON TO STATE "NOT BAD, NOT BAD AT ALL"
--- NOTE | 2020-07-16 09:57 | NUR ---
THIS RN IN TO ROOM TO SEE PATIENT. PATIENT SITTING UP IN CHAIR BY THE WINDOW. PATIENT STATES HE IS FEELING BETTER AND LOOKING FORWARD TO GOING HOME. 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 WILL PROVIDE CONTACT INFORMATION FOR [facility] PRIOR TO PATIENT DISCHARGE.
--- NOTE | 2020-07-16 10:30 | NUR ---
PT UP AND OUT, AMBULATES 2 LAPS THEN RETURNS TO CHAIR. SAYS IT REALLY HELPED AND HE BELCHED A COUPLE TIMES. PLANS TO AMBULATE AGAIN AFTER AWHILE.
--- NOTE | 2020-07-16 11:11 | NUR ---
PATIENT UP IN CHAIR RESTING AFTER WALKING THE UNIT. NOTHING NEEDED AT THIS TIME. CALL LIGHT IN REACH.
--- NOTE | 2020-07-16 13:08 | NUR ---
DR ALEX IN TO SEE PT ALL QUESTIONS ANSWERED, USMAN MARKHAM'D PER ORDERS
--- NOTE | 2020-07-16 13:27 | NUR ---
PATIENT AMBULATED 2 LAPS IN HOSPITAL AND BACK TO CHAIR. CHARTED PATIENTS OUTPUT OF 1327 IT WAS FROM [facility]. WILL CONTINUE TO MONITOR OUTPUT SINCE [facility] TAKEN OUT. CALL LIGHT IN REACH. NOTHING ELSE NEEDED AT THIS TIME
--- NOTE | 2020-07-16 15:17 | NUR ---
PT AMBULATES THE MELVIN SEVERAL LAPS WELL TOLERATED. RETURNS TO SITTING IN HIS CHAIR.
--- NOTE | 2020-07-16 17:15 | NUR ---
PT SITTING UP IN THE CHAIR JUST RETURNED FROM THE BATHROOM PASSING LOOSE STOOL. PT REPORTS ACCIDENTLY PULLING ON HIS MONISHA, SAYS NOW HIS ABDOMEN HURTS. MONISHA STILL IN PLACE TYLENOL ADMINISTERED.
--- NOTE | 2020-07-16 18:12 | NUR ---
PATIENT STILL STATES HE HAS HEARTBURN AND CANT EAT. VITALS DONE AND CHARTED. CALL LIGHT IN REACH
--- NOTE | 2020-07-16 19:44 | NUR ---
REPORT RECEIVED FROM DAY SHIFT RN. PT SITTING IN RECLINER ALERT AND ORIENTED. DENIES NEEDS AT THIS TIME. WHITE BOARD UPDATED. CALL LIGHT IN REACH.
[2020-07-16] MEDS ORDERED: IBUPROFEN600 MG PO (20:04)
[2020-07-16] MEDS ORDERED: ACETAMINOPHEN500 MG PO (20:04)
--- NOTE | 2020-07-16 20:25 | NUR ---
EVENING ASSESSMENT COMPLETE. SCHEDULED MEDS ADMINISTERED PER EMAR. PT JUST NOW TOOK LIPITOR AND MOTRIN DISPENSED ON DAY SHIFT. TIMES UPDATED IN EM[facility]. PT REPORTS MILD NAUSEA AND PRESSURE. DIET SPRITE PROVIDED, PT STATES "I THINK THE POP IS HELPING". MIDLINE INCISION WELL APPROXIMATED. STERI STRIPS INTACT WITH SEROSANG DRAINAGE AT BASE. MONIHSA WITH 35 ML SEROSANG DRAINAGE. ABD DISTENDED. BOWEL TONES ACTIVE. PT REPORTS VOIDING WELL AND HAVING LOOSE STOOL. FAY CRACKER AND FRESH WATER PROVIDED. PT DENIES QUESTIONS OR CONCERNS. CALL LIGHT IN REACH.
--- NOTE | 2020-07-16 23:15 | NUR ---
PT RESTING IN BED WITH EYES CLOSED, NAD.
--- NOTE | 2020-07-17 00:18 | NUR ---
PRN FOR PAIN ADMINISTERED FOR 5/10 ABD PAIN. IN TO BR FOR LIQ GREEN BM AND VOID. BACK TO BED. NO FURTHER NEEDS. ALL LIGHT IN REACH.
--- NOTE | 2020-07-17 03:40 | NUR ---
PT INCONTINENT OF SMALL AMOUNT LIQUID GREEN BM. UP TO BR TO HAVE XLARGE LIQUID GREEN BOWEL MOVEMENT. CLEAN BRIEF PROVIDED. BACK TO BED. 35 ML SEROSANG DRAINAGE EMPTIED FROM MONISHA. ASSESSMENT COMPLETE. FRESH WATER PROVIDED. NO FURTHER NEEDS. CALL LIGHT IN REACH.
--- NOTE | 2020-07-17 06:00 | NUR ---
SCHEDULED MEDS ADMINISTERED. PRN ADMINISTERED FOR C/O ABD PAIN. PT DENIES NAUSEA. FRESH LIQUIDS PROVIDED. NO FURTHER NEEDS AT THIS TIME. CALL LIGHT IN REACH.
--- NOTE | 2020-07-17 07:34 | NUR ---
this rn received report from ryan barry. pt appears to be resting at this time with respirations noted
--- NOTE | 2020-07-17 08:44 | NUR ---
THIS RN IN PTS ROOM WITH PT TO DO MORNING ASSESSMENT. PT SITTING IN BED THIS AM AND STATES THAT HE IS FEELING A BIT WEAK THIS AM. PT STATES THAT HIS PAIN IS UNDERCONTROL, THIS RN DISCUSSED WITH PT WHEN HE CAN HAVE PAIN MEDS AGAIN. THIS RN INSPECTED MIDLINE INSCISON, APPEARS TO HAVE SEROSANGINOUS DRAINAGE IN SCANT-SMALL AMOUNT, STERI STRIPS STILL IN PLACE. PT HAS NO OTHER CONCERNS TO REPIORT THIS AM
--- NOTE | 2020-07-17 10:14 | NUR ---
THIS RN OVER TO DISCUSS PATIENT DISCHARGE PLAN WITH CESARIO MUSA RN. PER NAZIA PATIENT TO BE DISCHARGE ONCE DR. HUANG IS TO THE FLOOR TO REVIEW. NO CHANGES IN CASE MANAGEMENT DISCHARGE PLAN AT THIS TIME, WILL FOLLOW UP WITH PATIENT IF NEEDED.
--- NOTE | 2020-07-17 12:30 | NUR ---
It was my pleasure to visit with Mr. Arce today. He was setting at the bedside eating a sandwich. He reports to me that he has felt very week today and has been in bed most of the morning. He also reported that he was quite nauseated last evening to the point where he felt like he might throw up. He stated that he does much better when his tylenol is given every 6 hours, this was communicated with the nursing staff. Overall he is happy with his care, but again said that he doesn't feel as good today, is trying to be very careful about the food he chooses to eat so that his nausea does not get too bad, and again, he feels weaker today. He is oriented to person/place/time, and answers all questions appropriately.
--- NOTE | 2020-07-17 12:36 | NUR ---
this rn in pts room to give pt his tylenol. pt states that he would like to stay on a schedule, pt reports pain is 2/10 and is tolerating that well
--- NOTE | 2020-07-17 12:50 | NUR ---
this rn in pts room with to check on pt. this rn changed pts arianna dressing due to is being saturated with small amount of serosanginous draninage. pt tolerated well.
--- NOTE | 2020-07-17 14:16 | NUR ---
PT ALERT, ORIENTED AND SITTING UP IN BED. PT HAD FINISHED WHAT HE CHOSE TO EAT MENTIONED THAT TODAY HAS NOT BEEN ONE OF HIS BETTER DAYS. PT TRIES HARD TO BE POSITIVE. GRATEFUL FOR CARE. RODRIGO CARDONA IN TO CARE FOR PT. GAVE BLESSING, WILL CONTINUE TO FOLLOW
--- NOTE | 2020-07-17 15:15 | NUR ---
pt up walking in the halls at this time with his fww. pt states that he feels good enough to walk 1 full lap
--- NOTE | 2020-07-17 18:36 | NUR ---
pt up walking the andrade at this time while using fww.pt stead on feet
--- NOTE | 2020-07-17 19:42 | NUR ---
PATIENT SITTING QUIETLY IN BED WATCHING TV. NO CARE NEEDS AT THIS TIME. CALL LIGHT IS IN REACH.
--- NOTE | 2020-07-17 20:49 | NUR ---
ASSESSMENT COMPLETE AND PATIENT REQUIRED NO INSULIN TONIGHT. PATIENT WAS NAUSEATED WHEN I CAME IN AND WAS GIVEN 4MG IV ZOFRAN. PATIENT INFORMED ME HE WANTS TO BE WOKEN UP FOR A TYLENOL DOSE AT 1AM. PATIENT'S MIDLINE INCISION IS WELL APPROXIMATED WITH STERI-STRIPS STILL IN PLACE AND SCATTERED DRY DARK DRAINAGE NOTED. MONISHA DRAIN EMPTIED WITH SEROSANGUIOUS DRAINAGE. PATIENT HAD NO OTHER NEEDS AT THIS TIME. CALL LIGHT IN REACH.
--- NOTE | 2020-07-17 23:04 | NUR ---
PATIENT RESTING QUIETLY IN SEMI-FOWLERS POSITION, EYES CLOSED, RESPIRATION REGULAR AND EVEN AND CALL LIGHT IS IN REACH.
--- NOTE | 2020-07-18 01:10 | NUR ---
PATIENT GIVEN A WARM BLANKET AND 1,000MG PO TYLENOL FOR 3/10 ABD PAIN. CALL LIGHT IS IN REACH.
--- NOTE | 2020-07-18 03:10 | NUR ---
PATIENT GIVEN 4MG IV ZOFRAN FOR NAUSEA. PATIENT HAD NO OTHER CARE NEEDS AT THIS TIME. CALL LIGHT IN REACH.
--- NOTE | 2020-07-18 05:15 | NUR ---
PATIENT HAS HAD TO HAVE 4MG IV ZOFRAN X2 THIS SHIFT FOR NAUSEA WHICH WAS EFFECTIVE. PATIENT HAS HAD TYLENOL EVERY 6HRS FOR PAIN AND THE PAIN HAS HARDLEY EVER BEEN PAST 05/15. VS AND I+O HAVE BEEN WNL. BOWEL TONES ARE ACTIVE AND PATIENT HAS BEEN PASSING SMALL STOOLS. PATIENT RESTING IN BED AT THIS TIME, EYES CLOSED, RESPIRATIONS REGULAR AND EVEN, AND CALL LIGHT IN REACH.
--- NOTE | 2020-07-18 07:22 | NUR ---
this rn received report from jannette barry. pt awake and states that he is getting to go home today.
--- NOTE | 2020-07-18 08:00 | NUR ---
Notified by staff walker was delivered from [facility] in [facility] last night, pt declined and sent walker back.Pt thought it was a rental. Called and spoke with Edna at [facility] and asked if their fleet driver had told him it was a rental. She denies this and stated the fleet driver was informed by the pt he already a rollator walker at home. They discussed if rollator berrios snot work for him, he will notify [facility] and they will deliver at 2 wheel walker.
--- NOTE | 2020-07-18 09:04 | NUR ---
this rn in pts room to give pt his morning meds. pt sitting up in the bed. this rn dicussed with pt the plan of the day. pt states that his daughter will be here around 1000 today. this rn discussed wiht pt that we will do education on emptying the drain. pt states that he has been watching the nurses for the past few days and is ready to try it himself.
--- NOTE | 2020-07-18 17:20 | PATH ---
[facility] [address] [place], [place] [address] Signed SPECIMEN(S): A DESCENDING TUMOR SPECIMEN(S): B MID DESCENDING SPECIMEN SOURCE: A. DESCENDING TUMOR B. MID DESCENDING CLINICAL HISTORY: Acute GI bleed. Postop diagnosis: Malignant neoplasm of left colon MICROSCOPIC DESCRIPTION: Histologic sections of all submitted blocks are examined by light microscopy. These findings, together with the gross examination, support the pathologic diagnosis. FINAL PATHOLOGIC DIAGNOSIS: A. Colon, descending/left tumor, biopsy: - Invasive well-differentiated colonic adenocarcinoma. - Tubular adenoma. - See comment. B. Colon, mid descending/left, stricture: - Invasive moderately-differentiated colonic adenocarcinoma. - See comment. COMMENT: Mismatch repair (MMR) testing by IHC has been ordered on specimen A and will be reported in an addendum. As part of [facility]' Quality Improvement Program, this case was reviewed by another member of our pathology staff. A diagnostic alert is initiated by Dr. Sherman (Dr. Carr to be called by [facility] Client Services Department) on 07/17/2020. NAL:NRT:cml:C1NR GROSS DESCRIPTION: Two specimens are received in two containers, labeled "RB." A. The specimen, labeled "RB, one," and designated on the requisition "descending/left, biopsy," is received in formalin and consists of four brown freckled, hayes soft tissue fragments that measure 0.3 up to 0.4 cm in greatest dimension. The specimen is entirely submitted in cassette (A1). B. The specimen, labeled "RB, 2," and designated on the requisition "mid descending/left biopsy," is received in formalin and consists of four hayes soft PATIENT NAME: HUSSEIN GARCIA PATHOLOGY DATE OF : 41 REPORT #: [id number] PHYSICIAN: [facility]OLOGY PCP: WALDO STEPHENSON MD REPORT IS CONFIDENTIAL AND NOT TO BE RELEASED WITHOUT AUTHORIZATION [facility] [address] [place] [id number] Signed tissue fragments that measure 0.2 up to 0.4 cm in greatest dimension. The specimen is entirely submitted in cassette (B1). AI (under the direct supervision of a pathologist) The Gross Description was prepared using a voice recognition system. The report was reviewed for accuracy; however, sound-alike word errors, addition and/or deletions may occur. If there is any question about this report, please contact Client Services. PERFORMING LABORATORY: The technical component was performed by [facility], [address] [place] [id number] (Steel Wheel Engraver: Erika Cagle MD; CLIA# [id number]). [facility] interpretation [facility], [address] [place] [id number] (CLIA# [id number]). COMMENT: Tumor cells show no loss of nuclear expression of MMR proteins. This correlates with a low probability of microsatellite instability. However, if there is a high clinical suspicion for Viera syndrome (hereditary non-polyposis colorectal carcinoma syndrome) in this patient, additional testing should be considered. Please contact [facility] if such testing is indicated. NAL:cml ADDITIONAL NOTES: Immunohistochemical and/or in situ hybridization studies were performed on this case with the appropriate positive controls that react as expected. This test was developed and its performance characteristics determined by [facility]. It has not been cleared or approved by the U.S. Food and Drug Administration. The FDA has determined that such clearance or approval is not necessary. This test is used for clinical purposes. It should not be regarded as investigational or for research. [facility] is certified under the Clinical Laboratory Improvement Amendments of 1988 (CLIA) as qualified to perform high complexity clinical laboratory testing. REASON FOR ADDENDUM: To add results of additional testing. ADDENDUM PATHOLOGIC DIAGNOSIS: A. Invasive colonic adenocarcinoma of the descending colon, microsatellite instability testing by IHC: PATIENT NAME: HUSSEIN GARCIA PATHOLOGY DATE OF : 41 REPORT #: [id number] PHYSICIAN: TANNER BORJAS PCP: WALDO STEPHENSON MD REPORT IS CONFIDENTIAL AND NOT TO BE RELEASED WITHOUT AUTHORIZATION [facility] [address] [place] [id number] Signed - MLH1: Intact nuclear expression. - MSH2: Intact nuclear expression. - MSH6: Intact nuclear expression. - PMS2: Intact nuclear expression. INTERPRETATION: Normal pattern. ADDENDUM MICROSCOPIC EXAMINATION: A panel of four antibodies is selected which will detect 95% of microsatellite unstable carcinomas. Testing is performed at the request of Yoon Sherman M.D. Block: A1. Recut HE slide is prepared from the block. The presence of neoplastic glands and non-neoplastic internal control glands or stroma is confirmed. Internal control cells for MLH1, MSH2, PMS2 and MSH6 are positive. Neoplastic gland cells show the following: - MLH1: Positive. - MSH2: Positive. - MSH6: Positive. - PMS2: Positive. NAL:cml [facility] [place] [place] Professional interpretation was performed by [facility], [address] [place] [address] (CLIA# [id number]). Diagnostician: Yoon Sherman MD Pathologist Electronically Signed 07/18/2020 Copies: ~ PATIENT NAME: HUSSEIN GARCIA PATHOLOGY DATE OF : 41 REPORT #: [id number] PHYSICIAN: TANNER PATHOLOGY PCP: WALDO STEPHENSON MD REPORT IS CONFIDENTIAL AND NOT TO BE RELEASED WITHOUT AUTHORIZATION
--- NOTE | 2020-07-22 17:40 | PATH ---
[facility] [address] [facility] [place], [place] [address] Signed SPECIMEN(S): A PORTION OF ABDOMINAL WALL SPECIMEN(S): B LEFT COLON WITH TUMOR SPECIMEN(S): C LEFT COLON, ADDITIONAL SEGMENT SPECIMEN(S): D SMALL BOWEL SPECIMEN(S): E RIGHT LOBE OF LIVER SPECIMEN(S): F GALLBLADDER AND STONES SPECIMEN SOURCE: A. PORTION OF ABDOMINAL WALL B. LEFT COLON WITH TUMOR C. LEFT COLON, ADDITIONAL SEGMENT D. SMALL BOWEL E. RIGHT LOBE OF LIVER F. GALLBLADDER AND STONES CLINICAL HISTORY: L colon mass, cholelithiasis FINAL PATHOLOGIC DIAGNOSIS: A. Portion of abdominal wall, excision: - Fragments of skeletal muscle with overlying chronically inflamed and congested serosa. - No evidence of malignancy. B. Colon, left, left hemicolectomy: - Invasive colonic adenocarcinoma with the following features: - Tumor site: Descending colon. - Tumor size: 3.7 x 3.0 x 0.9 cm. - Macroscopic tumor perforation: Not identified. - Histologic type: Adenocarcinoma. - Histologic grade: G2: Moderately differentiated. - Tumor extension: Tumor invades through the muscularis propria into pericolorectal tissue. - Margins: All margins are uninvolved by invasive carcinoma, high-grade dysplasia/intramucosal carcinoma, and low- grade dysplasia. - Margins examined: Proximal, distal, and radial margins. - Treatment effect: No known pre-surgical therapy. - Lymphovascular invasion: Not identified. - Perineural invasion: Present. - Type of polyp in which invasive carcinoma arose: Tubular adenoma. PATIENT NAME: HUSSEIN GARCIA PATHOLOGY DATE OF : 41 REPORT #: [id number] PHYSICIAN: TANNER PATHOLOGY PCP: WALDO STEPHENSON MD REPORT IS CONFIDENTIAL AND NOT TO BE RELEASED WITHOUT AUTHORIZATION [facility] [address] [place], [place] [address] Signed - Tumor deposits: Not identified. - Regional lymph nodes (incuding specimen C): - Number of lymph nodes involved: 3. - Number of lymph nodes examined: 23. - Microsatellite instability testing (MSI) by IHC: Please refer to previously performed testing ([id number]) which was interpreted as normal pattern with intact nuclear expression for MSH2, MSH6, MLH1 and PMS2. - Pathologic stage classification (pTNM, AJCC 8th edition): pT3 pN1b. C. Additional segment of left colon, resection: - Portion of colon with no histopathologic abnormality. - Viable surgical margins. - Three minute lymph nodes, negative for metastatic carcinoma (0/3). - No evidence of malignancy. D. Small bowel mesentery, biopsy: - Fibroadipose tissue with fat necrosis and chronic inflammation. - Negative for dense sclerosis or significant plasma cell infiltrate. - No evidence of malignancy. E. Liver, right lobe, excisional biopsy: - Not examined, see Comment. F. Gallbladder, cholecystectomy: - Chronic cholecystitis with cholesterolosis and adenomyosis. - Cholelithiasis. COMMENT: Specimen E, designated "nodule of right lobe of liver" was lost during specimen handling. This was discussed with Dr. Carr on 07/22/20. As part of [facility]' Quality Improvement Program, this case was reviewed by another member of our pathology staff. NAL:cml:C1NR MICROSCOPIC EXAMINATION: Histologic sections of all submitted blocks are examined by light microscopy. These findings, together with the gross examination, support the pathologic diagnosis. A CD31 immunohistochemical stain (with appropriately staining controls) performed on a advertising representative section of the colon tumor is negative for lymphovascular invasion in that section. GROSS DESCRIPTION: Six specimens are received in six containers, labeled "Hussein Garcia." PATIENT NAME: HUSSEIN GARCIA PATHOLOGY DATE OF : 41 REPORT #: [id number] PHYSICIAN: TANNER BORJAS PCP: WALDO STEPHENSON MD REPORT IS CONFIDENTIAL AND NOT TO BE RELEASED WITHOUT AUTHORIZATION [facility] [address] [place], [place] [address] Signed A. The specimen, labeled "Hussein Garcia," and designated on the requisition "portion of abdominal wall," is received in formalin and consists of two portions of yellow-hayes adipose tissue and pink-red possible skeletal muscle that measure 3.6 x 2.4 x 0.9 cm and 3.5 x 2.5 x 1.0 cm. Each tissue fragment is partially surfaced by a pink, focally congested membranous tissue. The specimen is arbitrarily inked, sectioned and entirely submitted in cassettes A1-A5. B. The specimen, labeled "Hussein Garcia," and designated on the requisition "left colon with colonic tumor," is received in formalin and consists of a previously opened segment of large bowel that is 32.5 cm in length and has an average internal circumference of 5.0 cm. The serosal surface is pink and focally congested with an area of fat wrapping and puckering that is 7.0 x 4.3 x 4.0 cm. This area is markedly indurated and 7.5 cm from the closest resection margin. The serosa in this area is inked green. The mucosal surface is yellow-hayes and finely granular with a 3.7 x 3.0 x 0.9 cm circumferential and centrally ulcerated mass at the area of induration. This mass is 8.4 cm from the closest colonic resection margin, 16.5 cm from the opposite colonic resection margin, 9.4 cm from the radial fat resection margin, and 0.2 cm from the serosal surface. Sectioning to the mass reveals Extension through the muscularis propria and into the adjacent pericolonic adipose tissue. Adjacent to the mass are two grossly positive lymph nodes that measure up to 1.4 cm in greatest dimension. The mass is 1.2 cm from the antimesenteric serosal surface in the area of induration. Adjacent to the area of induration is a 3.7 x 1.6 x 0.7 cm indurated portion of yellow-hayes adipose tissue. The serosal surface overlying this area is inked green. Serially sectioning reveals a full focally congested adipose tissue with yellow chalky serial. Upon dissection of the attached pericolonic adipose tissue multiple possible lymph nodes are grossly identified. The remaining pericolonic adipose tissue is placed in the lymph node playing fixative. Cassette summary: (B1) closest resection margin, shave (B2) opposite resection margin, shave (B3) radial resection margin, shave (B4) uninvolved bowel wall (B5) mass to adjacent adipose tissue (B6) mass to uninvolved bowel wall (B7) mass to antimesenteric serosal surface PATIENT NAME: HUSSEIN GARCIA PATHOLOGY DATE OF : 41 REPORT #: [id number] PHYSICIAN: TANNER PATHOLOGY PCP: WALDO STEPHENSON MD REPORT IS CONFIDENTIAL AND NOT TO BE RELEASED WITHOUT AUTHORIZATION [facility] [address] [place], [place] [address] Signed (B8) mass to mesenteric serosal surface (B9) one possible lymph node within close proximity of mass, grossly positive, advertising representative sections (B10) one possible lymph node within close proximity of mass, grossly positive, advertising representative sections (B11) one possible lymph node, trisected (B12) one possible lymph node, bisected (B13) six possible lymph nodes, submitted whole (B14) indurated portion of adipose tissue with a yellow chalky appearance (B15) six possible lymph nodes, submitted whole (B16) two possible lymph nodes one inked and trisected the opposite bisected (B17) four possible lymph nodes, submitted whole (B18) two possible lymph nodes, submitted whole C. The specimen, labeled "small bowel mesenteric biopsy, additional segment of left colon," is received in formalin and consists of a previously opened segment of large bowel that is a 4.9 cm in length and has an average internal circumference of 6.3 cm. The serosal surface is pink and smooth. The mucosal surface is yellow-hayes and finely granular with a 0.3 x 0.2 x 0.2 cm red polypoid portion of mucosa that is 1.2 cm from the closest resection margin and 4.0 cm from the opposite resection margin. The bowel wall has an average thickness of 0.9 cm. The serosal surface corresponding to the polypoid mucosal areas inked blue. Upon dissection for possible lymph nodes are grossly identified that range in size from 0.4-0.9 cm. Strip Cleaner sections are submitted in five cassettes. Cassette summary: (C1) closest resection margin, shave (C2) opposite resection margin, shave (C3) polypoid tissue fragment, entirely submitted (gross inked blue) and uninvolved bowel wall (C4) three possible lymph nodes, submitted whole (C5) one possible lymph node, trisected. D. The specimen, labeled "Hussein Garcia," and designated on the requisition "small bowel mesenteric biopsy," is received in formalin and consists of one yellow-hayes needle core tissue fragment that is 1.6 cm in length and has an average diameter of 0.1 cm. The specimen is inked blue and entirely submitted in cassette D1. E. The specimen was not received at [facility]. Eloise Schneider from marketing has been notified. Processing of the received tissue has been PATIENT NAME: HUSSEIN GARCIA PATHOLOGY DATE OF : 41 REPORT #: [id number] PHYSICIAN: TANNER BORJAS PCP: WALDO STEPHENSON MD REPORT IS CONFIDENTIAL AND NOT TO BE RELEASED WITHOUT AUTHORIZATION [address] [address] Signed requested. F. The specimen, labeled "Hussein Garcia," and designated on the requisition "gallbladder," is received in formalin and consists of Specimen: Previously opened gallbladder. Dimensions: 8.4 x 4.3 x 1.6 cm. Serosa: Yellow-green and smooth. Cystic Duct: Patency cannot be grossly assessed. The resection margin is inked blue. Calculi: Brown-black firm roughened stones, aggregate measurement 0.8 x 0.7 x 0.4 cm. Mucosa: Green and velvety with focal areas of yellow polypoid soft tissue fragments that measure up to 0.4 cm in greatest dimension. Wall thickness: 0.3 cm. Lymph node: No pericystic lymph nodes are grossly identified. Additional: Present at the fundus is a thinned cystic area of the gallbladder wall measuring 1.4 x 0.9 x 0.6 cm. Strip Cleaner sections are submitted in cassette (F1). FB (under the direct supervision of a pathologist) The Gross Description was prepared using a voice recognition system. The report was reviewed for accuracy; however, sound-alike word errors, addition and/or deletions may occur. If there is any question about this report, please contact Client Services. PERFORMING LABORATORY: The technical component [place] [address] [address] Operator: Erika Cagle MD; CLIA# [id number]). Professional interpretation was performed by [place] [address] (CLIA# [id number]). Diagnostician: Yoon Sherman MD Pathologist Electronically Signed 07/22/2020 Copies: ~ PATIENT NAME: HUSSEIN GARCIA PATHOLOGY DATE OF : 41 REPORT #: [id number] PHYSICIAN: TANNER BORJAS PCP: WALDO STEPHENSON MD REPORT IS CONFIDENTIAL AND NOT TO BE RELEASED WITHOUT AUTHORIZATION
== END 2020-07-18 10:55 | disposition home or self-care (01) | DRG 330 ==
LOC: ED 23:33 → MS 23:35
PROVIDERS: Surgery; ADMIT Internal Medicine; ATTEND Internal Medicine
PROC: 0DBM8ZX Excision of Descending Colon, Via Natural or Artificial Opening Endoscopic, Diagnostic (ICD-10-PCS; principal; 2020-07-12 13:30)
PROC: 0FT40ZZ Resection of Gallbladder, Open Approach (ICD-10-PCS; 2020-07-13)
PROC: 0DB80ZX Excision of Small Intestine, Open Approach, Diagnostic (ICD-10-PCS; 2020-07-13)
PROC: 0FB10ZX Excision of Right Lobe Liver, Open Approach, Diagnostic (ICD-10-PCS; 2020-07-13)
PROC: BF10YZZ Fluoroscopy of Bile Ducts using Other Contrast (ICD-10-PCS; 2020-07-13)
PROC: 3E0T3BZ Introduction of Anesthetic Agent into Peripheral Nerves and Plexi, Percutaneous Approach (ICD-10-PCS; 2020-07-13)
PROC: 0DTG0ZZ Resection of Left Large Intestine, Open Approach (ICD-10-PCS; 2020-07-13 08:00)
DX: C18.6 Malignant neoplasm of descending colon (principal); K80.10 Calculus of gallbladder with chronic cholecystitis without obstruction; Z20.822 Contact with and (suspected) exposure to COVID-19; G89.18 Other acute postprocedural pain; K76.89 Other specified diseases of liver; I10 Essential (primary) hypertension; J45.909 Unspecified asthma, uncomplicated; E11.9 Type 2 diabetes mellitus without complications; E78.00 Pure hypercholesterolemia, unspecified; I49.5 Sick sinus syndrome; R26.89 Other abnormalities of gait and mobility; I25.10 Atherosclerotic heart disease of native coronary artery without angina pectoris; I48.91 Unspecified atrial fibrillation; Z95.5 Presence of coronary angioplasty implant and graft; Z95.0 Presence of cardiac pacemaker; Z88.8 Allergy status to other drugs, medicaments and biological substances; Z79.899 Other long term (current) drug therapy; Z79.84 Long term (current) use of oral hypoglycemic drugs; Z79.82 Long term (current) use of aspirin
CPT/HCPCS: 00790; 36415; 64488; 74300; 76942; 80048; 80053; 80069; 81001; 82247; 82378; 82465; 83615; 84100; 84478; 84550; 85025; 85610; 85730; 86850; 86900; 86901; 86920; 88304; 88305; 88307; 88309; 88341; 96374; 96375; 97110; 97162; 99285-25; A9270; C9113; C9803; J0131; J0330; J0694; J1100; J1720; J1815; J1885; J2250; J2405; J2704; J2765; J2795; J3010; J7030; J7121; Q9967; U0003

== ENCOUNTER 2020-08-27 08:47 | Day surgery (SDC) | payer MEDICARE, OTHER ==
[~2020-08-27] VITALS: Ht 177.8 cm; Wt 97.7 kg
[~2020-08-27 08:47] MED LIST changes: +ACETAMINOPHEN500 MG PO; +FUROSEMIDE20 MG PO; +IBUPROFEN600 MG PO
--- NOTE | 2020-08-27 12:30 | NUR ---
08/27/20 1230 Joya Bell 1221-PATIENT ARRIVED TO PACU ON 6L MASK RR EVEN. APACED. IVF INFUSING. PORT A CATH DRESSING INTACT AND ACCESSED. PATIENT REACTIVE TO VERBAL STIMULI SLIGHTLY OPENING EYES. 1225-XRAY AT BEDSIDE HOB ELEVATED PATIENT REACTIVE TO VERBAL STIMULI OPENING EYES DENIES PAIN OR NAUSEA. 6L MASK 100% 1229-PATIENT PLACED ON RA RR EVEN 100% PATIENT VERY DROWSY REPORTS A "LITTLE LIGHTHEADED" HOB LOWERED AND PATIENT DOZES BACK TO SLEEP.
[2020-08-27] MEDS ORDERED: OXYCODON-ACETA1 EAC2 PO (12:51)
[2020-08-27] MEDS ORDERED: ACETAMINOPHEN500 MG PO (12:51)
[2020-08-27] MEDS ORDERED: IBUPROFEN600 MG PO (12:51)
--- NOTE | 2020-08-27 21:09 | OR ---
[facility] [address], [place] [address] Signed DATE OF OPERATION: 08/27/2020 SURGEON: Kisha Sandhu MD PREOPERATIVE DIAGNOSIS: Stage III colon cancer, need for chemotherapy. POSTOPERATIVE DIAGNOSIS: Stage III colon cancer, need for chemotherapy. PROCEDURES: 1. Right internal jugular ultrasound assisted venous access. 2. Placement of right internal jugular Port-A-Cath device (Bard port catheter). 3. Surgeon-directed fluoroscopy. ANESTHESIA: Local with monitored anesthesia care, Ameena Mohan CRNA and local 0.25% Marcaine with epinephrine 10 mL. INDICATION: This 74-year-old white man is a patient of Dr. 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 3 out of 23 lymph nodes of the mesentery were found to be positive for metastatic disease. He had a hepatic lesion in the right lobe, which was excised. There was some suspicion of malignancy, but the specimen was lost in pathology lab and therefore the actual etiology is uncertain. He has reviewed his situation with Dr. Melendez and plans were made for chemotherapy, which will be starting tomorrow. A Port-A-Cath device has been recommended for chemotherapy administration. The patient and his family understand the risk of bleeding, infection, pneumothorax, and other unforeseen complications and wished to proceed. Of special note, the patient has a dual-chamber pacemaker from the left infraclavicular space and on that basis, a right internal jugular approach is anticipated. The risk of bleeding, infection, pneumothorax, and other unforeseen complications were reviewed with him. He understands and wished to proceed. Electronically Signed By: KISHA SANDHU MD 08/27/20 2109 PATIENT NAME: HUSSEIN GARCIA OPERATIVE REPORT DATE OF : 41 REPORT #: [id number] PHYSICIAN: KISHA SANDHU MD PCP: WALDO XAVIER MD REPORT IS CONFIDENTIAL AND NOT TO BE RELEASED WITHOUT AUTHORIZATION [facility] [address], [place] [address] Signed FINDINGS: Placement of catheter with the tip in the superior vena cava in the atriocaval junction was accomplished without problem. The port lies over the right pectoralis muscle as a gentle curve. No evidence of kinking or impediment and functions well. DESCRIPTION OF PROCEDURE: The patient was brought to the operating room and in the supine position given intravenous sedation. Preoperative antibiotics were given. The upper torso was prepared with a chlorhexidine solution and draped sterilely. A sterilely draped ultrasound device was applied over the right internal jugular area identifying ultimately the carotid artery and the jugular vein. Slight Trendelenburg position was maintained. 0.25% Marcaine with epinephrine was injected locally. Under direct visualization, a needle was advanced to the area of the internal jugular vein and once the vein entered dark nonpulsatile blood was noted. A flexible J-wire was passed through the needle. Fluoroscopy was then undertaken confirming the wire to be in the right heart system. Visualized additionally were the catheters from the pacemaker device and these were unencumbered by the wire. The pocket was created over the right pectoralis after injection of local anesthetic transversely and dissection carried through the dermis with electrocautery and blunt dissection creating a pocket. A Bard port device is partially secured to the pectoralis fascia. The right lateral neck site from which the wire emanated was incised with an #11 blade. A dilator and subsequently dilator and peel-away introducer was passed over the wire and a previously inspected Groshong-type catheter passed through the sheath. The sheath was then removed without problem. Under fluoroscopic control in the neutral position, the catheter was repositioned to the superior vena cava in the atriocaval junction. A tunneling device was used to transport the catheter in the subcutaneous space. Upon withdrawal of the catheter, dislodgement of the catheter was noted making it completely out of alignment and therefore the catheter was removed entirely. Though this was unfortunate, it was without too much delay and repeat of all of the steps previously mentioned undertaken and the catheter delivered to the port site, cut to the appropriate length and attached to the port device within close collar device per manufacture's instructions. Under fluoroscopic control, the catheter was found to have a gentle curve. The tip of the catheter was in the superior vena cava in the atriocaval junction. There is no encumbrance to the pacemaker wires. The port pocket was then closed with interrupted 2-0 Vicryl and a running subcuticular 3-0 Vicryl for the skin. Steri-Strips were applied, as was closure similarly performed for the right lateral Electronically Signed By: KISHA SANDHU MD 08/27/20 8794 PATIENT NAME: HUSSEIN GARCIA OPERATIVE REPORT DATE OF : 41 REPORT #: [id number] PHYSICIAN: KISHA SANDHU MD PCP: WALDO XAVIER MD REPORT IS CONFIDENTIAL AND NOT TO BE RELEASED WITHOUT AUTHORIZATION [address] [address] Signed small puncture site. The port itself was accessed as recommended anticipating chemotherapy tomorrow and appears to be functioning well. An anti-infective disk was applied as was an Op-Site dressing. The patient was ultimately taken to the recovery room in good condition having suffered no complications. Sponge, needle, and instrument counts were reported as correct x3. MD LAURIE Brito/ANGÉLICAL /[id number] cc: MD Ricardo Smith MD Copies: WALDO XAVIER MD, ROBERT C MD ~ Electronically Signed By: KISHA SANDHU MD 08/27/20 2109 PATIENT NAME: HUSSEIN GARCIA OPERATIVE REPORT DATE OF : 41 REPORT #: [id number] PHYSICIAN: KISHA SANDHU MD PCP: WALDO XAVIER MD REPORT IS CONFIDENTIAL AND NOT TO BE RELEASED WITHOUT AUTHORIZATION
== END 2020-08-27 13:40 | disposition home or self-care (01) ==
LOC: DS 08:47
PROVIDERS: ATTEND Surgery
PROC: 05HM33Z Insertion of Infusion Device into Right Internal Jugular Vein, Percutaneous Approach (ICD-10-PCS; principal; 2020-08-27 09:45)
DX: C18.6 Malignant neoplasm of descending colon (principal); C77.2 Secondary and unspecified malignant neoplasm of intra-abdominal lymph nodes; I48.91 Unspecified atrial fibrillation; I25.10 Atherosclerotic heart disease of native coronary artery without angina pectoris; I25.2 Old myocardial infarction; J45.909 Unspecified asthma, uncomplicated; I49.8 Other specified cardiac arrhythmias; G47.33 Obstructive sleep apnea (adult) (pediatric); E78.00 Pure hypercholesterolemia, unspecified; E11.22 Type 2 diabetes mellitus with diabetic chronic kidney disease; I12.9 Hypertensive chronic kidney disease with stage 1 through stage 4 chronic kidney disease, or unspecified chronic kidney disease; N18.9 Chronic kidney disease, unspecified; Z90.49 Acquired absence of other specified parts of digestive tract; Z95.0 Presence of cardiac pacemaker; Z91.018 Allergy to other foods; Z95.5 Presence of coronary angioplasty implant and graft; Z79.82 Long term (current) use of aspirin; Z88.5 Allergy status to narcotic agent; Z79.84 Long term (current) use of oral hypoglycemic drugs; Z95.1 Presence of aortocoronary bypass graft
CPT/HCPCS: 00532; 71045; 77001; 80053; 82378; 83615; 85025; C1788; J0690; J1644; J2001; J2250; J2704; J7121

== ENCOUNTER 2020-09-20 00:53 | Emergency (ER) | payer MEDICARE, OTHER ==
[~2020-09-20] VITALS: Ht 177.8 cm; Wt 97.5 kg
[~2020-09-20 00:53] MED LIST changes: +OXYCODON-ACETA1 EAC2 PO
--- OUTSIDE RECORDS SUMMARY | 2020-09-20 00:56 | XMS ---
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 [facility] VISIT COUNT (12 MO.) 4 JOSE [facility] TOTAL 4 NOTE: Visits indicate total known visits. 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 - Other specified diseases of intestine - Lower abdominal pain, unspecified - Unspecified asthma, uncomplicated - Allergy status to other drugs, medicaments and biological substances - Essential (primary) hypertension 12/21/2019 21:10 [facility] [place] TYPE: Emergency COMPLAINT: - LT MIDDLE FINGER INJURY DIAGNOSES: - Type 2 diabetes mellitus without complications - intermediate (current) use of aspirin - Other usp (current) drug therapy - Crushing injury of left ring finger, initial encounter - Crushing injury of left middle finger, initial encounter - Old myocardial infarction - Unspecified open wound of left middle finger with damage to nail, initial encounter - Unspecified asthma, uncomplicated - Essential (primary) hypertension INPATIENT VISIT TRACKING (12 MO.) 07/12/2020 12:20 [facility] [place] TYPE: Medical Surgical COMPLAINT: - GI BLEED DIAGNOSES: - Other acute postprocedural pain - Essential (primary) hypertension - Type 2 diabetes mellitus without complications - intermediate (current) use of oral hypoglycemic drugs - Unspecified asthma, uncomplicated - Sick sinus syndrome - Atherosclerotic heart disease of red devil coronary artery without angina pectoris - Unspecified atrial fibrillation - Pure hypercholesterolemia, unspecified - Calculus of gallbladder with chronic cholecystitis without obstruction - Presence of cardiac pacemaker - Hemorrhage of anus and rectum - Presence of coronary angioplasty implant and graft - Malignant neoplasm of descending colon - Sick sinus syndrome - Other specified diseases of liver - Unspecified asthma, uncomplicated - Other acute postprocedural pain - Presence of cardiac pacemaker - Calculus of gallbladder with chronic cholecystitis without obstruction - Allergy status to other drugs, medicaments and biological substances - Malignant neoplasm of descending colon - intermediate (current) use of oral hypoglycemic drugs - Other abnormalities of gait and mobility - Essential (primary) hypertension - Atherosclerotic heart disease of red devil coronary artery without angina pectoris - Unspecified atrial fibrillation - Other usp (current) drug therapy - Allergy status to other drugs, medicaments and biological substances - Type 2 diabetes mellitus without complications - intermediate (current) use of aspirin - Other abnormalities of gait and mobility - Other specified diseases of liver - Other roasterman (current) drug therapy - Pure hypercholesterolemia, unspecified - 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
[2020-09-20] MEDS ORDERED: DEXAMETHASONE4 MG PO (01:09)
[2020-09-20] MEDS ORDERED: ONDANSETRON ODT4 MG PO (01:11)
--- NOTE | 2020-09-20 07:12 | EKG ---
[facility] [address] [facility] [place], [place] [address] Signed Normal sinus rhythm Normal ECG When compared with ECG of 04-JUL-2019 10:48, No significant change was found Confirmed by MICHELLE IGLESIAS MD ([id number]) on 09/20/2020 7:12:13 AM Electronically Signed By: MICHELLE IGLESIAS MD 09/20/20711 PATIENT NAME: HUSSEIN GARCIA Electrocardiogram DATE OF : 41 PHYSICIAN: MICHELLE IGLESIAS MD REPORT #: [id number] REPORT IS CONFIDENTIAL AND NOT TO BE RELEASED WITHOUT AUTHORIZATION
== END 2020-09-20 05:06 | disposition home or self-care (01) ==
LOC: ED 00:53
DX: R07.89 Other chest pain (principal); I10 Essential (primary) hypertension; J45.909 Unspecified asthma, uncomplicated; E11.9 Type 2 diabetes mellitus without complications; E78.00 Pure hypercholesterolemia, unspecified; I25.2 Old myocardial infarction; Z88.8 Allergy status to other drugs, medicaments and biological substances; Z85.038 Personal history of other malignant neoplasm of large intestine; Z79.899 Other long term (current) drug therapy
CPT/HCPCS: 71045; 80053; 83735; 84484; 85025; 93005; 93010; 99285-25